=== PATIENT | female | born 1965 | race Caucasian/White ===

== ENCOUNTER 2019-01-05 06:00 | Inpatient (IN) | payer MEDICARE, OTHER ==
[~2019-01-05 06:00] MED LIST: Acetaminophen 1,000 MG in Premix Bag 1 BAG IV SCH; Famotidine 20 MG/2 ML SDV IVPUSH SCH; Ketorolac 30 MG/ML SDV IVPUSH SCH; Scopolamine 1.5 MG Transdermal Patch TRDERM SCH
[2019-01-05] MEDS ORDERED: Ropivacaine 49.25 ML, Ketorolac 30 MG, EPINEPHrine 0.5 MG, cloNIDine 80 MCG in Sodium C... INJECT SCH (08:00)
[2019-01-05] MEDS ORDERED: Tranexamic Acid 2,000 MG in Sodium Chloride 0.9% 100 ML IV ONE (08:00)
[2019-01-05] MEDS: Lactated Ringers 1,000 ML IV SCH ×2 (12:15→18:58)
--- NOTE | 2019-01-05 13:12 | PCM.PREANE ---
Preanesthetic Assessment - Anesthesia/Transfusion/Family Hx Anesthesia History: Prior Anesthesia Reaction Family History of Anesthesia Reaction: No Transfusion History: No Prior Transfusion(s) Intubation History: Unknown - Review of Systems General: No Symptoms Pulmonary: No Symptoms Cardiovascular: No Symptoms Gastrointestinal: No Symptoms Neurological: No Symptoms Other: Reports: None - Physical Assessment Respiratory Rate: 18 Vital Signs: Last Vital Signs Temp 36.9 C 01/05/19 12:10 Pulse 64 01/05/19 12:10 Resp 18 01/05/19 12:10 BP 135/83 01/05/19 12:10 Pulse Ox Height: 1.7 m Weight: 104.78 kg ASA Class: 2 Mental Status: Alert & Oriented x3 Airway Class: Mallampati = 2 Dentition: Reports: Partial (upper right and left), Interior(s) (x2 upper front and multiple lower) Thyro-Mental Finger Breadths: 3 Mouth Opening Finger Breadths: 3 ROM/Head Extension: Full Lungs: Clear to Auscultation, Normal Respiratory Effort Cardiovascular: Regular Rate, Regular Rhythm - Lab Values: Laboratory Last Values Blood Type O POSITIVE 01/05/19 12:15 Antibody Screen NEGATIVE 01/05/19 12:15 - Allergies Allergies/Adverse Reactions: Allergies Allergy/AdvReac Type Severity Reaction Status Date / Time celecoxib Allergy Swelling Verified 01/01/19 11:19 cephalexin [From Keflex] Allergy Hives Verified 01/01/19 11:19 Cephalosporins Allergy Hives Verified 01/01/19 11:19 ciprofloxacin [From Cipro] Allergy Hives Verified 01/01/19 11:19 ciprofloxacin HCl Allergy Hives Verified 01/01/19 11:19 [From Cipro] gentamicin Allergy Hives Verified 01/01/19 11:19 morphine Allergy Nausea and Verified 01/01/19 11:19 Vomiting Penicillins Allergy Rash Verified 01/01/19 11:19 anesthetic cream Allergy Hives Uncoded 01/01/19 11:19 - Blood Blood Available: No - Anesthesia Plan Pre-Op Medication Ordered: None - Acknowledgements Anesthesia Type Planned: Spinal (general anesthesia back up plan) Pt an Appropriate Candidate for the Planned Anesthesia: Yes Alternatives and Risks of Anesthesia Discussed w Pt/Guardian: Yes Pt/Guardian Understands and Agrees with Anesthesia Plan: Yes PreAnesthesia Questionnaire HEENT History: Reports: Other (See Below) Other HEENT History: has upper partial denture x2, has upper and lower dental implants Cardiovascular History: Reports: Hypertension Gastrointestinal History: Reports: GERD, Other (See Below) Other Gastrointestinal History: was previously thought to hace Ulcerative colitis, now is diagnosed with Cyclic Vomiting Syndrome- had recent episode Musculoskeletal History: Reports: Osteoarthritis Psychiatric History: Reports: Anxiety, Depression Endocrine/Metabolic History: Reports: Obesity/BMI 30+ Hematologic History: Reports: B12 Deficiency Dermatologic History: Reports: Psoriasis Other Dermatologic History: has Palmar Plantar Pustular psoriasis - Past Surgical History Head Surgeries/Procedures: Reports: None HEENT Surgical History: GI Surgical History: Reports: Cholecystectomy Female Surgical History: Reports: Hysterectomy, Salpingo-Oophorectomy, Tubal Ligation, Other (See Below) Other Female Surgeries/Procedures: Laparoscopies with Ovarian Wedge resection and Lysis of Adhesions Musculoskeletal Surgical History: Reports: Arthroscopic Knee, ORIF Other Musculoskeletal Surgeries/Procedures:: ACL repair left knee, ORIF right ankle (has plate and screws) - SUBSTANCE USE Smoking Status *Q: Former Smoker Tobacco Use Within Last Twelve Months: No Days Per Week of Alcohol Use: 1 Number of Drinks Per Day: 2 Total Drinks Per Week: 2 Recreational Drug Use History: No - HOME MEDS Home Medications: Home Meds Clobetasol [Clobetasol Propionate 0.05% Cream] 1 dose TOP BID PRN 01/01/19 [ History] Cyanocobalamin (Vitamin B-12) [Cyanocobalamin Injection] 1,000 mcg IM ASDIRECTED 01/01/19 [History] Escitalopram Oxalate 10 mg PO DAILY 01/01/19 [History] Estropipate 1.5 mg PO DAILY 01/01/19 [History] Losartan [Cozaar] 12.5 mg PO QAM 01/01/19 [History] Methotrexate 7.5 mg PO WEEKLY 01/01/19 [History] - CURRENT (IN HOUSE) MEDS Current Meds: Current Medications Famotidine (Pepcid) 40 mg IVPUSH ONARRIVE CAM Last Admin: 01/05/19 12:26 Dose: 40 mg Acetaminophen 1,000 mg/ Premix 100 mls @ 400 mls/hr IV ONARRIVE CAM Last Admin: 01/05/19 12:33 Dose: 400 mls/hr Clindamycin Phosphate 900 mg/ (Sodium Chloride) 56 mls @ 100 mls/hr IV ONCALL CAM Ropivacaine 49.25 ml/Ketorolac Tromethamine 30 mg/Epinephrine HCl 0.5 mg/ Clonidine HCl 80 mcg/ Sodium Chloride 100 mls @ 50 mls/sec INJECT ASDIRECTED [facility] Lactated Ringer's (Ringers, Lactated) 1,000 mls @ 100 mls/hr IV ASDIRECTED [facility] Last Admin: 01/05/19 12:15 Dose: 100 mls/hr Ketorolac Tromethamine (Toradol) 30 mg IVPUSH ONARRIVE [facility] Last Admin: 01/05/19 12:30 Dose: 30 mg Scopolamine (Transderm-Scop) 1.5 mg TRDERM ONARRIVE [facility] Last Admin: 01/05/19 12:40 Dose: 1.5 mg Discontinued Medications Tranexamic Acid 2,000 mg/ (Sodium Chloride) 120 mls @ 600 mls/hr IV ASDIRECTED ONE Stop: 01/05/19 08:11 Tranexamic Acid (Cyklokapron) Confirm Administered Dose 2,000 mg .ROUTE .[facility] ONE Stop: 01/05/19 07:36
[2019-01-05] MEDS ORDERED: Clindamycin Phosphate in D5W 900 MG in Premix Bag 1 BAG IV SCH ×4 (13:17→13:35)
[2019-01-05] MEDS ORDERED: Ondansetron 4 MG/2 ML SDV ONE (14:13)
[2019-01-05] MEDS ORDERED: Lidocaine 2% 5 ML SDV ONE (14:13)
[2019-01-05] MEDS ORDERED: Propofol 200 MG/20 ML SDV ONE ×2 (14:14→15:42)
[2019-01-05] MEDS ORDERED: fentaNYL 100 MCG/2 ML SDV ONE (14:14)
[2019-01-05] MEDS ORDERED: Midazolam 1 MG/ML 2 ML SDV ONE (14:14)
[2019-01-05] MEDS ORDERED: Glycopyrrolate 0.2 MG/ML SDV ONE ×2 (15:41→15:44)
[2019-01-05] MEDS ORDERED: Sodium Chloride 0.9% 2.5 ML Syringe FLUSH PRN (16:11)
[2019-01-05] MEDS ORDERED: Bisacodyl 10 MG Supp RECTAL PRN (16:11)
[2019-01-05] MEDS ORDERED: Sodium Chloride 0.9% 10 ML Syringe FLUSH PRN (16:11)
[2019-01-05] MEDS ORDERED: Ondansetron 4 MG/2 ML SDV IVPUSH PRN (16:11)
[2019-01-05] MEDS ORDERED: Aluminum Hydroxide/Magnesium Hydroxide/Simethicone Susp 30 ML Cup PO PRN (16:11)
[2019-01-05] MEDS ORDERED: diphenhydrAMINE 25 MG Cap PO PRN (16:11)
[2019-01-05] MEDS ORDERED: Morphine PF 30 MG/30 ML PCA Vial IV PRN (16:16)
--- NOTE | 2019-01-05 16:30 | PCM.OPNOTE ---
- General Post-Op/Procedure Note Date of Surgery/Procedure: 01/05/19 Operative Procedure(s): L TKA Post-Op Diagnosis: DJD left knee Anesthesia Technique: Spinal Primary Surgeon: Susanne Muse Political Cartoonist: Sylvie Adames Political Cartoonist: Alisa Portillo in mLs: 50 Condition: Good Free Text/Narrative:: tt=42 min #[id number]
--- NOTE | 2019-01-05 19:21 | OR ---
SURGEON: Susanne Muse MD DATE OF PROCEDURE: 01/05/2019 PREOPERATIVE DIAGNOSIS: Degenerative joint disease, left knee, tricompartmental. POSTOPERATIVE DIAGNOSIS: Degenerative joint disease, left knee, tricompartmental. PROCEDURE: Left total knee arthroplasty using patient specific instrumentation. ASSISTANTS: YAO Skelton and Alisa Portillo PA-C ANESTHESIA: Spinal with sedation. ESTIMATED BLOOD LOSS: 50 mL. TOURNIQUET TIME: 42 minutes. COMPLICATIONS: None. DVT PROPHYLAXIS: PAS boot and MICHAEL hose to the nonoperative leg. IMPLANTS USED: Shane Persona femoral component size 8 standard (LPS), tibial component size E, 11 mm all-polyethylene articular surface, and 38 mm all-polyethylene patella. INTRAOPERATIVE FINDINGS: Showed severe tricompartmental degenerative changes. She had complete eburnation of the bone along the trochlear groove and along the undersurface of the patella. Osteophyte formation was noted as well. No significant synovitis was found. BRIEF HISTORY: Rossana is a 53-year-old female who has had complaint of progressive left knee pain. Her x-rays did confirm degenerative changes. She had failed conservative treatment. Due to her lack of response to conservative treatment, I did recommend surgical intervention. The risks and goals of procedure were discussed with the patient and were documented preoperatively. She agreed to proceed. DESCRIPTION OF PROCEDURE: The patient was properly identified and brought to the operating room. The patient was then transferred from the operating room cart and placed on the operating table in a supine position. Anesthesia was administered by the anesthesia staff. After adequate anesthesia was obtained, a well-padded tourniquet was applied to the surgical lower extremity. Vasquez catheter was placed. The lower extremity was then prepped in standard fashion using ChloraPrep solution. It was then sterilely draped. A time-out was performed to ensure correct site and procedure. Preoperative antibiotics were given along with one gram of tranexamic acid IV. The surgical site had been marked preoperatively. An Esmarch was used to exsanguinate the left lower extremity and the tourniquet was inflated. An incision was made over the anterior aspect of the knee. The subcutaneous tissues were dissected down to the level of the fascia. A medial parapatellar approach to the knee was made. A portion of the infrapatellar fat pad was then excised. The distal femur was then exposed. The femoral patient-specific cutting guide was then placed. Pins were also placed. The distal femoral cutting block was placed and the distal femoral cut was made. Instrumentation was then removed. Both Whitesides' line and the epicondylar axis were then marked with electrocautery. The 4-in-1 cutting block was placed. This was placed in a slightly externally rotated position, which corresponded well with the previously drawn lines. The cutting guide was then pinned into position. An [place]w wing guide was used to check the depth of resection of our anterior condylar cut and it was felt that no notching would occur. The anterior condylar cut was then made followed by the posterior condylar cut. Both the posterior chamfer and anterior chamfer cuts were then made. The cutting block was then removed along with the excess bony remnants. We then turned our attention to the tibia. The anterior cruciate ligament and posterior cruciate ligament were released and a posterior cruciate ligament retractor was placed to allow the tibia to be pulled anteriorly. The tibial patient-specific guide was then placed on the proximal tibia. This fit anatomically. The pins were then placed. The proximal tibia cutting guide was then placed and screwed into position. The proximal tibial resection was then made with care being taken to protect the patellar tendon. The bony resection was then removed. The remainder of the medial and lateral meniscus were then excised. Care was taken to protect the popliteus tendon. The tibia was then sized to the appropriate size. The distal femur was then elevated. The posterior capsule was stripped off the distal femur both medially and laterally. The posterior capsule along with the medial and lateral gutters were then injected with a standard mixture consisting of clonidine, epinephrine, Toradol, and Ropivacaine, unless any allergies were found preoperatively. The femoral component was then placed onto the distal femur in a slightly lateral position. This fit the femur well. A box cut was then made without difficulty. This was then removed. The tibial trial along with the polyethylene liner was then placed. The knee came easily into full extension and was stable to varus and valgus stressing both in full extension and flexion. Any additional releases were performed at this time. We then returned our attention to the patella. The patella was everted and towel clamps were used to hold the patella in position. It was resected to a 15 millimeter thickness. It was then sized to the appropriate size. It was prepared in the usual fashion after placing the predetermined size clamps. This was placed in a slightly superior and medial position. The clamp was then removed. The patellar trial button was placed. The knee was taken through a range of motion using the no-touch technique. The patella tracked centrally. A drop cory was then placed to check alignment. All instruments were then removed from the knee. The tibial sizer was then placed on the tibia. The tibia was prepared in the usual fashion using the reamer and broach. This was then removed. All bony surfaces were copiously irrigated with Pulsavac solution. They were then suctioned dry. Cement was prepared on the back table in the usual manner. Once it was prepared, the bone ends were again suctioned dry. The tibia was cemented into place first. This was malleted into position. Excess cement was then cleared. The femur was then placed in a similar manner. We placed the polyethylene trial into place and the knee was brought into full extension. An axial load was placed while keeping the knee in full extension. The patella button was also cemented into position and the clamp was used to hold this in place as the cement was allowed to cure. The wound was again copiously irrigated with saline solution using a Pulsavac jacquard loom fixer. Following this 1 g of tranexamic acid was applied to the wound topically. After we had adequate curing of the cement, the knee was again taken through a range of motion. The size of the polyethylene was then determined. The polyethylene trial was then removed. The tibial tray was suctioned to make sure there was no remaining soft tissue or cement. Excess cement was cleared from around the edges of the prosthesis as well. The tourniquet was then deflated. We were able to observe for any excess bleeding and none was noted. Electrocautery was used to maintain hemostasis. An additional gram of tranexamic acid was given IV. The retractors were again placed and the predetermined polyethylene was then placed. This was locked into position without difficulty. The knee was again taken through a range of motion with no change from the prior exam. The fascial layer was closed with Number One Vicryl. The subcutaneous tissues were closed with 2-0 Vicryl. The skin was closed with paolo. Xeroform gauze was placed over the wound and a bulky dressing was applied. The patient was then awakened from anesthesia and transferred back to the operating room cart. They were brought to the recovery room in stable condition. All needle and sponge counts were correct. KELLY / MACARIO /[id number]
[2019-01-05] MEDS: Acetaminophen 1,000 MG in Premix Bag 1 BAG IV SCH (20:08)
[2019-01-05] MEDS: Ketorolac 30 MG/ML SDV IVPUSH SCH (20:08)
[2019-01-05] MEDS: Clindamycin Phosphate in D5W 900 MG in Premix Bag 1 BAG IV SCH ×2 (22:05)
[2019-01-05] MEDS: Docusate Sodium 100 MG Cap PO PRN (22:05)
[2019-01-05] MEDS: oxyCODONE 5 MG Tab PO PRN (22:05)
[2019-01-06] MEDS: Morphine 4 MG/ML Syringe IVPUSH PRN ×2 (00:24→19:43)
[2019-01-06] MEDS: oxyCODONE 5 MG Tab PO PRN (01:57)
[2019-01-06] MEDS: Acetaminophen 1,000 MG in Premix Bag 1 BAG IV SCH ×2 (01:58→08:30)
[2019-01-06] MEDS: Ketorolac 30 MG/ML SDV IVPUSH SCH (01:58)
[2019-01-06] MEDS ORDERED: Morphine 2 MG/ML Syringe IVPUSH PRN (06:00)
[2019-01-06] MEDS: Clindamycin Phosphate in D5W 900 MG in Premix Bag 1 BAG IV SCH ×2 (06:01)
[2019-01-06] MEDS: Acetaminophen/oxyCODONE 325-5 MG Tab PO PRN ×2 (06:18→10:19)
[2019-01-06] MEDS: Famotidine 20 MG Tab PO SCH (08:21)
[2019-01-06] MEDS: Losartan 50 MG Tab PO SCH (08:22)
[2019-01-06] MEDS: Escitalopram 10 MG Tab PO SCH (08:22)
[2019-01-06] MEDS: Aspirin 325 MG Tab PO SCH ×2 (08:43→20:03)
[2019-01-06] MEDS: Polyethylene Glycol 3350 Powder 17 GM Packet PO SCH (08:44)
--- NOTE | 2019-01-06 10:20 | PCM48HPAN ---
Post Anesthesia Note - EVALUATION WITHIN 48HRS OF ANESTHETIC Vital Signs in Normal Range: Yes Patient Participated in Evaluation: Yes Respiratory Function Stable: Yes Airway Patent: Yes Cardiovascular Function Stable: Yes Hydration Status Stable: Yes Pain Control Satisfactory: Yes Nausea and Vomiting Control Satisfactory: Yes Mental Status Recovered: Yes Resp Rate: 18 Blood Pressure: 144/83
--- NOTE | 2019-01-06 14:20 | PCM.SURGPN ---
- General Info POD#: 1 Functional Status: Reports: Pain Controlled - Review of Systems General: Reports: No Symptoms HEENT: Reports: No Symptoms Pulmonary: Reports: No Symptoms Cardiovascular: Reports: No Symptoms Gastrointestinal: Reports: No Symptoms Genitourinary: Reports: No Symptoms Musculoskeletal: Reports: Joint Pain Skin: Reports: No Symptoms Neurological: Reports: No Symptoms Psychiatric: Reports: No Symptoms Systems Review Comment:: Patient seen and examined. She is currently lying in bed. She states that her pain has been well-controlled. She did participate in physical therapy this morning and did well. She has no other complaints today. - Patient Data Vitals - Most Recent: Last Vital Signs Temp 98.1 F 01/06/19 12:15 Pulse 62 01/06/19 12:15 Resp 14 01/06/19 12:15 BP 130/86 01/06/19 12:15 Pulse Ox 96 01/06/19 12:15 Weight - Most Recent: 104.78 kg I&O - Last 24 Hours: Intake & Output 01/05/19 01/06/19 01/06/19 22:59 06:59 14:59 Intake Total 1949 2033 Output Total 2024 Balance 1950 9 Lab Results Last 24 Hrs: Laboratory Results - last 24 hr 01/06/19 Range/Units 05:10 Hgb 12.1 (12.0-16.0) g/dL Hct 37.3 (36.0-46.0) % Med Orders - Current: Current Medications Al Hydroxide/Mg Hydroxide (Mag-Al Plus) 30 ml PO Q4H PRN PRN Reason: Indigestion Aspirin (Aspirin) 325 mg PO BID [facility] Last Admin: 01/06/19 08:43 Dose: 325 mg Bisacodyl (Dulcolax) 10 mg RECTAL DAILY PRN PRN Reason: Constipation Diphenhydramine HCl (Benadryl) 25 - 50 mg PO Q6H PRN PRN Reason: Itching Docusate Sodium (Colace) 100 mg PO BID PRN PRN Reason: Constipation Last Admin: 01/05/19 22:05 Dose: 100 mg Escitalopram Oxalate (Lexapro) 10 mg PO DAILY [facility] Last Admin: 01/06/19 08:22 Dose: 10 mg Famotidine (Pepcid) 40 mg PO DAILY [facility] Last Admin: 01/06/19 08:21 Dose: 40 mg Lactated Ringer's (Ringers, Lactated) 1,000 mls @ 100 mls/hr IV ASDIRECTED [facility] Last Admin: 01/05/19 18:58 Dose: 100 mls/hr Losartan Potassium (Cozaar) 12.5 mg PO QAM [facility] Last Admin: 01/06/19 08:22 Dose: 12.5 mg Morphine Sulfate (Morphine) 1 - 3 mg IVPUSH Q3H PRN PRN Reason: Pain Last Admin: 01/06/19 00:24 Dose: 2 mg Ondansetron HCl (Zofran) 4 mg IVPUSH Q6H PRN PRN Reason: Nausea/Vomiting Last Admin: 01/06/19 14:08 Dose: 4 mg Oxycodone/Acetaminophen (Percocet 325-5 Mg) 1 - 2 tab PO Q4H PRN PRN Reason: Pain Last Admin: 01/06/19 10:19 Dose: 2 tab Polyethylene Glycol (Miralax) 17 gm PO DAILY [facility] Last Admin: 01/06/19 08:44 Dose: 17 gm Scopolamine (Transderm-Scop) 1.5 mg TRDERM ONARRIVE [facility] Last Admin: 01/05/19 12:40 Dose: 1.5 mg Sodium Chloride (Saline Flush) 10 ml FLUSH ASDIRECTED PRN PRN Reason: Keep Vein Open Sodium Chloride (Saline Flush) 2.5 ml FLUSH ASDIRECTED PRN PRN Reason: Keep Vein Open Discontinued Medications Famotidine (Pepcid) 40 mg IVPUSH ONARRIVE [facility] Last Admin: 01/05/19 12:26 Dose: 40 mg Fentanyl (Sublimaze) Confirm Administered Dose 100 mcg .ROUTE .STK-MED ONE Stop: 01/05/19 14:15 Glycopyrrolate (Robinul) Confirm Administered Dose 0.2 mg .ROUTE .STK-MED ONE Stop: 01/05/19 15:42 Glycopyrrolate (Robinul) Confirm Administered Dose 0.2 mg .ROUTE .STK-MED ONE Stop: 01/05/19 15:45 Acetaminophen 1,000 mg/ Premix 100 mls @ 400 mls/hr IV ONARRIVE [facility] Last Admin: 01/05/19 12:33 Dose: 400 mls/hr Clindamycin Phosphate 900 mg/ (Sodium Chloride) 56 mls @ 100 mls/hr IV ONCALL [facility] Ropivacaine 49.25 ml/Ketorolac Tromethamine 30 mg/Epinephrine HCl 0.5 mg/ Clonidine HCl 80 mcg/ Sodium Chloride 100 mls @ 50 mls/sec INJECT ASDIRECTED [facility] Tranexamic Acid 2,000 mg/ (Sodium Chloride) 120 mls @ 600 mls/hr IV ASDIRECTED ONE Stop: 01/05/19 08:11 Last Admin: 01/05/19 17:48 Dose: Not Given Clindamycin Phosphate 900 mg/ (Premix) 50 mls @ 89.286 mls/hr IV ONCALL [facility] Clindamycin Phosphate 900 mg/ (Premix) 50 mls @ 89.286 mls/hr IV ONCALL [facility] Acetaminophen 1,000 mg/ Premix 100 mls @ 400 mls/hr IV Q6H [facility] Stop: 01/06/19 08:14 Last Admin: 01/06/19 08:30 Dose: 400 mls/hr Clindamycin Phosphate 900 mg/ (Premix) 50 mls @ 100 mls/hr IV Q8H [facility] Stop: 01/06/19 07:29 Last Admin: 01/06/19 06:01 Dose: 100 mls/hr Ketorolac Tromethamine (Toradol) 30 mg IVPUSH ONARRIVE [facility] Last Admin: 01/05/19 12:30 Dose: 30 mg Ketorolac Tromethamine (Toradol) 30 mg IVPUSH Q6H [facility] Stop: 01/06/19 05:00 Last Admin: 01/06/19 01:58 Dose: 30 mg Lidocaine (Xylocaine-Mpf 2%) Confirm Administered Dose 5 ml .ROUTE .STK-MED ONE Stop: 01/05/19 14:14 Midazolam HCl (Versed 1 Mg/Ml) Confirm Administered Dose 2 mg .ROUTE .STK-MED ONE Stop: 01/05/19 14:15 Morphine Sulfate (Morphine Hot Plate Press Operator 30 Mg In 30 Ml) 30 mg IV ASDIRECTED PRN; Protocol PRN Reason: Pain Stop: 01/06/19 06:00 Morphine Sulfate (Morphine) 1 - 3 mg IVPUSH Q3H PRN PRN Reason: Pain Ondansetron HCl (Zofran) Confirm Administered Dose 4 mg .ROUTE .STK-MED ONE Stop: 01/05/19 14:14 Oxycodone HCl (Oxycodone) 5 - 10 mg PO Q4H PRN PRN Reason: Pain Stop: 01/06/19 08:00 Last Admin: 01/06/19 01:57 Dose: 10 mg Propofol (Diprivan 20 Ml) Confirm Administered Dose 600 mg .ROUTE .STK-MED ONE Stop: 01/05/19 14:15 Propofol (Diprivan 20 Ml) Confirm Administered Dose 400 mg .ROUTE .STK-MED ONE Stop: 01/05/19 15:43 Tranexamic Acid (Cyklokapron) Confirm Administered Dose 2,000 mg .ROUTE .STK- MED ONE Stop: 01/05/19 07:36 - Exam Wound/Incisions: Dressing Dry and Intact General: Alert, Oriented Physical Findings Comment:: Exam of the knee shows a dressing to be dry and intact. She has no calf tenderness. AT/EHL/gastroc 5/5. Sensation grossly intact. DP/PT pulses 2+. - Problem List Review Problem List Initiated/Reviewed/Updated: Yes - My Orders Last 24 Hours: Active Orders 24 hr Category Date Time Status Neurovascular Check [RC] Q2HR Care 01/05/19 16:11 Active Notify Provider Vital Signs [RC] ASDIRECTED Care 01/05/19 16:11 Active RT Incentive Spirometry [RC] Q1HWA Care 01/05/19 16:11 Active Vital Signs [RC] Q4H Care 01/05/19 16:11 Active Wound Care [RC] DAILY Care 01/05/19 16:11 Active PT Evaluation and Treatment [CONS] Routine Cons 01/05/19 16:11 Active Regular Diet [DIET] Diet 01/05/19 Dinner Active HEMOGLOBIN/HEMATOCRIT,HH [HEME] DAILY Lab 01/07/19 06:00 Ordered Acetaminophen/oxyCODONE [Percocet 325-5 MG] Med 01/06/19 06:00 Active 1 - 2 tab PO Q4H PRN Alum Hydrox/Mag Hydrox/Simeth [Mag-Al Plus] Med 01/05/19 16:11 Active 30 ml PO Q4H PRN Aspirin Med 01/06/19 09:00 Active 325 mg PO BID Bisacodyl [Dulcolax] Med 01/05/19 16:11 Active 10 mg RECTAL DAILY PRN Docusate Sodium [Colace] Med 01/05/19 21:00 Active 100 mg PO BID PRN Escitalopram [Lexapro] Med 01/06/19 09:00 Active 10 mg PO DAILY Famotidine [Pepcid] Med 01/06/19 09:00 Active 40 mg PO DAILY Losartan [Cozaar] Med 01/06/19 09:00 Active 12.5 mg PO QAM Morphine Med 01/05/19 16:34 Active 1 - 3 mg IVPUSH Q3H PRN Ondansetron [Zofran] Med 01/05/19 16:11 Active 4 mg IVPUSH Q6H PRN Polyethylene Glycol 3350 [MiraLAX] Med 01/06/19 09:00 Active 17 gm PO DAILY Sodium Chloride 0.9% [Saline Flush] Med 01/05/19 16:11 Active 10 ml FLUSH ASDIRECTED PRN Sodium Chloride 0.9% [Saline Flush] Med 01/05/19 16:11 Active 2.5 ml FLUSH ASDIRECTED PRN diphenhydrAMINE [Benadryl] Med 01/05/19 16:11 Active 25 - 50 mg PO Q6H PRN Convert IV to Saline Lock [OM.PC] PRN Oth 01/06/19 06:00 Ordered Convert IV to Saline Lock [OM.PC] PRN Oth 01/07/19 06:00 Ordered Ice Therapy [OM.PC] Routine Oth 01/05/19 16:11 Ordered Pulse Oximetry Continuous Monitoring [OM.PC] Routine Oth 01/05/19 16:09 Ordered Pulse Oximetry Continuous Monitoring [OM.PC] Routine Oth 01/05/19 16:27 Ordered Medication Orders Al Hydroxide/Mg Hydroxide (Mag-Al Plus) 30 ml PO Q4H PRN PRN Reason: Indigestion Aspirin (Aspirin) 325 mg PO BID [facility] Last Admin: 01/06/19 08:43 Dose: 325 mg Bisacodyl (Dulcolax) 10 mg RECTAL DAILY PRN PRN Reason: Constipation Diphenhydramine HCl (Benadryl) 25 - 50 mg PO Q6H PRN PRN Reason: Itching Docusate Sodium (Colace) 100 mg PO BID PRN PRN Reason: Constipation Last Admin: 01/05/19 22:05 Dose: 100 mg Escitalopram Oxalate (Lexapro) 10 mg PO DAILY [facility] Last Admin: 01/06/19 08:22 Dose: 10 mg Famotidine (Pepcid) 40 mg PO DAILY [facility] Last Admin: 01/06/19 08:21 Dose: 40 mg Lactated Ringer's (Ringers, Lactated) 1,000 mls @ 100 mls/hr IV ASDIRECTED [facility] Last Admin: 01/05/19 18:58 Dose: 100 mls/hr Infusion: 01/05/19 18:58 Dose: 100 mls/hr Admin: 01/05/19 12:15 Dose: 100 mls/hr Losartan Potassium (Cozaar) 12.5 mg PO QAM [facility] Last Admin: 01/06/19 08:22 Dose: 12.5 mg Morphine Sulfate (Morphine) 1 - 3 mg IVPUSH Q3H PRN PRN Reason: Pain Last Admin: 01/06/19 00:24 Dose: 2 mg Ondansetron HCl (Zofran) 4 mg IVPUSH Q6H PRN PRN Reason: Nausea/Vomiting Last Admin: 01/06/19 14:08 Dose: 4 mg Oxycodone/Acetaminophen (Percocet 325-5 Mg) 1 - 2 tab PO Q4H PRN PRN Reason: Pain Last Admin: 01/06/19 10:19 Dose: 2 tab Admin: 01/06/19 06:18 Dose: 2 tab Polyethylene Glycol (Miralax) 17 gm PO DAILY [facility] Last Admin: 01/06/19 08:44 Dose: 17 gm Scopolamine (Transderm-Scop) 1.5 mg TRDERM ONARRIVE [facility] Last Admin: 01/05/19 12:40 Dose: 1.5 mg Sodium Chloride (Saline Flush) 10 ml FLUSH ASDIRECTED PRN PRN Reason: Keep Vein Open Sodium Chloride (Saline Flush) 2.5 ml FLUSH ASDIRECTED PRN PRN Reason: Keep Vein Open - Plan Plan (Free Text/Narrative):: 1. continue po pain management 2. PT--WBAT, continue outpatient PT 3. ASA 325mg po bid for DVT prophylaxis 4. plan d/c later today
--- NOTE | 2019-01-06 15:05 | PCM.SURGPN ---
- General Info Date of Service: 01/06/19 (0800) Date of Surgery/Procedure: 01/05/19 POD#: 1 Post-Op Diagnosis: degenerative joint disease, left knee Admission Diagnosis/Problem: Left knee pain Functional Status: Reports: Pain Controlled (tolerating pain medication overnight) - Review of Systems General: Reports: No Symptoms. Denies: Fever Pulmonary: Reports: No Symptoms Cardiovascular: Reports: No Symptoms Gastrointestinal: Reports: No Symptoms. Denies: Nausea, Vomiting Genitourinary: Reports: No Symptoms (muller catheter removed) Musculoskeletal: Reports: Other (post-surgical knee pain) Skin: Reports: No Symptoms Neurological: Reports: No Symptoms Psychiatric: Reports: No Symptoms - Patient Data Vitals - Most Recent: Last Vital Signs Temp 36.7 C 01/06/19 12:15 Pulse 62 01/06/19 12:15 Resp 14 01/06/19 12:15 BP 130/86 01/06/19 12:15 Pulse Ox 96 01/06/19 12:15 Weight - Most Recent: 104.78 kg I&O - Last 24 Hours: Intake & Output 01/06/19 01/06/19 01/06/19 06:59 14:59 22:59 Intake Total 2033 Output Total 2024 Balance 9 Lab Results Last 24 Hrs: Laboratory Results - last 24 hr 01/06/19 Range/Units 05:10 Hgb 12.1 (12.0-16.0) g/dL Hct 37.3 (36.0-46.0) % Med Orders - Current: Current Medications Hydrocodone Bitart/Acetaminophen ([place] 325-5 Mg) 1 - 2 tab PO Q4H PRN PRN Reason: Pain Al Hydroxide/Mg Hydroxide (Mag-Al Plus) 30 ml PO Q4H PRN PRN Reason: Indigestion Aspirin (Aspirin) 325 mg PO BID [facility] Last Admin: 01/06/19 08:43 Dose: 325 mg Bisacodyl (Dulcolax) 10 mg RECTAL DAILY PRN PRN Reason: Constipation Diphenhydramine HCl (Benadryl) 25 - 50 mg PO Q6H PRN PRN Reason: Itching Docusate Sodium (Colace) 100 mg PO BID PRN PRN Reason: Constipation Last Admin: 01/05/19 22:05 Dose: 100 mg Escitalopram Oxalate (Lexapro) 10 mg PO DAILY [facility] Last Admin: 01/06/19 08:22 Dose: 10 mg Famotidine (Pepcid) 40 mg PO DAILY [facility] Last Admin: 01/06/19 08:21 Dose: 40 mg Lactated Ringer's (Ringers, Lactated) 1,000 mls @ 100 mls/hr IV ASDIRECTED [facility] Last Admin: 01/05/19 18:58 Dose: 100 mls/hr Losartan Potassium (Cozaar) 12.5 mg PO QAM [facility] Last Admin: 01/06/19 08:22 Dose: 12.5 mg Morphine Sulfate (Morphine) 1 - 3 mg IVPUSH Q3H PRN PRN Reason: Pain Last Admin: 01/06/19 00:24 Dose: 2 mg Ondansetron HCl (Zofran) 4 mg IVPUSH Q6H PRN PRN Reason: Nausea/Vomiting Last Admin: 01/06/19 14:08 Dose: 4 mg Polyethylene Glycol (Miralax) 17 gm PO DAILY [facility] Last Admin: 01/06/19 08:44 Dose: 17 gm Scopolamine (Transderm-Scop) 1.5 mg TRDERM ONARRIVE [facility] Last Admin: 01/05/19 12:40 Dose: 1.5 mg Sodium Chloride (Saline Flush) 10 ml FLUSH ASDIRECTED PRN PRN Reason: Keep Vein Open Sodium Chloride (Saline Flush) 2.5 ml FLUSH ASDIRECTED PRN PRN Reason: Keep Vein Open Discontinued Medications Famotidine (Pepcid) 40 mg IVPUSH ONARRIVE [facility] Last Admin: 01/05/19 12:26 Dose: 40 mg Fentanyl (Sublimaze) Confirm Administered Dose 100 mcg .ROUTE .STK-MED ONE Stop: 01/05/19 14:15 Glycopyrrolate (Robinul) Confirm Administered Dose 0.2 mg .ROUTE .STK-MED ONE Stop: 01/05/19 15:42 Glycopyrrolate (Robinul) Confirm Administered Dose 0.2 mg .ROUTE .STK-MED ONE Stop: 01/05/19 15:45 Acetaminophen 1,000 mg/ Premix 100 mls @ 400 mls/hr IV ONARRIVE [facility] Last Admin: 01/05/19 12:33 Dose: 400 mls/hr Clindamycin Phosphate 900 mg/ (Sodium Chloride) 56 mls @ 100 mls/hr IV ONCALL [facility] Ropivacaine 49.25 ml/Ketorolac Tromethamine 30 mg/Epinephrine HCl 0.5 mg/ Clonidine HCl 80 mcg/ Sodium Chloride 100 mls @ 50 mls/sec INJECT ASDIRECTED [facility] Tranexamic Acid 2,000 mg/ (Sodium Chloride) 120 mls @ 600 mls/hr IV ASDIRECTED ONE Stop: 01/05/19 08:11 Last Admin: 01/05/19 17:48 Dose: Not Given Clindamycin Phosphate 900 mg/ (Premix) 50 mls @ 89.286 mls/hr IV ONCALL [facility] Clindamycin Phosphate 900 mg/ (Premix) 50 mls @ 89.286 mls/hr IV ONCALL [facility] Acetaminophen 1,000 mg/ Premix 100 mls @ 400 mls/hr IV Q6H [facility] Stop: 01/06/19 08:14 Last Admin: 01/06/19 08:30 Dose: 400 mls/hr Clindamycin Phosphate 900 mg/ (Premix) 50 mls @ 100 mls/hr IV Q8H [facility] Stop: 01/06/19 07:29 Last Admin: 01/06/19 06:01 Dose: 100 mls/hr Ketorolac Tromethamine (Toradol) 30 mg IVPUSH ONARRIVE [facility] Last Admin: 01/05/19 12:30 Dose: 30 mg Ketorolac Tromethamine (Toradol) 30 mg IVPUSH Q6H [facility] Stop: 01/06/19 05:00 Last Admin: 01/06/19 01:58 Dose: 30 mg Lidocaine (Xylocaine-Mpf 2%) Confirm Administered Dose 5 ml .ROUTE .STK-MED ONE Stop: 01/05/19 14:14 Midazolam HCl (Versed 1 Mg/Ml) Confirm Administered Dose 2 mg .ROUTE .STK-MED ONE Stop: 01/05/19 14:15 Morphine Sulfate (Morphine [employer]aste Plant Supervisor 30 Mg In 30 Ml) 30 mg IV ASDIRECTED PRN; Protocol PRN Reason: Pain Stop: 01/06/19 06:00 Morphine Sulfate (Morphine) 1 - 3 mg IVPUSH Q3H PRN PRN Reason: Pain Ondansetron HCl (Zofran) Confirm Administered Dose 4 mg .ROUTE .STK-MED ONE Stop: 01/05/19 14:14 Oxycodone HCl (Oxycodone) 5 - 10 mg PO Q4H PRN PRN Reason: Pain Stop: 01/06/19 08:00 Last Admin: 01/06/19 01:57 Dose: 10 mg Oxycodone/Acetaminophen (Percocet 325-5 Mg) 1 - 2 tab PO Q4H PRN PRN Reason: Pain Last Admin: 01/06/19 10:19 Dose: 2 tab Propofol (Diprivan 20 Ml) Confirm Administered Dose 600 mg .ROUTE .STK-MED ONE Stop: 01/05/19 14:15 Propofol (Diprivan 20 Ml) Confirm Administered Dose 400 mg .ROUTE .STK-MED ONE Stop: 01/05/19 15:43 Tranexamic Acid (Cyklokapron) Confirm Administered Dose 2,000 mg .ROUTE .STK- MED ONE Stop: 01/05/19 07:36 - Exam Wound/Incisions: Dressing Dry and Intact (small amount of dried bloody drainage on surgical dressing). No: Erythema General: Alert, Oriented HEENT: Mucous Membr. Moist/[place] Lungs: Normal Respiratory Effort Cardiovascular: Regular Rate GI/Abdominal Exam: Soft Extremities: Normal Capillary Refill (AT/EHL/Gastroc 5/5. Sensation grossly intact to left foot. ) Skin: Warm, Dry Psy/Mental Status: Alert, Normal Affect, Normal Mood - Problem List Review Problem List Initiated/Reviewed/Updated: Yes - My Orders Last 24 Hours: Active Orders 24 hr Category Date Time Status Neurovascular Check [RC] Q2HR Care 01/05/19 16:11 Active Notify Provider Vital Signs [RC] ASDIRECTED Care 01/05/19 16:11 Active RT Incentive Spirometry [RC] Q1HWA Care 01/05/19 16:11 Active Vital Signs [RC] Q4H Care 01/05/19 16:11 Active Wound Care [RC] DAILY Care 01/05/19 16:11 Active PT Evaluation and Treatment [CONS] Routine Cons 01/05/19 16:11 Active Regular Diet [DIET] Diet 01/05/19 Dinner Active HEMOGLOBIN/HEMATOCRIT,HH [HEME] DAILY Lab 01/07/19 06:00 Ordered Acetaminophen/HYDROcodone [[place] 325-5 MG] Med 01/06/19 14:59 Ordered 1 - 2 tab PO Q4H PRN Alum Hydrox/Mag Hydrox/Simeth [Mag-Al Plus] Med 01/05/19 16:11 Active 30 ml PO Q4H PRN Aspirin Med 01/06/19 09:00 Active 325 mg PO BID Bisacodyl [Dulcolax] Med 01/05/19 16:11 Active 10 mg RECTAL DAILY PRN Docusate Sodium [Colace] Med 01/05/19 21:00 Active 100 mg PO BID PRN Escitalopram [Lexapro] Med 01/06/19 09:00 Active 10 mg PO DAILY Famotidine [Pepcid] Med 01/06/19 09:00 Active 40 mg PO DAILY Losartan [Cozaar] Med 01/06/19 09:00 Active 12.5 mg PO QAM Morphine Med 01/05/19 16:34 Active 1 - 3 mg IVPUSH Q3H PRN Ondansetron [Zofran] Med 01/05/19 16:11 Active 4 mg IVPUSH Q6H PRN Polyethylene Glycol 3350 [MiraLAX] Med 01/06/19 09:00 Active 17 gm PO DAILY Sodium Chloride 0.9% [Saline Flush] Med 01/05/19 16:11 Active 10 ml FLUSH ASDIRECTED PRN Sodium Chloride 0.9% [Saline Flush] Med 01/05/19 16:11 Active 2.5 ml FLUSH ASDIRECTED PRN diphenhydrAMINE [Benadryl] Med 01/05/19 16:11 Active 25 - 50 mg PO Q6H PRN Convert IV to Saline Lock [OM.PC] PRN Oth 01/06/19 06:00 Ordered Convert IV to Saline Lock [OM.PC] PRN Oth 01/07/19 06:00 Ordered Ice Therapy [OM.PC] Routine Oth 01/05/19 16:11 Ordered Pulse Oximetry Continuous Monitoring [OM.PC] Routine Oth 01/05/19 16:09 Ordered Pulse Oximetry Continuous Monitoring [OM.PC] Routine Oth 01/05/19 16:27 Ordered Medication Orders Hydrocodone Bitart/Acetaminophen ([place] 325-5 Mg) 1 - 2 tab PO Q4H PRN PRN Reason: Pain Al Hydroxide/Mg Hydroxide (Mag-Al Plus) 30 ml PO Q4H PRN PRN Reason: Indigestion Aspirin (Aspirin) 325 mg PO BID [facility] Last Admin: 01/06/19 08:43 Dose: 325 mg Bisacodyl (Dulcolax) 10 mg RECTAL DAILY PRN PRN Reason: Constipation Diphenhydramine HCl (Benadryl) 25 - 50 mg PO Q6H PRN PRN Reason: Itching Docusate Sodium (Colace) 100 mg PO BID PRN PRN Reason: Constipation Last Admin: 01/05/19 22:05 Dose: 100 mg Escitalopram Oxalate (Lexapro) 10 mg PO DAILY [facility] Last Admin: 01/06/19 08:22 Dose: 10 mg Famotidine (Pepcid) 40 mg PO DAILY [facility] Last Admin: 01/06/19 08:21 Dose: 40 mg Lactated Ringer's (Ringers, Lactated) 1,000 mls @ 100 mls/hr IV ASDIRECTED [facility] Last Admin: 01/05/19 18:58 Dose: 100 mls/hr Infusion: 01/05/19 18:58 Dose: 100 mls/hr Admin: 01/05/19 12:15 Dose: 100 mls/hr Losartan Potassium (Cozaar) 12.5 mg PO QAM [facility] Last Admin: 01/06/19 08:22 Dose: 12.5 mg Morphine Sulfate (Morphine) 1 - 3 mg IVPUSH Q3H PRN PRN Reason: Pain Last Admin: 01/06/19 00:24 Dose: 2 mg Ondansetron HCl (Zofran) 4 mg IVPUSH Q6H PRN PRN Reason: Nausea/Vomiting Last Admin: 01/06/19 14:08 Dose: 4 mg Polyethylene Glycol (Miralax) 17 gm PO DAILY [facility] Last Admin: 01/06/19 08:44 Dose: 17 gm Scopolamine (Transderm-Scop) 1.5 mg TRDERM ONARRIVE [facility] Last Admin: 01/05/19 12:40 Dose: 1.5 mg Sodium Chloride (Saline Flush) 10 ml FLUSH ASDIRECTED PRN PRN Reason: Keep Vein Open Sodium Chloride (Saline Flush) 2.5 ml FLUSH ASDIRECTED PRN PRN Reason: Keep Vein Open - Assessment Assessment (Free Text/Narrative):: s/p LEFT TKA - Plan Plan (Free Text/Narrative):: This morning, overall feels well with no acute concerns. Sitting up in chair for breakfast. tolerating po food/fluids without N/V. Utilizing [employer] ice to knee. Muller catheter removed. VSS/afebrile. O2 sats remained >96% overnight. Hg/Hct stable. Surgical dressing removed. Incision CDI. Large AquaCell applied. Normal neurovascular exam. Currently tolerating oral pain medications. Lists morphine as allergy with previous intolerance of N/V, but tolerated if had antacid before. Has not been up ambulating with PT yesterday or today. If PT and pain controlled, she prefers discharge as is planning on staying with her mom in [facility] [place] before going home. Will follow up this afternoon. ASA will start today for DVT prophylaxis. 24 hour IV antibiotic completed.
[2019-01-06] MEDS ORDERED: Ondansetron 4 MG/2 ML SDV IVPUSH PRN (15:16)
--- NOTE | 2019-01-06 15:31 | PCM.SN ---
- Free Text/Narrative Note: Has not been tolerating oral pain medication. When ambulating with PT, she became nauseated and had an emesis with this morning's PT as well as this afternoon. Received IV Zofran with relief. Hx of intolerance to morphine, resulting in N/V. Discussed with Rossana and will change oral pain medication from oxycodone/acetaminophen to hydrocodone/acetaminophen, and encouraged her to take Zofran as needed. As of now, plan overnight stay for continued PT and pain control.
[2019-01-06] MEDS: Acetaminophen/HYDROcodone 325-5 MG Tab PO PRN ×2 (17:41→23:05)
[2019-01-06] MEDS: Docusate Sodium 100 MG Cap PO PRN (20:03)
--- NOTE | 2019-01-07 00:21 | CR ---
INDICATION: Postoperative assessment. COMPARISON: Report of the MRI of the left knee from 11/04/2018 FINDINGS: AP and lateral views of the left knee were obtained with portable technique at 1644 hours. The components of a newly placed total knee prosthesis are in anatomic alignment with no sign of fracture, loosening, or dislocation. Fluid is seen in the joint space from recent surgery. Skin paolo overlie the operative site. IMPRESSION: Satisfactory appearance of the left knee following total knee prosthesis placement. Dictated by Allen Mosquera MD @ Jan 07 2019 12:18AM Signed by Dr. Allen Mosquera @ Jan 07 2019 12:19AM
[2019-01-07] MEDS: Acetaminophen/HYDROcodone 325-5 MG Tab PO PRN ×2 (03:25→07:05)
[2019-01-07] MEDS: Polyethylene Glycol 3350 Powder 17 GM Packet PO SCH (09:28)
[2019-01-07] MEDS: Famotidine 20 MG Tab PO SCH (09:28)
[2019-01-07] MEDS: Losartan 50 MG Tab PO SCH (09:28)
[2019-01-07] MEDS: Aspirin 325 MG Tab PO SCH (09:28)
[2019-01-07] MEDS: Escitalopram 10 MG Tab PO SCH (09:29)
--- NOTE | 2019-01-07 12:38 | PCM.DCSUM1 ---
Discharge Summary - Hospital Course Free Text/Narrative:: Rossana underwent LEFT TOTAL KNEE ARTHROPLASTY using patient specific instrumentation under spinal anesthesia with tourniquet time 42 min, by Dr. Susanne Muse on 01/05/19. Post-operative diagnosis : degenerative joint disease, LEFT knee, tricompartmental. No complications post-operatively, and was transferred to Med/surg for post- operative care. - Discharge Data Discharge Date: 01/07/19 Discharge Disposition: Home, Self-Care 01 Condition: Good - Patient Summary/Data Operative Procedure(s) Performed: L TKA Complications: none in the acute post-operative period. POD#1, she had N/V following administration of Percocet for pain (had no N/V first overnight with oxycodone). Consults: Consultations 01/05/19 16:11 PT Evaluation and Treatment [CONS] Routine Hospital Course: POD#1, in the early AM, she reported feeling good, but after ambulating with PT , increased pain and pain medication (Percocet), she had N/V. Remainder of POD# 1, she had little oral intake nor ambulation, and did not feel ready for discharge. Pain medication 2 was switched to [place], which she tolerated remainder of her stay, receiving adequate pain control without N/V. Offered ODT Zofran Rx at discharge, but declined, stating she had adequate supply of Rx at home. VSS/afebrile. Hg stable (POD#1 12.1, POD#2 13.1). Vasquez catheter was removed morning of POD#1 as urine output adequate. 24 hours of IV antibiotic completed. Surgical dressing removed POD#1 with minimal drainage. AquaCell applied and had a 1cm bloody shadow day of discharge. Neurovascular exam normal. Ambulating with walker and staff. Rx written for walker upon discharge. Outpatient PT scheduled to start 01/08/19 in [facility]. Diligent use of polar care, along with compression stockings and SCDs. ASA started POD#1 for DVT prophylaxis. Allergic to Celebrex. Morning of POD#2, she felt ready for discharge as pain controlled and tolerating [place] Rx without N/V. - Patient Instructions Diet: Regular Diet as Tolerated Activity: Apply Ice, As Tolerated Showering/Bathing: May Shower Wound/Incision Care: Keep Operative Site/Wound Site Clean and Dry Notify Provider of: Fever, Increased Pain, Swelling and Redness, Drainage, Nausea and/or Vomiting Other/Special Instructions: Refer to Dr. Susanne Muse's Post-operative patient instructions for TOTAL KNEE ARTHROPLASTY orange sheet - Discharge Plan Prescriptions/Med Rec: Acetaminophen/HYDROcodone [[place] 325-5 MG] 1 - 2 tab PO Q4H PRN #60 tablet PRN Reason: Pain Aspirin 325 mg PO BID #60 tablet Docusate Sodium [Colace] 100 mg PO BID PRN #60 cap PRN Reason: Constipation Polyethylene Glycol 3350 [MiraLAX] 17 gm PO DAILY #600 gram Home Medications: Home Meds Clobetasol [Clobetasol Propionate 0.05% Cream] 1 dose TOP BID PRN 01/01/19 [ History] Cyanocobalamin (Vitamin B-12) [Cyanocobalamin Injection] 1,000 mcg IM ASDIRECTED 01/01/19 [History] Escitalopram Oxalate 10 mg PO DAILY 01/01/19 [History] Estropipate 1.5 mg PO DAILY 01/01/19 [History] Losartan [Cozaar] 12.5 mg PO QAM 01/01/19 [History] Methotrexate 7.5 mg PO WEEKLY 01/01/19 [History] Acetaminophen/HYDROcodone [[place] 325-5 MG] 1 - 2 tab PO Q4H PRN #60 tablet 01/07 [Rx] Aspirin 325 mg PO BID #60 tablet 01/07/19 [Rx] Docusate Sodium [Colace] 100 mg PO BID PRN #60 cap 01/07/19 [Rx] Famotidine [Pepcid] 40 mg PO DAILY tablet 01/07/19 [Rx] Polyethylene Glycol 3350 [MiraLAX] 17 gm PO DAILY #600 gram 01/07/19 [Rx] Patient Handouts: Acetaminophen; Hydrocodone tablets or capsules, Celecoxib capsules, Total Knee Replacement, Care After, [id number], Aspirin, ASA oral tablets, Docusate capsules, Polyethylene Glycol powder Referrals: Susanne Muse MD [Physician] - 02/12/19 2:45 pm Sylvie Adames NP [Nurse Practitioner] - 01/16/19 1:30 pm - Discharge Summary/Plan Comment DC Time >30 min.: No - General Info Date of Service: 01/07/19 Functional Status: Reports: Pain Controlled, Tolerating Diet, Ambulating, Urinating - Review of Systems General: Reports: No Symptoms. Denies: Fever Pulmonary: Reports: No Symptoms. Denies: Shortness of Breath Cardiovascular: Reports: No Symptoms. Denies: Chest Pain Gastrointestinal: Reports: No Symptoms. Denies: Abdominal Pain, Constipation, Nausea, Vomiting Musculoskeletal: Reports: Joint Pain (post surgical knee pain. AT/EHL/gastroc 5/ 5 Sensation intact to LLE) Skin: Reports: No Symptoms (AquaCell dressing intact with 1cm area of shadowing) Neurological: Reports: No Symptoms Psychiatric: Reports: No Symptoms - Patient Data Vitals - Most Recent: Last Vital Signs Temp 36.5 C 01/07/19 07:36 Pulse 72 01/07/19 07:36 Resp 12 01/07/19 07:36 BP 143/91 H 01/07/19 09:28 Pulse Ox 99 01/07/19 07:36 Weight - Most Recent: 104.78 kg I&O - Last 24 hours: Intake & Output 01/06/19 01/07/19 01/07/19 22:59 06:59 14:59 Intake Total 530 560 Output Total 1450 1350 Balance -920 -790 Lab Results - Last 24 hrs: Laboratory Results - last 24 hr 01/07/19 Range/Units 05:10 Hgb 13.1 (12.0-16.0) g/dL Hct 39.3 (36.0-46.0) % Med Orders - Current: Current Medications Discontinued Medications Hydrocodone Bitart/Acetaminophen ([place] 325-5 Mg) 1 - 2 tab PO Q4H PRN PRN Reason: Pain Last Admin: 01/07/19 07:05 Dose: 2 tab Al Hydroxide/Mg Hydroxide (Mag-Al Plus) 30 ml PO Q4H PRN PRN Reason: Indigestion Aspirin (Aspirin) 325 mg PO BID [facility] Last Admin: 01/07/19 09:28 Dose: 325 mg Bisacodyl (Dulcolax) 10 mg RECTAL DAILY PRN PRN Reason: Constipation Diphenhydramine HCl (Benadryl) 25 - 50 mg PO Q6H PRN PRN Reason: Itching Docusate Sodium (Colace) 100 mg PO BID PRN PRN Reason: Constipation Last Admin: 01/06/19 20:03 Dose: 100 mg Escitalopram Oxalate (Lexapro) 10 mg PO DAILY [facility] Last Admin: 01/07/19 09:29 Dose: 10 mg Famotidine (Pepcid) 40 mg IVPUSH ONARRIVE [facility] Last Admin: 01/05/19 12:26 Dose: 40 mg Famotidine (Pepcid) 40 mg PO DAILY [facility] Last Admin: 01/07/19 09:28 Dose: 40 mg Fentanyl (Sublimaze) Confirm Administered Dose 100 mcg .ROUTE .STK-MED ONE Stop: 01/05/19 14:15 Glycopyrrolate (Robinul) Confirm Administered Dose 0.2 mg .ROUTE .STK-MED ONE Stop: 01/05/19 15:42 Glycopyrrolate (Robinul) Confirm Administered Dose 0.2 mg .ROUTE .STK-MED ONE Stop: 01/05/19 15:45 Acetaminophen 1,000 mg/ Premix 100 mls @ 400 mls/hr IV ONARRIVE [facility] Last Admin: 01/05/19 12:33 Dose: 400 mls/hr Clindamycin Phosphate 900 mg/ (Sodium Chloride) 56 mls @ 100 mls/hr IV ONCALL [facility] Ropivacaine 49.25 ml/Ketorolac Tromethamine 30 mg/Epinephrine HCl 0.5 mg/ Clonidine HCl 80 mcg/ Sodium Chloride 100 mls @ 50 mls/sec INJECT ASDIRECTED [facility] Lactated Ringer's (Ringers, Lactated) 1,000 mls @ 100 mls/hr IV ASDIRECTED [facility] Last Admin: 01/05/19 18:58 Dose: 100 mls/hr Tranexamic Acid 2,000 mg/ (Sodium Chloride) 120 mls @ 600 mls/hr IV ASDIRECTED ONE Stop: 01/05/19 08:11 Last Admin: 01/05/19 17:48 Dose: Not Given Clindamycin Phosphate 900 mg/ (Premix) 50 mls @ 89.286 mls/hr IV ONCALL [facility] Clindamycin Phosphate 900 mg/ (Premix) 50 mls @ 89.286 mls/hr IV ONCALL [facility] Acetaminophen 1,000 mg/ Premix 100 mls @ 400 mls/hr IV Q6H [facility] Stop: 01/06/19 08:14 Last Admin: 01/06/19 08:30 Dose: 400 mls/hr Clindamycin Phosphate 900 mg/ (Premix) 50 mls @ 100 mls/hr IV Q8H [facility] Stop: 01/06/19 07:29 Last Admin: 01/06/19 06:01 Dose: 100 mls/hr Ketorolac Tromethamine (Toradol) 30 mg IVPUSH ONARRIVE [facility] Last Admin: 01/05/19 12:30 Dose: 30 mg Ketorolac Tromethamine (Toradol) 30 mg IVPUSH Q6H [facility] Stop: 01/06/19 05:00 Last Admin: 01/06/19 01:58 Dose: 30 mg Lidocaine (Xylocaine-Mpf 2%) Confirm Administered Dose 5 ml .ROUTE .STK-MED ONE Stop: 01/05/19 14:14 Losartan Potassium (Cozaar) 12.5 mg PO QAM [facility] Last Admin: 01/07/19 09:28 Dose: 12.5 mg Midazolam HCl (Versed 1 Mg/Ml) Confirm Administered Dose 2 mg .ROUTE .STK-MED ONE Stop: 01/05/19 14:15 Morphine Sulfate (Morphine Insurance Claim Auditor 30 Mg In 30 Ml) 30 mg IV ASDIRECTED PRN; Protocol PRN Reason: Pain Stop: 01/06/19 06:00 Morphine Sulfate (Morphine) 1 - 3 mg IVPUSH Q3H PRN PRN Reason: Pain Morphine Sulfate (Morphine) 1 - 3 mg IVPUSH Q3H PRN PRN Reason: Pain Last Admin: 01/06/19 19:43 Dose: 3 mg Ondansetron HCl (Zofran) Confirm Administered Dose 4 mg .ROUTE .STK-MED ONE Stop: 01/05/19 14:14 Ondansetron HCl (Zofran) 4 mg IVPUSH Q6H PRN PRN Reason: Nausea/Vomiting Last Admin: 01/06/19 14:08 Dose: 4 mg Ondansetron HCl (Zofran) 4 mg IVPUSH Q4H PRN PRN Reason: NAUSEA/VOMITING Last Admin: 01/06/19 17:36 Dose: 4 mg Oxycodone HCl (Oxycodone) 5 - 10 mg PO Q4H PRN PRN Reason: Pain Stop: 01/06/19 08:00 Last Admin: 01/06/19 01:57 Dose: 10 mg Oxycodone/Acetaminophen (Percocet 325-5 Mg) 1 - 2 tab PO Q4H PRN PRN Reason: Pain Last Admin: 01/06/19 10:19 Dose: 2 tab Polyethylene Glycol (Miralax) 17 gm PO DAILY [facility] Last Admin: 01/07/19 09:28 Dose: 17 gm Propofol (Diprivan 20 Ml) Confirm Administered Dose 600 mg .ROUTE .STK-MED ONE Stop: 01/05/19 14:15 Propofol (Diprivan 20 Ml) Confirm Administered Dose 400 mg .ROUTE .STK-MED ONE Stop: 01/05/19 15:43 Scopolamine (Transderm-Scop) 1.5 mg TRDERM ONARRIVE [facility] Last Admin: 01/05/19 12:40 Dose: 1.5 mg Sodium Chloride (Saline Flush) 10 ml FLUSH ASDIRECTED PRN PRN Reason: Keep Vein Open Sodium Chloride (Saline Flush) 2.5 ml FLUSH ASDIRECTED PRN PRN Reason: Keep Vein Open Tranexamic Acid (Cyklokapron) Confirm Administered Dose 2,000 mg .ROUTE .STK- MED ONE Stop: 01/05/19 07:36 - Exam General: Reports: Alert, Oriented, Cooperative, No Acute Distress HEENT: Reports: Pupils Equal Lungs: Reports: Normal Respiratory Effort Cardiovascular: Reports: Regular Rate, Regular Rhythm GI/Abdominal Exam: Soft Extremities: Normal Inspection, No Pedal Edema, Normal Capillary Refill (AT/EHL/ Gastroc 5/5 Sensation intact to LLE) Skin: Reports: Warm, Dry (AquaCell intact to left knee) Wound/Incisions: Reports: Dressing Dry and Intact Neurological: Reports: No New Focal Deficit Psy/Mental Status: Reports: Alert, Normal Affect, Normal Mood
== END 2019-01-07 10:20 | disposition home or self-care (01) | DRG 470 ==
LOC: MW.MS 06:00 → MW.SDS 11:24 → EDSTATUS 12:00 → UNDOADMIN 17:39 → MW.MS 17:39 → UNDODISIN 01-07 10:20
PROVIDERS: ADMIT Orthopaedic Surgery; ATTEND Orthopaedic Surgery
PROC: 0SRD0J9 Replacement of Left Knee Joint with Synthetic Substitute, Cemented, Open Approach (ICD-10-PCS; principal; 2019-01-05)
DX: M17.12 Unilateral primary osteoarthritis, left knee (principal); K51.90 Ulcerative colitis, unspecified, without complications; R11.2 Nausea with vomiting, unspecified; K21.9 Gastro-esophageal reflux disease without esophagitis; I10 Essential (primary) hypertension; L40.3 Pustulosis palmaris et plantaris; F32.9 Major depressive disorder, single episode, unspecified; E53.8 Deficiency of other specified B group vitamins; E66.9 Obesity, unspecified; Z79.890 Hormone replacement therapy; Z88.6 Allergy status to analgesic agent; Z88.1 Allergy status to other antibiotic agents; Z88.0 Allergy status to penicillin; Z88.8 Allergy status to other drugs, medicaments and biological substances; Z79.899 Other long term (current) drug therapy; Z87.891 Personal history of nicotine dependence
CPT/HCPCS: 01402; 36415; 73560-26-LT; 73560-LT; 85014; 85018; 86850; 86900; 86901; 88305; 88311; 97110-GP; 97161-GP; 97530-GP; A9270-GY; C1713; C1776; J0131; J0171; J0735; J1885; J2001; J2250; J2270; J2405; J2704; J2795; J3010; J3490; J7050; J7120

== ENCOUNTER 2019-01-23 16:07 | Inpatient (IN) | payer OTHER, MEDICARE ==
--- NOTE | 2019-01-23 16:13 | EDM.PDOC ---
ED HPI GENERAL MEDICAL PROBLEM - General Chief Complaint: Lower Extremity Injury/Pain Stated Complaint: KNEE SURG. Time Seen by Provider: 01/23/19 16:11 Source of Information: Reports: Patient History Limitations: Reports: No Limitations - History of Present Illness INITIAL COMMENTS - FREE TEXT/NARRATIVE: HISTORY AND PHYSICAL: History of present illness: Patient is a 53-year-old female who presents to the ED today after falling on her left knee. She did recently have a total knee replacement on 01/05/[address] Muse and has been healing appropriately. She states today she was walking out on the ice and fell and landed directly on her knee at about 2 PM. She states that since then the incision site has had swelling, drainage and scant bleeding. She states that initially she went inside and started icing it but the pain has increased; and decided to come to the ED. She did speak to Dr. Muse on her way in, who also encouraged her to come to the ED. Patient rates her pain a 10/10 and constant. She states she notices her knee is more swollen and discolored. Patient denies fever, chills, chest pain, shortness of breath, difficulties breathing or cough. Denies any abdominal pain, nausea, vomiting, diarrhea or constipation. She has been eating and drinking appropriately. Review of systems: As per history of present illness and below otherwise all systems reviewed and negative. Past medical history: As per history of present illness and as reviewed below otherwise noncontributory. Surgical history: As per history of present illness and as reviewed below otherwise noncontributory. Social history: See social history for further information Family history: As per history of present illness and as reviewed below otherwise noncontributory. Physical exam: General: Patient is alert, oriented, and in no acute distress. She is tearful throughout exam, mildly anxious appearing, but is lying comfortably on exam table. HEENT: Atraumatic, normocephalic, pupils equal and reactive bilaterally, negative for conjunctival pallor or scleral icterus, mucous membranes moist, TMs normal bilaterally, throat clear, neck supple, nontender, trachea midline. No drooling or trismus noted. No meningeal signs. No hot potato voice noted. Lungs: Clear to auscultation, breath sounds equal bilaterally, chest nontender. Heart: S1S2, regular rate and rhythm without overt murmur Abdomen: Soft, nondistended, nontender. Negative for masses or hepatosplenomegaly. Negative for costovertebral tenderness. Pelvis: Stable nontender. Genitourinary: Deferred. Rectal: Deferred. Skin: Patient does have a linear post-operative incision site where she previously had surgery, with soft tissue swelling. (See EXTREMITY for details). Otherwise intact, warm, dry. No lesions or rashes noted. Extremities: Left knee exam is limited due to pain. Left knee does have a recent incision héctor with a small amount of serosanguineous drainage, the knee is more swollen than the right with red and white discoloration around that. Patient not has not been able to bend or straighten the leg since surgery. Negative for cords or calf pain. Neurovascular unremarkable. Dorsalis pedis and posterior tibial pulses are grossly intact. Capillary refill less than 2 seconds. Neuro: Awake, alert, oriented. Cranial nerves II through XII unremarkable. Cerebellum unremarkable. Motor and sensory unremarkable throughout. Exam nonfocal. Notes: Patient has morphine listed as an allergy as she does get nausea and vomiting associated with this. We did discuss using alternative pain medication. She states that she is able to take morphine if she has Zofran prior to. She does appear to be in moderate pain, therefore we'll give her some IV pain medication and she has a ride home. Hip x-ray shows no acute findings. Knee x-ray shows soft tissue swelling that is identified. There is air within the anterior soft tissue. No evidence of hardware failure. No acute fracture or subluxation. Did consult with orthopedics, Dr. Cason at [facility] in [place], who advised applying bulky dressing with a knee immobilizer and to start Keflex 500 mg every 6 hours until follow-up on Saturday. However, upon discussion of discharge, patient became hysterical and stating her pain was severe and not controlled with the medications we gave today. Currently, hospital is on diversion. Consult did with the ER physician Dr. Whitt in [place] at [facility] for transfer for pain management. Dr. Whitt is accepting of care. Dr Jay did talk with Dr Susanne Muse, she is currently not production solderer but willing to discuss this patient. Patient will be transferred to [facility] in [place] via ground EMS. As we were awaiting for ground EMS, a room had opened up at our hospital. Discussed patient with Dr. Nelson and he agrees to admission for pain control. Patient is aware of change in circumstances and prefers to stay here at our facility for further treatment and care. Diagnostics: Left knee x-ray, hip x-ray Therapeutics: Morphine, Zofran, IV fluids, Ativan, Flexeril Impression: Knee injury, right H/o total knee replacement Plan: Admit to observation. Definitive disposition and diagnosis as appropriate pending reevaluation and review of above. Left Knee Pain Score (Numeric/FACES): 10 - Related Data Allergies Allergy/AdvReac Type Severity Reaction Status Date / Time celecoxib Allergy Swelling Verified 01/01/19 11:19 cephalexin [From Keflex] Allergy Hives Verified 01/01/19 11:19 Cephalosporins Allergy Hives Verified 01/01/19 11:19 ciprofloxacin [From Cipro] Allergy Hives Verified 01/01/19 11:19 ciprofloxacin HCl Allergy Hives Verified 01/01/19 11:19 [From Cipro] gentamicin Allergy Hives Verified 01/01/19 11:19 morphine Allergy Nausea and Verified 01/01/19 11:19 Vomiting Penicillins Allergy Rash Verified 01/01/19 11:19 anesthetic cream Allergy Hives Uncoded 01/01/19 11:19 Home Meds: Home Meds Clobetasol [Clobetasol Propionate 0.05% Cream] 1 dose TOP BID PRN 01/01/19 [ History] Cyanocobalamin (Vitamin B-12) [Cyanocobalamin Injection] 1,000 mcg IM ASDIRECTED 01/01/19 [History] Escitalopram Oxalate 10 mg PO DAILY 01/01/19 [History] Estropipate 1.5 mg PO DAILY 01/01/19 [History] Losartan [Cozaar] 12.5 mg PO QAM 01/01/19 [History] Methotrexate 7.5 mg PO WEEKLY 01/01/19 [History] Acetaminophen/HYDROcodone [[place]ron 325-5 MG] 1 - 2 tab PO Q4H PRN #60 tablet 01/07 [Rx] Aspirin 325 mg PO BID #60 tablet 01/07/19 [Rx] Docusate Sodium [Colace] 100 mg PO BID PRN #60 cap 01/07/19 [Rx] Famotidine [Pepcid] 40 mg PO DAILY tablet 01/07/19 [Rx] Polyethylene Glycol 3350 [MiraLAX] 17 gm PO DAILY #600 gram 01/07/19 [Rx] Past Medical History HEENT History: Reports: Other (See Below) Other HEENT History: has upper partial denture x2, has upper and lower dental implants Cardiovascular History: Reports: Hypertension Gastrointestinal History: Reports: GERD, Other (See Below) Other Gastrointestinal History: was previously thought to hace Ulcerative colitis, now is diagnosed with Cyclic Vomiting Syndrome- had recent episode Musculoskeletal History: Reports: Osteoarthritis Psychiatric History: Reports: Anxiety, Depression Endocrine/Metabolic History: Reports: Obesity/BMI 30+ Hematologic History: Reports: B12 Deficiency Dermatologic History: Reports: Psoriasis Other Dermatologic History: has Palmar Plantar Pustular psoriasis - Past Surgical History Head Surgeries/Procedures: Reports: None GI Surgical History: Reports: Cholecystectomy Female Surgical History: Reports: Hysterectomy, Salpingo-Oophorectomy, Tubal Ligation, Other (See Below) Other Female Surgeries/Procedures: Laparoscopies with Ovarian Wedge resection and Lysis of Adhesions Musculoskeletal Surgical History: Reports: Arthroscopic Knee, ORIF Other Musculoskeletal Surgeries/Procedures:: ACL repair left knee, ORIF right ankle (has plate and screws) Review of Systems - Review of Systems Review Of Systems: ROS reveals no pertinent complaints other than HPI. ED EXAM, GENERAL - Physical Exam Exam: See Below (See dictation) Course - Vital Signs Last Recorded V/S: Last Vital Signs Temp 98.5 F 01/23/19 18:50 Pulse 86 01/23/19 18:50 Resp 20 01/23/19 18:50 BP 134/79 01/23/19 18:50 Pulse Ox 99 01/23/19 18:50 - Orders/Labs/Meds Orders: Active Orders 24 hr Category Date Time Status Admission Status [Patient Status] [ADT] Stat ADT 01/23/19 19:51 Active Pelvis 1V or 2V [CR] Stat Exams 01/23/19 18:39 Taken Meds: Medications Discontinued Medications Generic Name Dose Route Start Last Admin Trade Name Freq PRN Reason Stop Dose Admin Cyclobenzaprine HCl 10 mg 01/23/19 17:51 01/23/19 18:12 Flexeril PO 01/23/19 17:52 10 mg ONETIME ONE Administration Clindamycin Phosphate 900 mg/ 56 mls @ 100 mls/hr 01/23/19 18:46 01/23/19 19: 51 Sodium Chloride IV 01/23/19 19:17 100 mls/hr ONETIME ONE Administration Lorazepam 1 mg 01/23/19 18:40 01/23/19 18:47 Ativan IVPUSH 01/23/19 18:41 1 mg ONETIME ONE Administration Morphine Sulfate 4 mg 01/23/19 16:21 01/23/19 17:10 Morphine IVPUSH 01/23/19 16:22 4 mg ONETIME ONE Administration Morphine Sulfate 2 mg 01/23/19 18:40 01/23/19 18:49 Morphine IVPUSH 01/23/19 18:41 2 mg ONETIME ONE Administration Morphine Sulfate Confirm 01/23/19 18:40 01/23/19 18:58 Morphine Administered 01/23/19 18:41 Not Given Dose 2 mg .ROUTE .STK-MED ONE Ondansetron HCl 4 mg 01/23/19 16:21 01/23/19 17:05 Zofran IVPUSH 01/23/19 16:22 4 mg ONETIME ONE Administration Departure - Departure Time of Disposition: 19:58 Disposition: Refer to Observation Clinical Impression: Knee injury Qualifiers: Encounter type: sequela Laterality: left Qualified Code(s): S89.92XS - Unspecified injury of left lower leg, sequela History of total knee replacement Qualifiers: Laterality: left Qualified Code(s): Z96.652 - Presence of left artificial knee joint - Discharge Information Referrals: PCP,Unknown [Primary Care Provider] - Forms: ED Department Discharge - My Orders Last 24 Hours: My Active Orders 01/23/19 18:39 Pelvis 1V or 2V [CR] Stat 01/23/19 19:51 Admission Status [Patient Status] [ADT] Stat - Assessment/Plan Last 24 Hours: My Active Orders 01/23/19 18:39 Pelvis 1V or 2V [CR] Stat 01/23/19 19:51 Admission Status [Patient Status] [ADT] Stat
[2019-01-23] MEDS ORDERED: Morphine 4 MG/ML Syringe IVPUSH ONE (16:21)
[2019-01-23] MEDS ORDERED: Ondansetron 4 MG/2 ML SDV IVPUSH ONE (16:21)
[2019-01-23] MEDS ORDERED: Cyclobenzaprine 10 MG Tab PO ONE (17:51)
--- NOTE | 2019-01-23 18:23 | CR ---
Indication: [place] today. Knee replacement 01/05/2019. Unable to straighten leg. Technique: Three views of the left knee were obtained. Comparison: January 05, 2019. Findings: L eft knee replacement is identified. Soft tissue swelling is identified. Air is identified within the anterior soft tissues. There is no evidence of hardware failure. No acute fracture or subluxation is identified. Impression: Postoperative changes of a left knee replacement. Soft tissue swelling is identified anteriorly. Dictated by Bre Johnson MD @ Jan 23 2019 6:04PM Signed by Dr. Bre Johnson @ Jan 23 2019 6:22PM
[2019-01-23] MEDS ORDERED: Morphine 2 MG/ML Syringe IVPUSH ONE (18:40)
[2019-01-23] MEDS ORDERED: Morphine 2 MG/ML Syringe ONE (18:40)
[2019-01-23] MEDS ORDERED: LORazepam 2 MG/ML SDV IVPUSH ONE (18:40)
--- NOTE | 2019-01-23 19:53 | CR ---
Indication: Pain. Technique: Two views of the left femur were obtained. Comparison: None Findings: Postoperative changes of left knee replacement are identified. Soft tissue swelling is identified anterior to the knee. The femoral head is seated within the acetabulum. Degenerative changes identified. No acute fracture or subluxation is identified. Impression: No fracture. Postoperative changes of a left knee replacement. Soft tissue swelling identified adjacent to the knee. Dictated by Bre Johnson MD @ Jan 23 2019 7:50PM Signed by Dr. Bre Johnson @ Jan 23 2019 7:51PM
[2019-01-23] MEDS ORDERED: Ondansetron 4 MG/2 ML SDV IVPUSH PRN (22:22)
[2019-01-23] MEDS: HYDROmorphone 1 MG/ML Syringe IVPUSH PRN (22:45)
[2019-01-24] MEDS ORDERED: Acetaminophen 325 MG Tab PO PRN (00:13)
[2019-01-24] MEDS ORDERED: Ibuprofen 400 MG Tab PO PRN (00:13)
[2019-01-24] MEDS: Clindamycin Phosphate in D5W 50 ML IV SCH ×4 (00:39→18:19)
[2019-01-24] MEDS: HYDROmorphone 1 MG/ML Syringe IVPUSH PRN ×6 (01:45→21:26)
--- NOTE | 2019-01-24 10:09 | PCM.HP ---
H&P History of Present Illness - General Date of Service: 01/24/19 Admit Problem/Dx: Admission Diagnosis/Problem Admission Diagnosis/Problem Pain management Source of Information: Patient History Limitations: Reports: No Limitations - History of Present Illness Initial Comments - Free Text/Narative: This is a 53-year-old female who had a tka a couple weeks back, she fell yesterday on ice and directly impacted her left knee. The knee since then has resulted in swelling, increased pain, decreased range of motion, no signs of hematoma arthrosis or septic joint. Patient is being admitted to our floor secondary to pain control. Patient denies any other symptoms including fevers, chills, shortness of breath. Left Knee Pain Score (Numeric/FACES): 6 - Related Data Allergies/Adverse Reactions: Allergies Allergy/AdvReac Type Severity Reaction Status Date / Time acetaminophen [From Percocet] Allergy Nausea and Verified 01/23/19 21:49 Vomiting celecoxib Allergy Swelling Verified 01/01/19 11:19 cephalexin [From Keflex] Allergy Hives Verified 01/01/19 11:19 Cephalosporins Allergy Hives Verified 01/01/19 11:19 ciprofloxacin [From Cipro] Allergy Hives Verified 01/01/19 11:19 ciprofloxacin HCl Allergy Hives Verified 01/01/19 11:19 [From Cipro] gentamicin Allergy Hives Verified 01/01/19 11:19 morphine Allergy Nausea and Verified 01/01/19 11:19 Vomiting oxycodone [From Percocet] Allergy Nausea and Verified 01/23/19 21:49 Vomiting Penicillins Allergy Rash Verified 01/01/19 11:19 anesthetic cream Allergy Hives Uncoded 01/01/19 11:19 Home Medications: Home Meds Clobetasol [Clobetasol Propionate 0.05% Cream] 1 dose TOP BID PRN 01/01/19 [ History] Cyanocobalamin (Vitamin B-12) [Cyanocobalamin Injection] 1,000 mcg IM ASDIRECTED 01/01/19 [History] Escitalopram Oxalate 10 mg PO DAILY 01/01/19 [History] Estropipate 1.5 mg PO DAILY 01/01/19 [History] Losartan [Cozaar] 12.5 mg PO QAM 01/01/19 [History] Methotrexate 7.5 mg PO WEEKLY 01/01/19 [History] Acetaminophen/HYDROcodone [[place] 325-5 MG] 1 - 2 tab PO Q4H PRN #60 tablet 01/07 [Rx] Aspirin 325 mg PO BID #60 tablet 01/07/19 [Rx] Docusate Sodium [Colace] 100 mg PO BID PRN #60 cap 01/07/19 [Rx] Famotidine [Pepcid] 40 mg PO DAILY tablet 01/07/19 [Rx] Polyethylene Glycol 3350 [MiraLAX] 17 gm PO DAILY #600 gram 01/07/19 [Rx] Past Medical History HEENT History: Reports: Other (See Below) Other HEENT History: has upper partial denture x2, has upper and lower dental implants Cardiovascular History: Reports: Hypertension Gastrointestinal History: Reports: GERD, Other (See Below) Other Gastrointestinal History: was previously thought to hace Ulcerative colitis, now is diagnosed with Cyclic Vomiting Syndrome- had recent episode Musculoskeletal History: Reports: Osteoarthritis Neurological History: Reports: None Psychiatric History: Reports: Anxiety, Depression Endocrine/Metabolic History: Reports: Obesity/BMI 30+ Hematologic History: Reports: B12 Deficiency Immunologic History: Reports: None Oncologic (Cancer) History: Reports: None Dermatologic History: Reports: Psoriasis Other Dermatologic History: has Palmar Plantar Pustular psoriasis - Infectious Disease History Infectious Disease History: Reports: Chicken Pox - Past Surgical History Head Surgeries/Procedures: Reports: None GI Surgical History: Reports: Cholecystectomy Female Surgical History: Reports: Hysterectomy, Salpingo-Oophorectomy, Tubal Ligation, Other (See Below) Other Female Surgeries/Procedures: Laparoscopies with Ovarian Wedge resection and Lysis of Adhesions Musculoskeletal Surgical History: Reports: Arthroscopic Knee, ORIF Other Musculoskeletal Surgeries/Procedures:: ACL repair left knee, ORIF right ankle (has plate and screws) Social & Family History - Family History Family Medical History: Noncontributory Cardiac: Reports: None - Tobacco Use Smoking Status *Q: Never Smoker Second Hand Smoke Exposure: No - Caffeine Use Caffeine Use: Reports: Coffee, Soda - Alcohol Use Date of Last Drink: 01/15/19 Time of Last Drink: 21:00 - Recreational Drug Use Recreational Drug Use: No H&P Review of Systems - Review of Systems: Review Of Systems: See Below Exam - Exam Exam: See Below - Vital Signs Vital Signs: Last Vital Signs Temp 36.9 C 01/24/19 07:45 Pulse 78 01/24/19 07:45 Resp 18 01/24/19 07:45 BP 124/77 01/24/19 07:45 Pulse Ox 99 01/24/19 07:45 Weight: 102.24 kg - Exam Lungs: Clear to Auscultation, Normal Respiratory Effort Cardiovascular: Regular Rate, Regular Rhythm Extremities: Other (Left knee does have swelling, decreased range of motion, pain on palpation, no discharge appreciated, wound site looks clean no signs of cellulitis or infectious process from inspection and physical examination standpoint.) Problem List Initiated/Reviewed/Updated: Yes Orders Last 24hrs: Active Orders 24 hr Category Date Time Status Admission Status [Patient Status] [ADT] Stat ADT 01/23/19 19:51 Active Up ad Xuan [RC] ASDIRECTED Care 01/23/19 22:22 Active Regular Diet [DIET] Diet 01/24/19 Breakfast Active Pelvis 1V or 2V [CR] Stat Exams 01/23/19 18:39 Taken Acetaminophen [Tylenol] Med 01/24/19 00:13 Active 650 mg PO Q6H PRN Clindamycin Phosphate in D5W [Cleocin in D5W] 50 ml Med 01/24/19 00:30 Active IV Q6H HYDROmorphone [Dilaudid] Med 01/23/19 22:22 Active 1 mg IVPUSH Q3H PRN Ibuprofen [Motrin] Med 01/24/19 00:13 Active 400 mg PO Q6H PRN Ondansetron [Zofran] Med 01/23/19 22:22 Active 4 mg IVPUSH Q4H PRN Medication Orders Acetaminophen (Tylenol) 650 mg PO Q6H PRN PRN Reason: Pain Hydromorphone HCl (Dilaudid) 1 mg IVPUSH Q3H PRN PRN Reason: Pain Last Admin: 01/24/19 08:25 Dose: 1 mg Admin: 01/24/19 05:00 Dose: 1 mg Admin: 01/24/19 01:45 Dose: 1 mg Admin: 01/23/19 22:45 Dose: 1 mg Clindamycin Phosphate (Cleocin In D5w) 50 mls @ 100 mls/hr IV Q6H CAM Last Admin: 01/24/19 05:00 Dose: 100 mls/hr Infusion: 01/24/19 01:09 Dose: 100 mls/hr Admin: 01/24/19 00:39 Dose: 100 mls/hr Ibuprofen (Motrin) 400 mg PO Q6H PRN PRN Reason: Pain Ondansetron HCl (Zofran) 4 mg IVPUSH Q4H PRN PRN Reason: Nausea Assessment/Plan Comment:: 53-year-old female being admitted for pain control secondary to fall after having a TKA of her left knee in early January. -Shall control the patient's pain with opioid medication along with symptomatically treatment. Shall obtain labs to ensure no signs of infection or other acute etiologies. -Imaging did not show any acute changes. -DVT prophylaxis with heparin 5000 units 3 times a day subcutaneous.
[2019-01-24] MEDS ORDERED: Heparin Sodium 5,000 Units/ML Vial IVPUSH SCH (11:15)
[2019-01-24] MEDS: Heparin Sodium 5,000 Units/ML Vial SUBCUT SCH ×2 (13:10→18:54)
[2019-01-25] MEDS: Clindamycin Phosphate in D5W 50 ML IV SCH ×5 (00:15→23:47)
[2019-01-25] MEDS: HYDROmorphone 1 MG/ML Syringe IVPUSH PRN ×7 (00:15→23:47)
[2019-01-25] MEDS: Heparin Sodium 5,000 Units/ML Vial SUBCUT SCH ×3 (04:31→18:34)
[2019-01-25 06:44] LABS: CHLORIDE,CL 102 mmol/L (98-107); SODIUM,NA 136 mmol/L (136-145)
[2019-01-25] MEDS: Docusate Sodium 100 MG Cap PO PRN (08:38)
--- NOTE | 2019-01-25 09:37 | PCM.PN ---
- General Info Date of Service: 01/25/19 - Review of Systems Systems Review Comment:: reports left knee pain - Patient Data Vitals - Most Recent: Last Vital Signs Temp 36.8 C 01/25/19 07:37 Pulse 72 01/25/19 07:37 Resp 16 01/25/19 07:37 BP 117/72 01/25/19 07:37 Pulse Ox 97 01/25/19 07:37 Weight - Most Recent: 102.24 kg I&O - Last 24 Hours: Intake & Output 01/24/19 01/25/19 01/25/19 22:59 06:59 14:59 Intake Total 620 400 Output Total 200 Balance 620 200 Lab Results Last 24 Hours: Laboratory Results - last 24 hr 01/25/19 01/25/19 01/25/19 Range/Units 05:58 05:58 05:58 WBC 8.13 (4.0-11.0) K/uL RBC 3.80 L (4.30-5.90) M/uL Hgb 11.1 L (12.0-16.0) g/dL Hct 33.6 L (36.0-46.0) % MCV 88.4 (80.0-98.0) fL MCH 29.2 (27.0-32.0) pg MCHC 33.0 (31.0-37.0) g/dL RDW Std Deviation 48.4 (28.0-62.0) fl RDW Coeff of Mckenna 15 (11.0-15.0) % Plt Count 295 (150-400) K/uL MPV 9.80 (7.40-12.00) fL Neut % (Auto) 64.1 (48.0-80.0) % Lymph % (Auto) 17.8 (16.0-40.0) % [place] % (Auto) 6.9 (0.0-15.0) % Eos % (Auto) 10.8 H (0.0-7.0) % Baso % (Auto) 0.4 (0.0-1.5) % Neut # (Auto) 5.2 (1.4-5.7) K/uL Lymph # (Auto) 1.5 (0.6-2.4) K/uL [place] # (Auto) 0.6 (0.0-0.8) K/uL Eos # (Auto) 0.9 H (0.0-0.7) K/uL Baso # (Auto) 0.0 (0.0-0.1) K/uL Nucleated RBC % 0.0 /100WBC Nucleated RBCs # 0 K/uL INR 1.03 Sodium 136 (136-145) mmol/L Potassium 3.6 (3.5-5.1) mmol/L Chloride 102 (98-107) mmol/L Carbon Dioxide 27.2 (21.0-32.0) mmol/L BUN 7 (7.0-18.0) mg/dL Creatinine 0.6 (0.6-1.0) mg/dL Est Cr Clr Drug Dosing 108.13 mL/min Estimated GFR (MDRD) > 60.0 ml/min Glucose 101 (74-106) mg/dL Calcium 9.1 (8.5-10.1) mg/dL Total Bilirubin 0.6 (0.2-1.0) mg/dL AST 17 (15-37) IU/L ALT 24 (14-63) IU/L Alkaline Phosphatase 45 L (46-116) U/L Total Protein 7.1 (6.4-8.2) g/dL Albumin 3.1 L (3.4-5.0) g/dL Globulin 4.0 (2.6-4.0) g/dL Albumin/Globulin Ratio 0.8 L (0.9-1.6) Med Orders - Current: Current Medications Acetaminophen (Tylenol) 650 mg PO Q6H PRN PRN Reason: Pain Docusate Sodium (Colace) 100 mg PO BID PRN PRN Reason: Constipation Last Admin: 01/25/19 08:38 Dose: 100 mg Heparin Sodium (Porcine) (Heparin Sodium) 5,000 units SUBCUT Q8H CAM Last Admin: 01/25/19 04:31 Dose: 5,000 units Hydromorphone HCl (Dilaudid) 1 mg IVPUSH Q3H PRN PRN Reason: Pain Last Admin: 01/25/19 08:39 Dose: 1 mg Clindamycin Phosphate (Cleocin In D5w) 50 mls @ 100 mls/hr IV Q6H CAM Last Admin: 01/25/19 06:11 Dose: 100 mls/hr Ibuprofen (Motrin) 400 mg PO Q6H PRN PRN Reason: Pain Ondansetron HCl (Zofran) 4 mg IVPUSH Q4H PRN PRN Reason: Nausea Discontinued Medications Cyclobenzaprine HCl (Flexeril) 10 mg PO ONETIME ONE Stop: 01/23/19 17:52 Last Admin: 01/23/19 18:12 Dose: 10 mg Heparin Sodium (Porcine) (Heparin Sodium) 5,000 units IVPUSH Q8H [facility] Clindamycin Phosphate 900 mg/ (Sodium Chloride) 56 mls @ 100 mls/hr IV ONETIME ONE Stop: 01/23/19 19:17 Last Admin: 01/23/19 19:51 Dose: 100 mls/hr Clindamycin Phosphate 600 mg/ (Sodium Chloride) 54 mls @ 100 mls/hr IV Q6H [facility] Last Admin: 01/24/19 00:40 Dose: Not Given Lorazepam (Ativan) 1 mg IVPUSH ONETIME ONE Stop: 01/23/19 18:41 Last Admin: 01/23/19 18:47 Dose: 1 mg Morphine Sulfate (Morphine) 4 mg IVPUSH ONETIME ONE Stop: 01/23/19 16:22 Last Admin: 01/23/19 17:10 Dose: 4 mg Morphine Sulfate (Morphine) 2 mg IVPUSH ONETIME ONE Stop: 01/23/19 18:41 Last Admin: 01/23/19 18:49 Dose: 2 mg Morphine Sulfate (Morphine) Confirm Administered Dose 2 mg .ROUTE .STK-MED ONE Stop: 01/23/19 18:41 Last Admin: 01/23/19 18:58 Dose: Not Given Ondansetron HCl (Zofran) 4 mg IVPUSH ONETIME ONE Stop: 01/23/19 16:22 Last Admin: 01/23/19 17:05 Dose: 4 mg - Exam General: Alert, Oriented Lungs: Clear to Auscultation, Normal Respiratory Effort Cardiovascular: Regular Rate, Regular Rhythm GI/Abdominal Exam: Soft, Non-Tender Extremities: Other (surgical wound healing well,3 cm blister with clear fluid developing adjacent to wound, no erythema or drainage noted) - Problem List Review Problem List Initiated/Reviewed/Updated: Yes - My Orders Last 24 Hours: My Active Orders 01/25/19 08:13 Docusate Sodium [Colace] 100 mg PO BID PRN - Plan Plan:: 53-year-old female being admitted for pain control secondary to fall after having a TKA of her left knee. We will continue pain control.
[2019-01-26] MEDS: HYDROmorphone 1 MG/ML Syringe IVPUSH PRN ×4 (04:03→23:39)
[2019-01-26] MEDS: Heparin Sodium 5,000 Units/ML Vial SUBCUT SCH ×2 (04:03→11:08)
[2019-01-26] MEDS: Clindamycin Phosphate in D5W 50 ML IV SCH (06:29)
[2019-01-26] MEDS: Docusate Sodium 100 MG Cap PO PRN (08:31)
--- NOTE | 2019-01-26 12:05 | CR ---
EXAM DATE: 01/23/19 PATIENT'S AGE: 53 Patient: PAYAM ODOM Facility: [facility] Site . Site : [id number] Study: XRay-Pelvis [id number]/22/[id number] 7:16:17 PM Ordering Physician: Doctor Monsalve Final Report: Indication: Pain. Technique: 2 AP views of the pelvis were obtained. Comparison: None Findings: Both femoral heads are seated within the acetabula. Degenerative changes of the lower lumbar spine and both hips are identified. No acute fracture or subluxation is seen. Impression: Degenerative change. No acute fracture. Dictated by Bre Johnson MD @ Jan 23 2019 7:49PM Signed by: Bre Johnson MD @01/23/2019 7:50:18 PM (Electronic Signature) Report Signed by Proxy. [email or web address]
--- NOTE | 2019-01-26 12:15 | PCM.PN ---
- General Info Date of Service: 01/26/19 Subjective Update: Pt continues to be stable, with pain being controlled. - Patient Data Vitals - Most Recent: Last Vital Signs Temp 36.6 C 01/26/19 07:44 Pulse 66 01/26/19 07:44 Resp 17 01/26/19 07:44 BP 131/86 01/26/19 07:44 Pulse Ox 95 01/26/19 07:44 Weight - Most Recent: 102.24 kg I&O - Last 24 Hours: Intake & Output 01/25/19 01/26/19 01/26/19 22:59 06:59 14:59 Intake Total 480 800 Output Total 500 900 Balance -20 -100 Med Orders - Current: Current Medications Acetaminophen (Tylenol) 650 mg PO Q6H PRN PRN Reason: Pain Docusate Sodium (Colace) 100 mg PO BID PRN PRN Reason: Constipation Last Admin: 01/26/19 08:31 Dose: 100 mg Heparin Sodium (Porcine) (Heparin Sodium) 5,000 units SUBCUT Q8H [facility] Last Admin: 01/26/19 11:08 Dose: 5,000 units Hydromorphone HCl (Dilaudid) 1 mg IVPUSH Q3H PRN PRN Reason: Pain Last Admin: 01/26/19 09:19 Dose: 1 mg Ibuprofen (Motrin) 400 mg PO Q6H PRN PRN Reason: Pain Ondansetron HCl (Zofran) 4 mg IVPUSH Q4H PRN PRN Reason: Nausea Discontinued Medications Cyclobenzaprine HCl (Flexeril) 10 mg PO ONETIME ONE Stop: 01/23/19 17:52 Last Admin: 01/23/19 18:12 Dose: 10 mg Heparin Sodium (Porcine) (Heparin Sodium) 5,000 units IVPUSH Q8H [facility] Clindamycin Phosphate 900 mg/ (Sodium Chloride) 56 mls @ 100 mls/hr IV ONETIME ONE Stop: 01/23/19 19:17 Last Admin: 01/23/19 19:51 Dose: 100 mls/hr Clindamycin Phosphate 600 mg/ (Sodium Chloride) 54 mls @ 100 mls/hr IV Q6H [facility] Last Admin: 01/24/19 00:40 Dose: Not Given Clindamycin Phosphate (Cleocin In D5w) 50 mls @ 100 mls/hr IV Q6H [facility] Last Admin: 01/26/19 06:29 Dose: 100 mls/hr Lorazepam (Ativan) 1 mg IVPUSH ONETIME ONE Stop: 01/23/19 18:41 Last Admin: 01/23/19 18:47 Dose: 1 mg Morphine Sulfate (Morphine) 4 mg IVPUSH ONETIME ONE Stop: 01/23/19 16:22 Last Admin: 01/23/19 17:10 Dose: 4 mg Morphine Sulfate (Morphine) 2 mg IVPUSH ONETIME ONE Stop: 01/23/19 18:41 Last Admin: 01/23/19 18:49 Dose: 2 mg Morphine Sulfate (Morphine) Confirm Administered Dose 2 mg .ROUTE .STK-MED ONE Stop: 01/23/19 18:41 Last Admin: 01/23/19 18:58 Dose: Not Given Ondansetron HCl (Zofran) 4 mg IVPUSH ONETIME ONE Stop: 01/23/19 16:22 Last Admin: 01/23/19 17:05 Dose: 4 mg - Exam General: Alert, Oriented, Cooperative, Mild Distress Lungs: Clear to Auscultation, Normal Respiratory Effort Cardiovascular: Regular Rate, Regular Rhythm Extremities: Leg Pain, Limited Range of Motion, Other (edema, blister on anterior patella ) - Problem List Review Problem List Initiated/Reviewed/Updated: Yes - My Orders Last 24 Hours: My Active Orders 01/26/19 11:33 Notify Provider Consults [RC] ASDIRECTED Consult to Physician [CONS] Routine - Plan Plan:: 53-year-old female being admitted for pain control secondary to fall after having a TKA of her left knee. Spoke with orthopedic surgery who states that they will take over care and that general medicine can sign off on the care of this patient. As such we will be signing off, happy to be consulted if orthopedics deems necessary.
--- NOTE | 2019-01-26 14:28 | PCM.CONS ---
H&P History of Present Illness - General Date of Service: 01/26/19 Admit Problem/Dx: Admission Diagnosis/Problem Admission Diagnosis/Problem Pain management Source of Information: Patient, Family History Limitations: Reports: No Limitations - History of Present Illness Initial Comments - Free Text/Narative: Patient underwent L TKA on 01/05/19. Was doing fairly well and was following usual post op course. On Saturday she states she slipped on the ice, landing on her left knee. She c/o immediate pain in knee. C/o pain with motion and with WB. Apparently she did speak to the nurse in our clinic later in the afternoon. Since she would not be able to arrive to clinic before closing, it was recommended that she go to the ER. In the ER she continued to c/o severe pain in knee. Disscusion regarding admission was had. Dr. Jay did speak to me about the patient via telephone. I was told the hospital was on divert and we were unable to keep the patient here. I was told she would be transferred to [facility] for orthopedic care. Apparently the patient was admitted here by the hospitalist. I had no knowledge of her admission here until this morning. Over the past 2 days she has been receiving clindamycin and has been OOB to the bathroom. She c/o pain with knee motion and with WB. She has been receiving Dilaudid prn for pain. She denies other injuries from the fall. She denies distal paralysis, paresthesias. Quality: Reports: Sharp, Stabbing Severity: Severe Improves with: Reports: Immobilization, Rest Worsens with: Reports: Movement Context: Reports: Trauma Associated Symptoms: Reports: No Other Symptoms Left Knee Pain Score (Numeric/FACES): 3 - Related Data Allergies/Adverse Reactions: Allergies Allergy/AdvReac Type Severity Reaction Status Date / Time acetaminophen [From Percocet] Allergy Nausea and Verified 01/23/19 21:49 Vomiting celecoxib Allergy Swelling Verified 01/01/19 11:19 cephalexin [From Keflex] Allergy Hives Verified 01/01/19 11:19 Cephalosporins Allergy Hives Verified 01/01/19 11:19 ciprofloxacin [From Cipro] Allergy Hives Verified 01/01/19 11:19 ciprofloxacin HCl Allergy Hives Verified 01/01/19 11:19 [From Cipro] gentamicin Allergy Hives Verified 01/01/19 11:19 morphine Allergy Nausea and Verified 01/01/19 11:19 Vomiting oxycodone [From Percocet] Allergy Nausea and Verified 01/23/19 21:49 Vomiting Penicillins Allergy Rash Verified 01/01/19 11:19 anesthetic cream Allergy Hives Uncoded 01/01/19 11:19 Home Medications: Home Meds Clobetasol [Clobetasol Propionate 0.05% Cream] 1 dose TOP BID PRN 01/01/19 [ History] Cyanocobalamin (Vitamin B-12) [Cyanocobalamin Injection] 1,000 mcg IM ASDIRECTED 01/01/19 [History] Escitalopram Oxalate 10 mg PO DAILY 01/01/19 [History] Estropipate 1.5 mg PO DAILY 01/01/19 [History] Losartan [Cozaar] 12.5 mg PO QAM 01/01/19 [History] Methotrexate 7.5 mg PO WEEKLY 01/01/19 [History] Acetaminophen/HYDROcodone [[place] 325-5 MG] 1 - 2 tab PO Q4H PRN #60 tablet 01/07 [Rx] Aspirin 325 mg PO BID #60 tablet 01/07/19 [Rx] Docusate Sodium [Colace] 100 mg PO BID PRN #60 cap 01/07/19 [Rx] Famotidine [Pepcid] 40 mg PO DAILY tablet 01/07/19 [Rx] Polyethylene Glycol 3350 [MiraLAX] 17 gm PO DAILY #600 gram 01/07/19 [Rx] Magnesium Oxide [Magnesium] 400 mg PO BID 01/26/19 [History] Metoprolol Succinate 50 mg PO DAILY 01/26/19 [History] Past Medical History HEENT History: Reports: Other (See Below) Other HEENT History: has upper partial denture x2, has upper and lower dental implants Cardiovascular History: Reports: Hypertension Gastrointestinal History: Reports: GERD, Other (See Below) Other Gastrointestinal History: was previously thought to hace Ulcerative colitis, now is diagnosed with Cyclic Vomiting Syndrome- had recent episode Musculoskeletal History: Reports: Osteoarthritis Neurological History: Reports: None Psychiatric History: Reports: Anxiety, Depression Endocrine/Metabolic History: Reports: Obesity/BMI 30+ Hematologic History: Reports: B12 Deficiency Immunologic History: Reports: None Oncologic (Cancer) History: Reports: None Dermatologic History: Reports: Psoriasis Other Dermatologic History: has Palmar Plantar Pustular psoriasis - Infectious Disease History Infectious Disease History: Reports: Chicken Pox - Past Surgical History Head Surgeries/Procedures: Reports: None GI Surgical History: Reports: Cholecystectomy Female Surgical History: Reports: Hysterectomy, Salpingo-Oophorectomy, Tubal Ligation, Other (See Below) Other Female Surgeries/Procedures: Laparoscopies with Ovarian Wedge resection and Lysis of Adhesions Musculoskeletal Surgical History: Reports: Arthroscopic Knee, ORIF Other Musculoskeletal Surgeries/Procedures:: ACL repair left knee, ORIF right ankle (has plate and screws) Social & Family History - Family History Family Medical History: Noncontributory Cardiac: Reports: None - Tobacco Use Smoking Status *Q: Never Smoker Second Hand Smoke Exposure: No - Caffeine Use Caffeine Use: Reports: Coffee, Soda - Alcohol Use Date of Last Drink: 01/15/19 Time of Last Drink: 21:00 - Recreational Drug Use Recreational Drug Use: No H&P Review of Systems - Review of Systems: Review Of Systems: See Below General: Reports: No Symptoms HEENT: Reports: No Symptoms Pulmonary: Reports: No Symptoms Cardiovascular: Reports: No Symptoms Gastrointestinal: Reports: No Symptoms Genitourinary: Reports: No Symptoms Musculoskeletal: Reports: Leg Pain, Joint Swelling Skin: Reports: Other (blister noted over the proximal medial aspect of the incision on L knee) Psychiatric: Reports: No Symptoms Neurological: Reports: No Symptoms Exam - Exam Exam: See Below - Vital Signs Vital Signs: Last Vital Signs Temp 97.9 F 01/26/19 12:00 Pulse 69 01/26/19 12:00 Resp 16 01/26/19 12:00 BP 131/100 H 01/26/19 12:00 Pulse Ox 99 01/26/19 12:00 Weight: 102.24 kg - Exam General: Alert, Oriented, 4 HEENT: Conjunctiva Clear, Hearing Intact, Nares Patent Neck: Supple, Trachea Midline, 2 Lungs: Normal Respiratory Effort Cardiovascular: Regular Rate GI/Abdominal Exam: Soft Psychiatric: Alert, Normal Affect, Normal Mood Physical Exam Comments:: Exam of LLE shows obvious swelling in left knee. Blister noted along the prox/ medial aspect of the incision with serous fluid. Incision otherwise healed. Patient has limited ROM with motion -45 to 90 degrees. No pain in hip with rotation. No calf TTP. AT/EHL/gastroc 5/5. DP 2+. - Patient Data Result Diagrams: 01/25/19 05:58 01/25/19 05:58 Imaging Impressions Last 24 hrs: XR left knee, femur, hip reviewed. Shows good position of prosthesis. No evidence of fracture. Consult PN Assessment/Plan Procedures: Procedures BLOOD TYPING SEROLOGIC ABO (01/05/19) BLOOD TYPING SEROLOGIC RH(D) (01/05/19) DECALCIFY TISSUE (01/05/19) HEMATOCRIT (01/05/19) HEMOGLOBIN (01/05/19) MRI JNT OF LWR EXTRE W/O DYE (11/04/18) OFFICE/OUTPATIENT VISIT NEW (04/27/14) PT EVAL LOW COMPLEX 20 MIN (01/05/19) RBC ANTIBODY SCREEN (01/05/19) ROUTINE VENIPUNCTURE (01/05/19) THERAPEUTIC ACTIVITIES (01/05/19) THERAPEUTIC EXERCISES (01/05/19) TISSUE EXAM BY PATHOLOGIST (01/05/19) X-RAY EXAM CHEST 2 VIEWS (12/15/18) X-RAY EXAM KNEE 4 OR MORE (02/26/17) X-RAY EXAM OF ANKLE (04/27/14) X-RAY EXAM OF KNEE 1 OR 2 (01/05/19) (1) History of total knee replacement SNOMED Code(s): 8307398077261, 1770649283865 Code(s): Z96.659 - PRESENCE OF UNSPECIFIED ARTIFICIAL KNEE JOINT Current Visit: Yes Qualifiers: Laterality: left Qualified Code(s): Z96.652 - Presence of left artificial knee joint (2) Knee injury SNOMED Code(s): 002403316 Code(s): S89.90XA - UNSPECIFIED INJURY OF UNSPECIFIED LOWER LEG, INIT ENCNTR Current Visit: Yes Qualifiers: Encounter type: sequela Laterality: left Qualified Code(s): S89.92XS - Unspecified injury of left lower leg, sequela Problem List Initiated/Reviewed/Updated: Yes My Orders Last 24 Hours: My Active Orders 01/26/19 18:00 Enoxaparin [Lovenox] 40 mg SUBCUT Q24H Plan: 1. Recommended aspiration of the left knee to help relieve her pain. Informed consent was obtained. Time out was done. The lateral knee was prepped in standard fashion using Chloroprep solution. Using sterile technique, an 18g needle was introduced into the left knee joint via a supralateral approach. I was unable to aspirate any fluid. I felt this was due to the fact that she had a hemarthrosis. Most likely the blood has congealed over the past 2 days, making aspiration difficult. She tolerated this well. I also used a 19g needle to aspirate the blister. Overlying skin was kept intact. Patient tolerated well. 2. Discussed with the patient that she appears to have developed a hemarthrosis from the fall. I discussed with her that there is no evidence of fracture or acute injury on XR. The patella-tibial tubercle distance does not appear abnormal on the recent films compared to her post op films. 3. Will plan to start PT tomorrow to work on ROM and gait training. 4. She will bring polar care unit from home--continue ice packs until that is brought in 5. continue pain management--Toradol, Creighton, Dilaudid 6. Lovenox, PAS boots for DVT prophylaxis 7. if she fails to improve clinically, consider MRI vs surgical treatment
[2019-01-26] MEDS ORDERED: Enoxaparin 40 MG/0.4 ML Syringe SUBCUT SCH (14:30)
[2019-01-26] MEDS: Ketorolac 30 MG/ML SDV IVPUSH SCH ×2 (14:37→20:36)
[2019-01-26] MEDS ORDERED: LORazepam 2 MG/ML SDV IVPUSH ONE (15:37)
[2019-01-26] MEDS: Escitalopram 10 MG Tab PO SCH (15:48)
[2019-01-26] MEDS: Losartan 50 MG Tab PO SCH (15:55)
[2019-01-26] MEDS: Enoxaparin 40 MG/0.4 ML Syringe SUBCUT SCH (17:32)
[2019-01-26] MEDS: Magnesium Oxide 400 MG Tab PO SCH (20:36)
[2019-01-26] MEDS: Acetaminophen/HYDROcodone 325-10 MG Tab PO PRN (20:36)
[2019-01-27] MEDS: Ketorolac 30 MG/ML SDV IVPUSH SCH ×4 (02:47→20:16)
--- NOTE | 2019-01-27 07:19 | PCM.SN ---
- Free Text/Narrative Note: Patient resting in bed, moderately uncomfortable. Has increased pain relief with IV Dilaudid. Patient has overall felt better controlled with [place] 10/325. She feels that she has had worsening range of motion with increasing pain. She is quite frustrated with her course after her fall. She complains of increased tightness in her thigh with some muscle spasm. Her will be bringing her [facility] ice cooler from home today. Exam the left lower extremity reveals incision to be clean, dry, and healing well, unchanged from previous exam. Significant soft tissue swelling is noted. Approximately 30% recurrence of serous fluid to medial fracture blister. Tenderness through the anterior thigh, but compartments are soft. Her motion is -50 to 90. Flexion is a position of comfort for her. Calf fs soft and nontender. She maintains full range of motion at the ankle. Anterior tib, EHL, gastroc strength is 5/5. Dorsalis pedis pulse is 2+. Sensation is intact distally. At this time, the patient is quite frustrated. Continued conservative course including MRI was discussed with her, versus potential surgical indications. I' m uncertain of her best option at this time, and we'll continue to watch her through today, making sure her pain is controlled. Physical therapy is starting this morning. Patient states she only wants the best outcome for her knee, and is prepared for whatever conservative versus surgical plan I develops. We'll start cyclobenzaprine for her muscle spasms. Weightbearing as tolerated to the left lower extremity, using a wheeled walker. Continue Lovenox as DVT prophylaxis. All of the patient's questions were answered at this time.
[2019-01-27] MEDS: Losartan 50 MG Tab PO SCH (08:45)
[2019-01-27] MEDS: Magnesium Oxide 400 MG Tab PO SCH ×2 (08:45→20:16)
[2019-01-27] MEDS: Famotidine 20 MG Tab PO SCH (08:45)
[2019-01-27] MEDS: Escitalopram 10 MG Tab PO SCH (08:50)
[2019-01-27] MEDS ORDERED: Metoprolol Succinate 50 MG Tab.ER PO SCH (09:00)
[2019-01-27] MEDS: HYDROmorphone 1 MG/ML Syringe IVPUSH PRN ×2 (10:51→18:38)
[2019-01-27] MEDS ORDERED: Cyclobenzaprine 10 MG Tab PO PRN (12:08)
--- NOTE | 2019-01-27 14:38 | CR ---
EXAMINATION: Left knee HISTORY: Pain COMPARISON: 01/23/2019 TECHNIQUE: 3 views FINDINGS/IMPRESSION: There is a large suprapatellar joint effusion with likely a small amount of subcutaneous versus intra-articular gas within the suprapatellar region. Given the timeframe from previous surgery, correlate for an underlying infectious process. The left total knee hardware and visualized osseous structures otherwise appear stable.
[2019-01-27] MEDS: Enoxaparin 40 MG/0.4 ML Syringe SUBCUT SCH (17:21)
--- NOTE | 2019-01-27 18:03 | PCM.SN ---
- Free Text/Narrative Note: Patient seen and examined. States pain is better controlled with meds today. Was OOB with PT. Still with decreased ROM in knee. Unable to fully WB due to pain. Using polar care. states preop extension was limited to -20 degrees at therapy in [place]. Exam of LLE shows incision to be clean. Medial blister persists. No erythema. Large joint effusion. ROM -30 to 95 degrees. No calf TTP. Stable to varus/ valgus stress. AT/EHL/gastroc 5/5. Sensation intact. DP 2+. XR of left knee reviewed. Good position of prosthesis. No evidence of fracture. Treatment options d/w patient. She has had a good trial of conservative therapy and has not had any improvement. I am concerned over her continued lack of motion. I am recommending exploration of the L TKA tomorrow. This would give us a chance to evacuate the hemarthrosis and evaluate the tendon and prosthesis. The procedure along with postoperative course was discussed. Risks of surgery include, but are not limited to, infection, n/v injury, stiffness, continued pain, blood clots, and anesthetic complications. Patient agrees to proceed. Will plan to do tomorrow.
[2019-01-27] MEDS: Lactated Ringers 1,000 ML IV SCH (23:54)
[2019-01-28] MEDS: HYDROmorphone 1 MG/ML Syringe IVPUSH PRN ×6 (00:23→20:39)
[2019-01-28] MEDS: Ketorolac 30 MG/ML SDV IVPUSH SCH ×4 (03:09→20:34)
[2019-01-28] MEDS: Lactated Ringers 1,000 ML IV SCH ×2 (09:05→21:04)
[2019-01-28] MEDS: Losartan 50 MG Tab PO SCH (09:57)
[2019-01-28] MEDS: Famotidine 20 MG Tab PO SCH (09:57)
[2019-01-28] MEDS: Escitalopram 10 MG Tab PO SCH (09:57)
[2019-01-28] MEDS: Magnesium Oxide 400 MG Tab PO SCH ×2 (09:57→20:42)
--- NOTE | 2019-01-28 12:35 | PCM.PREANE ---
Preanesthetic Assessment - Anesthesia/Transfusion/Family Hx Anesthesia History: Prior Anesthesia Without Reaction Type of Anesthesia Reaction: Excessive Nausea/Vomiting Family History of Anesthesia Reaction: No Transfusion History: No Prior Transfusion(s) Intubation History: Unknown - Review of Systems General: No Symptoms Pulmonary: No Symptoms Cardiovascular: No Symptoms Gastrointestinal: No Symptoms Neurological: No Symptoms Other: Reports: None - Physical Assessment O2 Sat by Pulse Oximetry: 99 Respiratory Rate: 13 Blood Pressure: 104/74 Vital Signs: Last Vital Signs Temp 37.3 C 01/28/19 11:57 Pulse 62 01/28/19 11:57 Resp 13 01/28/19 11:57 BP 141/82 H 01/28/19 11:57 Pulse Ox 99 01/28/19 11:57 Height: 1.73 m Weight: 102.24 kg ASA Class: 2 Mental Status: Alert & Oriented x3 Airway Class: Mallampati = 2 Dentition: Reports: Partial (x2 upper (sides)), [place](s) (x2 upper front, multiple crowns upper and lower (back)) Thyro-Mental Finger Breadths: 3 Mouth Opening Finger Breadths: 3 ROM/Head Extension: Full Lungs: Clear to Auscultation, Normal Respiratory Effort Cardiovascular: Regular Rate, Regular Rhythm - Lab Values: Laboratory Last Values WBC 8.13 K/uL (4.0-11.0) 01/25/19 05:58 RBC 3.80 M/uL (4.30-5.90) L 01/25/19 05:58 Hgb 11.1 g/dL (12.0-16.0) L 01/25/19 05:58 Hct 33.6 % (36.0-46.0) L 01/25/19 05:58 MCV 88.4 fL (80.0-98.0) 01/25/19 05:58 MCH 29.2 pg (27.0-32.0) 01/25/19 05:58 MCHC 33.0 g/dL (31.0-37.0) 01/25/19 05:58 RDW Std Deviation 48.4 fl (28.0-62.0) 01/25/19 05:58 RDW Coeff of Mckenna 15 % (11.0-15.0) 01/25/19 05:58 Plt Count 295 K/uL (150-400) 01/25/19 05:58 MPV 9.80 fL (7.40-12.00) 01/25/19 05:58 Neut % (Auto) 64.1 % (48.0-80.0) 01/25/19 05:58 Lymph % (Auto) 17.8 % (16.0-40.0) 01/25/19 05:58 Izard % (Auto) 6.9 % (0.0-15.0) 01/25/19 05:58 Eos % (Auto) 10.8 % (0.0-7.0) H 01/25/19 05:58 Baso % (Auto) 0.4 % (0.0-1.5) 01/25/19 05:58 Neut # (Auto) 5.2 K/uL (1.4-5.7) 01/25/19 05:58 Lymph # (Auto) 1.5 K/uL (0.6-2.4) 01/25/19 05:58 Izard # (Auto) 0.6 K/uL (0.0-0.8) 01/25/19 05:58 Eos # (Auto) 0.9 K/uL (0.0-0.7) H 01/25/19 05:58 Baso # (Auto) 0.0 K/uL (0.0-0.1) 01/25/19 05:58 Nucleated RBC % 0.0 /100WBC 01/25/19 05:58 Nucleated RBCs # 0 K/uL 01/25/19 05:58 INR 1.03 01/25/19 05:58 Sodium 136 mmol/L (136-145) 01/25/19 05:58 Potassium 3.6 mmol/L (3.5-5.1) 01/25/19 05:58 Chloride 102 mmol/L (98-107) 01/25/19 05:58 Carbon Dioxide 27.2 mmol/L (21.0-32.0) 01/25/19 05:58 BUN 7 mg/dL (7.0-18.0) 01/25/19 05:58 Creatinine 0.6 mg/dL (0.6-1.0) 01/25/19 05:58 Est Cr Clr Drug Dosing 108.13 mL/min 01/25/19 05:58 Estimated GFR (MDRD) > 60.0 ml/min 01/25/19 05:58 Glucose 101 mg/dL (74-106) 01/25/19 05:58 Calcium 9.1 mg/dL (8.5-10.1) 01/25/19 05:58 Total Bilirubin 0.6 mg/dL (0.2-1.0) 01/25/19 05:58 AST 17 IU/L (15-37) 01/25/19 05:58 ALT 24 IU/L (14-63) 01/25/19 05:58 Alkaline Phosphatase 45 U/L (46-116) L 01/25/19 05:58 Total Protein 7.1 g/dL (6.4-8.2) 01/25/19 05:58 Albumin 3.1 g/dL (3.4-5.0) L 01/25/19 05:58 Globulin 4.0 g/dL (2.6-4.0) 01/25/19 05:58 Albumin/Globulin Ratio 0.8 (0.9-1.6) L 01/25/19 05:58 - Allergies Allergies/Adverse Reactions: Allergies Allergy/AdvReac Type Severity Reaction Status Date / Time acetaminophen [From Percocet] Allergy Nausea and Verified 01/23/19 21:49 Vomiting celecoxib Allergy Swelling Verified 01/01/19 11:19 cephalexin [From Keflex] Allergy Hives Verified 01/01/19 11:19 Cephalosporins Allergy Hives Verified 01/01/19 11:19 ciprofloxacin [From Cipro] Allergy Hives Verified 01/01/19 11:19 ciprofloxacin HCl Allergy Hives Verified 01/01/19 11:19 [From Cipro] gentamicin Allergy Hives Verified 01/01/19 11:19 morphine Allergy Nausea and Verified 01/01/19 11:19 Vomiting oxycodone [From Percocet] Allergy Nausea and Verified 01/23/19 21:49 Vomiting Penicillins Allergy Rash Verified 01/01/19 11:19 anesthetic cream Allergy Hives Uncoded 01/01/19 11:19 - Blood Blood Available: No - Anesthesia Plan Pre-Op Medication Ordered: None - Acknowledgements Anesthesia Type Planned: Spinal Pt an Appropriate Candidate for the Planned Anesthesia: Yes Alternatives and Risks of Anesthesia Discussed w Pt/Guardian: Yes Pt/Guardian Understands and Agrees with Anesthesia Plan: Yes PreAnesthesia Questionnaire HEENT History: Reports: Other (See Below) Other HEENT History: has upper partial denture x2, has upper and lower dental implants Cardiovascular History: Reports: Hypertension Gastrointestinal History: Reports: GERD, Other (See Below) Other Gastrointestinal History: was previously thought to hace Ulcerative colitis, now is diagnosed with Cyclic Vomiting Syndrome- had recent episode Musculoskeletal History: Reports: Osteoarthritis Neurological History: Reports: None Psychiatric History: Reports: Anxiety, Depression Endocrine/Metabolic History: Reports: Obesity/BMI 30+ Hematologic History: Reports: B12 Deficiency Immunologic History: Reports: None Oncologic (Cancer) History: Reports: None Dermatologic History: Reports: Psoriasis Other Dermatologic History: has Palmar Plantar Pustular psoriasis - Infectious Disease History Infectious Disease History: Reports: Chicken Pox - Past Surgical History Head Surgeries/Procedures: Reports: None GI Surgical History: Reports: Cholecystectomy Female Surgical History: Reports: Hysterectomy, Salpingo-Oophorectomy, Tubal Ligation, Other (See Below) Other Female Surgeries/Procedures: Laparoscopies with Ovarian Wedge resection and Lysis of Adhesions Musculoskeletal Surgical History: Reports: Arthroscopic Knee, Knee Replacement ( 3 weeks ago, fell recently and got significant wound hematoma), ORIF Other Musculoskeletal Surgeries/Procedures:: ACL repair left knee, ORIF right ankle (has plate and screws) - SUBSTANCE USE Smoking Status *Q: Never Smoker Second Hand Smoke Exposure: No Date of Last Drink: 01/15/19 Time of Last Drink: 21:00 Recreational Drug Use History: No - HOME MEDS Home Medications: Home Meds Clobetasol [Clobetasol Propionate 0.05% Cream] 1 dose TOP BID PRN 01/01/19 [ History] Cyanocobalamin (Vitamin B-12) [Cyanocobalamin Injection] 1,000 mcg IM ASDIRECTED 01/01/19 [History] Escitalopram Oxalate 10 mg PO DAILY 01/01/19 [History] Estropipate 1.5 mg PO DAILY 01/01/19 [History] Losartan [Cozaar] 12.5 mg PO QAM 01/01/19 [History] Methotrexate 7.5 mg PO WEEKLY 01/01/19 [History] Acetaminophen/HYDROcodone [Donovan 325-5 MG] 1 - 2 tab PO Q4H PRN #60 tablet 01/07 [Rx] Aspirin 325 mg PO BID #60 tablet 01/07/19 [Rx] Docusate Sodium [Colace] 100 mg PO BID PRN #60 cap 01/07/19 [Rx] Famotidine [Pepcid] 40 mg PO DAILY tablet 01/07/19 [Rx] Polyethylene Glycol 3350 [MiraLAX] 17 gm PO DAILY #600 gram 01/07/19 [Rx] Magnesium Oxide [Magnesium] 400 mg PO BID 01/26/19 [History] Metoprolol Succinate 50 mg PO DAILY 01/26/19 [History] - CURRENT (IN HOUSE) MEDS Current Meds: Current Medications Hydrocodone Bitart/Acetaminophen (Donovan 325-10 Mg) 1 - 2 tab PO Q4H PRN PRN Reason: Pain Last Admin: 01/26/19 20:36 Dose: 2 tab Cyclobenzaprine HCl (Flexeril) 10 mg PO TID PRN PRN Reason: Muscle Spasm Escitalopram Oxalate (Lexapro) 10 mg PO DAILY [facility] Last Admin: 01/28/19 09:57 Dose: Not Given Estropipate (Estropipate) 1.5 mg PO DAILY [facility] Last Admin: 01/28/19 09:57 Dose: Not Given Famotidine (Pepcid) 40 mg PO DAILY [facility] Last Admin: 01/28/19 09:57 Dose: Not Given Hydromorphone HCl (Dilaudid) 1 mg IVPUSH Q3H PRN PRN Reason: Pain Last Admin: 01/28/19 12:19 Dose: 1 mg Clindamycin Phosphate 900 mg/ (Premix) 50 mls @ 100 mls/hr IV ONETIME [facility] Lactated Ringer's (Ringers, Lactated) 1,000 mls @ 100 mls/hr IV ASDIRECTED [facility] Last Admin: 01/28/19 09:05 Dose: 100 mls/hr Ketorolac Tromethamine (Toradol) 30 mg IVPUSH Q6H [facility] Last Admin: 01/28/19 09:56 Dose: Not Given Losartan Potassium (Cozaar) 12.5 mg PO QAM [facility] Last Admin: 01/28/19 09:57 Dose: Not Given Magnesium Oxide (Magnesium Oxide) 400 mg PO BID [facility] Last Admin: 01/28/19 09:57 Dose: Not Given Methotrexate (Methotrexate) 7.5 mg PO Th@0900 [facility] Ondansetron HCl (Zofran) 4 mg IVPUSH Q4H PRN PRN Reason: Nausea Senna/Docusate Sodium (Senna Plus) 1 tab PO BID PRN PRN Reason: Constipation Discontinued Medications Acetaminophen (Tylenol) 650 mg PO Q6H PRN PRN Reason: Pain Cyclobenzaprine HCl (Flexeril) 10 mg PO ONETIME ONE Stop: 01/23/19 17:52 Last Admin: 01/23/19 18:12 Dose: 10 mg Docusate Sodium (Colace) 100 mg PO BID PRN PRN Reason: Constipation Last Admin: 01/26/19 08:31 Dose: 100 mg Enoxaparin Sodium (Lovenox) 40 mg SUBCUT Q24H [facility] Last Admin: 01/27/19 17:21 Dose: 40 mg Heparin Sodium (Porcine) (Heparin Sodium) 5,000 units IVPUSH Q8H CAM Heparin Sodium (Porcine) (Heparin Sodium) 5,000 units SUBCUT Q8H [facility] Last Admin: 01/26/19 11:08 Dose: 5,000 units Clindamycin Phosphate 900 mg/ (Sodium Chloride) 56 mls @ 100 mls/hr IV ONETIME ONE Stop: 01/23/19 19:17 Last Admin: 01/23/19 19:51 Dose: 100 mls/hr Clindamycin Phosphate 600 mg/ (Sodium Chloride) 54 mls @ 100 mls/hr IV Q6H [facility] Last Admin: 01/24/19 00:40 Dose: Not Given Clindamycin Phosphate (Cleocin In D5w) 50 mls @ 100 mls/hr IV Q6H [facility] Last Admin: 01/26/19 06:29 Dose: 100 mls/hr Ibuprofen (Motrin) 400 mg PO Q6H PRN PRN Reason: Pain Lorazepam (Ativan) 1 mg IVPUSH ONETIME ONE Stop: 01/23/19 18:41 Last Admin: 01/23/19 18:47 Dose: 1 mg Lorazepam (Ativan) 1 mg IVPUSH ONETIME ONE Stop: 01/26/19 15:38 Last Admin: 01/26/19 15:51 Dose: 1 mg Morphine Sulfate (Morphine) 4 mg IVPUSH ONETIME ONE Stop: 01/23/19 16:22 Last Admin: 01/23/19 17:10 Dose: 4 mg Morphine Sulfate (Morphine) 2 mg IVPUSH ONETIME ONE Stop: 01/23/19 18:41 Last Admin: 01/23/19 18:49 Dose: 2 mg Morphine Sulfate (Morphine) Confirm Administered Dose 2 mg .ROUTE .STK-MED ONE Stop: 01/23/19 18:41 Last Admin: 01/23/19 18:58 Dose: Not Given Ondansetron HCl (Zofran) 4 mg IVPUSH ONETIME ONE Stop: 01/23/19 16:22 Last Admin: 01/23/19 17:05 Dose: 4 mg
[2019-01-28] MEDS ORDERED: Scopolamine 1.5 MG Transdermal Patch TRDERM PRN (12:37)
[2019-01-28] MEDS ORDERED: Clindamycin Phosphate in D5W 900 MG in Premix Bag 1 BAG IV SCH ×2 (13:00)
[2019-01-28] MEDS ORDERED: Ondansetron 4 MG/2 ML SDV ONE ×2 (13:03→13:05)
[2019-01-28] MEDS ORDERED: Propofol 200 MG/20 ML SDV ONE ×2 (13:04→13:05)
[2019-01-28] MEDS ORDERED: Midazolam 1 MG/ML 2 ML SDV ONE ×2 (13:04→13:05)
[2019-01-28] MEDS ORDERED: fentaNYL 100 MCG/2 ML SDV ONE (13:04)
[2019-01-28] MEDS ORDERED: Lidocaine 2% 5 ML SDV ONE (13:05)
[2019-01-28] MEDS ORDERED: Scopolamine 1.5 MG Transdermal Patch ONE (13:10)
[2019-01-28] MEDS ORDERED: 50% Dextrose in Water 50 ML Syringe IVPUSH PRN (14:25)
[2019-01-28] MEDS ORDERED: EPINEPHrine 1:10,000 1 MG/10 ML Syringe IVPUSH PRN (14:25)
[2019-01-28] MEDS ORDERED: fentaNYL 100 MCG/2 ML SDV IVPUSH PRN (14:25)
[2019-01-28] MEDS ORDERED: Atropine 0.1 MG/ML 10 ML Syringe IVPUSH PRN ×2 (14:25)
[2019-01-28] MEDS ORDERED: Naloxone 0.4 MG/ML Syringe IVPUSH PRN (14:25)
--- NOTE | 2019-01-28 14:39 | PCM.OPNOTE ---
- General Post-Op/Procedure Note Date of Surgery/Procedure: 01/28/19 Operative Procedure(s): arthrotomy of left TKA with debridement and evacuation of hemarthrosis Post-Op Diagnosis: Deep wound dehiscense L knee, s/p TKA Anesthesia Technique: Moderate Sedation, Spinal Primary Surgeon: Susanne Muse Machine Whitener: Alisa Portillo in mLs: 10 Condition: Fair Free Text/Narrative:: tt=30 min Intake & Output 01/27/19 01/28/19 01/28/19 22:59 06:59 14:59 Intake Total 1440 500 Output Total 375 700 Balance 1065 -200 #[id number]
[2019-01-28] MEDS: Acetaminophen/HYDROcodone 325-10 MG Tab PO PRN (19:27)
[2019-01-28] MEDS: Clindamycin Phosphate in D5W 900 MG in Premix Bag 1 BAG IV SCH ×2 (20:36)
[2019-01-29] MEDS: Acetaminophen/HYDROcodone 325-10 MG Tab PO PRN ×3 (00:25→09:08)
[2019-01-29] MEDS: Ketorolac 30 MG/ML SDV IVPUSH SCH ×2 (01:16→10:03)
[2019-01-29] MEDS: HYDROmorphone 1 MG/ML Syringe IVPUSH PRN (01:27)
[2019-01-29] MEDS: Clindamycin Phosphate in D5W 900 MG in Premix Bag 1 BAG IV SCH ×2 (04:41)
--- NOTE | 2019-01-29 08:10 | PCM.SURGPN ---
- General Info Date of Service: 01/29/19 Date of Surgery/Procedure: 01/28/19 POD#: 1 Functional Status: Reports: Pain Controlled, Tolerating Diet, Ambulating, Urinating - Review of Systems General: Reports: No Symptoms Pulmonary: Reports: No Symptoms Cardiovascular: Reports: No Symptoms Gastrointestinal: Reports: No Symptoms Systems Review Comment:: pt resting comfortably in bed knee immobilizer in place pain improving post-operatively slight knee flexion is still her position of comfort was able to reach full knee extension at the end of the procedure yesterday pt is unsure of how to proceed with PT, ie outpatient or HEP until 2wks of immobilization is complete - Patient Data Vitals - Most Recent: Last Vital Signs Temp 97.9 F 01/29/19 07:46 Pulse 63 01/29/19 07:46 Resp 17 01/29/19 07:46 BP 122/68 01/29/19 07:46 Pulse Ox 98 01/29/19 07:46 Weight - Most Recent: 102.24 kg I&O - Last 24 Hours: Intake & Output 01/28/19 01/29/19 01/29/19 22:59 06:59 14:59 Intake Total 2577 900 Output Total 600 700 Balance 1977 200 Med Orders - Current: Current Medications Hydrocodone Bitart/Acetaminophen ([place] 325-10 Mg) 1 - 2 tab PO Q4H PRN PRN Reason: Pain Last Admin: 01/29/19 04:42 Dose: 2 tab Aspirin (Ecotrin) 325 mg PO BID [facility] Cyclobenzaprine HCl (Flexeril) 10 mg PO TID PRN PRN Reason: Muscle Spasm Escitalopram Oxalate (Lexapro) 10 mg PO DAILY [facility] Last Admin: 01/28/19 09:57 Dose: Not Given Estropipate (Estropipate) 1.5 mg PO DAILY [facility] Last Admin: 01/28/19 09:57 Dose: Not Given Famotidine (Pepcid) 40 mg PO DAILY [facility] Last Admin: 01/28/19 09:57 Dose: Not Given Hydromorphone HCl (Dilaudid) 1 mg IVPUSH Q3H PRN PRN Reason: Pain Last Admin: 01/29/19 01:27 Dose: 1 mg Lactated Ringer's (Ringers, Lactated) 1,000 mls @ 100 mls/hr IV ASDIRECTED [facility] Last Admin: 01/28/19 21:04 Dose: 100 mls/hr Ketorolac Tromethamine (Toradol) 30 mg IVPUSH Q6H [facility] Last Admin: 01/29/19 01:16 Dose: 30 mg Losartan Potassium (Cozaar) 12.5 mg PO QAM [facility] Last Admin: 01/28/19 09:57 Dose: Not Given Magnesium Oxide (Magnesium Oxide) 400 mg PO BID [facility] Last Admin: 01/28/19 20:42 Dose: 400 mg Methotrexate (Methotrexate) 7.5 mg PO Th@0900 [facility] Ondansetron HCl (Zofran) 4 mg IVPUSH Q4H PRN PRN Reason: Nausea Scopolamine (Transderm-Scop) 1.5 mg TRDERM Q72H PRN PRN Reason: Nausea Senna/Docusate Sodium (Senna Plus) 1 tab PO BID PRN PRN Reason: Constipation Discontinued Medications Acetaminophen (Tylenol) 650 mg PO Q6H PRN PRN Reason: Pain Atropine Sulfate (Atropine 0.1 Mg/Ml) 1 mg IVPUSH ASDIRECTED PRN PRN Reason: ACLS Guidelines Atropine Sulfate (Atropine 0.1 Mg/Ml) 0.5 mg IVPUSH ASDIRECTED PRN PRN Reason: Hypo-Perfusion Cyclobenzaprine HCl (Flexeril) 10 mg PO ONETIME ONE Stop: 01/23/19 17:52 Last Admin: 01/23/19 18:12 Dose: 10 mg Dextrose/Water (Dextrose 50% In Water) 50 ml IVPUSH ASDIRECTED PRN PRN Reason: Hypoglycemia Docusate Sodium (Colace) 100 mg PO BID PRN PRN Reason: Constipation Last Admin: 01/26/19 08:31 Dose: 100 mg Enoxaparin Sodium (Lovenox) 40 mg SUBCUT Q24H [facility] Last Admin: 01/27/19 17:21 Dose: 40 mg Epinephrine HCl (Epinephrine 1:10,000) 1 mg IVPUSH ASDIRECTED PRN PRN Reason: ACLS Guidelines Fentanyl (Sublimaze) Confirm Administered Dose 100 mcg .ROUTE .STK-MED ONE Stop: 01/28/19 13:05 Fentanyl (Sublimaze) 50 - 100 mcg IVPUSH Q5M PRN PRN Reason: Pain Heparin Sodium (Porcine) (Heparin Sodium) 5,000 units IVPUSH Q8H [facility] Heparin Sodium (Porcine) (Heparin Sodium) 5,000 units SUBCUT Q8H [facility] Last Admin: 01/26/19 11:08 Dose: 5,000 units Clindamycin Phosphate 900 mg/ (Sodium Chloride) 56 mls @ 100 mls/hr IV ONETIME ONE Stop: 01/23/19 19:17 Last Admin: 01/23/19 19:51 Dose: 100 mls/hr Clindamycin Phosphate 600 mg/ (Sodium Chloride) 54 mls @ 100 mls/hr IV Q6H [facility] Last Admin: 01/24/19 00:40 Dose: Not Given Clindamycin Phosphate (Cleocin In D5w) 50 mls @ 100 mls/hr IV Q6H [facility] Last Admin: 01/26/19 06:29 Dose: 100 mls/hr Clindamycin Phosphate 900 mg/ (Premix) 50 mls @ 100 mls/hr IV ONETIME [facility] Lidocaine HCl (Xylocaine-Mpf 1%) Confirm Administered Dose 5 mls @ as directed .ROUTE .STK-MED ONE Stop: 01/28/19 13:04 Clindamycin Phosphate 900 mg/ (Premix) 50 mls @ 100 mls/hr IV Q8H [facility] Stop: 01/29/19 04:59 Last Admin: 01/29/19 04:41 Dose: 100 mls/hr Ibuprofen (Motrin) 400 mg PO Q6H PRN PRN Reason: Pain Lidocaine (Xylocaine-Mpf 2%) Confirm Administered Dose 5 ml .ROUTE .STK-MED ONE Stop: 01/28/19 13:06 Lorazepam (Ativan) 1 mg IVPUSH ONETIME ONE Stop: 01/23/19 18:41 Last Admin: 01/23/19 18:47 Dose: 1 mg Lorazepam (Ativan) 1 mg IVPUSH ONETIME ONE Stop: 01/26/19 15:38 Last Admin: 01/26/19 15:51 Dose: 1 mg Midazolam HCl (Versed 1 Mg/Ml) Confirm Administered Dose 2 mg .ROUTE .STK-MED ONE Stop: 01/28/19 13:05 Midazolam HCl (Versed 1 Mg/Ml) Confirm Administered Dose 2 mg .ROUTE .STK-MED ONE Stop: 01/28/19 13:06 Morphine Sulfate (Morphine) 4 mg IVPUSH ONETIME ONE Stop: 01/23/19 16:22 Last Admin: 01/23/19 17:10 Dose: 4 mg Morphine Sulfate (Morphine) 2 mg IVPUSH ONETIME ONE Stop: 01/23/19 18:41 Last Admin: 01/23/19 18:49 Dose: 2 mg Morphine Sulfate (Morphine) Confirm Administered Dose 2 mg .ROUTE .STK-MED ONE Stop: 01/23/19 18:41 Last Admin: 01/23/19 18:58 Dose: Not Given Naloxone HCl (Narcan) 0.1 mg IVPUSH ASDIRECTED PRN PRN Reason: Respiratory Depression Ondansetron HCl (Zofran) 4 mg IVPUSH ONETIME ONE Stop: 01/23/19 16:22 Last Admin: 01/23/19 17:05 Dose: 4 mg Ondansetron HCl (Zofran) Confirm Administered Dose 4 mg .ROUTE .STK-MED ONE Stop: 01/28/19 13:04 Ondansetron HCl (Zofran) Confirm Administered Dose 4 mg .ROUTE .STK-MED ONE Stop: 01/28/19 13:06 Propofol (Diprivan 20 Ml) Confirm Administered Dose 200 mg .ROUTE .STK-MED ONE Stop: 01/28/19 13:05 Propofol (Diprivan 20 Ml) Confirm Administered Dose 200 mg .ROUTE .STK-MED ONE Stop: 01/28/19 13:06 Scopolamine (Transderm-Scop) Confirm Administered Dose 1.5 mg .ROUTE .STK-MED ONE Stop: 01/28/19 13:11 - Exam Wound/Incisions: Dressing Dry and Intact. No: Drainage General: Alert, Oriented Cardiovascular: Regular Rate, Regular Rhythm Extremities: Other (exam RLE - at/ehl/gastroc 5/5, dp 2+, sensation intact distally) Physical Findings Comment:: vss, afeb - Problem List Review Problem List Initiated/Reviewed/Updated: Yes - My Orders Last 24 Hours: Active Orders 24 hr Category Date Time Status Blood Glucose Check, Bedside [RC] PRN Care 01/28/19 14:25 Active Notify Provider Vital Signs [RC] ASDIRECTED Care 01/28/19 14:25 Active Oxygen Therapy [RC] PRN Care 01/28/19 14:25 Active RT Incentive Spirometry [RC] ASDIRECTED Care 01/28/19 14:29 Active Aspirin [Ecotrin] Med 01/29/19 09:00 Active 325 mg PO BID Methotrexate Med 01/29/19 09:00 Active 7.5 mg PO Th@0900 Scopolamine [Transderm-Scop] Med 01/28/19 12:37 Active 1.5 mg TRDERM Q72H PRN Medication Orders Hydrocodone Bitart/Acetaminophen (Independence 325-10 Mg) 1 - 2 tab PO Q4H PRN PRN Reason: Pain Last Admin: 01/29/19 04:42 Dose: 2 tab Admin: 01/29/19 00:25 Dose: 2 tab Admin: 01/28/19 19:27 Dose: 2 tab Admin: 01/26/19 20:36 Dose: 2 tab Aspirin (Ecotrin) 325 mg PO BID [facility] Cyclobenzaprine HCl (Flexeril) 10 mg PO TID PRN PRN Reason: Muscle Spasm Escitalopram Oxalate (Lexapro) 10 mg PO DAILY [facility] Last Admin: 01/28/19 09:57 Dose: Admin: 01/27/19 08:50 Dose: 10 mg Admin: 01/26/19 15:48 Dose: 10 mg Estropipate (Estropipate) 1.5 mg PO DAILY [facility] Last Admin: 01/28/19 09:57 Dose: Admin: 01/27/19 10:54 Dose: 1.5 mg Famotidine (Pepcid) 40 mg PO DAILY [facility] Last Admin: 01/28/19 09:57 Dose: Admin: 01/27/19 08:45 Dose: 40 mg Hydromorphone HCl (Dilaudid) 1 mg IVPUSH Q3H PRN PRN Reason: Pain Last Admin: 01/29/19 01:27 Dose: 1 mg Admin: 01/28/19 20:39 Dose: 1 mg Admin: 01/28/19 16:44 Dose: 1 mg Admin: 01/28/19 12:19 Dose: 1 mg Admin: 01/28/19 07:37 Dose: 1 mg Admin: 01/28/19 04:00 Dose: 1 mg Admin: 01/28/19 00:23 Dose: 1 mg Admin: 01/27/19 18:38 Dose: 1 mg Admin: 01/27/19 10:51 Dose: 1 mg Admin: 01/26/19 23:39 Dose: 1 mg Admin: 01/26/19 15:51 Dose: 1 mg Admin: 01/26/19 09:19 Dose: 1 mg Admin: 01/26/19 04:03 Dose: 1 mg Admin: 01/25/19 23:47 Dose: 1 mg Admin: 01/25/19 20:32 Dose: 1 mg Admin: 01/25/19 17:14 Dose: 1 mg Admin: 01/25/19 12:50 Dose: 1 mg Admin: 01/25/19 08:39 Dose: 1 mg Admin: 01/25/19 04:31 Dose: 1 mg Admin: 01/25/19 00:15 Dose: 1 mg Admin: 01/24/19 21:26 Dose: 1 mg Admin: 01/24/19 18:05 Dose: 1 mg Admin: 01/24/19 13:01 Dose: 1 mg Admin: 01/24/19 08:25 Dose: 1 mg Admin: 01/24/19 05:00 Dose: 1 mg Admin: 01/24/19 01:45 Dose: 1 mg Admin: 01/23/19 22:45 Dose: 1 mg Lactated Ringer's (Ringers, Lactated) 1,000 mls @ 100 mls/hr IV ASDIRECTED [facility] Last Admin: 01/28/19 21:04 Dose: 100 mls/hr Infusion: 01/28/19 19:05 Dose: 100 mls/hr Admin: 01/28/19 09:05 Dose: 100 mls/hr Infusion: 01/28/19 09:05 Dose: 100 mls/hr Admin: 01/27/19 23:54 Dose: 100 mls/hr Ketorolac Tromethamine (Toradol) 30 mg IVPUSH Q6H [facility] Last Admin: 01/29/19 01:16 Dose: 30 mg Admin: 01/28/19 20:34 Dose: 30 mg Admin: 01/28/19 13:19 Dose: Not Given Admin: 01/28/19 09:56 Dose: Admin: 01/28/19 03:09 Dose: 30 mg Admin: 01/27/19 20:16 Dose: 30 mg Admin: 01/27/19 15:10 Dose: 30 mg Admin: 01/27/19 08:38 Dose: 30 mg Admin: 01/27/19 02:47 Dose: 30 mg Admin: 01/26/19 20:36 Dose: 30 mg Admin: 01/26/19 14:37 Dose: 30 mg Losartan Potassium (Cozaar) 12.5 mg PO QAM [facility] Last Admin: 01/28/19 09:57 Dose: Admin: 01/27/19 08:45 Dose: 12.5 mg Admin: 01/26/19 15:55 Dose: 12.5 mg Magnesium Oxide (Magnesium Oxide) 400 mg PO BID [facility] Last Admin: 01/28/19 20:42 Dose: 400 mg Admin: 01/28/19 09:57 Dose: Admin: 01/27/19 20:16 Dose: 400 mg Admin: 01/27/19 08:45 Dose: 400 mg Admin: 01/26/19 20:36 Dose: 400 mg Methotrexate (Methotrexate) 7.5 mg PO Th@0900 [facility] Ondansetron HCl (Zofran) 4 mg IVPUSH Q4H PRN PRN Reason: Nausea Scopolamine (Transderm-Scop) 1.5 mg TRDERM Q72H PRN PRN Reason: Nausea Senna/Docusate Sodium (Senna Plus) 1 tab PO BID PRN PRN Reason: Constipation - Assessment Assessment (Free Text/Narrative):: POD#1 exploration L TKA, hemarthrosis evavuation - Plan Plan (Free Text/Narrative):: procedure was discussed with patient - will clarify with Dr Muse re: PT recommend knee immobilization x 2 weeks able to WBAT no flexion exercises with PT continue pain management, DVT prophylaxis, polar care likely d/ch to home this afternoon will need dressing changed to aquacel prior to d/ch pt has no additional questions
--- NOTE | 2019-01-29 08:35 | PCM.SN ---
- Free Text/Narrative Note: d/ch summary #[id number]
[2019-01-29] MEDS: Losartan 50 MG Tab PO SCH (08:51)
[2019-01-29] MEDS: Magnesium Oxide 400 MG Tab PO SCH (08:51)
[2019-01-29] MEDS: Escitalopram 10 MG Tab PO SCH (08:51)
[2019-01-29] MEDS: Famotidine 20 MG Tab PO SCH (08:52)
[2019-01-29] MEDS ORDERED: Aspirin 325 MG Tab.EC PO SCH (09:00)
[2019-01-29] MEDS ORDERED: Methotrexate 2.5 MG Tab PO SCH (09:00)
--- NOTE | 2019-01-29 10:19 | PCM48HPAN ---
Post Anesthesia Note - EVALUATION WITHIN 48HRS OF ANESTHETIC Vital Signs in Normal Range: Yes Patient Participated in Evaluation: Yes Respiratory Function Stable: Yes Airway Patent: Yes Cardiovascular Function Stable: Yes Hydration Status Stable: Yes Pain Control Satisfactory: Yes Nausea and Vomiting Control Satisfactory: Yes Mental Status Recovered: Yes Resp Rate: 17 Blood Pressure: 122/68
--- NOTE | 2019-01-30 08:37 | OR ---
SURGEON: Susanne Muse MD DATE OF PROCEDURE: 01/28/2019 PREOPERATIVE DIAGNOSIS: Left knee pain, status post left total knee arthroplasty. POSTOPERATIVE DIAGNOSIS: Deep wound dehiscence of left knee, status post total knee arthroplasty. PROCEDURES: Arthrotomy of left total knee arthroplasty with debridement and evacuation of hemarthrosis. COIL BINDER: Alisa Portillo PA-C. ANESTHESIA: Spinal with sedation. ESTIMATED BLOOD LOSS: 10 mL. TOURNIQUET TIME: 30 minutes. COMPLICATIONS: None. DVT PROPHYLAXIS: PAS boot and MICHAEL hose to the nonoperative leg. IMPLANTS USED: None. BRIEF HISTORY: Rossana is a 53-year-old female who previously underwent a left total knee arthroplasty on January 05, 2019. She did well following the surgery; however, she sustained a fall on January 23, 2019, hyperflexing her left knee. She continued to have pain. Due to her lack of response to conservative treatment, I did recommend surgical treatment. The risks and goals of the procedure were discussed with the patient and were documented preoperatively. She agreed to proceed. DESCRIPTION OF PROCEDURE: The patient was properly identified and brought to the operating room. She was transferred from the OR cart and placed on the operating table. Spinal anesthetic was administered. After adequate anesthesia was obtained, she was placed into a supine position and a well-padded tourniquet was applied to the left lower extremity. The left lower extremity was then prepped in standard fashion using Betadine solution. It was then sterilely draped. A time-out was performed to ensure correct site and procedure. Preoperative antibiotics had been given. The surgical site was marked preoperatively. An Esmarch was used to exsanguinate the left lower extremity and the tourniquet was inflated to 250 mmHg. An incision was made over the site of the previous incision. She did have a fracture blister located along the proximal medial aspect of the incision. This was unroofed and covered with a Tegaderm throughout the procedure. The subcutaneous tissues were then incised down to the level of the fascia. Upon palpation, I was able to feel a defect in the superior fascia and the components were palpable. She had extensive coagulated hematoma present as well. This was evacuated. 6 L of normal saline were then irrigated through the left knee joint using a Pulsavac java swing developer. At the completion, the tissues appeared clean and there was no evidence of infection. I did visualize the components. They appeared to be intact. Since the superior aspect of the fascial layer was the only area dehisced, I elected to keep the inferior fascia intact. #1 Vicryl was used to close the superior fascial defect. This reapproximated nicely and the tissue appeared robust. I was able to flex her to approximately 90 degrees without significant tension on the repair. The subcutaneous tissues were then closed with 2-0 Vicryl and the skin was closed with paolo. Xeroform gauze was placed over the wound and the blister. A bulky dressing was then applied. The tourniquet was then deflated. She was placed into a knee immobilizer. She was awakened from her anesthetic and transferred back to the operating room cart. She was brought to recovery room in stable condition. All needle and sponge counts were correct. Postoperative plan will be for the patient to continue with physical therapy. She will need to be weightbearing as tolerated on the left lower extremity. We will plan on holding off on any range of motion exercises until her two week visit. We will plan on starting physical therapy tomorrow. KELLY / MACARIO /[id number]
--- NOTE | 2019-01-30 08:49 | DISCH ---
DATE OF DISCHARGE: 01/29/2019 PRIMARY CARE PHYSICIAN: Unknown PCP ADMITTING DIAGNOSES: 1. Status post left total knee arthroplasty. 2. Fall. OTHER MEDICAL DIAGNOSES: 1. Anxiety/depression. 2. B12 deficiency. 3. Psoriasis. 4. Hypertension. 5. Gastroesophageal reflux disease. 6. Cyclic vomiting syndrome. DISCHARGE DIAGNOSES: 1. Status post left total knee arthroplasty. 2. Fall. 3. Anxiety/depression. 4. B12 deficiency. 5. Psoriasis. 6. Hypertension. 7. Gastroesophageal reflux disease. 8. Cyclic vomiting syndrome. BRIEF HISTORY: Rossana is a 53-year-old female who has previously undergone a left total knee arthroplasty on January 05, 2019, by Dr. Susanne Muse. She was doing fairly well and following the usual postoperative course, when she had a fall on the ice on January 23, 2019. She landed directly on her left knee. She complained of immediate pain. She did contact the [facility], and would not have been able to present in time prior to clinic closing, and she was advised to present to the Emergency Department. She was admitted by the hospitalist service for pain management. No orthopedic consult was made until the morning of January 26, 2019. She continued to complain of pain in the left knee. Her range of motion was significantly limited. X-rays were done and did not reveal any evidence of periprosthetic fracture, dislocation, or tendon rupture. Due to her lack of response to conservative treatment, surgical treatment was recommended. On January 28, 2019, the patient underwent an arthrotomy of the left total knee arthroplasty with debridement and evacuation of hemarthrosis. This was done by Dr. Susanne Muse. Estimated blood loss was 10 mL. Tourniquet time was 30 minutes. There were no known complications. Upon completion of the procedure, she was transferred to the PACU and subsequently to Med/Surg postoperative care. Postoperatively, the patient did well. She had good improvement in her pain. Her pain has been controlled with oral pain medications. She was placed in a knee immobilizer, and has been able to maintain this. She has been partially weightbearing to her left lower extremity with the assist of a wheeled walker. She feels comfortable with discharge to home today. DISCHARGE MEDICATIONS: 1. Weems 10/325. 2. Aspirin 325 mg. 3. Colace. 4. MiraLax. DISCHARGE INSTRUCTIONS: 1. Follow up in clinic in 10 to 14 days from the date of procedure. This appointment has been made for the patient. 2. Weightbearing as tolerated to the left lower extremity. 3. Knee immobilizer to the left knee. 4. Home exercises, excluding knee flexion exercises. 5. Okay to shower over the Aquacel dressing. She will change the dressing next week at home. She will contact the clinic with any wound concerns. For complete medication reconciliation and discharge instructions, please refer back to the patient's EHR. Should she have questions or concerns prior to followup, she has been advised to contact the clinic. AFIA SORTO /[id number]
== END 2019-01-29 10:45 | disposition home or self-care (01) | DRG 909 ==
LOC: MW.ED 16:07 → MW.MS 20:23 → OBSVTOIN 01-26 14:18 → MW.MS 01-26 14:19
PROVIDERS: ADMIT Internal Medicine; ATTEND Orthopaedic Surgery
PROC: 0S9D3ZZ Drainage of Left Knee Joint, Percutaneous Approach (ICD-10-PCS; 2019-01-26)
PROC: 0SCD0ZZ Extirpation of Matter from Left Knee Joint, Open Approach (ICD-10-PCS; principal; 2019-01-28)
DX: M25.562 Pain in left knee (principal); T81.32XA Disruption of internal operation (surgical) wound, not elsewhere classified, initial encounter; M25.462 Effusion, left knee; S83.92XA Sprain of unspecified site of left knee, initial encounter; W00.0XXA Fall on same level due to ice and snow, initial encounter; Y83.8 Other surgical procedures as the cause of abnormal reaction of the patient, or of later complication, without mention of misadventure at the time of the procedure; I10 Essential (primary) hypertension; K21.9 Gastro-esophageal reflux disease without esophagitis; K31.89 Other diseases of stomach and duodenum; R11.10 Vomiting, unspecified; M62.838 Other muscle spasm; M19.90 Unspecified osteoarthritis, unspecified site; F32.9 Major depressive disorder, single episode, unspecified; E66.9 Obesity, unspecified; E53.8 Deficiency of other specified B group vitamins; F41.9 Anxiety disorder, unspecified; L40.3 Pustulosis palmaris et plantaris; Z96.652 Presence of left artificial knee joint; Z90.49 Acquired absence of other specified parts of digestive tract; Z90.710 Acquired absence of both cervix and uterus; Z88.6 Allergy status to analgesic agent; Z79.82 Long term (current) use of aspirin; Z79.899 Other long term (current) drug therapy; Z68.34 Body mass index [BMI] 34.0-34.9, adult; Z88.1 Allergy status to other antibiotic agents; Z88.5 Allergy status to narcotic agent; Z88.0 Allergy status to penicillin; Z88.8 Allergy status to other drugs, medicaments and biological substances
CPT/HCPCS: 36415; 72170; 73552; 73562; 80053; 85025; 85610; 96365; 96366 ×2; 96372 ×3; 96375 ×2; 96376 ×4; 99284; A9270 ×3; G0378 ×3; J1170 ×16; J1644 ×7; J2060; J2270 ×2; J2405; J3490 ×11; J7050; 00400; 97110-GP; 97116-GP; 97161-GP; 97530-GP; J1650; J1885; J2001; J2250; J2704; J3010; J7120

== ENCOUNTER 2019-02-09 10:15 | Inpatient (IN) | payer MEDICARE, OTHER ==
[2019-02-09] MEDS ORDERED: Sodium Chloride 0.9% 10 ML Syringe FLUSH PRN (10:48)
[2019-02-09] MEDS ORDERED: Sodium Chloride 0.9% 2.5 ML Syringe FLUSH PRN (10:48)
--- NOTE | 2019-02-09 10:54 | EDM.PDOC ---
ED HPI GENERAL MEDICAL PROBLEM - General Chief Complaint: Wound Recheck Stated Complaint: INFECTION POST SX Time Seen by Provider: 02/09/19 10:17 Source of Information: Reports: Patient History Limitations: Reports: No Limitations - History of Present Illness INITIAL COMMENTS - FREE TEXT/NARRATIVE: History of present illness: [] Review of systems: As per history of present illness and below otherwise all systems reviewed and negative. Past medical history: As per history of present illness and as reviewed below otherwise noncontributory. Surgical history: As per history of present illness and as reviewed below otherwise noncontributory. Social history: No reported history of drug or alcohol abuse. Family history: As per history of present illness and as reviewed below otherwise noncontributory. Physical exam: General: Well developed, well nourished in NAD HEENT: Atraumatic, normocephalic, pupils reactive, negative for conjunctival pallor or scleral icterus, mucous membranes moist, throat clear, neck supple, nontender, trachea midline. Lungs: Clear to auscultation, breath sounds equal bilaterally, chest nontender. Heart: S1S2, regular, negative for clicks, rubs, or JVD. Abdomen: NABS, Soft, nondistended, nontender. Negative for masses or hepatosplenomegaly. Negative for costovertebral tenderness. Pelvis: Stable nontender. Genitourinary: Deferred. Rectal: Deferred. Extremities: Atraumatic, negative for cords or calf pain. Neurovascular unremarkable. Neuro: Awake, alert, oriented. Cranial nerves II through XII unremarkable. Cerebellum unremarkable. Motor and sensory unremarkable throughout. Exam nonfocal. Skin:warm and dry Diagnostics: Therapeutics: ED Course: Impression: Prescriptions: Plan: Definitive disposition and diagnosis as appropriate pending reevaluation and review of above. Left KNee Pain Score (Numeric/FACES): 6 - Related Data Allergies Allergy/AdvReac Type Severity Reaction Status Date / Time acetaminophen [From Percocet] Allergy Nausea and Verified 01/23/19 21:49 Vomiting celecoxib Allergy Swelling Verified 01/01/19 11:19 cephalexin [From Keflex] Allergy Hives Verified 01/01/19 11:19 Cephalosporins Allergy Hives Verified 01/01/19 11:19 ciprofloxacin [From Cipro] Allergy Hives Verified 01/01/19 11:19 ciprofloxacin HCl Allergy Hives Verified 01/01/19 11:19 [From Cipro] gentamicin Allergy Hives Verified 01/01/19 11:19 morphine Allergy Nausea and Verified 01/01/19 11:19 Vomiting oxycodone [From Percocet] Allergy Nausea and Verified 01/23/19 21:49 Vomiting Penicillins Allergy Rash Verified 01/01/19 11:19 anesthetic cream Allergy Hives Uncoded 01/01/19 11:19 Home Meds: Home Meds Clobetasol [Clobetasol Propionate 0.05% Cream] 1 dose TOP BID PRN 01/01/19 [ History] Cyanocobalamin (Vitamin B-12) [Cyanocobalamin Injection] 1,000 mcg IM ASDIRECTED 01/01/19 [History] Escitalopram Oxalate 10 mg PO DAILY 01/01/19 [History] Estropipate 1.5 mg PO DAILY 01/01/19 [History] Methotrexate 7.5 mg PO WEEKLY 01/01/19 [History] Aspirin 325 mg PO BID #60 tablet 01/07/19 [Rx] Magnesium Oxide [Magnesium] 400 mg PO BID 01/26/19 [History] Metoprolol Succinate 50 mg PO DAILY 01/26/19 [History] Past Medical History HEENT History: Reports: Other (See Below) Other HEENT History: has upper partial denture x2, has upper and lower dental implants Cardiovascular History: Reports: Hypertension Gastrointestinal History: Reports: GERD, Other (See Below) Other Gastrointestinal History: was previously thought to hace Ulcerative colitis, now is diagnosed with Cyclic Vomiting Syndrome- had recent episode Musculoskeletal History: Reports: Osteoarthritis Neurological History: Reports: None Psychiatric History: Reports: Anxiety, Depression Endocrine/Metabolic History: Reports: Obesity/BMI 30+ Hematologic History: Reports: B12 Deficiency Immunologic History: Reports: None Oncologic (Cancer) History: Reports: None Dermatologic History: Reports: Psoriasis Other Dermatologic History: has Palmar Plantar Pustular psoriasis - Infectious Disease History Infectious Disease History: Reports: Chicken Pox - Past Surgical History Head Surgeries/Procedures: Reports: None GI Surgical History: Reports: Cholecystectomy Female Surgical History: Reports: Hysterectomy, Salpingo-Oophorectomy, Tubal Ligation, Other (See Below) Other Female Surgeries/Procedures: Laparoscopies with Ovarian Wedge resection and Lysis of Adhesions Musculoskeletal Surgical History: Reports: Arthroscopic Knee, Knee Replacement, ORIF Other Musculoskeletal Surgeries/Procedures:: ACL repair left knee, ORIF right ankle (has plate and screws) Social & Family History - Family History Family Medical History: Noncontributory Cardiac: Reports: None - Tobacco Use Smoking Status *Q: Never Smoker Second Hand Smoke Exposure: Yes - Caffeine Use Caffeine Use: Reports: Coffee, Tea - Recreational Drug Use Recreational Drug Use: No Course - Vital Signs Last Recorded V/S: Last Vital Signs Temp 97.2 F 02/09/19 10:35 Pulse 91 02/09/19 10:35 Resp 18 02/09/19 10:35 BP 144/96 H 02/09/19 10:35 Pulse Ox 97 02/09/19 10:35 - Orders/Labs/Meds Orders: Active Orders 24 hr Category Date Time Status Knee 1V or 2V Lt [CR] Stat Exams 02/09/19 10:51 Ordered CBC WITH AUTO DIFF [HEME] Stat Lab 02/09/19 10:48 Ordered COMPREHENSIVE METABOLIC PN,CMP [CHEM] Stat Lab 02/09/19 10:48 Ordered CRP [C-REACTIVE PROTEIN] [CHEM] Routine Lab 02/09/19 10:48 Ordered CULTURE BLOOD [BC] Stat Lab 02/09/19 10:48 Ordered CULTURE BLOOD [BC] Stat Lab 02/09/19 10:48 Ordered SEDIMENTATION RATE AUTO [HEME] Routine Lab 02/09/19 10:50 Ordered Sodium Chloride 0.9% [Saline Flush] Med 02/09/19 10:48 Active 10 ml FLUSH ASDIRECTED PRN Sodium Chloride 0.9% [Saline Flush] Med 02/09/19 10:48 Active 2.5 ml FLUSH ASDIRECTED PRN Blood Culture x2 Reflex Set [OM.PC] Stat Oth 02/09/19 10:48 Ordered Saline Lock Insert [OM.PC] Stat Oth 02/09/19 10:48 Ordered Medication Orders Sodium Chloride (Saline Flush) 10 ml FLUSH ASDIRECTED PRN PRN Reason: Keep Vein Open Sodium Chloride (Saline Flush) 2.5 ml FLUSH ASDIRECTED PRN PRN Reason: Keep Vein Open Meds: Medications Generic Name Dose Route Start Last Admin Trade Name Freq PRN Reason Stop Dose Admin Sodium Chloride 10 ml 02/09/19 10:48 Saline Flush FLUSH ASDIRECTED PRN Keep Vein Open Sodium Chloride 2.5 ml 02/09/19 10:48 Saline Flush FLUSH ASDIRECTED PRN Keep Vein Open Departure - Discharge Information Referrals: Irais Chow MD [Primary Care Provider] - Forms: ED Department Discharge - My Orders Last 24 Hours: My Active Orders 02/09/19 10:48 CBC WITH AUTO DIFF [HEME] Stat COMPREHENSIVE METABOLIC PN,CMP [CHEM] Stat CULTURE BLOOD [BC] Stat CULTURE BLOOD [BC] Stat Sodium Chloride 0.9% [Saline Flush] 10 ml FLUSH ASDIRECTED PRN Sodium Chloride 0.9% [Saline Flush] 2.5 ml FLUSH ASDIRECTED PRN Blood Culture x2 Reflex Set [OM.PC] Stat Saline Lock Insert [OM.PC] Stat - Assessment/Plan Last 24 Hours: My Active Orders 02/09/19 10:48 CBC WITH AUTO DIFF [HEME] Stat COMPREHENSIVE METABOLIC PN,CMP [CHEM] Stat CULTURE BLOOD [BC] Stat CULTURE BLOOD [BC] Stat Sodium Chloride 0.9% [Saline Flush] 10 ml FLUSH ASDIRECTED PRN Sodium Chloride 0.9% [Saline Flush] 2.5 ml FLUSH ASDIRECTED PRN Blood Culture x2 Reflex Set [OM.PC] Stat Saline Lock Insert [OM.PC] Stat
[2019-02-09] MEDS ORDERED: Ketorolac 30 MG/ML SDV IVPUSH ONE (11:01)
--- NOTE | 2019-02-09 11:01 | EDM.PDOC ---
ED HPI GENERAL MEDICAL PROBLEM - General Chief Complaint: Wound Recheck Stated Complaint: INFECTION POST SX Time Seen by Provider: 02/09/19 10:17 Source of Information: Reports: Patient History Limitations: Reports: No Limitations - History of Present Illness INITIAL COMMENTS - FREE TEXT/NARRATIVE: History of present illness: []Patient is status post left knee replacement in January with a subsequent fall and surgery. Last night her knee started draining with increased tenderness and redness and she feels it may be infected. She is currently taking ibuprofen and Tylenol [id number] and is unaware if she has had any fevers. Review of systems: As per history of present illness and below otherwise all systems reviewed and negative. Past medical history: As per history of present illness and as reviewed below otherwise noncontributory. Surgical history: As per history of present illness and as reviewed below otherwise noncontributory. Social history: No reported history of drug or alcohol abuse. Family history: As per history of present illness and as reviewed below otherwise noncontributory. Physical exam: General: Well developed, well nourished in NAD HEENT: Atraumatic, normocephalic, pupils reactive, negative for conjunctival pallor or scleral icterus, mucous membranes moist, throat clear, neck supple, nontender, trachea midline. Lungs: Clear to auscultation, breath sounds equal bilaterally, chest nontender. Heart: S1S2, regular, negative for clicks, rubs, or JVD. Abdomen: NABS, Soft, nondistended, nontender. Negative for masses or hepatosplenomegaly. Negative for costovertebral tenderness. Pelvis: Stable nontender. Genitourinary: Deferred. Rectal: Deferred. Extremities: Left knee with paolo intact. There is a 6 cm x 5 cm irregular ulceration with granulation tissue. There is no purulent drainage. The skin is deeply erythematous, edematous and tender to palpation, negative for cords or calf pain. Neurovascular unremarkable. Neuro: Awake, alert, oriented. Cranial nerves II through XII unremarkable. Cerebellum unremarkable. Motor and sensory unremarkable throughout. Exam nonfocal. Skin:warm and dry Diagnostics: CBC, chemistry, knee x-ray, sedimentation rate, CRP, blood cultures Therapeutics: Pain meds, IV fluids ED Course: Dr. Muse evaluated patient in the ED and will be admitting her taking her to the operating room for debridement Impression: Postoperative wound infection Prescriptions: None Plan: Admit to orthopedics for further treatment Definitive disposition and diagnosis as appropriate pending reevaluation and review of above. Left KNee Pain Score (Numeric/FACES): 6 - Related Data Allergies Allergy/AdvReac Type Severity Reaction Status Date / Time acetaminophen [From Percocet] Allergy Nausea and Verified 01/23/19 21:49 Vomiting celecoxib Allergy Swelling Verified 01/01/19 11:19 cephalexin [From Keflex] Allergy Hives Verified 01/01/19 11:19 Cephalosporins Allergy Hives Verified 01/01/19 11:19 ciprofloxacin [From Cipro] Allergy Hives Verified 01/01/19 11:19 ciprofloxacin HCl Allergy Hives Verified 01/01/19 11:19 [From Cipro] gentamicin Allergy Hives Verified 01/01/19 11:19 morphine Allergy Nausea and Verified 01/01/19 11:19 Vomiting oxycodone [From Percocet] Allergy Nausea and Verified 01/23/19 21:49 Vomiting Penicillins Allergy Rash Verified 01/01/19 11:19 anesthetic cream Allergy Hives Uncoded 01/01/19 11:19 Home Meds: Home Meds Clobetasol [Clobetasol Propionate 0.05% Cream] 1 dose TOP BID PRN 01/01/19 [ History] Cyanocobalamin (Vitamin B-12) [Cyanocobalamin Injection] 1,000 mcg IM ASDIRECTED 01/01/19 [History] Escitalopram Oxalate 10 mg PO DAILY 01/01/19 [History] Estropipate 1.5 mg PO DAILY 01/01/19 [History] Methotrexate 7.5 mg PO WEEKLY 01/01/19 [History] Aspirin 325 mg PO BID #60 tablet 01/07/19 [Rx] Magnesium Oxide [Magnesium] 400 mg PO BID 01/26/19 [History] Metoprolol Succinate 50 mg PO DAILY 01/26/19 [History] Past Medical History HEENT History: Reports: Other (See Below) Other HEENT History: has upper partial denture x2, has upper and lower dental implants Cardiovascular History: Reports: Hypertension Gastrointestinal History: Reports: GERD, Other (See Below) Other Gastrointestinal History: was previously thought to hace Ulcerative colitis, now is diagnosed with Cyclic Vomiting Syndrome- had recent episode Musculoskeletal History: Reports: Osteoarthritis Neurological History: Reports: None Psychiatric History: Reports: Anxiety, Depression Endocrine/Metabolic History: Reports: Obesity/BMI 30+ Hematologic History: Reports: B12 Deficiency Immunologic History: Reports: None Oncologic (Cancer) History: Reports: None Dermatologic History: Reports: Psoriasis Other Dermatologic History: has Palmar Plantar Pustular psoriasis - Infectious Disease History Infectious Disease History: Reports: Chicken Pox - Past Surgical History Head Surgeries/Procedures: Reports: None GI Surgical History: Reports: Cholecystectomy Female Surgical History: Reports: Hysterectomy, Salpingo-Oophorectomy, Tubal Ligation, Other (See Below) Other Female Surgeries/Procedures: Laparoscopies with Ovarian Wedge resection and Lysis of Adhesions Musculoskeletal Surgical History: Reports: Arthroscopic Knee, Knee Replacement, ORIF Other Musculoskeletal Surgeries/Procedures:: ACL repair left knee, ORIF right ankle (has plate and screws) Social & Family History - Family History Family Medical History: Noncontributory Cardiac: Reports: None - Tobacco Use Smoking Status *Q: Never Smoker Second Hand Smoke Exposure: Yes - Caffeine Use Caffeine Use: Reports: Coffee, Tea - Recreational Drug Use Recreational Drug Use: No Review of Systems - Review of Systems Review Of Systems: ROS reveals no pertinent complaints other than HPI. ED EXAM, GENERAL - Physical Exam Exam: See Below (See history of present illness) Course - Vital Signs Last Recorded V/S: Last Vital Signs Temp 98.4 F 02/09/19 17:03 Pulse 67 02/09/19 17:35 Resp 22 H 02/09/19 17:35 BP 139/85 02/09/19 17:35 Pulse Ox 93 L 02/09/19 17:35 - Orders/Labs/Meds Orders: Active Orders 24 hr Category Date Time Status Patient Status [ADT] Routine ADT 02/09/19 15:07 Active Activity as Tolerated [RC] .Routine Care 02/09/19 15:07 Active Antiembolic Devices [RC] PER UNIT ROUTINE Care 02/09/19 15:11 Active Blood Glucose Check, Bedside [RC] PRN Care 02/09/19 16:00 Active Elevate Extremity [RC] CONTINUOUS Care 02/09/19 15:07 Active Intake and Output [RC] Q12H Care 02/09/19 15:08 Active Oxygen Therapy [RC] ASDIRECTED Care 02/09/19 16:00 Active RT Incentive Spirometry [RC] ASDIRECTED Care 02/09/19 15:08 Active Vital Signs [RC] PER UNIT ROUTINE Care 02/09/19 16:00 Active Vital Signs [RC] Q4H Care 02/09/19 15:08 Active PT Evaluation and Treatment [CONS] Routine Cons 02/09/19 15:07 Active Regular Diet [DIET] Diet 02/09/19 Dinner Active C-REACTIVE PROTEIN [CHEM] Routine Lab 02/10/19 06:00 Ordered CBC WITH AUTO DIFF [HEME] Routine Lab 02/10/19 06:00 Ordered CULTURE ANAEROBIC [RM] Routine Lab 02/09/19 15:40 Received CULTURE BLOOD [BC] Stat Lab 02/09/19 10:53 Received CULTURE BLOOD [BC] Stat Lab 02/09/19 11:07 Results CULTURE WOUND [RM] Routine Lab 02/09/19 15:40 Received GRAM STAIN [RM] Routine Lab 02/09/19 15:40 Received SEDIMENTATION RATE AUTO [HEME] Routine Lab 02/10/19 06:00 Ordered Acetaminophen/HYDROcodone [Piggott 325-10 MG] Med 02/09/19 15:06 Active 1 - 2 tab PO Q4H PRN Acetaminophen/HYDROcodone [Piggott 325-5 MG] Med 02/09/19 16:00 Active 2 tab PO Q6H PRN Albuterol [Proventil Neb Soln] Med 02/09/19 16:00 Active 2.5 mg NEB Q6HRRT PRN Aspirin Med 02/10/19 09:00 Active 325 mg PO BID Atropine [Atropine 0.1 MG/ML] Med 02/09/19 16:00 Active 0.4 mg IVPUSH Q5M PRN Clindamycin Phosphate in D5W [Cleocin in D5W] 900 mg Med 02/09/19 15:15 Active Premix Bag 1 bag IV ONCALL Clindamycin Phosphate in D5W [Cleocin in D5W] 900 mg Med 02/09/19 23:00 Active Premix Bag 1 bag IV Q8H Docusate Sodium [Colace] Med 02/09/19 21:00 Active 100 mg PO BID Famotidine [Pepcid] Med 02/10/19 09:00 Active 40 mg PO DAILY HYDROmorphone [Dilaudid] Med 02/09/19 16:00 Active 0.25 mg IVPUSH Q10M PRN HYDROmorphone [Dilaudid] Med 02/10/19 06:00 Active 0.5 - 1 mg IVPUSH Q3H PRN HYDROmorphone/Normal Saline [Dilaudid ROLL WEIGHER 6 MG in NS 30 Med 02/09/19 15:06 Pending ML] 6 mg IV ASDIRECTED PRN Ketorolac [Toradol] Med 02/09/19 15:06 Active 30 mg IVPUSH Q6H PRN LORazepam [Ativan] Med 02/09/19 15:06 Active 0.5 mg IVPUSH Q6H PRN Labetalol [Normodyne] Med 02/09/19 16:00 Active 10 mg IVPUSH Q6H PRN Meperidine [Demerol] Med 02/09/19 16:00 Active 12.5 mg IVPUSH ONETIME PRN Meperidine [Demerol] Med 02/09/19 16:00 Active 25 mg IV ONETIME PRN Metoclopramide [Reglan] Med 02/09/19 16:00 Active 10 mg IVPUSH ONETIME PRN Morphine Med 02/09/19 16:00 Active 4 mg IVPUSH Q10M PRN Naloxone [Narcan] Med 02/09/19 16:00 Active 0.1 mg IVPUSH ONETIME PRN Ondansetron [Zofran] Med 02/09/19 15:06 Active 4 mg IVPUSH Q6H PRN Ondansetron [Zofran] Med 02/09/19 16:00 Active 8 mg IVPUSH ONETIME PRN Promethazine [Phenergan] Med 02/09/19 16:00 Active 12.5 mg IM ONETIME PRN Scopolamine [Transderm-Scop] Med 02/09/19 16:00 Active 1.5 mg TRDERM Q72H PRN Sodium Chloride 0.9% [Saline Flush] Med 02/09/19 10:48 Active 10 ml FLUSH ASDIRECTED PRN Sodium Chloride 0.9% [Saline Flush] Med 02/09/19 10:48 Active 2.5 ml FLUSH ASDIRECTED PRN diphenhydrAMINE [Benadryl] Med 02/09/19 15:06 Active 25 mg IVPUSH Q4H PRN fentaNYL [Sublimaze] Med 02/09/19 16:00 Active 50 mcg IVPUSH Q5M PRN hydrALAZINE [Apresoline] Med 02/09/19 16:00 Active 10 mg IVPUSH ONETIME PRN hydrALAZINE [Apresoline] Med 02/09/19 16:00 Active 5 mg IVPUSH ONETIME PRN Antiembolic Hose [OM.PC] Routine Oth 02/09/19 15:08 Ordered Blood Culture x2 Reflex Set [OM.PC] Stat Oth 02/09/19 10:48 Ordered Ice Therapy [OM.PC] Routine Oth 02/09/19 15:07 Ordered Saline Lock Insert [OM.PC] Stat Oth 02/09/19 10:48 Ordered Sequential Compression Device [OM.PC] Routine Oth 02/09/19 15:08 Ordered Code Status [Resuscitation Status] Routine Resus Stat 02/09/19 15:06 Ordered Medication Orders Hydrocodone Bitart/Acetaminophen (Piggott 325-10 Mg) 1 - 2 tab PO Q4H PRN PRN Reason: Pain Hydrocodone Bitart/Acetaminophen (Piggott 325-5 Mg) 2 tab PO Q6H PRN PRN Reason: Pain (moderate 4-6) Albuterol (Proventil Neb Soln) 2.5 mg NEB Q6HRRT PRN PRN Reason: Wheezing Aspirin (Aspirin) 325 mg PO BID CAM Atropine Sulfate (Atropine 0.1 Mg/Ml) 0.4 mg IVPUSH Q5M PRN PRN Reason: Bradycardia Diphenhydramine HCl (Benadryl) 25 mg IVPUSH Q4H PRN PRN Reason: Itching Docusate Sodium (Colace) 100 mg PO BID [facility] Famotidine (Pepcid) 40 mg PO DAILY CAM Fentanyl (Sublimaze) 50 mcg IVPUSH Q5M PRN PRN Reason: Pain (severe 7-10) Stop: 02/10/19 16:00 Hydralazine HCl (Apresoline) 5 mg IVPUSH ONETIME PRN PRN Reason: Hypertension Hydralazine HCl (Apresoline) 10 mg IVPUSH ONETIME PRN PRN Reason: Hypertension Hydromorphone HCl (Dilaudid Compliance Coordinator 6 Mg In Ns 30 Ml) 6 mg IV ASDIRECTED PRN; Protocol PRN Reason: Pain Hydromorphone HCl (Dilaudid) 0.5 - 1 mg IVPUSH Q3H PRN PRN Reason: Pain Hydromorphone HCl (Dilaudid) 0.25 mg IVPUSH Q10M PRN PRN Reason: Pain (severe 7-10) Stop: 02/10/19 16:00 Clindamycin Phosphate 900 mg/ (Premix) 50 mls @ 100 mls/hr IV ONCALL CAM Clindamycin Phosphate 900 mg/ (Premix) 50 mls @ 100 mls/hr IV Q8H CAM Stop: 02/10/19 15:34 Ketorolac Tromethamine (Toradol) 30 mg IVPUSH Q6H PRN PRN Reason: Pain Stop: 02/14/19 15:08 Labetalol HCl (Normodyne) 10 mg IVPUSH Q6H PRN PRN Reason: Hypertension Stop: 02/10/19 16:00 Lorazepam (Ativan) 0.5 mg IVPUSH Q6H PRN PRN Reason: Anxiety Meperidine HCl (Demerol) 12.5 mg IVPUSH ONETIME PRN PRN Reason: Shivering Meperidine HCl (Demerol) 25 mg IV ONETIME PRN PRN Reason: Shivering Metoclopramide HCl (Reglan) 10 mg IVPUSH ONETIME PRN PRN Reason: Nausea Morphine Sulfate (Morphine) 4 mg IVPUSH Q10M PRN PRN Reason: Pain (severe 7-10) Stop: 02/10/19 16:00 Naloxone HCl (Narcan) 0.1 mg IVPUSH ONETIME PRN PRN Reason: Respiratory Depression Ondansetron HCl (Zofran) 4 mg IVPUSH Q6H PRN PRN Reason: Nausea/Vomiting Ondansetron HCl (Zofran) 8 mg IVPUSH ONETIME PRN PRN Reason: Nausea Promethazine HCl (Phenergan) 12.5 mg IM ONETIME PRN PRN Reason: Nausea Scopolamine (Transderm-Scop) 1.5 mg TRDERM Q72H PRN PRN Reason: Nausea Sodium Chloride (Saline Flush) 10 ml FLUSH ASDIRECTED PRN PRN Reason: Keep Vein Open Sodium Chloride (Saline Flush) 2.5 ml FLUSH ASDIRECTED PRN PRN Reason: Keep Vein Open Labs: Laboratory Tests 02/09/19 02/09/19 02/09/19 Range/Units 10:56 10:56 10:56 WBC 8.88 (4.0-11.0) K/uL RBC 4.35 (4.30-5.90) M/uL Hgb 12.3 (12.0-16.0) g/dL Hct 37.2 (36.0-46.0) % MCV 85.5 (80.0-98.0) fL MCH 28.3 (27.0-32.0) pg MCHC 33.1 (31.0-37.0) g/dL RDW Std Deviation 45.7 (28.0-62.0) fl RDW Coeff of Mckenna 15 (11.0-15.0) % Plt Count 393 (150-400) K/uL MPV 9.70 (7.40-12.00) fL Neut % (Auto) 73.8 (48.0-80.0) % Lymph % (Auto) 17.1 (16.0-40.0) % Boyle % (Auto) 5.2 (0.0-15.0) % Eos % (Auto) 3.6 (0.0-7.0) % Baso % (Auto) 0.3 (0.0-1.5) % Neut # (Auto) 6.6 H (1.4-5.7) K/uL Lymph # (Auto) 1.5 (0.6-2.4) K/uL Boyle # (Auto) 0.5 (0.0-0.8) K/uL Eos # (Auto) 0.3 (0.0-0.7) K/uL Baso # (Auto) 0.0 (0.0-0.1) K/uL Nucleated RBC % 0.0 /100WBC Nucleated RBCs # 0 K/uL ESR 65 H (0-29) mm/hr Sodium 137 (136-145) mmol/L Potassium 3.7 (3.5-5.1) mmol/L Chloride 102 (98-107) mmol/L Carbon Dioxide 23.6 (21.0-32.0) mmol/L BUN 12 (7.0-18.0) mg/dL Creatinine 0.7 (0.6-1.0) mg/dL Est Cr Clr Drug Dosing 92.68 mL/min Estimated GFR (MDRD) > 60.0 ml/min Glucose 109 H (74-106) mg/dL Calcium 9.4 (8.5-10.1) mg/dL Total Bilirubin 0.2 (0.2-1.0) mg/dL AST 21 (15-37) IU/L ALT 27 (14-63) IU/L Alkaline Phosphatase 53 (46-116) U/L C-Reactive Protein 7.70 H (0.00-0.90) mg/dL Total Protein 8.6 H (6.4-8.2) g/dL Albumin 3.4 (3.4-5.0) g/dL Globulin 5.2 H (2.6-4.0) g/dL Albumin/Globulin Ratio 0.7 L (0.9-1.6) Meds: Medications Generic Name Dose Route Start Last Admin Trade Name Freq PRN Reason Stop Dose Admin Hydrocodone Bitart/Acetaminophen 1 - 2 tab 02/09/19 15:06 Piggott 325-10 Mg PO Q4H PRN Pain Hydrocodone Bitart/Acetaminophen 2 tab 02/09/19 16:00 Piggott 325-5 Mg PO Q6H PRN Pain (moderate 4-6) Albuterol 2.5 mg 02/09/19 16:00 Proventil Neb Soln NEB Q6HRRT PRN Wheezing Aspirin 325 mg 02/10/19 09:00 Aspirin PO BID [facility] Atropine Sulfate 0.4 mg 02/09/19 16:00 Atropine 0.1 Mg/Ml IVPUSH Q5M PRN Bradycardia Diphenhydramine HCl 25 mg 02/09/19 15:06 Benadryl IVPUSH Q4H PRN Itching Docusate Sodium 100 mg 02/09/19 21:00 Colace PO BID [facility] Famotidine 40 mg 02/10/19 09:00 Pepcid PO DAILY CAM Fentanyl 50 mcg 02/09/19 16:00 Sublimaze IVPUSH 02/10/19 16:00 Q5M PRN Pain (severe 7-10) Hydralazine HCl 5 mg 02/09/19 16:00 Apresoline IVPUSH ONETIME PRN Hypertension Hydralazine HCl 10 mg 02/09/19 16:00 Apresoline IVPUSH ONETIME PRN Hypertension Hydromorphone HCl 6 mg 02/09/19 15:06 Dilaudid Compliance Coordinator 6 Mg In Ns 30 Ml IV ASDIRECTED PRN Pain Protocol Hydromorphone HCl 0.5 - 1 mg 02/10/19 06:00 Dilaudid IVPUSH Q3H PRN Pain Hydromorphone HCl 0.25 mg 02/09/19 16:00 Dilaudid IVPUSH 02/10/19 16:00 Q10M PRN Pain (severe 7-10) Clindamycin Phosphate 900 mg/ 50 mls @ 100 mls/hr 02/09/19 15:15 Premix IV ONCALL CAM Clindamycin Phosphate 900 mg/ 50 mls @ 100 mls/hr 02/09/19 23:00 Premix IV 02/10/19 15:34 Q8H CAM Ketorolac Tromethamine 30 mg 02/09/19 15:06 Toradol IVPUSH 02/14/19 15:08 Q6H PRN Pain Labetalol HCl 10 mg 02/09/19 16:00 Normodyne IVPUSH 02/10/19 16:00 Q6H PRN Hypertension Lorazepam 0.5 mg 02/09/19 15:06 Ativan IVPUSH Q6H PRN Anxiety Meperidine HCl 12.5 mg 02/09/19 16:00 Demerol IVPUSH ONETIME PRN Shivering Meperidine HCl 25 mg 02/09/19 16:00 Demerol IV ONETIME PRN Shivering Metoclopramide HCl 10 mg 02/09/19 16:00 Reglan IVPUSH ONETIME PRN Nausea Morphine Sulfate 4 mg 02/09/19 16:00 Morphine IVPUSH 02/10/19 16:00 Q10M PRN Pain (severe 7-10) Naloxone HCl 0.1 mg 02/09/19 16:00 Narcan IVPUSH ONETIME PRN Respiratory Depression Ondansetron HCl 4 mg 02/09/19 15:06 Zofran IVPUSH Q6H PRN Nausea/Vomiting Ondansetron HCl 8 mg 02/09/19 16:00 Zofran IVPUSH ONETIME PRN Nausea Promethazine HCl 12.5 mg 02/09/19 16:00 Phenergan IM ONETIME PRN Nausea Scopolamine 1.5 mg 02/09/19 16:00 Transderm-Scop TRDERM Q72H PRN Nausea Sodium Chloride 10 ml 02/09/19 10:48 Saline Flush FLUSH ASDIRECTED PRN Keep Vein Open Sodium Chloride 2.5 ml 02/09/19 10:48 Saline Flush FLUSH ASDIRECTED PRN Keep Vein Open Discontinued Medications Generic Name Dose Route Start Last Admin Trade Name Farhat PRN Reason Stop Dose Admin Dexamethasone Confirm 02/09/19 15:23 Dexamethasone Administered 02/09/19 15:24 Dose 20 mg .ROUTE .STK-MED ONE Ketamine HCl Confirm 02/09/19 15:12 Ketalar Administered 02/09/19 15:13 Dose 500 mg .ROUTE .STK-MED ONE Ketorolac Tromethamine 30 mg 02/09/19 11:01 02/09/19 12:04 Toradol IVPUSH 02/09/19 11:02 30 mg ONETIME ONE Administration Ketorolac Tromethamine Confirm 02/09/19 15:23 Toradol Administered 02/09/19 15:24 Dose 60 mg .ROUTE .STK-MED ONE Lidocaine HCl Confirm 02/09/19 11:54 02/09/19 13:46 Xylocaine-Mpf 1% Administered 02/09/19 11:55 Not Given Dose 2 ml .ROUTE .STK-MED ONE Lorazepam 0.5 mg 02/09/19 11:13 02/09/19 12:05 Ativan IVPUSH 02/09/19 11:14 0.5 mg ONETIME ONE Administration Midazolam HCl Confirm 02/09/19 15:16 Versed 1 Mg/Ml Administered 02/09/19 15:17 Dose 2 mg .ROUTE .STK-MED ONE Propofol Confirm 02/09/19 15:10 Diprivan 20 Ml Administered 02/09/19 15:11 Dose 200 mg .ROUTE .STK-MED ONE Propofol Confirm 02/09/19 15:46 Diprivan 20 Ml Administered 02/09/19 15:47 Dose 200 mg .ROUTE .STK-MED ONE Propofol Confirm 02/09/19 15:48 Diprivan 20 Ml Administered 02/09/19 15:49 Dose 400 mg .ROUTE .STK-MED ONE Departure - Departure Time of Disposition: 17:51 Disposition: Admitted As Inpatient 65 Condition: Good Clinical Impression: Postoperative wound infection - Discharge Information *PRESCRIPTION DRUG MONITORING PROGRAM REVIEWED*: No *COPY OF PRESCRIPTION DRUG MONITORING REPORT IN PATIENT JERICHO: No - My Orders Last 24 Hours: My Active Orders 02/09/19 10:48 Sodium Chloride 0.9% [Saline Flush] 10 ml FLUSH ASDIRECTED PRN Sodium Chloride 0.9% [Saline Flush] 2.5 ml FLUSH ASDIRECTED PRN Blood Culture x2 Reflex Set [OM.PC] Stat Saline Lock Insert [OM.PC] Stat 02/09/19 10:53 CULTURE BLOOD [BC] Stat 02/09/19 11:07 CULTURE BLOOD [BC] Stat - Assessment/Plan Last 24 Hours: My Active Orders 02/09/19 10:48 Sodium Chloride 0.9% [Saline Flush] 10 ml FLUSH ASDIRECTED PRN Sodium Chloride 0.9% [Saline Flush] 2.5 ml FLUSH ASDIRECTED PRN Blood Culture x2 Reflex Set [OM.PC] Stat Saline Lock Insert [OM.PC] Stat 02/09/19 10:53 CULTURE BLOOD [BC] Stat 02/09/19 11:07 CULTURE BLOOD [BC] Stat
[2019-02-09] MEDS ORDERED: LORazepam 2 MG/ML SDV IVPUSH ONE (11:13)
[2019-02-09 11:34] LABS: CHLORIDE,CL 102 mmol/L (98-107); SODIUM,NA 137 mmol/L (136-145)
--- NOTE | 2019-02-09 11:34 | CR ---
EXAMINATION: Left knee HISTORY: Pain COMPARISON: 01/27/2019 TECHNIQUE: Single AP view FINDINGS/IMPRESSION: Left total knee hardware is demonstrated, grossly stable in position and alignment. Mild generalized soft tissue swelling is noted however no focal abnormality is noted within the region of the marker. Bone mineralization otherwise appears normal to osteopenic.
[2019-02-09] MEDS ORDERED: Lidocaine 1% PF 2 ML SDV ONE (11:54)
--- NOTE | 2019-02-09 13:39 | PCM.SN ---
- Free Text/Narrative Note: Anesthesia Note: Called for difficult IV access. First attempt to Right Forearm unsuccessful d/t vein rolling and pt not tolerating well. Lidocaine used with 2nd try to R AC with 20 GA successful. Flushes well and secured.
--- NOTE | 2019-02-09 14:29 | PCM.HP ---
H&P History of Present Illness - General Date of Service: 02/09/19 Admit Problem/Dx: Admission Diagnosis/Problem Admission Diagnosis/Problem Wound infection following procedure Source of Information: Patient, Family History Limitations: Reports: No Limitations - History of Present Illness Initial Comments - Free Text/Narative: 53 y/o female, s/p L TKA ~ 4 weeks ago. Had a fall 2 weeks ago and subsequently underwent debridement of the knee. Was found to have a deep dehiscence of the incision at that time which was repaired. She was discharged home in a knee immobilizer. She has not been wearing the immobilizer and is currently sitting with the knee flexed. She ran out of narcotic pain meds this weekend and has had an increase in her pain. She has been taking ibuprofen and tylenol prn. No new injury. She did note some drainage from the inferior portion of her incision today. After her fall, she did have a blister develop over the proximal medial incision. This area of skin breakdown has persisted. She denies fever, chills. Denies distal paralysis, paresthesia. Quality: Reports: Pressure, Sharp Improves with: Reports: Immobilization Associated Symptoms: Reports: No Other Symptoms Left KNee Pain Score (Numeric/FACES): 6 - Related Data Allergies/Adverse Reactions: Allergies Allergy/AdvReac Type Severity Reaction Status Date / Time acetaminophen [From Percocet] Allergy Nausea and Verified 01/23/19 21:49 Vomiting celecoxib Allergy Swelling Verified 01/01/19 11:19 cephalexin [From Keflex] Allergy Hives Verified 01/01/19 11:19 Cephalosporins Allergy Hives Verified 01/01/19 11:19 ciprofloxacin [From Cipro] Allergy Hives Verified 01/01/19 11:19 ciprofloxacin HCl Allergy Hives Verified 01/01/19 11:19 [From Cipro] gentamicin Allergy Hives Verified 01/01/19 11:19 morphine Allergy Nausea and Verified 01/01/19 11:19 Vomiting oxycodone [From Percocet] Allergy Nausea and Verified 01/23/19 21:49 Vomiting Penicillins Allergy Rash Verified 01/01/19 11:19 anesthetic cream Allergy Hives Uncoded 01/01/19 11:19 Home Medications: Home Meds Clobetasol [Clobetasol Propionate 0.05% Cream] 1 dose TOP BID PRN 01/01/19 [ History] Cyanocobalamin (Vitamin B-12) [Cyanocobalamin Injection] 1,000 mcg IM ASDIRECTED 01/01/19 [History] Escitalopram Oxalate 10 mg PO DAILY 01/01/19 [History] Estropipate 1.5 mg PO DAILY 01/01/19 [History] Methotrexate 7.5 mg PO WEEKLY 01/01/19 [History] Aspirin 325 mg PO BID #60 tablet 01/07/19 [Rx] Magnesium Oxide [Magnesium] 400 mg PO BID 01/26/19 [History] Metoprolol Succinate 50 mg PO DAILY 01/26/19 [History] Past Medical History HEENT History: Reports: Other (See Below) Other HEENT History: has upper partial denture x2, has upper and lower dental implants Cardiovascular History: Reports: Hypertension Gastrointestinal History: Reports: GERD, Other (See Below) Other Gastrointestinal History: was previously thought to hace Ulcerative colitis, now is diagnosed with Cyclic Vomiting Syndrome- had recent episode Musculoskeletal History: Reports: Osteoarthritis Neurological History: Reports: None Psychiatric History: Reports: Anxiety, Depression Endocrine/Metabolic History: Reports: Obesity/BMI 30+ Hematologic History: Reports: B12 Deficiency Immunologic History: Reports: None Oncologic (Cancer) History: Reports: None Dermatologic History: Reports: Psoriasis Other Dermatologic History: has Palmar Plantar Pustular psoriasis - Infectious Disease History Infectious Disease History: Reports: Chicken Pox - Past Surgical History Head Surgeries/Procedures: Reports: None GI Surgical History: Reports: Cholecystectomy Female Surgical History: Reports: Hysterectomy, Salpingo-Oophorectomy, Tubal Ligation, Other (See Below) Other Female Surgeries/Procedures: Laparoscopies with Ovarian Wedge resection and Lysis of Adhesions Musculoskeletal Surgical History: Reports: Arthroscopic Knee, Knee Replacement, ORIF Other Musculoskeletal Surgeries/Procedures:: ACL repair left knee, ORIF right ankle (has plate and screws) Social & Family History - Family History Family Medical History: Noncontributory Cardiac: Reports: None - Tobacco Use Smoking Status *Q: Never Smoker Second Hand Smoke Exposure: Yes - Caffeine Use Caffeine Use: Reports: Coffee, Tea - Recreational Drug Use Recreational Drug Use: No H&P Review of Systems - Review of Systems: Review Of Systems: See Below General: Reports: No Symptoms. Denies: Fever, Chills, Malaise, Fatigue, Night Sweats HEENT: Reports: No Symptoms Pulmonary: Reports: No Symptoms Cardiovascular: Reports: No Symptoms Gastrointestinal: Reports: No Symptoms Genitourinary: Reports: No Symptoms Skin: Reports: No Symptoms Psychiatric: Reports: No Symptoms Neurological: Reports: No Symptoms Hematologic/Lymphatic: Reports: No Symptoms Immunologic: Reports: No Symptoms Exam - Exam Exam: See Below - Vital Signs Vital Signs: Last Vital Signs Temp 97.2 F 02/09/19 10:35 Pulse 81 02/09/19 12:45 Resp 18 02/09/19 12:45 BP 148/99 H 02/09/19 12:45 Pulse Ox 99 02/09/19 12:45 Weight: 101.605 kg - Exam General: Alert, Oriented, 4 HEENT: Conjunctiva Clear, Hearing Intact, Nares Patent Neck: Supple, Trachea Midline, 2 Lungs: Normal Respiratory Effort Cardiovascular: Regular Rate GI/Abdominal Exam: Soft Neuro Extensive - Mental Status: Alert, Oriented x3, Normal Mood/Affect, Normal Cognition Psychiatric: Alert, Normal Affect, Normal Mood Physical Exam Comments:: Exam of LLE shows incision to be intact. Deep reddish color to the skin surrounding the incision. No drainage noted. Yao intact. Area of previous fracture blister measures ~3cm x 4cm with 1mm depth. Fibrinous exudate noted over the blister. Unable to extend past 20 degrees. Active flexion to 95 degrees. Patella central tracking. No calf TTP. AT/EHL/gastroc 5/5. Sensation intact. DP 2+. - Patient Data Lab Results Last 24 hrs: Laboratory Results - last 24 hr 02/09/19 02/09/19 02/09/19 Range/Units 10:56 10:56 10:56 WBC 8.88 (4.0-11.0) K/uL RBC 4.35 (4.30-5.90) M/uL Hgb 12.3 (12.0-16.0) g/dL Hct 37.2 (36.0-46.0) % MCV 85.5 (80.0-98.0) fL MCH 28.3 (27.0-32.0) pg MCHC 33.1 (31.0-37.0) g/dL RDW Std Deviation 45.7 (28.0-62.0) fl RDW Coeff of Mckenna 15 (11.0-15.0) % Plt Count 393 (150-400) K/uL MPV 9.70 (7.40-12.00) fL Neut % (Auto) 73.8 (48.0-80.0) % Lymph % (Auto) 17.1 (16.0-40.0) % [place] % (Auto) 5.2 (0.0-15.0) % Eos % (Auto) 3.6 (0.0-7.0) % Baso % (Auto) 0.3 (0.0-1.5) % Neut # (Auto) 6.6 H (1.4-5.7) K/uL Lymph # (Auto) 1.5 (0.6-2.4) K/uL [place] # (Auto) 0.5 (0.0-0.8) K/uL Eos # (Auto) 0.3 (0.0-0.7) K/uL Baso # (Auto) 0.0 (0.0-0.1) K/uL Nucleated RBC % 0.0 /100WBC Nucleated RBCs # 0 K/uL ESR 65 H (0-29) mm/hr Sodium 137 (136-145) mmol/L Potassium 3.7 (3.5-5.1) mmol/L Chloride 102 (98-107) mmol/L Carbon Dioxide 23.6 (21.0-32.0) mmol/L BUN 12 (7.0-18.0) mg/dL Creatinine 0.7 (0.6-1.0) mg/dL Est Cr Clr Drug Dosing 92.68 mL/min Estimated GFR (MDRD) > 60.0 ml/min Glucose 109 H (74-106) mg/dL Calcium 9.4 (8.5-10.1) mg/dL Total Bilirubin 0.2 (0.2-1.0) mg/dL AST 21 (15-37) IU/L ALT 27 (14-63) IU/L Alkaline Phosphatase 53 (46-116) U/L C-Reactive Protein 7.70 H (0.00-0.90) mg/dL Total Protein 8.6 H (6.4-8.2) g/dL Albumin 3.4 (3.4-5.0) g/dL Globulin 5.2 H (2.6-4.0) g/dL Albumin/Globulin Ratio 0.7 L (0.9-1.6) Result Diagrams: 02/09/19 10:56 02/09/19 10:56 Daniel Results Last 24 hrs: Microbiology 02/09/19 11:07 Anaerobic Blood Culture - Final Blood - Venous - Lab Draw Imaging Impressions Last 24 hrs: XR of left knee shows good position of prosthesis. No loosening noted. No acute fracture noted. - Problem List (1) History of total knee replacement SNOMED Code(s): 3766409750178, 9052252108783, 21610073770438 ICD Code: Z96.659 - PRESENCE OF UNSPECIFIED ARTIFICIAL KNEE JOINT Status: Acute Current Visit: No Qualifiers: Laterality: left Qualified Code(s): Z96.652 - Presence of left artificial knee joint Problem List Initiated/Reviewed/Updated: Yes Orders Last 24hrs: Active Orders 24 hr Category Date Time Status Patient Status [ADT] Stat ADT 02/09/19 14:10 Active CULTURE BLOOD [BC] Stat Lab 02/09/19 10:53 Received CULTURE BLOOD [BC] Stat Lab 02/09/19 11:07 Results Sodium Chloride 0.9% [Saline Flush] Med 02/09/19 10:48 Active 10 ml FLUSH ASDIRECTED PRN Sodium Chloride 0.9% [Saline Flush] Med 02/09/19 10:48 Active 2.5 ml FLUSH ASDIRECTED PRN Blood Culture x2 Reflex Set [OM.PC] Stat Oth 02/09/19 10:48 Ordered Saline Lock Insert [OM.PC] Stat Oth 02/09/19 10:48 Ordered Medication Orders Sodium Chloride (Saline Flush) 10 ml FLUSH ASDIRECTED PRN PRN Reason: Keep Vein Open Sodium Chloride (Saline Flush) 2.5 ml FLUSH ASDIRECTED PRN PRN Reason: Keep Vein Open Assessment/Plan Comment:: Treatment options discussed with patient and family. Unable to fully extend or SLR. She has not had any new injury since previous surgery, but she has not been wearing immobilizer. Recommend that we examine the knee under anesthesia. I would plan on debriding the superficial wound. Also plan on opening previous incision. If deep fascia is intact, would plan to aspirate knee. If there is any evidence of infection, will perform cultures, formal I&D with poly exchange. The procedures along with postoperative course were discussed. Risks of procedure include, but are not limited to, infection, n/v injury, stiffness, continued pain, loss of motion, need for further surgery, manager intermediate IV antibiotics, and anesthetic complications. Patient agrees to proceed. Will plan to do today.
--- NOTE | 2019-02-09 14:33 | PCM.PREANE ---
Preanesthetic Assessment - Anesthesia/Transfusion/Family Hx Anesthesia History: Prior Anesthesia Reaction Type of Anesthesia Reaction: Excessive Nausea/Vomiting Family History of Anesthesia Reaction: No Transfusion History: No Prior Transfusion(s) Intubation History: Unknown - Review of Systems General: No Symptoms Pulmonary: No Symptoms Cardiovascular: No Symptoms Gastrointestinal: No Symptoms Neurological: No Symptoms Other: Reports: None - Physical Assessment NPO Status Date: 02/09/19 (bagel at 0730, 4 lincoln chips at 0930) O2 Sat by Pulse Oximetry: 99 Respiratory Rate: 18 Vital Signs: Last Vital Signs Temp 97.2 F 02/09/19 10:35 Pulse 81 02/09/19 12:45 Resp 18 02/09/19 12:45 BP 148/99 H 02/09/19 12:45 Pulse Ox 99 02/09/19 12:45 Height: 5 ft 8 in Weight: 101.605 kg ASA Class: 2E Mental Status: Alert & Oriented x3 Airway Class: Mallampati = 2 Dentition: Reports: Normal Dentition ROM/Head Extension: Full Lungs: Clear to Auscultation, Normal Respiratory Effort Cardiovascular: Regular Rate, Regular Rhythm - Lab Values: Laboratory Last Values WBC 8.88 K/uL (4.0-11.0) 02/09/19 10:56 RBC 4.35 M/uL (4.30-5.90) 02/09/19 10:56 Hgb 12.3 g/dL (12.0-16.0) 02/09/19 10:56 Hct 37.2 % (36.0-46.0) 02/09/19 10:56 MCV 85.5 fL (80.0-98.0) 02/09/19 10:56 MCH 28.3 pg (27.0-32.0) 02/09/19 10:56 MCHC 33.1 g/dL (31.0-37.0) 02/09/19 10:56 RDW Std Deviation 45.7 fl (28.0-62.0) 02/09/19 10:56 RDW Coeff of Mckenna 15 % (11.0-15.0) 02/09/19 10:56 Plt Count 393 K/uL (150-400) 02/09/19 10:56 MPV 9.70 fL (7.40-12.00) 02/09/19 10:56 Neut % (Auto) 73.8 % (48.0-80.0) 02/09/19 10:56 Lymph % (Auto) 17.1 % (16.0-40.0) 02/09/19 10:56 [place] % (Auto) 5.2 % (0.0-15.0) 02/09/19 10:56 Eos % (Auto) 3.6 % (0.0-7.0) 02/09/19 10:56 Baso % (Auto) 0.3 % (0.0-1.5) 02/09/19 10:56 Neut # (Auto) 6.6 K/uL (1.4-5.7) H 02/09/19 10:56 Lymph # (Auto) 1.5 K/uL (0.6-2.4) 02/09/19 10:56 [place] # (Auto) 0.5 K/uL (0.0-0.8) 02/09/19 10:56 Eos # (Auto) 0.3 K/uL (0.0-0.7) 02/09/19 10:56 Baso # (Auto) 0.0 K/uL (0.0-0.1) 02/09/19 10:56 Nucleated RBC % 0.0 /100WBC 02/09/19 10:56 Nucleated RBCs # 0 K/uL 02/09/19 10:56 ESR 65 mm/hr (0-29) H 02/09/19 10:56 Sodium 137 mmol/L (136-145) 02/09/19 10:56 Potassium 3.7 mmol/L (3.5-5.1) 02/09/19 10:56 Chloride 102 mmol/L (98-107) 02/09/19 10:56 Carbon Dioxide 23.6 mmol/L (21.0-32.0) 02/09/19 10:56 BUN 12 mg/dL (7.0-18.0) 02/09/19 10:56 Creatinine 0.7 mg/dL (0.6-1.0) 02/09/19 10:56 Est Cr Clr Drug Dosing 92.68 mL/min 02/09/19 10:56 Estimated GFR (MDRD) > 60.0 ml/min 02/09/19 10:56 Glucose 109 mg/dL (74-106) H 02/09/19 10:56 Calcium 9.4 mg/dL (8.5-10.1) 02/09/19 10:56 Total Bilirubin 0.2 mg/dL (0.2-1.0) 02/09/19 10:56 AST 21 IU/L (15-37) 02/09/19 10:56 ALT 27 IU/L (14-63) 02/09/19 10:56 Alkaline Phosphatase 53 U/L (46-116) 02/09/19 10:56 C-Reactive Protein 7.70 mg/dL (0.00-0.90) H 02/09/19 10:56 Total Protein 8.6 g/dL (6.4-8.2) H 02/09/19 10:56 Albumin 3.4 g/dL (3.4-5.0) 02/09/19 10:56 Globulin 5.2 g/dL (2.6-4.0) H 02/09/19 10:56 Albumin/Globulin Ratio 0.7 (0.9-1.6) L 02/09/19 10:56 - Allergies Allergies/Adverse Reactions: Allergies Allergy/AdvReac Type Severity Reaction Status Date / Time acetaminophen [From Percocet] Allergy Nausea and Verified 01/23/19 21:49 Vomiting celecoxib Allergy Swelling Verified 01/01/19 11:19 cephalexin [From Keflex] Allergy Hives Verified 01/01/19 11:19 Cephalosporins Allergy Hives Verified 01/01/19 11:19 ciprofloxacin [From Cipro] Allergy Hives Verified 01/01/19 11:19 ciprofloxacin HCl Allergy Hives Verified 01/01/19 11:19 [From Cipro] gentamicin Allergy Hives Verified 01/01/19 11:19 morphine Allergy Nausea and Verified 01/01/19 11:19 Vomiting oxycodone [From Percocet] Allergy Nausea and Verified 01/23/19 21:49 Vomiting Penicillins Allergy Rash Verified 01/01/19 11:19 anesthetic cream Allergy Hives Uncoded 01/01/19 11:19 - Blood Blood Available: No - Anesthesia Plan Pre-Op Medication Ordered: None - Acknowledgements Anesthesia Type Planned: Spinal Pt an Appropriate Candidate for the Planned Anesthesia: Yes Alternatives and Risks of Anesthesia Discussed w Pt/Guardian: Yes Pt/Guardian Understands and Agrees with Anesthesia Plan: Yes Additional Comments: PMH: htn, chronic hyperemesis syndrome, possible wound infection s/p tka PLAN: spinal with sedation, pt on aspirin but no other anticoagulants or antiplatelet drugs. consent obtained PreAnesthesia Questionnaire HEENT History: Reports: Other (See Below) Other HEENT History: has upper partial denture x2, has upper and lower dental implants Cardiovascular History: Reports: Hypertension Gastrointestinal History: Reports: GERD, Other (See Below) Other Gastrointestinal History: was previously thought to hace Ulcerative colitis, now is diagnosed with Cyclic Vomiting Syndrome- had recent episode Musculoskeletal History: Reports: Osteoarthritis Neurological History: Reports: None Psychiatric History: Reports: Anxiety, Depression Endocrine/Metabolic History: Reports: Obesity/BMI 30+ Hematologic History: Reports: B12 Deficiency Immunologic History: Reports: None Oncologic (Cancer) History: Reports: None Dermatologic History: Reports: Psoriasis Other Dermatologic History: has Palmar Plantar Pustular psoriasis - Infectious Disease History Infectious Disease History: Reports: Chicken Pox - Past Surgical History Head Surgeries/Procedures: Reports: None GI Surgical History: Reports: Cholecystectomy Female Surgical History: Reports: Hysterectomy, Salpingo-Oophorectomy, Tubal Ligation, Other (See Below) Other Female Surgeries/Procedures: Laparoscopies with Ovarian Wedge resection and Lysis of Adhesions Musculoskeletal Surgical History: Reports: Arthroscopic Knee, Knee Replacement, ORIF Other Musculoskeletal Surgeries/Procedures:: ACL repair left knee, ORIF right ankle (has plate and screws) - SUBSTANCE USE Smoking Status *Q: Never Smoker Second Hand Smoke Exposure: Yes Recreational Drug Use History: No - HOME MEDS Home Medications: Home Meds Clobetasol [Clobetasol Propionate 0.05% Cream] 1 dose TOP BID PRN 01/01/19 [ History] Cyanocobalamin (Vitamin B-12) [Cyanocobalamin Injection] 1,000 mcg IM ASDIRECTED 01/01/19 [History] Escitalopram Oxalate 10 mg PO DAILY 01/01/19 [History] Estropipate 1.5 mg PO DAILY 01/01/19 [History] Methotrexate 7.5 mg PO WEEKLY 01/01/19 [History] Aspirin 325 mg PO BID #60 tablet 01/07/19 [Rx] Magnesium Oxide [Magnesium] 400 mg PO BID 01/26/19 [History] Metoprolol Succinate 50 mg PO DAILY 01/26/19 [History] - CURRENT (IN HOUSE) MEDS Current Meds: Current Medications Sodium Chloride (Saline Flush) 10 ml FLUSH ASDIRECTED PRN PRN Reason: Keep Vein Open Sodium Chloride (Saline Flush) 2.5 ml FLUSH ASDIRECTED PRN PRN Reason: Keep Vein Open Discontinued Medications Ketorolac Tromethamine (Toradol) 30 mg IVPUSH ONETIME ONE Stop: 02/09/19 11:02 Last Admin: 02/09/19 12:04 Dose: 30 mg Lidocaine HCl (Xylocaine-Mpf 1%) Confirm Administered Dose 2 ml .ROUTE .STK-MED ONE Stop: 02/09/19 11:55 Last Admin: 02/09/19 13:46 Dose: Not Given Lorazepam (Ativan) 0.5 mg IVPUSH ONETIME ONE Stop: 02/09/19 11:14 Last Admin: 02/09/19 12:05 Dose: 0.5 mg
[2019-02-09] MEDS ORDERED: Ondansetron 4 MG/2 ML SDV IVPUSH PRN ×2 (15:06→16:00)
[2019-02-09] MEDS ORDERED: HYDROmorphone/Normal Saline 6 MG/30 ML PCA Vial IV PRN (15:06)
[2019-02-09] MEDS ORDERED: LORazepam 2 MG/ML SDV IVPUSH PRN (15:06)
[2019-02-09] MEDS ORDERED: Ketorolac 30 MG/ML SDV IVPUSH PRN (15:06)
[2019-02-09] MEDS ORDERED: Propofol 200 MG/20 ML SDV ONE ×3 (15:10→15:48)
[2019-02-09] MEDS ORDERED: Ketamine 500 mg/10 ML MDV ONE (15:12)
[2019-02-09] MEDS ORDERED: Midazolam 1 MG/ML 2 ML SDV ONE (15:16)
[2019-02-09] MEDS ORDERED: Ketorolac 30 MG/ML SDV ONE (15:23)
[2019-02-09] MEDS ORDERED: Dexamethasone 4 MG/ML 5 ML MDV ONE (15:23)
[2019-02-09] MEDS ORDERED: Atropine 0.1 MG/ML 10 ML Syringe IVPUSH PRN (16:00)
[2019-02-09] MEDS ORDERED: Albuterol 0.083% 2.5 MG/3 ML Neb Soln NEB PRN (16:00)
[2019-02-09] MEDS ORDERED: HYDROmorphone 2 MG/ML SDV IVPUSH PRN (16:00)
[2019-02-09] MEDS ORDERED: Meperidine PF 25 MG/ML Syringe IV PRN (16:00)
[2019-02-09] MEDS ORDERED: Morphine 4 MG/ML Syringe IVPUSH PRN (16:00)
[2019-02-09] MEDS ORDERED: Promethazine 25 MG/ML SDV IM PRN (16:00)
[2019-02-09] MEDS ORDERED: hydrALAZINE 20 MG/ML SDV IVPUSH PRN ×2 (16:00)
[2019-02-09] MEDS ORDERED: Scopolamine 1.5 MG Transdermal Patch TRDERM PRN ×2 (16:00→19:28)
[2019-02-09] MEDS ORDERED: fentaNYL 100 MCG/2 ML SDV IVPUSH PRN (16:00)
[2019-02-09] MEDS ORDERED: Acetaminophen/HYDROcodone 325-5 MG Tab PO PRN (16:00)
[2019-02-09] MEDS ORDERED: Metoclopramide 10 MG/2 ML SDV IVPUSH PRN (16:00)
[2019-02-09] MEDS ORDERED: Naloxone 0.4 MG/ML Syringe IVPUSH PRN (16:00)
[2019-02-09] MEDS ORDERED: Meperidine PF 25 MG/ML Syringe IVPUSH PRN (16:00)
[2019-02-09] MEDS ORDERED: Labetalol 20 MG/4 ML Syringe IVPUSH PRN (16:00)
--- NOTE | 2019-02-09 17:56 | PCM.OPNOTE ---
- General Post-Op/Procedure Note Date of Surgery/Procedure: 02/09/19 Operative Procedure(s): Excisional debridement left knee to bone, s/p L TKA Post-Op Diagnosis: Deep dehiscence of surgical wound, s/p TKA left Anesthesia Technique: Moderate Sedation, Spinal Primary Surgeon: Susanne Muse Appliance Painter And Refinisher: Alisa Portillo in mLs: 25 Condition: Stable Free Text/Narrative:: Intake & Output tt=0 min #[id number] 02/09/19 02/09/19 02/09/19 06:59 14:59 22:59 Intake Total 800 Balance 800
[2019-02-09] MEDS ORDERED: Promethazine 25 MG/ML SDV IM ONE (19:29)
[2019-02-09] MEDS: Acetaminophen/HYDROcodone 325-10 MG Tab PO PRN (19:54)
[2019-02-09] MEDS: diphenhydrAMINE 50 MG/ML SDV IVPUSH PRN (19:55)
[2019-02-09] MEDS: Docusate Sodium 100 MG Cap PO SCH (19:59)
--- NOTE | 2019-02-09 19:59 | PCM.POSTAN ---
POST ANESTHESIA ASSESSMENT - MENTAL STATUS Mental Status: Alert, Oriented - VITAL SIGNS Pulse Rate: 60 SaO2: 98 Resp Rate: 16 Blood Pressure: 138/85 Temperature: 98 C - RESPIRATORY Respiratory Status: Respiratory Rate WNL, Airway Patent, O2 Saturation Stable - CARDIOVASCULAR CV Status: Pulse Rate WNL - GASTROINTESTINAL GI Status: No Symptoms - PAIN Pain Score: 0 - OBSERVATIONS Free Text/Narrative:: PATIENT COMFORTABLE AT THIS TIME, NO SIGNS OR SYMPTOMS OF ANESTHESIA RELATED PROBLEMS
[2019-02-09] MEDS ORDERED: Metoclopramide 10 MG/2 ML SDV IV ONE (21:32)
[2019-02-09] MEDS ORDERED: Metoprolol Succinate 50 MG Tab.ER PO ONE (21:48)
[2019-02-09] MEDS: Ondansetron 4 MG/2 ML SDV IVPUSH PRN (22:08)
[2019-02-09] MEDS: Lactated Ringers 1,000 ML IV SCH (22:11)
[2019-02-09] MEDS: Ketorolac 30 MG/ML SDV IVPUSH SCH (22:16)
[2019-02-09] MEDS: Clindamycin Phosphate in D5W 900 MG in Premix Bag 1 BAG IV SCH ×2 (22:21)
--- NOTE | 2019-02-09 23:34 | OR ---
SURGEON: Susanne Muse MD DATE OF PROCEDURE: 02/09/2019 PREOPERATIVE DIAGNOSIS: Left knee pain, status post left total knee arthroplasty. POSTOPERATIVE DIAGNOSIS: Deep dehiscence of surgical wound, status post left total knee arthroplasty. PROCEDURE: Excisional debridement of left total knee arthroplasty with repair of fascial defect and polyethylene exchange. DIRECTOR OF PUBLIC SAFETY: Alisa Portillo PA-C. ANESTHESIA: Spinal with sedation. ESTIMATED BLOOD LOSS: 25 mL. TOURNIQUET TIME: Zero minutes. COMPLICATIONS: None. DVT PROPHYLAXIS: PAS boot to the nonoperative leg. IMPLANTS USED: An 11 mm Persona polyethylene liner was removed. This was replaced with a 10 mm polyethylene liner. BRIEF HISTORY: Rossana is a 53-year-old female who previously underwent a left total knee arthroplasty. She did sustain a fall postoperatively. She continued to have pain and subsequently underwent surgical exploration. At that time, it was found that she had dehiscence of the deep wound at the site of the fascial repair. This was treated with irrigation and debridement with closure of the fascial defect. She was placed in a knee immobilizer. She did fairly well until this past weekend when she ran out of pain medicine. At that time, she removed her knee immobilizer as she felt her pain was better controlled when she was kept in a flexed position. She presented to the emergency room today. Laboratory studies did show an elevation of her ESR and CRP. Blood cultures are currently pending. Due to her continued pain along with the findings from the last surgery, I did recommend surgical treatment. The risks and goals of procedure were discussed with the patient and were documented preoperatively. She agreed to proceed. DESCRIPTION OF PROCEDURE: The patient was properly identified and brought to the operating room. Spinal anesthetic was administered. After adequate anesthesia was obtained, a well- padded tourniquet was applied to the left lower extremity. The left lower extremity was prepped in a standard fashion using Betadine solution. It was then sterilely draped. A time-out was performed to ensure correct site and procedure. Preoperative antibiotics were given. The surgical site had been marked preoperatively. At the time of her initial fall, she developed a fracture blister over the proximal and medial portion of the wound. The mechanical effort of the Betadine prep did debride the superficial layer overlying the blister. The underlying tissue appeared to be healing well. A hemostat was then used to remove the paolo and the wound was open. Tissue from the knee joint was then sent for both aerobic and anaerobic studies. Clindamycin was then given. There was no purulent drainage in the wound. A large fracture hematoma had developed and there was an area of fascial dehiscence along the proximal portion of the wound. Since this was the 2nd time of washing out the knee, I elected to open the remainder of the inferior fascia and replace the polyethylene. The polyethylene was removed without difficulty using an osteotome. 9 L of normal saline were then irrigated through the knee. At completion, the wound showed good bleeding tissue. The patient had been struggling with regaining full knee extension postoperatively. I did downsize to a 10 mm articular surface. She was taken through a range of motion and I was able to get her to nearly full extension with good flexion. She was stable to varus and valgus stressing. The polyethylene liner was locked into place. The fascial tissue was then closed with a combination of 0 PDS. Following interrupted sutures of this, a 0 Monocryl was used to run continuously to reinforce the fascial repair. The tissue was somewhat woody, however, I was able to get good reapproximation of the tissue. The subcutaneous tissues were then closed with 2-0 Monocryl. The wound edges were then gently debrided with a #15 blade scalpel as I wanted to have good bleeding surfaces for healing. A 2-0 nylon was used in an interrupted fashion to close the skin. The blister appeared to be adequately debrided at the completion of the procedure. Xeroform gauze was then placed over the wound and a bulky dressing was applied. She was awakened from her anesthetic and transferred back to the operating room cart. She was brought to recovery room in stable condition. All needle and sponge counts were correct. KELLY / MACARIO /[id number]
[2019-02-10] MEDS: diphenhydrAMINE 50 MG/ML SDV IVPUSH PRN ×2 (00:38→03:32)
[2019-02-10] MEDS: HYDROmorphone 1 MG/ML Syringe IVPUSH PRN ×4 (00:39→23:23)
[2019-02-10] MEDS: Ketorolac 30 MG/ML SDV IVPUSH SCH ×4 (03:30→20:46)
[2019-02-10] MEDS: Ondansetron 4 MG/2 ML SDV IVPUSH PRN ×2 (03:31→18:25)
[2019-02-10] MEDS ORDERED: HYDROmorphone 1 MG/ML Syringe IVPUSH PRN (06:00)
[2019-02-10] MEDS: Clindamycin Phosphate in D5W 900 MG in Premix Bag 1 BAG IV SCH ×10 (06:04→23:28)
[2019-02-10] MEDS ORDERED: Promethazine 12.5 MG Supp RECTAL PRN (08:32)
--- NOTE | 2019-02-10 08:36 | PCM.CONS ---
H&P History of Present Illness - General Date of Service: 02/10/19 Admit Problem/Dx: Admission Diagnosis/Problem Admission Diagnosis/Problem Wound infection following procedure Source of Information: Patient History Limitations: Reports: No Limitations - History of Present Illness Initial Comments - Free Text/Narative: This 53 year old female with pmh of HTN and recent possible wound infection to L TKA presented for wound wash out with Dr Muse. Hospitalist service consulted for elevated blood pressures. Rossana, sitting in bed belching this morning, reports pain is currently controlled well, 4/10. She feels very nauseated and over all does not feel well. Anxious about her catheter and wants it out immediately. She denies chest pain, dizziness, palpitations, blurred vision or headaches. She reports he takes Metoprolol and Cozaar for blood pressure and has been on those for the past couple years, unsure of dosing. She denies CAD or PR in the past. PCP Dr Chow in [place]. Left KNee Pain Score (Numeric/FACES): 7 - Related Data Allergies/Adverse Reactions: Allergies Allergy/AdvReac Type Severity Reaction Status Date / Time acetaminophen [From Percocet] Allergy Nausea and Verified 01/23/19 21:49 Vomiting celecoxib Allergy Swelling Verified 01/01/19 11:19 cephalexin [From Keflex] Allergy Hives Verified 01/01/19 11:19 Cephalosporins Allergy Hives Verified 01/01/19 11:19 ciprofloxacin [From Cipro] Allergy Hives Verified 01/01/19 11:19 ciprofloxacin HCl Allergy Hives Verified 01/01/19 11:19 [From Cipro] gentamicin Allergy Hives Verified 01/01/19 11:19 morphine Allergy Nausea and Verified 01/01/19 11:19 Vomiting oxycodone [From Percocet] Allergy Nausea and Verified 01/23/19 21:49 Vomiting Penicillins Allergy Rash Verified 01/01/19 11:19 anesthetic cream Allergy Hives Uncoded 01/01/19 11:19 Home Medications: Home Meds Clobetasol [Clobetasol Propionate 0.05% Cream] 1 dose TOP BID PRN 01/01/19 [ History] Cyanocobalamin (Vitamin B-12) [Cyanocobalamin Injection] 1,000 mcg IM ASDIRECTED 01/01/19 [History] Escitalopram Oxalate 10 mg PO DAILY 01/01/19 [History] Estropipate 1.5 mg PO DAILY 01/01/19 [History] Methotrexate 7.5 mg PO WEEKLY 01/01/19 [History] Aspirin 325 mg PO BID #60 tablet 01/07/19 [Rx] Magnesium Oxide [Magnesium] 400 mg PO BID 01/26/19 [History] Metoprolol Succinate 50 mg PO DAILY 01/26/19 [History] Past Medical History HEENT History: Reports: Other (See Below) Other HEENT History: has upper partial denture x2, has upper and lower dental implants Cardiovascular History: Reports: Hypertension. Denies: Afib, Blood Clots/VTE/ DVT, CAD, PR Respiratory History: Reports: None Gastrointestinal History: Reports: GERD, Other (See Below) Other Gastrointestinal History: was previously thought to hace Ulcerative colitis, now is diagnosed with Cyclic Vomiting Syndrome- had recent episode Musculoskeletal History: Reports: Osteoarthritis Neurological History: Reports: None Psychiatric History: Reports: Anxiety, Depression Endocrine/Metabolic History: Reports: Obesity/BMI 30+ Hematologic History: Reports: B12 Deficiency Immunologic History: Reports: None Oncologic (Cancer) History: Reports: None Dermatologic History: Reports: Psoriasis Other Dermatologic History: has Palmar Plantar Pustular psoriasis - Infectious Disease History Infectious Disease History: Reports: Chicken Pox - Past Surgical History Head Surgeries/Procedures: Reports: None GI Surgical History: Reports: Cholecystectomy Female Surgical History: Reports: Hysterectomy, Salpingo-Oophorectomy, Tubal Ligation, Other (See Below) Other Female Surgeries/Procedures: Laparoscopies with Ovarian Wedge resection and Lysis of Adhesions Musculoskeletal Surgical History: Reports: Arthroscopic Knee, Knee Replacement, ORIF Other Musculoskeletal Surgeries/Procedures:: ACL repair left knee, ORIF right ankle (has plate and screws) Social & Family History - Family History Family Medical History: Noncontributory Cardiac: Reports: None - Tobacco Use Smoking Status *Q: Never Smoker Second Hand Smoke Exposure: Yes - Caffeine Use Caffeine Use: Reports: Coffee, Tea - Recreational Drug Use Recreational Drug Use: No H&P Review of Systems - Review of Systems: Review Of Systems: See Below General: Reports: Malaise. Denies: Fever, Chills HEENT: Reports: No Symptoms. Denies: Headaches, Sinus Congestion, Vertigo Pulmonary: Reports: No Symptoms. Denies: Shortness of Breath Cardiovascular: Reports: No Symptoms. Denies: Chest Pain, Palpitations, Lightheadedness, Syncope Gastrointestinal: Reports: Nausea, Vomiting. Denies: Abdominal Pain, Black Stool, Bloody Stool Genitourinary: Reports: Pain (wants catheter out immedication), Other (concerns about cloudiness of urine) Musculoskeletal: Reports: Joint Pain (L Knee pain, tolerable currently, 03/11) Skin: Reports: No Symptoms Psychiatric: Reports: No Symptoms Neurological: Reports: No Symptoms Hematologic/Lymphatic: Reports: No Symptoms Immunologic: Reports: No Symptoms Exam - Exam Exam: See Below - Vital Signs Vital Signs: Last Vital Signs Temp 97.5 F 02/10/19 08:00 Pulse 78 02/10/19 08:00 Resp 16 02/10/19 08:00 BP 188/118 H 02/10/19 08:00 Pulse Ox 98 02/10/19 08:00 Weight: 101.605 kg - Exam Quality Assessment: Urinary Catheter, DVT Prophylaxis. No: Supplemental Oxygen General: Alert, Oriented, Cooperative, Other (apperas to not feel well, and has emesis bag in hands) HEENT: Conjunctiva Clear, Posterior Pharynx Clear Neck: Supple, Trachea Midline Lungs: Clear to Auscultation, Normal Respiratory Effort Cardiovascular: Regular Rate, Regular Rhythm GI/Abdominal Exam: Normal Bowel Sounds, Soft, Non-Tender Extremities: No Pedal Edema, Other (Immobilizer to L knee) Skin: Wound (SAE wrap to L knee no drainage noted.) Neuro Extensive - Mental Status: Alert, Oriented x3, Normal Mood/Affect Neuro Extensive - Motor, Sensory, Reflexes: CN II-XII Intact Psychiatric: Alert, Normal Affect, Normal Mood - Patient Data Lab Results Last 24 hrs: Laboratory Results - last 24 hr 02/09/19 02/09/19 02/09/19 Range/Units 10:56 10:56 10:56 WBC 8.88 (4.0-11.0) K/uL RBC 4.35 (4.30-5.90) M/uL Hgb 12.3 (12.0-16.0) g/dL Hct 37.2 (36.0-46.0) % MCV 85.5 (80.0-98.0) fL MCH 28.3 (27.0-32.0) pg MCHC 33.1 (31.0-37.0) g/dL RDW Std Deviation 45.7 (28.0-62.0) fl RDW Coeff of Mckenna 15 (11.0-15.0) % Plt Count 393 (150-400) K/uL MPV 9.70 (7.40-12.00) fL Neut % (Auto) 73.8 (48.0-80.0) % Lymph % (Auto) 17.1 (16.0-40.0) % [place] % (Auto) 5.2 (0.0-15.0) % Eos % (Auto) 3.6 (0.0-7.0) % Baso % (Auto) 0.3 (0.0-1.5) % Neut # (Auto) 6.6 H (1.4-5.7) K/uL Lymph # (Auto) 1.5 (0.6-2.4) K/uL [place] # (Auto) 0.5 (0.0-0.8) K/uL Eos # (Auto) 0.3 (0.0-0.7) K/uL Baso # (Auto) 0.0 (0.0-0.1) K/uL Nucleated RBC % 0.0 /100WBC Nucleated RBCs # 0 K/uL ESR 65 H (0-29) mm/hr Sodium 137 (136-145) mmol/L Potassium 3.7 (3.5-5.1) mmol/L Chloride 102 (98-107) mmol/L Carbon Dioxide 23.6 (21.0-32.0) mmol/L BUN 12 (7.0-18.0) mg/dL Creatinine 0.7 (0.6-1.0) mg/dL Est Cr Clr Drug Dosing 92.68 mL/min Estimated GFR (MDRD) > 60.0 ml/min Glucose 109 H (74-106) mg/dL Calcium 9.4 (8.5-10.1) mg/dL Total Bilirubin 0.2 (0.2-1.0) mg/dL AST 21 (15-37) IU/L ALT 27 (14-63) IU/L Alkaline Phosphatase 53 (46-116) U/L C-Reactive Protein 7.70 H (0.00-0.90) mg/dL Total Protein 8.6 H (6.4-8.2) g/dL Albumin 3.4 (3.4-5.0) g/dL Globulin 5.2 H (2.6-4.0) g/dL Albumin/Globulin Ratio 0.7 L (0.9-1.6) 02/10/19 02/10/19 Range/Units 04:53 04:53 WBC 13.48 H (4.0-11.0) K/uL RBC 3.74 L (4.30-5.90) M/uL Hgb 10.5 L (12.0-16.0) g/dL Hct 31.4 L (36.0-46.0) % MCV 84.0 (80.0-98.0) fL MCH 28.1 (27.0-32.0) pg MCHC 33.4 (31.0-37.0) g/dL RDW Std Deviation 45.5 (28.0-62.0) fl RDW Coeff of Mckenna 15 (11.0-15.0) % Plt Count 431 H (150-400) K/uL MPV 8.90 (7.40-12.00) fL Neut % (Auto) 92.7 H (48.0-80.0) % Lymph % (Auto) 3.9 L (16.0-40.0) % [place] % (Auto) 3.3 (0.0-15.0) % Eos % (Auto) 0.0 (0.0-7.0) % Baso % (Auto) 0.1 (0.0-1.5) % Neut # (Auto) 12.5 H (1.4-5.7) K/uL Lymph # (Auto) 0.5 L (0.6-2.4) K/uL [place] # (Auto) 0.5 (0.0-0.8) K/uL Eos # (Auto) 0.0 (0.0-0.7) K/uL Baso # (Auto) 0.0 (0.0-0.1) K/uL Nucleated RBC % 0.0 /100WBC Nucleated RBCs # 0 K/uL ESR 72 H (0-29) mm/hr Sodium (136-145) mmol/L Potassium (3.5-5.1) mmol/L Chloride (98-107) mmol/L Carbon Dioxide (21.0-32.0) mmol/L BUN (7.0-18.0) mg/dL Creatinine (0.6-1.0) mg/dL Est Cr Clr Drug Dosing mL/min Estimated GFR (MDRD) ml/min Glucose (74-106) mg/dL Calcium (8.5-10.1) mg/dL Total Bilirubin (0.2-1.0) mg/dL AST (15-37) IU/L ALT (14-63) IU/L Alkaline Phosphatase (46-116) U/L C-Reactive Protein 7.70 H (0.00-0.90) mg/dL Total Protein (6.4-8.2) g/dL Albumin (3.4-5.0) g/dL Globulin (2.6-4.0) g/dL Albumin/Globulin Ratio (0.9-1.6) Result Diagrams: 02/10/19 04:53 02/10/19 04:53 Daniel Results Last 24 hrs: Microbiology 02/09/19 15:40 Gram Stain - Preliminary Knee, Left 02/09/19 11:07 Anaerobic Blood Culture - Final Blood - Venous - Lab Draw Consult PN Assessment/Plan Procedures: Procedures BLOOD TYPING SEROLOGIC ABO (01/05/19) BLOOD TYPING SEROLOGIC RH(D) (01/05/19) COMPLETE CBC W/AUTO DIFF WBC (01/26/19) COMPREHEN METABOLIC PANEL (01/26/19) DECALCIFY TISSUE (01/05/19) EMERGENCY DEPT VISIT (01/26/19) GAIT TRAINING THERAPY (01/26/19) HEMATOCRIT (01/05/19) HEMOGLOBIN (01/05/19) MRI JNT OF LWR EXTRE W/O DYE (11/04/18) OFFICE/OUTPATIENT VISIT NEW (04/27/14) PROTHROMBIN TIME (01/26/19) PT EVAL LOW COMPLEX 20 MIN (01/26/19) RBC ANTIBODY SCREEN (01/05/19) ROUTINE VENIPUNCTURE (01/26/19) THER/PROPH/DIAG INJ SC/IM (01/26/19) THER/PROPH/DIAG IV INF ADDON (01/26/19) THER/PROPH/DIAG IV INF INIT (01/26/19) THERAPEUTIC ACTIVITIES (01/26/19) THERAPEUTIC EXERCISES (01/26/19) TISSUE EXAM BY PATHOLOGIST (01/05/19) TX/PRO/DX INJ NEW DRUG ADDON (01/26/19) TX/PRO/DX INJ SAME DRUG CLAY MOLDER (01/26/19) X-RAY EXAM CHEST 2 VIEWS (12/15/18) X-RAY EXAM KNEE 4 OR MORE (02/26/17) X-RAY EXAM OF ANKLE (04/27/14) X-RAY EXAM OF FEMUR 2/> (01/26/19) X-RAY EXAM OF KNEE 1 OR 2 (01/05/19) X-RAY EXAM OF KNEE 3 (01/26/19) X-RAY EXAM OF PELVIS (01/26/19) (1) Postoperative wound infection SNOMED Code(s): 78297632, 617746951 Code(s): T81.49XA - INFECTION FOLLOWING A PROCEDURE, OTHER SURGICAL SITE, INIT Current Visit: Yes (2) History of total knee replacement SNOMED Code(s): 8776600847223, 1131913926886, 02685281737944 Code(s): Z96.659 - PRESENCE OF UNSPECIFIED ARTIFICIAL KNEE JOINT Current Visit: No Qualifiers: Laterality: left Qualified Code(s): Z96.652 - Presence of left artificial knee joint (3) HTN (hypertension) SNOMED Code(s): 34597772 Code(s): I10 - ESSENTIAL (PRIMARY) HYPERTENSION Current Visit: Yes Qualifiers: Hypertension type: essential hypertension Qualified Code(s): I10 - Essential (primary) hypertension (4) UTI (urinary tract infection) SNOMED Code(s): 17434201 Code(s): N39.0 - URINARY TRACT INFECTION, SITE NOT SPECIFIED Current Visit : Yes Qualifiers: Indwelling urinary catheter type: indwelling urethral catheter Encounter type: initial encounter Problem List Initiated/Reviewed/Updated: Yes My Orders Last 24 Hours: My Active Orders 02/10/19 08:35 CULTURE URINE [RM] Routine URINALYSIS W/MICROSCOPIC [UA W/MICROSCOPIC] [URIN] Routine Plan: This 53 year old female admitted with post-operative wound infection. Hospitalist service consulted for HTN 1. Post-operative wound infection. Orders per Orthopedics. On Clindamycin. Cultures pending. 2. HTN: BP elevated throughout evening and this morning 200/100s. No significant pain noted this morning. Reports history of HTN and is taking Cozaar and Metoprolol. Due to patient inability to take pills due to extreme nausea and vomiting will give onetime dose of Vasotec now and monitor. Hope to start home meds when nausea better. Ok with BPs SBP 160s for now while receiving narcotics for pain. Will monitor. 3. UTI: Urine in muller catheter noted to be very cloudy, UA obtained, reveals UTI. Slight leukocytosis noted, afebrile this morning. Due to allergies and inability to take PO meds currently, will start Meropenem 1 g every 8 hours. UC pending. Muller removed this morning. VTE prophylaxis: Would recommended when deems appropriate by Orthopedics.
[2019-02-10] MEDS ORDERED: Enalaprilat 1.25 MG/ML SDV IVPUSH ONE (08:40)
--- NOTE | 2019-02-10 08:40 | PCM.SURGPN ---
<Alisa Portillo R - Last Filed: 02/10/19 08:34> - General Info Date of Service: 02/10/19 Date of Surgery/Procedure: 02/09/19 POD#: 1 Functional Status: Reports: Pain Controlled. Denies: Tolerating Diet - Review of Systems General: Reports: Fatigue, Malaise, Chills. Denies: Appetite Pulmonary: Reports: No Symptoms Gastrointestinal: Reports: Nausea, Vomiting Systems Review Comment:: pt in bed, moderate distress significant nausea, not controlled with IV zofran or IM phenergan pain moderately well controlled would like muller removed no appetite, has not had food since admission to floor - Patient Data Vitals - Most Recent: Last Vital Signs Temp 97.5 F 02/10/19 08:00 Pulse 78 02/10/19 08:00 Resp 16 02/10/19 08:00 BP 188/118 H 02/10/19 08:00 Pulse Ox 98 02/10/19 08:00 Weight - Most Recent: 101.605 kg I&O - Last 24 Hours: Intake & Output 02/09/19 02/10/19 02/10/19 22:59 06:59 14:59 Intake Total 800 1500 Output Total 100 2250 Balance 700 -750 Lab Results Last 24 Hrs: Laboratory Results - last 24 hr 02/09/19 02/09/19 02/09/19 Range/Units 10:56 10:56 10:56 WBC 8.88 (4.0-11.0) K/uL RBC 4.35 (4.30-5.90) M/uL Hgb 12.3 (12.0-16.0) g/dL Hct 37.2 (36.0-46.0) % MCV 85.5 (80.0-98.0) fL MCH 28.3 (27.0-32.0) pg MCHC 33.1 (31.0-37.0) g/dL RDW Std Deviation 45.7 (28.0-62.0) fl RDW Coeff of Mckenna 15 (11.0-15.0) % Plt Count 393 (150-400) K/uL MPV 9.70 (7.40-12.00) fL Neut % (Auto) 73.8 (48.0-80.0) % Lymph % (Auto) 17.1 (16.0-40.0) % [place] % (Auto) 5.2 (0.0-15.0) % Eos % (Auto) 3.6 (0.0-7.0) % Baso % (Auto) 0.3 (0.0-1.5) % Neut # (Auto) 6.6 H (1.4-5.7) K/uL Lymph # (Auto) 1.5 (0.6-2.4) K/uL [place] # (Auto) 0.5 (0.0-0.8) K/uL Eos # (Auto) 0.3 (0.0-0.7) K/uL Baso # (Auto) 0.0 (0.0-0.1) K/uL Nucleated RBC % 0.0 /100WBC Nucleated RBCs # 0 K/uL ESR 65 H (0-29) mm/hr Sodium 137 (136-145) mmol/L Potassium 3.7 (3.5-5.1) mmol/L Chloride 102 (98-107) mmol/L Carbon Dioxide 23.6 (21.0-32.0) mmol/L BUN 12 (7.0-18.0) mg/dL Creatinine 0.7 (0.6-1.0) mg/dL Est Cr Clr Drug Dosing 92.68 mL/min Estimated GFR (MDRD) > 60.0 ml/min Glucose 109 H (74-106) mg/dL Calcium 9.4 (8.5-10.1) mg/dL Total Bilirubin 0.2 (0.2-1.0) mg/dL AST 21 (15-37) IU/L ALT 27 (14-63) IU/L Alkaline Phosphatase 53 (46-116) U/L C-Reactive Protein 7.70 H (0.00-0.90) mg/dL Total Protein 8.6 H (6.4-8.2) g/dL Albumin 3.4 (3.4-5.0) g/dL Globulin 5.2 H (2.6-4.0) g/dL Albumin/Globulin Ratio 0.7 L (0.9-1.6) 02/10/19 02/10/19 Range/Units 04:53 04:53 WBC 13.48 H (4.0-11.0) K/uL RBC 3.74 L (4.30-5.90) M/uL Hgb 10.5 L (12.0-16.0) g/dL Hct 31.4 L (36.0-46.0) % MCV 84.0 (80.0-98.0) fL MCH 28.1 (27.0-32.0) pg MCHC 33.4 (31.0-37.0) g/dL RDW Std Deviation 45.5 (28.0-62.0) fl RDW Coeff of Mckenna 15 (11.0-15.0) % Plt Count 431 H (150-400) K/uL MPV 8.90 (7.40-12.00) fL Neut % (Auto) 92.7 H (48.0-80.0) % Lymph % (Auto) 3.9 L (16.0-40.0) % [place] % (Auto) 3.3 (0.0-15.0) % Eos % (Auto) 0.0 (0.0-7.0) % Baso % (Auto) 0.1 (0.0-1.5) % Neut # (Auto) 12.5 H (1.4-5.7) K/uL Lymph # (Auto) 0.5 L (0.6-2.4) K/uL [place] # (Auto) 0.5 (0.0-0.8) K/uL Eos # (Auto) 0.0 (0.0-0.7) K/uL Baso # (Auto) 0.0 (0.0-0.1) K/uL Nucleated RBC % 0.0 /100WBC Nucleated RBCs # 0 K/uL ESR 72 H (0-29) mm/hr Sodium (136-145) mmol/L Potassium (3.5-5.1) mmol/L Chloride (98-107) mmol/L Carbon Dioxide (21.0-32.0) mmol/L BUN (7.0-18.0) mg/dL Creatinine (0.6-1.0) mg/dL Est Cr Clr Drug Dosing mL/min Estimated GFR (MDRD) ml/min Glucose (74-106) mg/dL Calcium (8.5-10.1) mg/dL Total Bilirubin (0.2-1.0) mg/dL AST (15-37) IU/L ALT (14-63) IU/L Alkaline Phosphatase (46-116) U/L C-Reactive Protein 7.70 H (0.00-0.90) mg/dL Total Protein (6.4-8.2) g/dL Albumin (3.4-5.0) g/dL Globulin (2.6-4.0) g/dL Albumin/Globulin Ratio (0.9-1.6) Daniel Results Last 24 Hrs: Microbiology 02/09/19 15:40 Gram Stain - Preliminary Knee, Left 02/09/19 11:07 Anaerobic Blood Culture - Final Blood - Venous - Lab Draw Med Orders - Current: Current Medications Hydrocodone Bitart/Acetaminophen ([place] 325-10 Mg) 1 - 2 tab PO Q4H PRN PRN Reason: Pain Last Admin: 02/09/19 19:54 Dose: 2 tab Aspirin (Aspirin) 325 mg PO BID [facility] Diphenhydramine HCl (Benadryl) 25 mg IVPUSH Q4H PRN PRN Reason: Itching Last Admin: 02/10/19 03:32 Dose: 25 mg Docusate Sodium (Colace) 100 mg PO BID [facility] Last Admin: 02/09/19 19:59 Dose: 100 mg Famotidine (Pepcid) 40 mg PO DAILY [facility] Hydromorphone HCl (Dilaudid) 0.5 - 1 mg IVPUSH Q3H PRN PRN Reason: Pain Last Admin: 02/10/19 03:32 Dose: 1 mg Clindamycin Phosphate 900 mg/ (Premix) 50 mls @ 100 mls/hr IV ONCALL [facility] Last Admin: 02/10/19 06:42 Dose: 100 mls/hr Clindamycin Phosphate 900 mg/ (Premix) 50 mls @ 100 mls/hr IV Q8H [facility] Stop: 02/10/19 15:34 Last Admin: 02/10/19 06:44 Dose: 100 mls/hr Lactated Ringer's (Ringers, Lactated) 1,000 mls @ 100 mls/hr IV ASDIRECTED [facility] Last Admin: 02/09/19 22:11 Dose: 100 mls/hr Ketorolac Tromethamine (Toradol) 30 mg IVPUSH Q6H [facility] Last Admin: 02/10/19 03:30 Dose: 30 mg Lorazepam (Ativan) 0.5 mg IVPUSH Q6H PRN PRN Reason: Anxiety Last Admin: 02/09/19 22:03 Dose: 0.5 mg Metoprolol Succinate (Toprol Xl) 50 mg PO BID [facility] Ondansetron HCl (Zofran) 4 mg IVPUSH Q4H PRN PRN Reason: Nausea/Vomiting Last Admin: 02/10/19 03:31 Dose: 4 mg Scopolamine (Transderm-Scop) 1.5 mg TRDERM Q72H PRN PRN Reason: Nausea/Vomiting Last Admin: 02/09/19 19:57 Dose: 1.5 mg Sodium Chloride (Saline Flush) 10 ml FLUSH ASDIRECTED PRN PRN Reason: Keep Vein Open Sodium Chloride (Saline Flush) 2.5 ml FLUSH ASDIRECTED PRN PRN Reason: Keep Vein Open Discontinued Medications Hydrocodone Bitart/Acetaminophen ([place] 325-5 Mg) 2 tab PO Q6H PRN PRN Reason: Pain (moderate 4-6) Albuterol (Proventil Neb Soln) 2.5 mg NEB Q6HRRT PRN PRN Reason: Wheezing Atropine Sulfate (Atropine 0.1 Mg/Ml) 0.4 mg IVPUSH Q5M PRN PRN Reason: Bradycardia Dexamethasone (Dexamethasone) Confirm Administered Dose 20 mg .ROUTE .STK-MED ONE Stop: 02/09/19 15:24 Fentanyl (Sublimaze) 50 mcg IVPUSH Q5M PRN PRN Reason: Pain (severe 7-10) Stop: 02/10/19 16:00 Hydralazine HCl (Apresoline) 5 mg IVPUSH ONETIME PRN PRN Reason: Hypertension Hydralazine HCl (Apresoline) 10 mg IVPUSH ONETIME PRN PRN Reason: Hypertension Hydromorphone HCl (Dilaudid Product Development 6 Mg In Ns 30 Ml) 6 mg IV ASDIRECTED PRN; Protocol PRN Reason: Pain Hydromorphone HCl (Dilaudid) 0.5 - 1 mg IVPUSH Q3H PRN PRN Reason: Pain Hydromorphone HCl (Dilaudid) 0.25 mg IVPUSH Q10M PRN PRN Reason: Pain (severe 7-10) Stop: 02/10/19 16:00 Ketamine HCl (Ketalar) Confirm Administered Dose 500 mg .ROUTE .STK-MED ONE Stop: 02/09/19 15:13 Ketorolac Tromethamine (Toradol) 30 mg IVPUSH ONETIME ONE Stop: 02/09/19 11:02 Last Admin: 02/09/19 12:04 Dose: 30 mg Ketorolac Tromethamine (Toradol) 30 mg IVPUSH Q6H PRN PRN Reason: Pain Stop: 02/14/19 15:08 Ketorolac Tromethamine (Toradol) Confirm Administered Dose 60 mg .ROUTE .STK- MED ONE Stop: 02/09/19 15:24 Labetalol HCl (Normodyne) 10 mg IVPUSH Q6H PRN PRN Reason: Hypertension Stop: 02/10/19 16:00 Lidocaine HCl (Xylocaine-Mpf 1%) Confirm Administered Dose 2 ml .ROUTE .STK-MED ONE Stop: 02/09/19 11:55 Last Admin: 02/09/19 13:46 Dose: Not Given Lorazepam (Ativan) 0.5 mg IVPUSH ONETIME ONE Stop: 02/09/19 11:14 Last Admin: 02/09/19 12:05 Dose: 0.5 mg Meperidine HCl (Demerol) 12.5 mg IVPUSH ONETIME PRN PRN Reason: Shivering Meperidine HCl (Demerol) 25 mg IV ONETIME PRN PRN Reason: Shivering Metoclopramide HCl (Reglan) 10 mg IVPUSH ONETIME PRN PRN Reason: Nausea Metoclopramide HCl (Reglan) 10 mg IV ONETIME ONE Stop: 02/09/19 21:33 Last Admin: 02/09/19 22:13 Dose: 10 mg Metoprolol Succinate (Toprol Xl) 50 mg PO ONETIME ONE Stop: 02/10/19 21:38 Metoprolol Succinate (Toprol Xl) 50 mg PO ONETIME ONE Stop: 02/09/19 21:49 Last Admin: 02/09/19 22:24 Dose: 50 mg Midazolam HCl (Versed 1 Mg/Ml) Confirm Administered Dose 2 mg .ROUTE .STK-MED ONE Stop: 02/09/19 15:17 Morphine Sulfate (Morphine) 4 mg IVPUSH Q10M PRN PRN Reason: Pain (severe 7-10) Stop: 02/10/19 16:00 Naloxone HCl (Narcan) 0.1 mg IVPUSH ONETIME PRN PRN Reason: Respiratory Depression Ondansetron HCl (Zofran) 4 mg IVPUSH Q6H PRN PRN Reason: Nausea/Vomiting Last Admin: 02/09/19 18:49 Dose: 4 mg Ondansetron HCl (Zofran) 8 mg IVPUSH ONETIME PRN PRN Reason: Nausea Promethazine HCl (Phenergan) 12.5 mg IM ONETIME PRN PRN Reason: Nausea Promethazine HCl (Phenergan) 25 mg IM ONETIME ONE Stop: 02/09/19 19:30 Last Admin: 02/09/19 19:56 Dose: 25 mg Propofol (Diprivan 20 Ml) Confirm Administered Dose 200 mg .ROUTE .STK-MED ONE Stop: 02/09/19 15:11 Propofol (Diprivan 20 Ml) Confirm Administered Dose 200 mg .ROUTE .STK-MED ONE Stop: 02/09/19 15:47 Propofol (Diprivan 20 Ml) Confirm Administered Dose 400 mg .ROUTE .STK-MED ONE Stop: 02/09/19 15:49 Scopolamine (Transderm-Scop) 1.5 mg TRDERM Q72H PRN PRN Reason: Nausea - Exam Wound/Incisions: Dressing Dry and Intact General: Alert, Oriented Cardiovascular: Regular Rate, Regular Rhythm Extremities: Other (exam LLE - dressing clean/dry, immobilizer in place, at/ehl/ gastroc 5/5, dp 2+, sensation intact distally) Physical Findings Comment:: hypertensive - pt had small cuff in place over wrist, but BP does not improve with adult cuff to upper arm pulse 70s uo 2300mL hgb 10.5 wbc 13.8 esr 72 crp 7.70 gram stain negative deep cultures pending aerobic blood culture pending, anaerobic bottle not planted - Problem List Review Problem List Initiated/Reviewed/Updated: Yes - My Orders Last 24 Hours: Active Orders 24 hr Category Date Time Status Patient Status [ADT] Routine ADT 02/09/19 15:07 Active Activity as Tolerated [RC] .Routine Care 02/09/19 15:07 Active Antiembolic Devices [RC] PER UNIT ROUTINE Care 02/09/19 15:11 Active Blood Glucose Check, Bedside [RC] PRN Care 02/09/19 16:00 Active Communication Order [RC] STAT Care 02/10/19 02:29 Active Elevate Extremity [RC] CONTINUOUS Care 02/09/19 15:07 Active Intake and Output [RC] Q12H Care 02/09/19 15:08 Active Oxygen Therapy [RC] ASDIRECTED Care 02/09/19 16:00 Active RT Incentive Spirometry [RC] ASDIRECTED Care 02/09/19 15:08 Active Vital Signs [RC] Q4H Care 02/09/19 15:08 Active PT Evaluation and Treatment [CONS] Routine Cons 02/09/19 15:07 Active Regular Diet [DIET] Diet 02/09/19 Dinner Active CULTURE ANAEROBIC [RM] Routine Lab 02/09/19 15:40 Results CULTURE BLOOD [BC] Stat Lab 02/09/19 10:53 Received CULTURE BLOOD [BC] Stat Lab 02/09/19 11:07 Results CULTURE WOUND [RM] Routine Lab 02/09/19 15:40 Results GRAM STAIN [RM] Routine Lab 02/09/19 15:40 Results Acetaminophen/HYDROcodone [[place] 325-10 MG] Med 02/09/19 15:06 Active 1 - 2 tab PO Q4H PRN Aspirin Med 02/10/19 09:00 Active 325 mg PO BID Clindamycin Phosphate in D5W [Cleocin in D5W] 900 mg Med 02/09/19 15:15 Active Premix Bag 1 bag IV ONCALL Clindamycin Phosphate in D5W [Cleocin in D5W] 900 mg Med 02/09/19 23:00 Active Premix Bag 1 bag IV Q8H Docusate Sodium [Colace] Med 02/09/19 21:00 Active 100 mg PO BID Famotidine [Pepcid] Med 02/10/19 09:00 Active 40 mg PO DAILY HYDROmorphone [Dilaudid] Med 02/09/19 22:51 Active 0.5 - 1 mg IVPUSH Q3H PRN Ketorolac [Toradol] Med 02/09/19 21:45 Active 30 mg IVPUSH Q6H LORazepam [Ativan] Med 02/09/19 15:06 Active 0.5 mg IVPUSH Q6H PRN Lactated Ringers [Ringers, Lactated] 1,000 ml Med 02/09/19 21:45 Active IV ASDIRECTED Metoclopramide [Reglan] Med 02/10/19 08:45 Ordered 10 mg IVPUSH Q6H Metoprolol Succinate [Toprol XL] Med 02/10/19 09:00 Active 50 mg PO BID Ondansetron [Zofran] Med 02/09/19 21:32 Active 4 mg IVPUSH Q4H PRN Promethazine [Phenadoz] Med 02/10/19 08:32 Ordered 12.5 mg RECTAL Q6H PRN Scopolamine [Transderm-Scop] Med 02/09/19 19:28 Active 1.5 mg TRDERM Q72H PRN Sodium Chloride 0.9% [Saline Flush] Med 02/09/19 10:48 Active 10 ml FLUSH ASDIRECTED PRN Sodium Chloride 0.9% [Saline Flush] Med 02/09/19 10:48 Active 2.5 ml FLUSH ASDIRECTED PRN diphenhydrAMINE [Benadryl] Med 02/09/19 15:06 Active 25 mg IVPUSH Q4H PRN Antiembolic Hose [OM.PC] Routine Oth 02/09/19 15:08 Ordered Blood Culture x2 Reflex Set [OM.PC] Stat Oth 02/09/19 10:48 Ordered Ice Therapy [OM.PC] Routine Oth 02/09/19 15:07 Ordered Saline Lock Insert [OM.PC] Stat Oth 02/09/19 10:48 Ordered Sequential Compression Device [OM.PC] Routine Oth 02/09/19 15:08 Ordered Code Status [Resuscitation Status] Routine Resus Stat 02/09/19 15:06 Ordered Medication Orders Hydrocodone Bitart/Acetaminophen ([place] 325-10 Mg) 1 - 2 tab PO Q4H PRN PRN Reason: Pain Last Admin: 02/09/19 19:54 Dose: 2 tab Aspirin (Aspirin) 325 mg PO BID [facility] Diphenhydramine HCl (Benadryl) 25 mg IVPUSH Q4H PRN PRN Reason: Itching Last Admin: 02/10/19 03:32 Dose: 25 mg Admin: 02/10/19 00:38 Dose: 25 mg Admin: 02/09/19 19:55 Dose: 25 mg Docusate Sodium (Colace) 100 mg PO BID [facility] Last Admin: 02/09/19 19:59 Dose: 100 mg Famotidine (Pepcid) 40 mg PO DAILY [facility] Hydromorphone HCl (Dilaudid) 0.5 - 1 mg IVPUSH Q3H PRN PRN Reason: Pain Last Admin: 02/10/19 03:32 Dose: 1 mg Admin: 02/10/19 00:39 Dose: 1 mg Clindamycin Phosphate 900 mg/ (Premix) 50 mls @ 100 mls/hr IV ONCALL [facility] Last Admin: 02/10/19 06:42 Dose: 100 mls/hr Infusion: 02/10/19 06:34 Dose: 100 mls/hr Admin: 02/10/19 06:04 Dose: 100 mls/hr Clindamycin Phosphate 900 mg/ (Premix) 50 mls @ 100 mls/hr IV Q8H [facility] Stop: 02/10/19 15:34 Last Admin: 02/10/19 06:44 Dose: 100 mls/hr Infusion: 02/09/19 22:51 Dose: 100 mls/hr Admin: 02/09/19 22:21 Dose: 100 mls/hr Lactated Ringer's (Ringers, Lactated) 1,000 mls @ 100 mls/hr IV ASDIRECTED [facility] Last Admin: 02/09/19 22:11 Dose: 100 mls/hr Ketorolac Tromethamine (Toradol) 30 mg IVPUSH Q6H [facility] Last Admin: 02/10/19 03:30 Dose: 30 mg Admin: 02/09/19 22:16 Dose: 30 mg Lorazepam (Ativan) 0.5 mg IVPUSH Q6H PRN PRN Reason: Anxiety Last Admin: 02/09/19 22:03 Dose: 0.5 mg Metoprolol Succinate (Toprol Xl) 50 mg PO BID [facility] Ondansetron HCl (Zofran) 4 mg IVPUSH Q4H PRN PRN Reason: Nausea/Vomiting Last Admin: 02/10/19 03:31 Dose: 4 mg Admin: 02/09/19 22:08 Dose: 4 mg Scopolamine (Transderm-Scop) 1.5 mg TRDERM Q72H PRN PRN Reason: Nausea/Vomiting Last Admin: 02/09/19 19:57 Dose: 1.5 mg Sodium Chloride (Saline Flush) 10 ml FLUSH ASDIRECTED PRN PRN Reason: Keep Vein Open Sodium Chloride (Saline Flush) 2.5 ml FLUSH ASDIRECTED PRN PRN Reason: Keep Vein Open - Assessment Assessment (Free Text/Narrative):: POD#1 ED L TKA with poly swap acute posthemorrhagic anemia hypertension nausea - Plan Plan (Free Text/Narrative):: consult to medicine for hypertension, hx hypertension phenergan suppository IV metocloperamide scopolamine patch in place pepcid/benadryl IV x1 now for nausea PT for mobilization, no quad activation, WBAT LLE with FWW/crutches waiting cultures, will keep on IV abx until cultures resulted may consider GI cocktail if nausea does not improve with add'l meds/bp control <Susanne Muse R - Last Filed: 02/10/19 08:59> - Patient Data Vitals - Most Recent: Last Vital Signs Temp 97.5 F 02/10/19 08:00 Pulse 78 02/10/19 08:00 Resp 16 02/10/19 08:00 BP 188/118 H 02/10/19 08:00 Pulse Ox 98 02/10/19 08:00 I&O - Last 24 Hours: Intake & Output 02/09/19 02/10/19 02/10/19 22:59 06:59 14:59 Intake Total 800 1500 Output Total 100 2250 Balance 700 -750 Lab Results Last 24 Hrs: Laboratory Results - last 24 hr 02/09/19 02/09/19 02/09/19 Range/Units 10:56 10:56 10:56 WBC 8.88 (4.0-11.0) K/uL RBC 4.35 (4.30-5.90) M/uL Hgb 12.3 (12.0-16.0) g/dL Hct 37.2 (36.0-46.0) % MCV 85.5 (80.0-98.0) fL MCH 28.3 (27.0-32.0) pg MCHC 33.1 (31.0-37.0) g/dL RDW Std Deviation 45.7 (28.0-62.0) fl RDW Coeff of Mckenna 15 (11.0-15.0) % Plt Count 393 (150-400) K/uL MPV 9.70 (7.40-12.00) fL Neut % (Auto) 73.8 (48.0-80.0) % Lymph % (Auto) 17.1 (16.0-40.0) % [place] % (Auto) 5.2 (0.0-15.0) % Eos % (Auto) 3.6 (0.0-7.0) % Baso % (Auto) 0.3 (0.0-1.5) % Neut # (Auto) 6.6 H (1.4-5.7) K/uL Lymph # (Auto) 1.5 (0.6-2.4) K/uL [place] # (Auto) 0.5 (0.0-0.8) K/uL Eos # (Auto) 0.3 (0.0-0.7) K/uL Baso # (Auto) 0.0 (0.0-0.1) K/uL Nucleated RBC % 0.0 /100WBC Nucleated RBCs # 0 K/uL ESR 65 H (0-29) mm/hr Sodium 137 (136-145) mmol/L Potassium 3.7 (3.5-5.1) mmol/L Chloride 102 (98-107) mmol/L Carbon Dioxide 23.6 (21.0-32.0) mmol/L BUN 12 (7.0-18.0) mg/dL Creatinine 0.7 (0.6-1.0) mg/dL Est Cr Clr Drug Dosing 92.68 mL/min Estimated GFR (MDRD) > 60.0 ml/min Glucose 109 H (74-106) mg/dL Calcium 9.4 (8.5-10.1) mg/dL Total Bilirubin 0.2 (0.2-1.0) mg/dL AST 21 (15-37) IU/L ALT 27 (14-63) IU/L Alkaline Phosphatase 53 (46-116) U/L C-Reactive Protein 7.70 H (0.00-0.90) mg/dL Total Protein 8.6 H (6.4-8.2) g/dL Albumin 3.4 (3.4-5.0) g/dL Globulin 5.2 H (2.6-4.0) g/dL Albumin/Globulin Ratio 0.7 L (0.9-1.6) 02/10/19 02/10/19 Range/Units 04:53 04:53 WBC 13.48 H (4.0-11.0) K/uL RBC 3.74 L (4.30-5.90) M/uL Hgb 10.5 L (12.0-16.0) g/dL Hct 31.4 L (36.0-46.0) % MCV 84.0 (80.0-98.0) fL MCH 28.1 (27.0-32.0) pg MCHC 33.4 (31.0-37.0) g/dL RDW Std Deviation 45.5 (28.0-62.0) fl RDW Coeff of Mckenna 15 (11.0-15.0) % Plt Count 431 H (150-400) K/uL MPV 8.90 (7.40-12.00) fL Neut % (Auto) 92.7 H (48.0-80.0) % Lymph % (Auto) 3.9 L (16.0-40.0) % [place] % (Auto) 3.3 (0.0-15.0) % Eos % (Auto) 0.0 (0.0-7.0) % Baso % (Auto) 0.1 (0.0-1.5) % Neut # (Auto) 12.5 H (1.4-5.7) K/uL Lymph # (Auto) 0.5 L (0.6-2.4) K/uL [place] # (Auto) 0.5 (0.0-0.8) K/uL Eos # (Auto) 0.0 (0.0-0.7) K/uL Baso # (Auto) 0.0 (0.0-0.1) K/uL Nucleated RBC % 0.0 /100WBC Nucleated RBCs # 0 K/uL ESR 72 H (0-29) mm/hr Sodium (136-145) mmol/L Potassium (3.5-5.1) mmol/L Chloride (98-107) mmol/L Carbon Dioxide (21.0-32.0) mmol/L BUN (7.0-18.0) mg/dL Creatinine (0.6-1.0) mg/dL Est Cr Clr Drug Dosing mL/min Estimated GFR (MDRD) ml/min Glucose (74-106) mg/dL Calcium (8.5-10.1) mg/dL Total Bilirubin (0.2-1.0) mg/dL AST (15-37) IU/L ALT (14-63) IU/L Alkaline Phosphatase (46-116) U/L C-Reactive Protein 7.70 H (0.00-0.90) mg/dL Total Protein (6.4-8.2) g/dL Albumin (3.4-5.0) g/dL Globulin (2.6-4.0) g/dL Albumin/Globulin Ratio (0.9-1.6) Daniel Results Last 24 Hrs: Microbiology 02/09/19 15:40 Gram Stain - Preliminary Knee, Left 02/09/19 11:07 Anaerobic Blood Culture - Final Blood - Venous - Lab Draw Med Orders - Current: Current Medications Hydrocodone Bitart/Acetaminophen ([place] 325-10 Mg) 1 - 2 tab PO Q4H PRN PRN Reason: Pain Last Admin: 02/09/19 19:54 Dose: 2 tab Aspirin (Aspirin) 325 mg PO BID [facility] Diphenhydramine HCl (Benadryl) 25 mg IVPUSH Q4H PRN PRN Reason: Itching Last Admin: 02/10/19 03:32 Dose: 25 mg Diphenhydramine HCl (Benadryl) 25 mg IVPUSH Q6H PRN PRN Reason: Nausea Docusate Sodium (Colace) 100 mg PO BID [facility] Last Admin: 02/09/19 19:59 Dose: 100 mg Famotidine (Pepcid) 40 mg PO DAILY [facility] Hydromorphone HCl (Dilaudid) 0.5 - 1 mg IVPUSH Q3H PRN PRN Reason: Pain Last Admin: 02/10/19 03:32 Dose: 1 mg Clindamycin Phosphate 900 mg/ (Premix) 50 mls @ 100 mls/hr IV ONCALL [facility] Last Admin: 02/10/19 06:42 Dose: 100 mls/hr Clindamycin Phosphate 900 mg/ (Premix) 50 mls @ 100 mls/hr IV Q8H [facility] Stop: 02/10/19 15:34 Last Admin: 02/10/19 06:44 Dose: 100 mls/hr Lactated Ringer's (Ringers, Lactated) 1,000 mls @ 100 mls/hr IV ASDIRECTED [facility] Last Admin: 02/09/19 22:11 Dose: 100 mls/hr Ketorolac Tromethamine (Toradol) 30 mg IVPUSH Q6H [facility] Last Admin: 02/10/19 03:30 Dose: 30 mg Lorazepam (Ativan) 0.5 mg IVPUSH Q6H PRN PRN Reason: Anxiety Last Admin: 02/09/19 22:03 Dose: 0.5 mg Metoclopramide HCl (Reglan) 10 mg IVPUSH Q6H [facility] Metoprolol Succinate (Toprol Xl) 50 mg PO BID [facility] Ondansetron HCl (Zofran) 4 mg IVPUSH Q4H PRN PRN Reason: Nausea/Vomiting Last Admin: 02/10/19 03:31 Dose: 4 mg Promethazine HCl (Phenadoz) 12.5 mg RECTAL Q6H PRN PRN Reason: Nausea/Vomiting Scopolamine (Transderm-Scop) 1.5 mg TRDERM Q72H PRN PRN Reason: Nausea/Vomiting Last Admin: 02/09/19 19:57 Dose: 1.5 mg Sodium Chloride (Saline Flush) 10 ml FLUSH ASDIRECTED PRN PRN Reason: Keep Vein Open Sodium Chloride (Saline Flush) 2.5 ml FLUSH ASDIRECTED PRN PRN Reason: Keep Vein Open Discontinued Medications Hydrocodone Bitart/Acetaminophen ([place] 325-5 Mg) 2 tab PO Q6H PRN PRN Reason: Pain (moderate 4-6) Albuterol (Proventil Neb Soln) 2.5 mg NEB Q6HRRT PRN PRN Reason: Wheezing Atropine Sulfate (Atropine 0.1 Mg/Ml) 0.4 mg IVPUSH Q5M PRN PRN Reason: Bradycardia Dexamethasone (Dexamethasone) Confirm Administered Dose 20 mg .ROUTE .STK-MED ONE Stop: 02/09/19 15:24 Enalaprilat (Vasotec Iv) 0.625 mg IVPUSH ONETIME ONE Stop: 02/10/19 08:41 Famotidine (Pepcid) 40 mg IVPUSH NOW STA Stop: 02/10/19 08:42 Fentanyl (Sublimaze) 50 mcg IVPUSH Q5M PRN PRN Reason: Pain (severe 7-10) Stop: 02/10/19 16:00 Hydralazine HCl (Apresoline) 5 mg IVPUSH ONETIME PRN PRN Reason: Hypertension Hydralazine HCl (Apresoline) 10 mg IVPUSH ONETIME PRN PRN Reason: Hypertension Hydromorphone HCl (Dilaudid Product Development 6 Mg In Ns 30 Ml) 6 mg IV ASDIRECTED PRN; Protocol PRN Reason: Pain Hydromorphone HCl (Dilaudid) 0.5 - 1 mg IVPUSH Q3H PRN PRN Reason: Pain Hydromorphone HCl (Dilaudid) 0.25 mg IVPUSH Q10M PRN PRN Reason: Pain (severe 7-10) Stop: 02/10/19 16:00 Ketamine HCl (Ketalar) Confirm Administered Dose 500 mg .ROUTE .STK-MED ONE Stop: 02/09/19 15:13 Ketorolac Tromethamine (Toradol) 30 mg IVPUSH ONETIME ONE Stop: 02/09/19 11:02 Last Admin: 02/09/19 12:04 Dose: 30 mg Ketorolac Tromethamine (Toradol) 30 mg IVPUSH Q6H PRN PRN Reason: Pain Stop: 02/14/19 15:08 Ketorolac Tromethamine (Toradol) Confirm Administered Dose 60 mg .ROUTE .STK- MED ONE Stop: 02/09/19 15:24 Labetalol HCl (Normodyne) 10 mg IVPUSH Q6H PRN PRN Reason: Hypertension Stop: 02/10/19 16:00 Lidocaine HCl (Xylocaine-Mpf 1%) Confirm Administered Dose 2 ml .ROUTE .STK-MED ONE Stop: 02/09/19 11:55 Last Admin: 02/09/19 13:46 Dose: Not Given Lorazepam (Ativan) 0.5 mg IVPUSH ONETIME ONE Stop: 02/09/19 11:14 Last Admin: 02/09/19 12:05 Dose: 0.5 mg Meperidine HCl (Demerol) 12.5 mg IVPUSH ONETIME PRN PRN Reason: Shivering Meperidine HCl (Demerol) 25 mg IV ONETIME PRN PRN Reason: Shivering Metoclopramide HCl (Reglan) 10 mg IVPUSH ONETIME PRN PRN Reason: Nausea Metoclopramide HCl (Reglan) 10 mg IV ONETIME ONE Stop: 02/09/19 21:33 Last Admin: 02/09/19 22:13 Dose: 10 mg Metoprolol Succinate (Toprol Xl) 50 mg PO ONETIME ONE Stop: 02/10/19 21:38 Metoprolol Succinate (Toprol Xl) 50 mg PO ONETIME ONE Stop: 02/09/19 21:49 Last Admin: 02/09/19 22:24 Dose: 50 mg Midazolam HCl (Versed 1 Mg/Ml) Confirm Administered Dose 2 mg .ROUTE .STK-MED ONE Stop: 02/09/19 15:17 Morphine Sulfate (Morphine) 4 mg IVPUSH Q10M PRN PRN Reason: Pain (severe 7-10) Stop: 02/10/19 16:00 Naloxone HCl (Narcan) 0.1 mg IVPUSH ONETIME PRN PRN Reason: Respiratory Depression Ondansetron HCl (Zofran) 4 mg IVPUSH Q6H PRN PRN Reason: Nausea/Vomiting Last Admin: 02/09/19 18:49 Dose: 4 mg Ondansetron HCl (Zofran) 8 mg IVPUSH ONETIME PRN PRN Reason: Nausea Promethazine HCl (Phenergan) 12.5 mg IM ONETIME PRN PRN Reason: Nausea Promethazine HCl (Phenergan) 25 mg IM ONETIME ONE Stop: 02/09/19 19:30 Last Admin: 02/09/19 19:56 Dose: 25 mg Propofol (Diprivan 20 Ml) Confirm Administered Dose 200 mg .ROUTE .STK-MED ONE Stop: 02/09/19 15:11 Propofol (Diprivan 20 Ml) Confirm Administered Dose 200 mg .ROUTE .STK-MED ONE Stop: 02/09/19 15:47 Propofol (Diprivan 20 Ml) Confirm Administered Dose 400 mg .ROUTE .STK-MED ONE Stop: 02/09/19 15:49 Scopolamine (Transderm-Scop) 1.5 mg TRDERM Q72H PRN PRN Reason: Nausea - Problem List & Annotations (1) History of total knee replacement SNOMED Code(s): 8855586531236, [id number], [id number] Code(s): Z96.659 - PRESENCE OF UNSPECIFIED ARTIFICIAL KNEE JOINT Status: Acute Current Visit: No Qualifiers: Laterality: left Qualified Code(s): Z96.652 - Presence of left artificial knee joint - My Orders Last 24 Hours: Active Orders 24 hr Category Date Time Status Patient Status [ADT] Routine ADT 02/09/19 15:07 Active Activity as Tolerated [RC] .Routine Care 02/09/19 15:07 Active Antiembolic Devices [RC] PER UNIT ROUTINE Care 02/09/19 15:11 Active Blood Glucose Check, Bedside [RC] PRN Care 02/09/19 16:00 Active Communication Order [RC] STAT Care 02/10/19 02:29 Active Elevate Extremity [RC] CONTINUOUS Care 02/09/19 15:07 Active Intake and Output [RC] Q12H Care 02/09/19 15:08 Active Notify Provider Consults [RC] ASDIRECTED Care 02/10/19 08:41 Active Oxygen Therapy [RC] ASDIRECTED Care 02/09/19 16:00 Active RT Incentive Spirometry [RC] ASDIRECTED Care 02/09/19 15:08 Active Remove Muller Catheter [Urinary Catheter Removal] [RC] Care 02/10/19 08:44 Active Per Unit Routine Vital Signs [RC] Q4H Care 02/09/19 15:08 Active Consult to Physician [CONS] Routine Cons 02/10/19 08:40 Active PT Evaluation and Treatment [CONS] Routine Cons 02/09/19 15:07 Active Regular Diet [DIET] Diet 02/09/19 Dinner Active BMP [BASIC METABOLIC PANEL,BMP] [CHEM] Routine Lab 02/10/19 08:41 Ordered CULTURE ANAEROBIC [RM] Routine Lab 02/09/19 15:40 Results CULTURE BLOOD [BC] Stat Lab 02/09/19 10:53 Received CULTURE BLOOD [BC] Stat Lab 02/09/19 11:07 Results CULTURE URINE [RM] Routine Lab 02/10/19 08:40 Ordered CULTURE WOUND [RM] Routine Lab 02/09/19 15:40 Results GRAM STAIN [RM] Routine Lab 02/09/19 15:40 Results URINALYSIS W/MICROSCOPIC [UA W/MICROSCOPIC] [URIN] Lab 02/10/19 08:40 Ordered Routine Acetaminophen/HYDROcodone [[place] 325-10 MG] Med 02/09/19 15:06 Active 1 - 2 tab PO Q4H PRN Aspirin Med 02/10/19 09:00 Active 325 mg PO BID Clindamycin Phosphate in D5W [Cleocin in D5W] 900 mg Med 02/09/19 15:15 Active Premix Bag 1 bag IV ONCALL Clindamycin Phosphate in D5W [Cleocin in D5W] 900 mg Med 02/09/19 23:00 Active Premix Bag 1 bag IV Q8H Docusate Sodium [Colace] Med 02/09/19 21:00 Active 100 mg PO BID Famotidine [Pepcid] Med 02/10/19 09:00 Active 40 mg PO DAILY HYDROmorphone [Dilaudid] Med 02/09/19 22:51 Active 0.5 - 1 mg IVPUSH Q3H PRN Ketorolac [Toradol] Med 02/09/19 21:45 Active 30 mg IVPUSH Q6H LORazepam [Ativan] Med 02/09/19 15:06 Active 0.5 mg IVPUSH Q6H PRN Lactated Ringers [Ringers, Lactated] 1,000 ml Med 02/09/19 21:45 Active IV ASDIRECTED Metoclopramide [Reglan] Med 02/10/19 08:45 Active 10 mg IVPUSH Q6H Metoprolol Succinate [Toprol XL] Med 02/10/19 09:00 Active 50 mg PO BID Ondansetron [Zofran] Med 02/09/19 21:32 Active 4 mg IVPUSH Q4H PRN Promethazine [Phenadoz] Med 02/10/19 08:32 Active 12.5 mg RECTAL Q6H PRN Scopolamine [Transderm-Scop] Med 02/09/19 19:28 Active 1.5 mg TRDERM Q72H PRN Sodium Chloride 0.9% [Saline Flush] Med 02/09/19 10:48 Active 10 ml FLUSH ASDIRECTED PRN Sodium Chloride 0.9% [Saline Flush] Med 02/09/19 10:48 Active 2.5 ml FLUSH ASDIRECTED PRN diphenhydrAMINE [Benadryl] Med 02/09/19 15:06 Active 25 mg IVPUSH Q4H PRN diphenhydrAMINE [Benadryl] Med 02/10/19 08:41 Active 25 mg IVPUSH Q6H PRN Antiembolic Hose [OM.PC] Routine Oth 02/09/19 15:08 Ordered Blood Culture x2 Reflex Set [OM.PC] Stat Oth 02/09/19 10:48 Ordered Ice Therapy [OM.PC] Routine Oth 02/09/19 15:07 Ordered Saline Lock Insert [OM.PC] Stat Oth 02/09/19 10:48 Ordered Sequential Compression Device [OM.PC] Routine Oth 02/09/19 15:08 Ordered Code Status [Resuscitation Status] Routine Resus Stat 02/09/19 15:06 Ordered Medication Orders Hydrocodone Bitart/Acetaminophen ([place] 325-10 Mg) 1 - 2 tab PO Q4H PRN PRN Reason: Pain Last Admin: 02/09/19 19:54 Dose: 2 tab Aspirin (Aspirin) 325 mg PO BID [facility] Diphenhydramine HCl (Benadryl) 25 mg IVPUSH Q4H PRN PRN Reason: Itching Last Admin: 02/10/19 03:32 Dose: 25 mg Admin: 02/10/19 00:38 Dose: 25 mg Admin: 02/09/19 19:55 Dose: 25 mg Diphenhydramine HCl (Benadryl) 25 mg IVPUSH Q6H PRN PRN Reason: Nausea Docusate Sodium (Colace) 100 mg PO BID [facility] Last Admin: 02/09/19 19:59 Dose: 100 mg Famotidine (Pepcid) 40 mg PO DAILY [facility] Hydromorphone HCl (Dilaudid) 0.5 - 1 mg IVPUSH Q3H PRN PRN Reason: Pain Last Admin: 02/10/19 03:32 Dose: 1 mg Admin: 02/10/19 00:39 Dose: 1 mg Clindamycin Phosphate 900 mg/ (Premix) 50 mls @ 100 mls/hr IV ONCALL [facility] Last Admin: 02/10/19 06:42 Dose: 100 mls/hr Infusion: 02/10/19 06:34 Dose: 100 mls/hr Admin: 02/10/19 06:04 Dose: 100 mls/hr Clindamycin Phosphate 900 mg/ (Premix) 50 mls @ 100 mls/hr IV Q8H [facility] Stop: 02/10/19 15:34 Last Admin: 02/10/19 06:44 Dose: 100 mls/hr Infusion: 02/09/19 22:51 Dose: 100 mls/hr Admin: 02/09/19 22:21 Dose: 100 mls/hr Lactated Ringer's (Ringers, Lactated) 1,000 mls @ 100 mls/hr IV ASDIRECTED [facility] Last Admin: 02/09/19 22:11 Dose: 100 mls/hr Ketorolac Tromethamine (Toradol) 30 mg IVPUSH Q6H [facility] Last Admin: 02/10/19 03:30 Dose: 30 mg Admin: 02/09/19 22:16 Dose: 30 mg Lorazepam (Ativan) 0.5 mg IVPUSH Q6H PRN PRN Reason: Anxiety Last Admin: 02/09/19 22:03 Dose: 0.5 mg Metoclopramide HCl (Reglan) 10 mg IVPUSH Q6H [facility] Metoprolol Succinate (Toprol Xl) 50 mg PO BID [facility] Ondansetron HCl (Zofran) 4 mg IVPUSH Q4H PRN PRN Reason: Nausea/Vomiting Last Admin: 02/10/19 03:31 Dose: 4 mg Admin: 02/09/19 22:08 Dose: 4 mg Promethazine HCl (Phenadoz) 12.5 mg RECTAL Q6H PRN PRN Reason: Nausea/Vomiting Scopolamine (Transderm-Scop) 1.5 mg TRDERM Q72H PRN PRN Reason: Nausea/Vomiting Last Admin: 02/09/19 19:57 Dose: 1.5 mg Sodium Chloride (Saline Flush) 10 ml FLUSH ASDIRECTED PRN PRN Reason: Keep Vein Open Sodium Chloride (Saline Flush) 2.5 ml FLUSH ASDIRECTED PRN PRN Reason: Keep Vein Open - Plan Plan (Free Text/Narrative):: 0850 Patient seen and examined. Agree with above note. Patient continues to have elevation of BP despite adequate pain management. Requested consult last night, however nursing spoke with hospitalist and was told that pain needed to be better controlled before any antihypertensive medication could be given. Her pain has been controlled and she was sleeping at the time of the elevated BP. Hospitalist has been reconsulted for assistance with management of BP. will try to get better control of nausea today as well. Up with PT. Must wear immobilizer at all times. ASA for DVT prophylaxis. Plan to continue IV abx until final culture obtained. Possible d/c tomorrow. [email or web address]
[2019-02-10] MEDS ORDERED: Famotidine 20 MG/2 ML SDV IVPUSH STA (08:41)
[2019-02-10] MEDS ORDERED: diphenhydrAMINE 50 MG/ML SDV IVPUSH PRN (08:41)
[2019-02-10] MEDS ORDERED: Metoprolol Succinate 50 MG Tab.ER PO SCH (09:00)
[2019-02-10 09:06] LABS: CHLORIDE,CL 104 mmol/L (98-107); SODIUM,NA 140 mmol/L (136-145)
[2019-02-10] MEDS ORDERED: Lidocaine 2% 5 ML SDV ONE (09:45)
[2019-02-10] MEDS: Metoclopramide 10 MG/2 ML SDV IVPUSH SCH ×3 (10:04→20:42)
--- NOTE | 2019-02-10 10:06 | PCM.SN ---
- Free Text/Narrative Note: Called by nursing as they have been unable to obtain PIV access. Previous access was started by anesthesia yesterday in the ER. After speaking with Dr Muse about probable PICC line placement she wishes to wait for culture results if possible. Rt deep saphenous vein was identified, 0.25mL of 2% Lidocaine was injected subQ 22g PIV was started, catheter was secured with tape and tegaderm. IV draws blood and flushes with ease. Pt tolerated placement well.
[2019-02-10] MEDS: Lactated Ringers 1,000 ML IV SCH ×2 (10:12→20:30)
[2019-02-10] MEDS: Meropenem 1 GM in Sodium Chloride 0.9% 100 ML IV SCH ×2 (10:25→18:25)
[2019-02-10] MEDS: Aspirin 325 MG Tab PO SCH ×2 (10:30→20:41)
[2019-02-10] MEDS: Famotidine 20 MG Tab PO SCH (10:31)
[2019-02-10] MEDS: Docusate Sodium 100 MG Cap PO SCH ×2 (10:31→20:41)
--- NOTE | 2019-02-10 15:18 | PCM48HPAN ---
Post Anesthesia Note - EVALUATION WITHIN 48HRS OF ANESTHETIC Vital Signs in Normal Range: Yes Patient Participated in Evaluation: Yes Respiratory Function Stable: Yes Airway Patent: Yes Cardiovascular Function Stable: Yes Hydration Status Stable: Yes Pain Control Satisfactory: Yes Nausea and Vomiting Control Satisfactory: Yes Mental Status Recovered: Yes Pulse Rate: 72 Resp Rate: 16 Temperature: 208.4 F Blood Pressure: 162/94 Pulse Rate: 77
[2019-02-10] MEDS ORDERED: Metoprolol Succinate 50 MG Tab.ER PO ONE (21:37)
[2019-02-11] MEDS: Meropenem 1 GM in Sodium Chloride 0.9% 100 ML IV SCH ×3 (03:01→18:42)
[2019-02-11] MEDS: Metoclopramide 10 MG/2 ML SDV IVPUSH SCH ×4 (03:02→21:09)
[2019-02-11] MEDS: Ketorolac 30 MG/ML SDV IVPUSH SCH ×4 (03:02→21:08)
[2019-02-11 05:54] LABS: CHLORIDE,CL 104 mmol/L (98-107); SODIUM,NA 141 mmol/L (136-145)
[2019-02-11] MEDS: Lactated Ringers 1,000 ML IV SCH (07:45)
[2019-02-11] MEDS: Clindamycin Phosphate in D5W 900 MG in Premix Bag 1 BAG IV SCH ×6 (07:55→22:14)
[2019-02-11] MEDS: HYDROmorphone 1 MG/ML Syringe IVPUSH PRN ×2 (09:05→22:13)
[2019-02-11] MEDS: Aspirin 325 MG Tab PO SCH ×2 (09:06→21:07)
[2019-02-11] MEDS: Docusate Sodium 100 MG Cap PO SCH ×2 (09:06→21:08)
[2019-02-11] MEDS: Famotidine 20 MG Tab PO SCH (09:06)
[2019-02-11] MEDS: Metoprolol Succinate 50 MG Tab.ER PO SCH (09:07)
--- NOTE | 2019-02-11 10:21 | PCM.CONSN ---
- General Info Date of Service: 02/11/19 Admission Dx/Problem (Free Text): Admission Diagnosis/Problem Admission Diagnosis/Problem Wound infection following procedure Subjective Update: Feeling better this morning, having more pain in knee. No further nausea. Keep fluids and food down. No chest pain or headache. Functional Status: Reports: Ambulating, Urinating - Review of Systems General: Reports: No Symptoms. Denies: Fever, Weakness, Fatigue HEENT: Reports: No Symptoms. Denies: Headaches, Visual Changes Pulmonary: Reports: No Symptoms. Denies: Shortness of Breath Cardiovascular: Reports: No Symptoms. Denies: Chest Pain Gastrointestinal: Reports: No Symptoms. Denies: Abdominal Pain, Nausea, Vomiting Genitourinary: Reports: No Symptoms. Denies: Frequency, Burning, Pain Musculoskeletal: Reports: Joint Pain (L knee pain) Skin: Reports: No Symptoms Neurological: Reports: No Symptoms Psychiatric: Reports: No Symptoms - Patient Data Vitals - Most Recent: Last Vital Signs Temp 99.3 F 02/11/19 05:00 Pulse 74 02/11/19 09:07 Resp 16 02/11/19 05:00 BP 180/74 H 02/11/19 09:07 Pulse Ox 95 02/11/19 05:00 Weight - Most Recent: 101.605 kg I&O - Last 24 Hours: Intake & Output 02/10/19 02/11/19 02/11/19 22:59 06:59 14:59 Intake Total 1400 800 Output Total 625 1300 Balance 775 -500 Lab Results Last 24 Hours: Laboratory Results - last 24 hr 02/11/19 02/11/19 Range/Units 05:00 05:00 WBC 10.06 (4.0-11.0) K/uL RBC 3.11 L (4.30-5.90) M/uL Hgb 8.6 L (12.0-16.0) g/dL Hct 26.6 L (36.0-46.0) % MCV 85.5 (80.0-98.0) fL MCH 27.7 (27.0-32.0) pg MCHC 32.3 (31.0-37.0) g/dL RDW Std Deviation 46.4 (28.0-62.0) fl RDW Coeff of Mckenna 15 (11.0-15.0) % Plt Count 380 (150-400) K/uL MPV 9.30 (7.40-12.00) fL Neut % (Auto) 66.6 (48.0-80.0) % Lymph % (Auto) 18.6 (16.0-40.0) % [place] % (Auto) 7.3 (0.0-15.0) % Eos % (Auto) 7.2 H (0.0-7.0) % Baso % (Auto) 0.3 (0.0-1.5) % Neut # (Auto) 6.7 H (1.4-5.7) K/uL Lymph # (Auto) 1.9 (0.6-2.4) K/uL [place] # (Auto) 0.7 (0.0-0.8) K/uL Eos # (Auto) 0.7 (0.0-0.7) K/uL Baso # (Auto) 0.0 (0.0-0.1) K/uL Nucleated RBC % 0.0 /100WBC Nucleated RBCs # 0 K/uL Sodium 141 (136-145) mmol/L Potassium 3.8 (3.5-5.1) mmol/L Chloride 104 (98-107) mmol/L Carbon Dioxide 26.1 (21.0-32.0) mmol/L BUN 16 (7.0-18.0) mg/dL Creatinine 0.7 (0.6-1.0) mg/dL Est Cr Clr Drug Dosing 92.68 mL/min Estimated GFR (MDRD) > 60.0 ml/min Glucose 91 (74-106) mg/dL Calcium 8.2 L (8.5-10.1) mg/dL Daniel Results Last 24 Hours: Microbiology 02/09/19 15:40 Gram Stain - Preliminary Knee, Left Wound Culture - Preliminary 02/09/19 11:07 Aerobic Blood Culture - Preliminary Blood - Venous - Lab Draw NO GROWTH AFTER 1 DAY Anaerobic Blood Culture - Final 02/09/19 10:53 Aerobic Blood Culture - Preliminary Blood - Venous NO GROWTH AFTER 1 DAY Anaerobic Blood Culture - Preliminary NO GROWTH AFTER 1 DAY Med Orders - Current: Current Medications Hydrocodone Bitart/Acetaminophen ([place] 325-10 Mg) 1 - 2 tab PO Q4H PRN PRN Reason: Pain Last Admin: 02/09/19 19:54 Dose: 2 tab Aspirin (Aspirin) 325 mg PO BID [facility] Last Admin: 02/11/19 09:06 Dose: 325 mg Diphenhydramine HCl (Benadryl) 25 mg IVPUSH Q4H PRN PRN Reason: Itching Last Admin: 02/10/19 03:32 Dose: 25 mg Diphenhydramine HCl (Benadryl) 25 mg IVPUSH Q6H PRN PRN Reason: Nausea Docusate Sodium (Colace) 100 mg PO BID [facility] Last Admin: 02/11/19 09:06 Dose: 100 mg Famotidine (Pepcid) 40 mg PO DAILY [facility] Last Admin: 02/11/19 09:06 Dose: 40 mg Hydromorphone HCl (Dilaudid) 0.5 - 1 mg IVPUSH Q3H PRN PRN Reason: Pain Last Admin: 02/11/19 09:05 Dose: 1 mg Lactated Ringer's (Ringers, Lactated) 1,000 mls @ 100 mls/hr IV ASDIRECTED [facility] Last Admin: 02/11/19 07:45 Dose: 100 mls/hr Clindamycin Phosphate 900 mg/ (Premix) 50 mls @ 100 mls/hr IV Q8H [facility] Last Admin: 02/11/19 07:55 Dose: 100 mls/hr Meropenem 1 gm/ Sodium (Chloride) 100 mls @ 200 mls/hr IV Q8H [facility] Last Admin: 02/11/19 03:01 Dose: 200 mls/hr Ketorolac Tromethamine (Toradol) 30 mg IVPUSH Q6H [facility] Last Admin: 02/11/19 09:06 Dose: 30 mg Lorazepam (Ativan) 0.5 mg IVPUSH Q6H PRN PRN Reason: Anxiety Last Admin: 02/09/19 22:03 Dose: 0.5 mg Losartan Potassium (Cozaar) 25 mg PO DAILY [facility] Last Admin: 02/11/19 09:07 Dose: 25 mg Metoclopramide HCl (Reglan) 10 mg IVPUSH Q6H [facility] Last Admin: 02/11/19 09:06 Dose: 10 mg Metoprolol Succinate (Toprol Xl) 50 mg PO DAILY [facility] Last Admin: 02/11/19 09:07 Dose: 50 mg Ondansetron HCl (Zofran) 4 mg IVPUSH Q4H PRN PRN Reason: Nausea/Vomiting Last Admin: 02/10/19 18:25 Dose: 4 mg Promethazine HCl (Phenadoz) 12.5 mg RECTAL Q6H PRN PRN Reason: Nausea/Vomiting Last Admin: 02/10/19 09:06 Dose: 12.5 mg Scopolamine (Transderm-Scop) 1.5 mg TRDERM Q72H PRN PRN Reason: Nausea/Vomiting Last Admin: 02/09/19 19:57 Dose: 1.5 mg Sodium Chloride (Saline Flush) 10 ml FLUSH ASDIRECTED PRN PRN Reason: Keep Vein Open Sodium Chloride (Saline Flush) 2.5 ml FLUSH ASDIRECTED PRN PRN Reason: Keep Vein Open Discontinued Medications Hydrocodone Bitart/Acetaminophen ([place] 325-5 Mg) 2 tab PO Q6H PRN PRN Reason: Pain (moderate 4-6) Albuterol (Proventil Neb Soln) 2.5 mg NEB Q6HRRT PRN PRN Reason: Wheezing Atropine Sulfate (Atropine 0.1 Mg/Ml) 0.4 mg IVPUSH Q5M PRN PRN Reason: Bradycardia Dexamethasone (Dexamethasone) Confirm Administered Dose 20 mg .ROUTE .STK-MED ONE Stop: 02/09/19 15:24 Enalaprilat (Vasotec Iv) 0.625 mg IVPUSH ONETIME ONE Stop: 02/10/19 08:41 Last Admin: 02/10/19 10:07 Dose: 0.625 mg Famotidine (Pepcid) 40 mg IVPUSH NOW STA Stop: 02/10/19 08:42 Last Admin: 02/10/19 10:25 Dose: 40 mg Fentanyl (Sublimaze) 50 mcg IVPUSH Q5M PRN PRN Reason: Pain (severe 7-10) Stop: 02/10/19 16:00 Hydralazine HCl (Apresoline) 5 mg IVPUSH ONETIME PRN PRN Reason: Hypertension Hydralazine HCl (Apresoline) 10 mg IVPUSH ONETIME PRN PRN Reason: Hypertension Hydromorphone HCl (Dilaudid Rn Home [facility] 6 Mg In Ns 30 Ml) 6 mg IV ASDIRECTED PRN; Protocol PRN Reason: Pain Hydromorphone HCl (Dilaudid) 0.5 - 1 mg IVPUSH Q3H PRN PRN Reason: Pain Hydromorphone HCl (Dilaudid) 0.25 mg IVPUSH Q10M PRN PRN Reason: Pain (severe 7-10) Stop: 02/10/19 16:00 Clindamycin Phosphate 900 mg/ (Premix) 50 mls @ 100 mls/hr IV ONCALL [facility] Last Admin: 02/10/19 06:42 Dose: 100 mls/hr Clindamycin Phosphate 900 mg/ (Premix) 50 mls @ 100 mls/hr IV Q8H [facility] Stop: 02/11/19 15:34 Last Admin: 02/10/19 06:44 Dose: 100 mls/hr Ketamine HCl (Ketalar) Confirm Administered Dose 500 mg .ROUTE .STK-MED ONE Stop: 02/09/19 15:13 Ketorolac Tromethamine (Toradol) 30 mg IVPUSH ONETIME ONE Stop: 02/09/19 11:02 Last Admin: 02/09/19 12:04 Dose: 30 mg Ketorolac Tromethamine (Toradol) 30 mg IVPUSH Q6H PRN PRN Reason: Pain Stop: 02/14/19 15:08 Ketorolac Tromethamine (Toradol) Confirm Administered Dose 60 mg .ROUTE .STK- MED ONE Stop: 02/09/19 15:24 Labetalol HCl (Normodyne) 10 mg IVPUSH Q6H PRN PRN Reason: Hypertension Stop: 02/10/19 16:00 Lidocaine (Xylocaine-Mpf 2%) Confirm Administered Dose 5 ml .ROUTE .STK-MED ONE Stop: 02/10/19 09:46 Last Admin: 02/10/19 11:14 Dose: Not Given Lidocaine HCl (Xylocaine-Mpf 1%) Confirm Administered Dose 2 ml .ROUTE .STK-MED ONE Stop: 02/09/19 11:55 Last Admin: 02/09/19 13:46 Dose: Not Given Lorazepam (Ativan) 0.5 mg IVPUSH ONETIME ONE Stop: 02/09/19 11:14 Last Admin: 02/09/19 12:05 Dose: 0.5 mg Meperidine HCl (Demerol) 12.5 mg IVPUSH ONETIME PRN PRN Reason: Shivering Meperidine HCl (Demerol) 25 mg IV ONETIME PRN PRN Reason: Shivering Metoclopramide HCl (Reglan) 10 mg IVPUSH ONETIME PRN PRN Reason: Nausea Metoclopramide HCl (Reglan) 10 mg IV ONETIME ONE Stop: 02/09/19 21:33 Last Admin: 02/09/19 22:13 Dose: 10 mg Metoprolol Succinate (Toprol Xl) 50 mg PO ONETIME ONE Stop: 02/10/19 21:38 Metoprolol Succinate (Toprol Xl) 50 mg PO BID [facility] Last Admin: 02/10/19 10:30 Dose: 50 mg Metoprolol Succinate (Toprol Xl) 50 mg PO ONETIME ONE Stop: 02/09/19 21:49 Last Admin: 02/09/19 22:24 Dose: 50 mg Midazolam HCl (Versed 1 Mg/Ml) Confirm Administered Dose 2 mg .ROUTE .STK-MED ONE Stop: 02/09/19 15:17 Morphine Sulfate (Morphine) 4 mg IVPUSH Q10M PRN PRN Reason: Pain (severe 7-10) Stop: 02/10/19 16:00 Naloxone HCl (Narcan) 0.1 mg IVPUSH ONETIME PRN PRN Reason: Respiratory Depression Ondansetron HCl (Zofran) 4 mg IVPUSH Q6H PRN PRN Reason: Nausea/Vomiting Last Admin: 02/09/19 18:49 Dose: 4 mg Ondansetron HCl (Zofran) 8 mg IVPUSH ONETIME PRN PRN Reason: Nausea Promethazine HCl (Phenergan) 12.5 mg IM ONETIME PRN PRN Reason: Nausea Promethazine HCl (Phenergan) 25 mg IM ONETIME ONE Stop: 02/09/19 19:30 Last Admin: 02/09/19 19:56 Dose: 25 mg Propofol (Diprivan 20 Ml) Confirm Administered Dose 200 mg .ROUTE .STK-MED ONE Stop: 02/09/19 15:11 Propofol (Diprivan 20 Ml) Confirm Administered Dose 200 mg .ROUTE .STK-MED ONE Stop: 02/09/19 15:47 Propofol (Diprivan 20 Ml) Confirm Administered Dose 400 mg .ROUTE .STK-MED ONE Stop: 02/09/19 15:49 Scopolamine (Transderm-Scop) 1.5 mg TRDERM Q72H PRN PRN Reason: Nausea - Exam General: Alert, Oriented, Cooperative, No Acute Distress Lungs: Clear to Auscultation, Normal Respiratory Effort Cardiovascular: Regular Rate, Regular Rhythm GI/Abdominal Exam: Normal Bowel Sounds, Soft, Non-Tender, No Organomegaly Wound/Incisions: Dressing Dry and Intact, No Drainage Neurological: No New Focal Deficit Psy/Mental Status: Alert, Normal Affect, Normal Mood Consult PN Assessment/Plan Procedures: Procedures BLOOD TYPING SEROLOGIC ABO (01/05/19) BLOOD TYPING SEROLOGIC RH(D) (01/05/19) COMPLETE CBC W/AUTO DIFF WBC (01/26/19) COMPREHEN METABOLIC PANEL (01/26/19) DECALCIFY TISSUE (01/05/19) EMERGENCY DEPT VISIT (01/26/19) GAIT TRAINING THERAPY (01/26/19) HEMATOCRIT (01/05/19) HEMOGLOBIN (01/05/19) MRI JNT OF LWR EXTRE W/O DYE (11/04/18) OFFICE/OUTPATIENT VISIT NEW (04/27/14) PROTHROMBIN TIME (01/26/19) PT EVAL LOW COMPLEX 20 MIN (01/26/19) RBC ANTIBODY SCREEN (01/05/19) ROUTINE VENIPUNCTURE (01/26/19) THER/PROPH/DIAG INJ SC/IM (01/26/19) THER/PROPH/DIAG IV INF ADDON (01/26/19) THER/PROPH/DIAG IV INF INIT (01/26/19) THERAPEUTIC ACTIVITIES (01/26/19) THERAPEUTIC EXERCISES (01/26/19) TISSUE EXAM BY PATHOLOGIST (01/05/19) TX/PRO/DX INJ NEW DRUG ADDON (01/26/19) TX/PRO/DX INJ SAME DRUG COPY PREPARER (01/26/19) X-RAY EXAM CHEST 2 VIEWS (12/15/18) X-RAY EXAM KNEE 4 OR MORE (02/26/17) X-RAY EXAM OF ANKLE (04/27/14) X-RAY EXAM OF FEMUR 2/> (01/26/19) X-RAY EXAM OF KNEE 1 OR 2 (01/05/19) X-RAY EXAM OF KNEE 3 (01/26/19) X-RAY EXAM OF PELVIS (01/26/19) (1) Postoperative wound infection SNOMED Code(s): 05718770, 248785880 Code(s): T81.49XA - INFECTION FOLLOWING A PROCEDURE, OTHER SURGICAL SITE, INIT Current Visit: Yes (2) History of total knee replacement SNOMED Code(s): 3032802586479, 4519998231590, 84329307313570 Code(s): Z96.659 - PRESENCE OF UNSPECIFIED ARTIFICIAL KNEE JOINT Current Visit: No Qualifiers: Laterality: left Qualified Code(s): Z96.652 - Presence of left artificial knee joint (3) HTN (hypertension) SNOMED Code(s): 78406852 Code(s): I10 - ESSENTIAL (PRIMARY) HYPERTENSION Current Visit: Yes Qualifiers: Hypertension type: essential hypertension Qualified Code(s): I10 - Essential (primary) hypertension (4) UTI (urinary tract infection) SNOMED Code(s): 85346106 Code(s): N39.0 - URINARY TRACT INFECTION, SITE NOT SPECIFIED Current Visit : Yes Qualifiers: Indwelling urinary catheter type: indwelling urethral catheter Encounter type: initial encounter Problem List Initiated/Reviewed/Updated: Yes My Orders Last 24 Hours: My Active Orders 02/10/19 10:15 Meropenem [Merrem] 1 gm Sodium Chloride 0.9% [Normal Saline] 100 ml IV Q8H 02/10/19 13:30 Losartan [Cozaar] 25 mg PO DAILY 02/11/19 09:00 Metoprolol Succinate [Toprol XL] 50 mg PO DAILY Plan: This 53 year old female admitted with post-operative wound infection. Hospitalist service consulted for HTN 1. Post-operative wound infection. Orders per Orthopedics. On Clindamycin. Cultures pending. 2. HTN: Improved, elevated this morning with pain. Continue Cozaar and Metoprolol. Will monitor. Recommended to continue this on discharge. 3. UTI: Improved. leukocytosis resolved. Continue Meropenem 1 g every 8 hours. UC pending. VTE prophylaxis: Would recommended when deemed appropriate by Orthopedics.
--- NOTE | 2019-02-11 14:17 | PCM.SURGPN ---
Addendum entered and electronically signed by Alisa Portillo PA 02/11/19 14: 33: dressing was not changed to aquacel - was changed to moist 2x2 gauze over medial fracture blister bed and dry fluffs over incision, ABDs, and SAE wrap ( no appropriately sized x-span available on floor). Original Note: <Alisa Portillo - Last Filed: 02/11/19 14:12> - General Info Date of Service: 02/11/19 Date of Surgery/Procedure: 02/09/19 POD#: 2 Functional Status: Reports: Pain Controlled, Tolerating Diet, Ambulating, Urinating - Review of Systems Gastrointestinal: Reports: Nausea Systems Review Comment:: pt feeling better, less nausea, but slightly increased knee pain immobilizer in place dx with UTI yesterday, started on IV meropenem and tolerating well with allergy profile hospitalist service managing HTN, improving with medication still awaiting final cultures - not initially available on morning rounds - Patient Data Vitals - Most Recent: Last Vital Signs Temp 97.9 F 02/11/19 13:00 Pulse 73 02/11/19 13:00 Resp 18 02/11/19 13:00 BP 134/74 02/11/19 13:00 Pulse Ox 98 02/11/19 13:00 Weight - Most Recent: 101.605 kg I&O - Last 24 Hours: Intake & Output 02/10/19 02/11/19 02/11/19 22:59 06:59 14:59 Intake Total 1400 800 Output Total 625 1300 Balance 775 -500 Lab Results Last 24 Hrs: Laboratory Results - last 24 hr 02/11/19 02/11/19 Range/Units 05:00 05:00 WBC 10.06 (4.0-11.0) K/uL RBC 3.11 L (4.30-5.90) M/uL Hgb 8.6 L (12.0-16.0) g/dL Hct 26.6 L (36.0-46.0) % MCV 85.5 (80.0-98.0) fL MCH 27.7 (27.0-32.0) pg MCHC 32.3 (31.0-37.0) g/dL RDW Std Deviation 46.4 (28.0-62.0) fl RDW Coeff of Mckenna 15 (11.0-15.0) % Plt Count 380 (150-400) K/uL MPV 9.30 (7.40-12.00) fL Neut % (Auto) 66.6 (48.0-80.0) % Lymph % (Auto) 18.6 (16.0-40.0) % [place] % (Auto) 7.3 (0.0-15.0) % Eos % (Auto) 7.2 H (0.0-7.0) % Baso % (Auto) 0.3 (0.0-1.5) % Neut # (Auto) 6.7 H (1.4-5.7) K/uL Lymph # (Auto) 1.9 (0.6-2.4) K/uL [place] # (Auto) 0.7 (0.0-0.8) K/uL Eos # (Auto) 0.7 (0.0-0.7) K/uL Baso # (Auto) 0.0 (0.0-0.1) K/uL Nucleated RBC % 0.0 /100WBC Nucleated RBCs # 0 K/uL Sodium 141 (136-145) mmol/L Potassium 3.8 (3.5-5.1) mmol/L Chloride 104 (98-107) mmol/L Carbon Dioxide 26.1 (21.0-32.0) mmol/L BUN 16 (7.0-18.0) mg/dL Creatinine 0.7 (0.6-1.0) mg/dL Est Cr Clr Drug Dosing 92.68 mL/min Estimated GFR (MDRD) > 60.0 ml/min Glucose 91 (74-106) mg/dL Calcium 8.2 L (8.5-10.1) mg/dL Daniel Results Last 24 Hrs: Microbiology 02/09/19 11:07 Aerobic Blood Culture - Preliminary Blood - Venous - Lab Draw NO GROWTH AFTER 2 DAYS Anaerobic Blood Culture - Final 02/09/19 10:53 Aerobic Blood Culture - Preliminary Blood - Venous NO GROWTH AFTER 2 DAYS Anaerobic Blood Culture - Preliminary NO GROWTH AFTER 2 DAYS 02/09/19 15:40 Gram Stain - Preliminary Knee, Left Wound Culture - Preliminary Anaerobic Culture - Final NO ANAEROBES ISOLATED Med Orders - Current: Current Medications Hydrocodone Bitart/Acetaminophen (Jacobson 325-10 Mg) 1 - 2 tab PO Q4H PRN PRN Reason: Pain Last Admin: 02/09/19 19:54 Dose: 2 tab Aspirin (Aspirin) 325 mg PO BID [facility] Last Admin: 02/11/19 09:06 Dose: 325 mg Diphenhydramine HCl (Benadryl) 25 mg IVPUSH Q4H PRN PRN Reason: Itching Last Admin: 02/10/19 03:32 Dose: 25 mg Diphenhydramine HCl (Benadryl) 25 mg IVPUSH Q6H PRN PRN Reason: Nausea Docusate Sodium (Colace) 100 mg PO BID [facility] Last Admin: 02/11/19 09:06 Dose: 100 mg Famotidine (Pepcid) 40 mg PO DAILY [facility] Last Admin: 02/11/19 09:06 Dose: 40 mg Hydromorphone HCl (Dilaudid) 0.5 - 1 mg IVPUSH Q3H PRN PRN Reason: Pain Last Admin: 02/11/19 09:05 Dose: 1 mg Clindamycin Phosphate 900 mg/ (Premix) 50 mls @ 100 mls/hr IV Q8H [facility] Last Admin: 02/11/19 07:55 Dose: 100 mls/hr Meropenem 1 gm/ Sodium (Chloride) 100 mls @ 200 mls/hr IV Q8H [facility] Last Admin: 02/11/19 10:36 Dose: 200 mls/hr Ketorolac Tromethamine (Toradol) 30 mg IVPUSH Q6H [facility] Last Admin: 02/11/19 09:06 Dose: 30 mg Lorazepam (Ativan) 0.5 mg IVPUSH Q6H PRN PRN Reason: Anxiety Last Admin: 02/09/19 22:03 Dose: 0.5 mg Losartan Potassium (Cozaar) 25 mg PO DAILY [facility] Last Admin: 02/11/19 09:07 Dose: 25 mg Metoclopramide HCl (Reglan) 10 mg IVPUSH Q6H [facility] Last Admin: 02/11/19 09:06 Dose: 10 mg Metoprolol Succinate (Toprol Xl) 50 mg PO DAILY [facility] Last Admin: 02/11/19 09:07 Dose: 50 mg Ondansetron HCl (Zofran) 4 mg IVPUSH Q4H PRN PRN Reason: Nausea/Vomiting Last Admin: 02/10/19 18:25 Dose: 4 mg Promethazine HCl (Phenadoz) 12.5 mg RECTAL Q6H PRN PRN Reason: Nausea/Vomiting Last Admin: 02/10/19 09:06 Dose: 12.5 mg Scopolamine (Transderm-Scop) 1.5 mg TRDERM Q72H PRN PRN Reason: Nausea/Vomiting Last Admin: 02/09/19 19:57 Dose: 1.5 mg Sodium Chloride (Saline Flush) 10 ml FLUSH ASDIRECTED PRN PRN Reason: Keep Vein Open Sodium Chloride (Saline Flush) 2.5 ml FLUSH ASDIRECTED PRN PRN Reason: Keep Vein Open Discontinued Medications Hydrocodone Bitart/Acetaminophen (Jacobson 325-5 Mg) 2 tab PO Q6H PRN PRN Reason: Pain (moderate 4-6) Albuterol (Proventil Neb Soln) 2.5 mg NEB Q6HRRT PRN PRN Reason: Wheezing Atropine Sulfate (Atropine 0.1 Mg/Ml) 0.4 mg IVPUSH Q5M PRN PRN Reason: Bradycardia Dexamethasone (Dexamethasone) Confirm Administered Dose 20 mg .ROUTE .STK-MED ONE Stop: 02/09/19 15:24 Enalaprilat (Vasotec Iv) 0.625 mg IVPUSH ONETIME ONE Stop: 02/10/19 08:41 Last Admin: 02/10/19 10:07 Dose: 0.625 mg Famotidine (Pepcid) 40 mg IVPUSH NOW STA Stop: 02/10/19 08:42 Last Admin: 02/10/19 10:25 Dose: 40 mg Fentanyl (Sublimaze) 50 mcg IVPUSH Q5M PRN PRN Reason: Pain (severe 7-10) Stop: 02/10/19 16:00 Hydralazine HCl (Apresoline) 5 mg IVPUSH ONETIME PRN PRN Reason: Hypertension Hydralazine HCl (Apresoline) 10 mg IVPUSH ONETIME PRN PRN Reason: Hypertension Hydromorphone HCl (Dilaudid Lead Supply Worker 6 Mg In Ns 30 Ml) 6 mg IV ASDIRECTED PRN; Protocol PRN Reason: Pain Hydromorphone HCl (Dilaudid) 0.5 - 1 mg IVPUSH Q3H PRN PRN Reason: Pain Hydromorphone HCl (Dilaudid) 0.25 mg IVPUSH Q10M PRN PRN Reason: Pain (severe 7-10) Stop: 02/10/19 16:00 Clindamycin Phosphate 900 mg/ (Premix) 50 mls @ 100 mls/hr IV ONCALL [facility] Last Admin: 02/10/19 06:42 Dose: 100 mls/hr Clindamycin Phosphate 900 mg/ (Premix) 50 mls @ 100 mls/hr IV Q8H [facility] Stop: 02/11/19 15:34 Last Admin: 02/10/19 06:44 Dose: 100 mls/hr Lactated Ringer's (Ringers, Lactated) 1,000 mls @ 100 mls/hr IV ASDIRECTED [facility] Last Admin: 02/11/19 07:45 Dose: 100 mls/hr Ketamine HCl (Ketalar) Confirm Administered Dose 500 mg .ROUTE .STK-MED ONE Stop: 02/09/19 15:13 Ketorolac Tromethamine (Toradol) 30 mg IVPUSH ONETIME ONE Stop: 02/09/19 11:02 Last Admin: 02/09/19 12:04 Dose: 30 mg Ketorolac Tromethamine (Toradol) 30 mg IVPUSH Q6H PRN PRN Reason: Pain Stop: 02/14/19 15:08 Ketorolac Tromethamine (Toradol) Confirm Administered Dose 60 mg .ROUTE .STK- MED ONE Stop: 02/09/19 15:24 Labetalol HCl (Normodyne) 10 mg IVPUSH Q6H PRN PRN Reason: Hypertension Stop: 02/10/19 16:00 Lidocaine (Xylocaine-Mpf 2%) Confirm Administered Dose 5 ml .ROUTE .STK-MED ONE Stop: 02/10/19 09:46 Last Admin: 02/10/19 11:14 Dose: Not Given Lidocaine HCl (Xylocaine-Mpf 1%) Confirm Administered Dose 2 ml .ROUTE .STK-MED ONE Stop: 02/09/19 11:55 Last Admin: 02/09/19 13:46 Dose: Not Given Lorazepam (Ativan) 0.5 mg IVPUSH ONETIME ONE Stop: 02/09/19 11:14 Last Admin: 02/09/19 12:05 Dose: 0.5 mg Meperidine HCl (Demerol) 12.5 mg IVPUSH ONETIME PRN PRN Reason: Shivering Meperidine HCl (Demerol) 25 mg IV ONETIME PRN PRN Reason: Shivering Metoclopramide HCl (Reglan) 10 mg IVPUSH ONETIME PRN PRN Reason: Nausea Metoclopramide HCl (Reglan) 10 mg IV ONETIME ONE Stop: 02/09/19 21:33 Last Admin: 02/09/19 22:13 Dose: 10 mg Metoprolol Succinate (Toprol Xl) 50 mg PO ONETIME ONE Stop: 02/10/19 21:38 Metoprolol Succinate (Toprol Xl) 50 mg PO BID [facility] Last Admin: 02/10/19 10:30 Dose: 50 mg Metoprolol Succinate (Toprol Xl) 50 mg PO ONETIME ONE Stop: 02/09/19 21:49 Last Admin: 02/09/19 22:24 Dose: 50 mg Midazolam HCl (Versed 1 Mg/Ml) Confirm Administered Dose 2 mg .ROUTE .STK-MED ONE Stop: 02/09/19 15:17 Morphine Sulfate (Morphine) 4 mg IVPUSH Q10M PRN PRN Reason: Pain (severe 7-10) Stop: 02/10/19 16:00 Naloxone HCl (Narcan) 0.1 mg IVPUSH ONETIME PRN PRN Reason: Respiratory Depression Ondansetron HCl (Zofran) 4 mg IVPUSH Q6H PRN PRN Reason: Nausea/Vomiting Last Admin: 02/09/19 18:49 Dose: 4 mg Ondansetron HCl (Zofran) 8 mg IVPUSH ONETIME PRN PRN Reason: Nausea Promethazine HCl (Phenergan) 12.5 mg IM ONETIME PRN PRN Reason: Nausea Promethazine HCl (Phenergan) 25 mg IM ONETIME ONE Stop: 02/09/19 19:30 Last Admin: 02/09/19 19:56 Dose: 25 mg Propofol (Diprivan 20 Ml) Confirm Administered Dose 200 mg .ROUTE .STK-MED ONE Stop: 02/09/19 15:11 Propofol (Diprivan 20 Ml) Confirm Administered Dose 200 mg .ROUTE .STK-MED ONE Stop: 02/09/19 15:47 Propofol (Diprivan 20 Ml) Confirm Administered Dose 400 mg .ROUTE .STK-MED ONE Stop: 02/09/19 15:49 Scopolamine (Transderm-Scop) 1.5 mg TRDERM Q72H PRN PRN Reason: Nausea - Exam Wound/Incisions: Dressing Dry and Intact, Other (immobilizer adjusted to bring knee back to full extension. dressing dry/intact/no drainage. ) Cardiovascular: Regular Rate, Regular Rhythm Extremities: Other (exam LLE - immobilizer in place, -10* full extension, dressing as above. at/ehl/gastroc 5/5, dp 2+, sensation intact. ) Physical Findings Comment:: hypertensive, afebrile leukocytosis improving - 10 this AM hgb 8.6 (likely dilutional from IV fluids) gram stain few WBC, no organisms wound culture sparse coag- Staph, sensitivities to follow blood cultures negative - Problem List Review Problem List Initiated/Reviewed/Updated: Yes - My Orders Last 24 Hours: Active Orders 24 hr Category Date Time Status Clindamycin Phosphate in D5W [Cleocin in D5W] 900 mg Med 02/10/19 15:00 Active Premix Bag 1 bag IV Q8H Losartan [Cozaar] Med 02/10/19 13:30 Active 25 mg PO DAILY Metoprolol Succinate [Toprol XL] Med 02/11/19 09:00 Active 50 mg PO DAILY Medication Orders Hydrocodone Bitart/Acetaminophen (Jacobson 325-10 Mg) 1 - 2 tab PO Q4H PRN PRN Reason: Pain Last Admin: 02/09/19 19:54 Dose: 2 tab Aspirin (Aspirin) 325 mg PO BID [facility] Last Admin: 02/11/19 09:06 Dose: 325 mg Admin: 02/10/19 20:41 Dose: 325 mg Admin: 02/10/19 10:30 Dose: 325 mg Diphenhydramine HCl (Benadryl) 25 mg IVPUSH Q4H PRN PRN Reason: Itching Last Admin: 02/10/19 03:32 Dose: 25 mg Admin: 02/10/19 00:38 Dose: 25 mg Admin: 02/09/19 19:55 Dose: 25 mg Diphenhydramine HCl (Benadryl) 25 mg IVPUSH Q6H PRN PRN Reason: Nausea Docusate Sodium (Colace) 100 mg PO BID [facility] Last Admin: 02/11/19 09:06 Dose: 100 mg Admin: 02/10/19 20:41 Dose: 100 mg Admin: 02/10/19 10:31 Dose: 100 mg Admin: 02/09/19 19:59 Dose: 100 mg Famotidine (Pepcid) 40 mg PO DAILY [facility] Last Admin: 02/11/19 09:06 Dose: 40 mg Admin: 02/10/19 10:31 Dose: 40 mg Hydromorphone HCl (Dilaudid) 0.5 - 1 mg IVPUSH Q3H PRN PRN Reason: Pain Last Admin: 02/11/19 09:05 Dose: 1 mg Admin: 02/10/19 23:23 Dose: 1 mg Admin: 02/10/19 18:25 Dose: 1 mg Admin: 02/10/19 03:32 Dose: 1 mg Admin: 02/10/19 00:39 Dose: 1 mg Clindamycin Phosphate 900 mg/ (Premix) 50 mls @ 100 mls/hr IV Q8H [facility] Last Admin: 02/11/19 07:55 Dose: 100 mls/hr Infusion: 02/10/19 23:58 Dose: 100 mls/hr Admin: 02/10/19 23:28 Dose: 100 mls/hr Infusion: 02/10/19 23:25 Dose: 100 mls/hr Admin: 02/10/19 14:32 Dose: 100 mls/hr Meropenem 1 gm/ Sodium (Chloride) 100 mls @ 200 mls/hr IV Q8H [facility] Last Admin: 02/11/19 10:36 Dose: 200 mls/hr Infusion: 02/11/19 03:31 Dose: 200 mls/hr Admin: 02/11/19 03:01 Dose: 200 mls/hr Infusion: 02/10/19 18:55 Dose: 200 mls/hr Admin: 02/10/19 18:25 Dose: 200 mls/hr Infusion: 02/10/19 10:55 Dose: 200 mls/hr Admin: 02/10/19 10:25 Dose: 200 mls/hr Ketorolac Tromethamine (Toradol) 30 mg IVPUSH Q6H [facility] Last Admin: 02/11/19 09:06 Dose: 30 mg Admin: 02/11/19 03:02 Dose: 30 mg Admin: 02/10/19 20:46 Dose: 30 mg Admin: 02/10/19 15:03 Dose: 30 mg Admin: 02/10/19 10:04 Dose: 30 mg Admin: 02/10/19 03:30 Dose: 30 mg Admin: 02/09/19 22:16 Dose: 30 mg Lorazepam (Ativan) 0.5 mg IVPUSH Q6H PRN PRN Reason: Anxiety Last Admin: 02/09/19 22:03 Dose: 0.5 mg Losartan Potassium (Cozaar) 25 mg PO DAILY [facility] Last Admin: 02/11/19 09:07 Dose: 25 mg Admin: 02/10/19 14:32 Dose: 25 mg Metoclopramide HCl (Reglan) 10 mg IVPUSH Q6H [facility] Last Admin: 02/11/19 09:06 Dose: 10 mg Admin: 02/11/19 03:02 Dose: 10 mg Admin: 02/10/19 20:42 Dose: 10 mg Admin: 02/10/19 14:32 Dose: 10 mg Admin: 02/10/19 10:04 Dose: 10 mg Metoprolol Succinate (Toprol Xl) 50 mg PO DAILY [facility] Last Admin: 02/11/19 09:07 Dose: 50 mg Ondansetron HCl (Zofran) 4 mg IVPUSH Q4H PRN PRN Reason: Nausea/Vomiting Last Admin: 02/10/19 18:25 Dose: 4 mg Admin: 02/10/19 03:31 Dose: 4 mg Admin: 02/09/19 22:08 Dose: 4 mg Promethazine HCl (Phenadoz) 12.5 mg RECTAL Q6H PRN PRN Reason: Nausea/Vomiting Last Admin: 02/10/19 09:06 Dose: 12.5 mg Scopolamine (Transderm-Scop) 1.5 mg TRDERM Q72H PRN PRN Reason: Nausea/Vomiting Last Admin: 02/09/19 19:57 Dose: 1.5 mg Sodium Chloride (Saline Flush) 10 ml FLUSH ASDIRECTED PRN PRN Reason: Keep Vein Open Sodium Chloride (Saline Flush) 2.5 ml FLUSH ASDIRECTED PRN PRN Reason: Keep Vein Open - Assessment Assessment (Free Text/Narrative):: POD#2 ED L TKA with poly swap nausea, improving UTI positive wound culture, coag- Staph - Plan Plan (Free Text/Narrative):: continue IV abx until sensitivities return unless otherwise indicated by Dr. Muse nausea improving, will DC IV fluids and continue monitor PO intake and BP continue pain management and PT continue WBAT, L knee immobilizer dressing changed to Aquacel repeat CBC, ESR, CRP in AM hospitalist REIMBURSEMENT COORDINATOR has recommended Bactrim DS as outpt abx for UTI <Susanne Muse - Last Filed: 02/12/19 12:41> - Patient Data Vitals - Most Recent: Last Vital Signs Temp 97.7 F 02/12/19 08:39 Pulse 67 02/12/19 08:45 Resp 16 02/12/19 08:39 BP 128/80 02/12/19 08:46 Pulse Ox 98 02/12/19 08:39 I&O - Last 24 Hours: Intake & Output 02/11/19 02/12/19 02/12/19 22:59 06:59 14:59 Intake Total 1347 550 200 Output Total 1750 1610 Balance -403 -1060 200 Lab Results Last 24 Hrs: Laboratory Results - last 24 hr 02/12/19 02/12/19 Range/Units 04:55 04:55 WBC 8.70 (4.0-11.0) K/uL RBC 3.07 L (4.30-5.90) M/uL Hgb 8.6 L (12.0-16.0) g/dL Hct 26.6 L (36.0-46.0) % MCV 86.6 (80.0-98.0) fL MCH 28.0 (27.0-32.0) pg MCHC 32.3 (31.0-37.0) g/dL RDW Std Deviation 46.4 (28.0-62.0) fl RDW Coeff of Mckenna 15 (11.0-15.0) % Plt Count 372 (150-400) K/uL MPV 9.40 (7.40-12.00) fL Neut % (Auto) 56.3 (48.0-80.0) % Lymph % (Auto) 22.9 (16.0-40.0) % [place] % (Auto) 8.9 (0.0-15.0) % Eos % (Auto) 11.4 H (0.0-7.0) % Baso % (Auto) 0.5 (0.0-1.5) % Neut # (Auto) 4.9 (1.4-5.7) K/uL Lymph # (Auto) 2.0 (0.6-2.4) K/uL [place] # (Auto) 0.8 (0.0-0.8) K/uL Eos # (Auto) 1.0 H (0.0-0.7) K/uL Baso # (Auto) 0.0 (0.0-0.1) K/uL Nucleated RBC % 0.0 /100WBC Nucleated RBCs # 0 K/uL ESR 78 H (0-29) mm/hr C-Reactive Protein 5.30 H (0.00-0.90) mg/dL Daniel Results Last 24 Hrs: Microbiology 02/09/19 15:40 Gram Stain - Final Knee, Left Wound Culture - Final Enterococcus Faecalis Anaerobic Culture - Final NO ANAEROBES ISOLATED 02/09/19 11:07 Aerobic Blood Culture - Preliminary Blood - Venous - Lab Draw NO GROWTH AFTER 3 DAYS Anaerobic Blood Culture - Final 02/09/19 10:53 Aerobic Blood Culture - Preliminary Blood - Venous NO GROWTH AFTER 3 DAYS Anaerobic Blood Culture - Preliminary NO GROWTH AFTER 3 DAYS 02/10/19 08:35 Urine Culture - Final Urine, Vasquez Cath (Indwelling) No Growth Med Orders - Current: Current Medications Hydrocodone Bitart/Acetaminophen (Jacobson 325-10 Mg) 1 - 2 tab PO Q4H PRN PRN Reason: Pain Last Admin: 02/12/19 08:50 Dose: 2 tab Aspirin (Aspirin) 325 mg PO BID [facility] Last Admin: 02/12/19 08:44 Dose: 325 mg Diphenhydramine HCl (Benadryl) 25 mg IVPUSH Q4H PRN PRN Reason: Itching Last Admin: 02/10/19 03:32 Dose: 25 mg Diphenhydramine HCl (Benadryl) 25 mg IVPUSH Q6H PRN PRN Reason: Nausea Docusate Sodium (Colace) 100 mg PO BID [facility] Last Admin: 02/12/19 08:44 Dose: 100 mg Famotidine (Pepcid) 40 mg PO DAILY [facility] Last Admin: 02/12/19 08:46 Dose: 40 mg Hydromorphone HCl (Dilaudid) 0.5 - 1 mg IVPUSH Q3H PRN PRN Reason: Pain Last Admin: 02/11/19 22:13 Dose: 1 mg Daptomycin 600 mg/ Sodium (Chloride) 12 mls @ 180 mls/hr IVPUSH Q24H [facility] Ketorolac Tromethamine (Toradol) 30 mg IVPUSH Q6H [facility] Last Admin: 02/12/19 08:48 Dose: 30 mg Lorazepam (Ativan) 0.5 mg IVPUSH Q6H PRN PRN Reason: Anxiety Last Admin: 02/09/19 22:03 Dose: 0.5 mg Losartan Potassium (Cozaar) 25 mg PO DAILY [facility] Last Admin: 02/12/19 08:46 Dose: 25 mg Metoclopramide HCl (Reglan) 10 mg IVPUSH Q6H [facility] Last Admin: 02/12/19 08:50 Dose: 10 mg Metoprolol Succinate (Toprol Xl) 50 mg PO DAILY [facility] Last Admin: 02/12/19 08:45 Dose: 50 mg Ondansetron HCl (Zofran) 4 mg IVPUSH Q4H PRN PRN Reason: Nausea/Vomiting Last Admin: 02/10/19 18:25 Dose: 4 mg Promethazine HCl (Phenadoz) 12.5 mg RECTAL Q6H PRN PRN Reason: Nausea/Vomiting Last Admin: 02/10/19 09:06 Dose: 12.5 mg Scopolamine (Transderm-Scop) 1.5 mg TRDERM Q72H PRN PRN Reason: Nausea/Vomiting Last Admin: 02/09/19 19:57 Dose: 1.5 mg Sodium Chloride (Saline Flush) 10 ml FLUSH ASDIRECTED PRN PRN Reason: Keep Vein Open Sodium Chloride (Saline Flush) 2.5 ml FLUSH ASDIRECTED PRN PRN Reason: Keep Vein Open Trimethoprim/Sulfamethoxazole (Septra Ds) 1 tab PO BID [facility] Discontinued Medications Hydrocodone Bitart/Acetaminophen (Jacobson 325-5 Mg) 2 tab PO Q6H PRN PRN Reason: Pain (moderate 4-6) Albuterol (Proventil Neb Soln) 2.5 mg NEB Q6HRRT PRN PRN Reason: Wheezing Atropine Sulfate (Atropine 0.1 Mg/Ml) 0.4 mg IVPUSH Q5M PRN PRN Reason: Bradycardia Dexamethasone (Dexamethasone) Confirm Administered Dose 20 mg .ROUTE .STK-MED ONE Stop: 02/09/19 15:24 Enalaprilat (Vasotec Iv) 0.625 mg IVPUSH ONETIME ONE Stop: 02/10/19 08:41 Last Admin: 02/10/19 10:07 Dose: 0.625 mg Famotidine (Pepcid) 40 mg IVPUSH NOW STA Stop: 02/10/19 08:42 Last Admin: 02/10/19 10:25 Dose: 40 mg Fentanyl (Sublimaze) 50 mcg IVPUSH Q5M PRN PRN Reason: Pain (severe 7-10) Stop: 02/10/19 16:00 Hydralazine HCl (Apresoline) 5 mg IVPUSH ONETIME PRN PRN Reason: Hypertension Hydralazine HCl (Apresoline) 10 mg IVPUSH ONETIME PRN PRN Reason: Hypertension Hydromorphone HCl (Dilaudid Lead Supply Worker 6 Mg In Ns 30 Ml) 6 mg IV ASDIRECTED PRN; Protocol PRN Reason: Pain Hydromorphone HCl (Dilaudid) 0.5 - 1 mg IVPUSH Q3H PRN PRN Reason: Pain Hydromorphone HCl (Dilaudid) 0.25 mg IVPUSH Q10M PRN PRN Reason: Pain (severe 7-10) Stop: 02/10/19 16:00 Clindamycin Phosphate 900 mg/ (Premix) 50 mls @ 100 mls/hr IV ONCALL [facility] Last Admin: 02/10/19 06:42 Dose: 100 mls/hr Clindamycin Phosphate 900 mg/ (Premix) 50 mls @ 100 mls/hr IV Q8H [facility] Stop: 02/11/19 15:34 Last Admin: 02/10/19 06:44 Dose: 100 mls/hr Lactated Ringer's (Ringers, Lactated) 1,000 mls @ 100 mls/hr IV ASDIRECTED [facility] Last Admin: 02/11/19 07:45 Dose: 100 mls/hr Clindamycin Phosphate 900 mg/ (Premix) 50 mls @ 100 mls/hr IV Q8H [facility] Last Admin: 02/12/19 06:08 Dose: 100 mls/hr Meropenem 1 gm/ Sodium (Chloride) 100 mls @ 200 mls/hr IV Q8H [facility] Last Admin: 02/12/19 10:32 Dose: 200 mls/hr Ketamine HCl (Ketalar) Confirm Administered Dose 500 mg .ROUTE .STK-MED ONE Stop: 02/09/19 15:13 Ketorolac Tromethamine (Toradol) 30 mg IVPUSH ONETIME ONE Stop: 02/09/19 11:02 Last Admin: 02/09/19 12:04 Dose: 30 mg Ketorolac Tromethamine (Toradol) 30 mg IVPUSH Q6H PRN PRN Reason: Pain Stop: 02/14/19 15:08 Ketorolac Tromethamine (Toradol) Confirm Administered Dose 60 mg .ROUTE .STK- MED ONE Stop: 02/09/19 15:24 Labetalol HCl (Normodyne) 10 mg IVPUSH Q6H PRN PRN Reason: Hypertension Stop: 02/10/19 16:00 Lidocaine (Xylocaine-Mpf 2%) Confirm Administered Dose 5 ml .ROUTE .STK-MED ONE Stop: 02/10/19 09:46 Last Admin: 02/10/19 11:14 Dose: Not Given Lidocaine HCl (Xylocaine-Mpf 1%) Confirm Administered Dose 2 ml .ROUTE .STK-MED ONE Stop: 02/09/19 11:55 Last Admin: 02/09/19 13:46 Dose: Not Given Lorazepam (Ativan) 0.5 mg IVPUSH ONETIME ONE Stop: 02/09/19 11:14 Last Admin: 02/09/19 12:05 Dose: 0.5 mg Meperidine HCl (Demerol) 12.5 mg IVPUSH ONETIME PRN PRN Reason: Shivering Meperidine HCl (Demerol) 25 mg IV ONETIME PRN PRN Reason: Shivering Metoclopramide HCl (Reglan) 10 mg IVPUSH ONETIME PRN PRN Reason: Nausea Metoclopramide HCl (Reglan) 10 mg IV ONETIME ONE Stop: 02/09/19 21:33 Last Admin: 02/09/19 22:13 Dose: 10 mg Metoprolol Succinate (Toprol Xl) 50 mg PO ONETIME ONE Stop: 02/10/19 21:38 Metoprolol Succinate (Toprol Xl) 50 mg PO BID CAM Last Admin: 02/10/19 10:30 Dose: 50 mg Metoprolol Succinate (Toprol Xl) 50 mg PO ONETIME ONE Stop: 02/09/19 21:49 Last Admin: 02/09/19 22:24 Dose: 50 mg Midazolam HCl (Versed 1 Mg/Ml) Confirm Administered Dose 2 mg .ROUTE .STK-MED ONE Stop: 02/09/19 15:17 Morphine Sulfate (Morphine) 4 mg IVPUSH Q10M PRN PRN Reason: Pain (severe 7-10) Stop: 02/10/19 16:00 Naloxone HCl (Narcan) 0.1 mg IVPUSH ONETIME PRN PRN Reason: Respiratory Depression Ondansetron HCl (Zofran) 4 mg IVPUSH Q6H PRN PRN Reason: Nausea/Vomiting Last Admin: 02/09/19 18:49 Dose: 4 mg Ondansetron HCl (Zofran) 8 mg IVPUSH ONETIME PRN PRN Reason: Nausea Promethazine HCl (Phenergan) 12.5 mg IM ONETIME PRN PRN Reason: Nausea Promethazine HCl (Phenergan) 25 mg IM ONETIME ONE Stop: 02/09/19 19:30 Last Admin: 02/09/19 19:56 Dose: 25 mg Propofol (Diprivan 20 Ml) Confirm Administered Dose 200 mg .ROUTE .STK-MED ONE Stop: 02/09/19 15:11 Propofol (Diprivan 20 Ml) Confirm Administered Dose 200 mg .ROUTE .STK-MED ONE Stop: 02/09/19 15:47 Propofol (Diprivan 20 Ml) Confirm Administered Dose 400 mg .ROUTE .STK-MED ONE Stop: 02/09/19 15:49 Scopolamine (Transderm-Scop) 1.5 mg TRDERM Q72H PRN PRN Reason: Nausea - Problem List & Annotations (1) History of total knee replacement SNOMED Code(s): 2308878094151, 2041626465546, 38142264224242 Code(s): Z96.659 - PRESENCE OF UNSPECIFIED ARTIFICIAL KNEE JOINT Status: Acute Current Visit: No Qualifiers: Laterality: left Qualified Code(s): Z96.652 - Presence of left artificial knee joint - My Orders Last 24 Hours: Active Orders 24 hr Category Date Time Status Central Line Placement [CR] Routine Exams 02/12/19 Ordered Guide Vascular Access [US] Routine Exams 02/12/19 Taken PICC Line Insertion [CR] Routine Exams 02/12/19 10:25 Ordered DAPTOmycin [Cubicin] 600 mg Med 02/12/19 12:00 Active Sodium Chloride 0.9% [Normal Saline] 12 ml IVPUSH Q24H Sulfamethoxazole/Trimethoprim [Septra DS] Med 02/12/19 11:00 Active 1 tab PO BID Central Line PICC Insertion [Central Venous Line Oth 02/11/19 15:02 Ordered Insertion] [OM.PC] Routine Medication Orders Hydrocodone Bitart/Acetaminophen (Jacobson 325-10 Mg) 1 - 2 tab PO Q4H PRN PRN Reason: Pain Last Admin: 02/12/19 08:50 Dose: 2 tab Admin: 02/11/19 18:59 Dose: 2 tab Admin: 02/09/19 19:54 Dose: 2 tab Aspirin (Aspirin) 325 mg PO BID [facility] Last Admin: 02/12/19 08:44 Dose: 325 mg Admin: 02/11/19 21:07 Dose: 325 mg Admin: 02/11/19 09:06 Dose: 325 mg Admin: 02/10/19 20:41 Dose: 325 mg Admin: 02/10/19 10:30 Dose: 325 mg Diphenhydramine HCl (Benadryl) 25 mg IVPUSH Q4H PRN PRN Reason: Itching Last Admin: 02/10/19 03:32 Dose: 25 mg Admin: 02/10/19 00:38 Dose: 25 mg Admin: 02/09/19 19:55 Dose: 25 mg Diphenhydramine HCl (Benadryl) 25 mg IVPUSH Q6H PRN PRN Reason: Nausea Docusate Sodium (Colace) 100 mg PO BID [facility] Last Admin: 02/12/19 08:44 Dose: 100 mg Admin: 02/11/19 21:08 Dose: 100 mg Admin: 02/11/19 09:06 Dose: 100 mg Admin: 02/10/19 20:41 Dose: 100 mg Admin: 02/10/19 10:31 Dose: 100 mg Admin: 02/09/19 19:59 Dose: 100 mg Famotidine (Pepcid) 40 mg PO DAILY [facility] Last Admin: 02/12/19 08:46 Dose: 40 mg Admin: 02/11/19 09:06 Dose: 40 mg Admin: 02/10/19 10:31 Dose: 40 mg Hydromorphone HCl (Dilaudid) 0.5 - 1 mg IVPUSH Q3H PRN PRN Reason: Pain Last Admin: 02/11/19 22:13 Dose: 1 mg Admin: 02/11/19 09:05 Dose: 1 mg Admin: 02/10/19 23:23 Dose: 1 mg Admin: 02/10/19 18:25 Dose: 1 mg Admin: 02/10/19 03:32 Dose: 1 mg Admin: 02/10/19 00:39 Dose: 1 mg Daptomycin 600 mg/ Sodium (Chloride) 12 mls @ 180 mls/hr IVPUSH Q24H [facility] Ketorolac Tromethamine (Toradol) 30 mg IVPUSH Q6H [facility] Last Admin: 02/12/19 08:48 Dose: 30 mg Admin: 02/12/19 02:52 Dose: 30 mg Admin: 02/11/19 21:08 Dose: 30 mg Admin: 02/11/19 16:13 Dose: 30 mg Admin: 02/11/19 09:06 Dose: 30 mg Admin: 02/11/19 03:02 Dose: 30 mg Admin: 02/10/19 20:46 Dose: 30 mg Admin: 02/10/19 15:03 Dose: 30 mg Admin: 02/10/19 10:04 Dose: 30 mg Admin: 02/10/19 03:30 Dose: 30 mg Admin: 02/09/19 22:16 Dose: 30 mg Lorazepam (Ativan) 0.5 mg IVPUSH Q6H PRN PRN Reason: Anxiety Last Admin: 02/09/19 22:03 Dose: 0.5 mg Losartan Potassium (Cozaar) 25 mg PO DAILY [facility] Last Admin: 02/12/19 08:46 Dose: 25 mg Admin: 02/11/19 09:07 Dose: 25 mg Admin: 02/10/19 14:32 Dose: 25 mg Metoclopramide HCl (Reglan) 10 mg IVPUSH Q6H [facility] Last Admin: 02/12/19 08:50 Dose: 10 mg Admin: 02/12/19 02:53 Dose: 10 mg Admin: 02/11/19 21:09 Dose: 10 mg Admin: 02/11/19 14:44 Dose: 10 mg Admin: 02/11/19 09:06 Dose: 10 mg Admin: 02/11/19 03:02 Dose: 10 mg Admin: 02/10/19 20:42 Dose: 10 mg Admin: 02/10/19 14:32 Dose: 10 mg Admin: 02/10/19 10:04 Dose: 10 mg Metoprolol Succinate (Toprol Xl) 50 mg PO DAILY [facility] Last Admin: 02/12/19 08:45 Dose: 50 mg Admin: 02/11/19 09:07 Dose: 50 mg Ondansetron HCl (Zofran) 4 mg IVPUSH Q4H PRN PRN Reason: Nausea/Vomiting Last Admin: 02/10/19 18:25 Dose: 4 mg Admin: 02/10/19 03:31 Dose: 4 mg Admin: 02/09/19 22:08 Dose: 4 mg Promethazine HCl (Phenadoz) 12.5 mg RECTAL Q6H PRN PRN Reason: Nausea/Vomiting Last Admin: 02/10/19 09:06 Dose: 12.5 mg Scopolamine (Transderm-Scop) 1.5 mg TRDERM Q72H PRN PRN Reason: Nausea/Vomiting Last Admin: 02/09/19 19:57 Dose: 1.5 mg Sodium Chloride (Saline Flush) 10 ml FLUSH ASDIRECTED PRN PRN Reason: Keep Vein Open Sodium Chloride (Saline Flush) 2.5 ml FLUSH ASDIRECTED PRN PRN Reason: Keep Vein Open Trimethoprim/Sulfamethoxazole (Septra Ds) 1 tab PO BID CAM - Plan Plan (Free Text/Narrative):: Late entry Patient seen and examined at 1530 on 02/11/19. Patient looks much better today. She states that her nausea has improved. Her pain is well-controlled. She has been up with physical therapy. She has no other complaints. Her dressing was changed earlier today with findings as noted above in the note. Preliminary culture is positive for staph epi. We will continue the clindamycin until final sensitivities are available. Will plan to treat for 6 weeks with IV antibiotics. Will order PICC line to be placed for long-term IV antibiotics. Discussed the findings with the patient. She will need outpatient IV antibiotic therapy in [place] for 6 weeks. We will work on discharge planning tomorrow. I'm recommending that she continue with the knee immobilizer until her follow-up appointment in 2 weeks. At that time we will start formal physical therapy as long as she is doing well. jax
[2019-02-11] MEDS: Acetaminophen/HYDROcodone 325-10 MG Tab PO PRN (18:59)
[2019-02-12] MEDS: Meropenem 1 GM in Sodium Chloride 0.9% 100 ML IV SCH ×2 (02:51→10:32)
[2019-02-12] MEDS: Ketorolac 30 MG/ML SDV IVPUSH SCH ×2 (02:52→08:48)
[2019-02-12] MEDS: Metoclopramide 10 MG/2 ML SDV IVPUSH SCH ×2 (02:53→08:50)
[2019-02-12] MEDS: Clindamycin Phosphate in D5W 900 MG in Premix Bag 1 BAG IV SCH ×2 (06:08)
[2019-02-12] MEDS: Aspirin 325 MG Tab PO SCH (08:44)
[2019-02-12] MEDS: Docusate Sodium 100 MG Cap PO SCH (08:44)
[2019-02-12] MEDS: Metoprolol Succinate 50 MG Tab.ER PO SCH (08:45)
[2019-02-12] MEDS: Famotidine 20 MG Tab PO SCH (08:46)
--- NOTE | 2019-02-12 08:48 | PCM.SURGPN ---
<Alisa Portillo R - Last Filed: 02/12/19 08:42> - General Info Date of Service: 02/12/19 Date of Surgery/Procedure: 02/09/19 POD#: 3 Functional Status: Reports: Pain Controlled, Tolerating Diet, Ambulating, Urinating - Review of Systems General: Reports: No Symptoms Gastrointestinal: Reports: Nausea (improving) Systems Review Comment:: pt sitting up in bed for breakfast slowly advancing diet, nausea continues to improve pain controlled with [place] 10/325 PICC line placement ordered for today tolerating WBAT in knee immobilizer would like to go home today provided PICC line gets placed and outpt abx can be arranged - planning on driving in to [facility] daily for IV abx, dressing changes, and labs as indicated. Also discussed home health but pt prefers to go to [facility]. - Patient Data Vitals - Most Recent: Last Vital Signs Temp 97.7 F 02/12/19 08:39 Pulse 67 02/12/19 08:39 Resp 16 02/12/19 08:39 BP 128/80 02/12/19 08:39 Pulse Ox 98 02/12/19 08:39 Weight - Most Recent: 101.605 kg I&O - Last 24 Hours: Intake & Output 02/11/19 02/12/19 02/12/19 22:59 06:59 14:59 Intake Total 1347 550 100 Output Total 1750 1610 Balance -403 -1060 100 Lab Results Last 24 Hrs: Laboratory Results - last 24 hr 02/12/19 02/12/19 Range/Units 04:55 04:55 WBC 8.70 (4.0-11.0) K/uL RBC 3.07 L (4.30-5.90) M/uL Hgb 8.6 L (12.0-16.0) g/dL Hct 26.6 L (36.0-46.0) % MCV 86.6 (80.0-98.0) fL MCH 28.0 (27.0-32.0) pg MCHC 32.3 (31.0-37.0) g/dL RDW Std Deviation 46.4 (28.0-62.0) fl RDW Coeff of Mckenna 15 (11.0-15.0) % Plt Count 372 (150-400) K/uL MPV 9.40 (7.40-12.00) fL Neut % (Auto) 56.3 (48.0-80.0) % Lymph % (Auto) 22.9 (16.0-40.0) % Shelby % (Auto) 8.9 (0.0-15.0) % Eos % (Auto) 11.4 H (0.0-7.0) % Baso % (Auto) 0.5 (0.0-1.5) % Neut # (Auto) 4.9 (1.4-5.7) K/uL Lymph # (Auto) 2.0 (0.6-2.4) K/uL Shelby # (Auto) 0.8 (0.0-0.8) K/uL Eos # (Auto) 1.0 H (0.0-0.7) K/uL Baso # (Auto) 0.0 (0.0-0.1) K/uL Nucleated RBC % 0.0 /100WBC Nucleated RBCs # 0 K/uL ESR 78 H (0-29) mm/hr C-Reactive Protein 5.30 H (0.00-0.90) mg/dL Daniel Results Last 24 Hrs: Microbiology 02/10/19 08:35 Urine Culture - Final Urine, Vasquez Cath (Indwelling) No Growth 02/09/19 15:40 Gram Stain - Preliminary Knee, Left Wound Culture - Final Enterococcus Faecalis Anaerobic Culture - Final NO ANAEROBES ISOLATED 02/09/19 11:07 Aerobic Blood Culture - Preliminary Blood - Venous - Lab Draw NO GROWTH AFTER 2 DAYS Anaerobic Blood Culture - Final 02/09/19 10:53 Aerobic Blood Culture - Preliminary Blood - Venous NO GROWTH AFTER 2 DAYS Anaerobic Blood Culture - Preliminary NO GROWTH AFTER 2 DAYS Med Orders - Current: Current Medications Hydrocodone Bitart/Acetaminophen ([place] 325-10 Mg) 1 - 2 tab PO Q4H PRN PRN Reason: Pain Last Admin: 02/11/19 18:59 Dose: 2 tab Aspirin (Aspirin) 325 mg PO BID [facility] Last Admin: 02/11/19 21:07 Dose: 325 mg Diphenhydramine HCl (Benadryl) 25 mg IVPUSH Q4H PRN PRN Reason: Itching Last Admin: 02/10/19 03:32 Dose: 25 mg Diphenhydramine HCl (Benadryl) 25 mg IVPUSH Q6H PRN PRN Reason: Nausea Docusate Sodium (Colace) 100 mg PO BID [facility] Last Admin: 02/11/19 21:08 Dose: 100 mg Famotidine (Pepcid) 40 mg PO DAILY [facility] Last Admin: 02/11/19 09:06 Dose: 40 mg Hydromorphone HCl (Dilaudid) 0.5 - 1 mg IVPUSH Q3H PRN PRN Reason: Pain Last Admin: 02/11/19 22:13 Dose: 1 mg Clindamycin Phosphate 900 mg/ (Premix) 50 mls @ 100 mls/hr IV Q8H [facility] Last Admin: 02/12/19 06:08 Dose: 100 mls/hr Meropenem 1 gm/ Sodium (Chloride) 100 mls @ 200 mls/hr IV Q8H [facility] Last Admin: 02/12/19 02:51 Dose: 200 mls/hr Ketorolac Tromethamine (Toradol) 30 mg IVPUSH Q6H [facility] Last Admin: 02/12/19 02:52 Dose: 30 mg Lorazepam (Ativan) 0.5 mg IVPUSH Q6H PRN PRN Reason: Anxiety Last Admin: 02/09/19 22:03 Dose: 0.5 mg Losartan Potassium (Cozaar) 25 mg PO DAILY [facility] Last Admin: 02/11/19 09:07 Dose: 25 mg Metoclopramide HCl (Reglan) 10 mg IVPUSH Q6H [facility] Last Admin: 02/12/19 02:53 Dose: 10 mg Metoprolol Succinate (Toprol Xl) 50 mg PO DAILY [facility] Last Admin: 02/11/19 09:07 Dose: 50 mg Ondansetron HCl (Zofran) 4 mg IVPUSH Q4H PRN PRN Reason: Nausea/Vomiting Last Admin: 02/10/19 18:25 Dose: 4 mg Promethazine HCl (Phenadoz) 12.5 mg RECTAL Q6H PRN PRN Reason: Nausea/Vomiting Last Admin: 02/10/19 09:06 Dose: 12.5 mg Scopolamine (Transderm-Scop) 1.5 mg TRDERM Q72H PRN PRN Reason: Nausea/Vomiting Last Admin: 02/09/19 19:57 Dose: 1.5 mg Sodium Chloride (Saline Flush) 10 ml FLUSH ASDIRECTED PRN PRN Reason: Keep Vein Open Sodium Chloride (Saline Flush) 2.5 ml FLUSH ASDIRECTED PRN PRN Reason: Keep Vein Open Discontinued Medications Hydrocodone Bitart/Acetaminophen ([place] 325-5 Mg) 2 tab PO Q6H PRN PRN Reason: Pain (moderate 4-6) Albuterol (Proventil Neb Soln) 2.5 mg NEB Q6HRRT PRN PRN Reason: Wheezing Atropine Sulfate (Atropine 0.1 Mg/Ml) 0.4 mg IVPUSH Q5M PRN PRN Reason: Bradycardia Dexamethasone (Dexamethasone) Confirm Administered Dose 20 mg .ROUTE .STK-MED ONE Stop: 02/09/19 15:24 Enalaprilat (Vasotec Iv) 0.625 mg IVPUSH ONETIME ONE Stop: 02/10/19 08:41 Last Admin: 02/10/19 10:07 Dose: 0.625 mg Famotidine (Pepcid) 40 mg IVPUSH NOW STA Stop: 02/10/19 08:42 Last Admin: 02/10/19 10:25 Dose: 40 mg Fentanyl (Sublimaze) 50 mcg IVPUSH Q5M PRN PRN Reason: Pain (severe 7-10) Stop: 02/10/19 16:00 Hydralazine HCl (Apresoline) 5 mg IVPUSH ONETIME PRN PRN Reason: Hypertension Hydralazine HCl (Apresoline) 10 mg IVPUSH ONETIME PRN PRN Reason: Hypertension Hydromorphone HCl (Dilaudid Radio Personality 6 Mg In Ns 30 Ml) 6 mg IV ASDIRECTED PRN; Protocol PRN Reason: Pain Hydromorphone HCl (Dilaudid) 0.5 - 1 mg IVPUSH Q3H PRN PRN Reason: Pain Hydromorphone HCl (Dilaudid) 0.25 mg IVPUSH Q10M PRN PRN Reason: Pain (severe 7-10) Stop: 02/10/19 16:00 Clindamycin Phosphate 900 mg/ (Premix) 50 mls @ 100 mls/hr IV ONCALL [facility] Last Admin: 02/10/19 06:42 Dose: 100 mls/hr Clindamycin Phosphate 900 mg/ (Premix) 50 mls @ 100 mls/hr IV Q8H [facility] Stop: 02/11/19 15:34 Last Admin: 02/10/19 06:44 Dose: 100 mls/hr Lactated Ringer's (Ringers, Lactated) 1,000 mls @ 100 mls/hr IV ASDIRECTED [facility] Last Admin: 02/11/19 07:45 Dose: 100 mls/hr Ketamine HCl (Ketalar) Confirm Administered Dose 500 mg .ROUTE .STK-MED ONE Stop: 02/09/19 15:13 Ketorolac Tromethamine (Toradol) 30 mg IVPUSH ONETIME ONE Stop: 02/09/19 11:02 Last Admin: 02/09/19 12:04 Dose: 30 mg Ketorolac Tromethamine (Toradol) 30 mg IVPUSH Q6H PRN PRN Reason: Pain Stop: 02/14/19 15:08 Ketorolac Tromethamine (Toradol) Confirm Administered Dose 60 mg .ROUTE .STK- MED ONE Stop: 02/09/19 15:24 Labetalol HCl (Normodyne) 10 mg IVPUSH Q6H PRN PRN Reason: Hypertension Stop: 02/10/19 16:00 Lidocaine (Xylocaine-Mpf 2%) Confirm Administered Dose 5 ml .ROUTE .STK-MED ONE Stop: 02/10/19 09:46 Last Admin: 02/10/19 11:14 Dose: Not Given Lidocaine HCl (Xylocaine-Mpf 1%) Confirm Administered Dose 2 ml .ROUTE .STK-MED ONE Stop: 02/09/19 11:55 Last Admin: 02/09/19 13:46 Dose: Not Given Lorazepam (Ativan) 0.5 mg IVPUSH ONETIME ONE Stop: 02/09/19 11:14 Last Admin: 02/09/19 12:05 Dose: 0.5 mg Meperidine HCl (Demerol) 12.5 mg IVPUSH ONETIME PRN PRN Reason: Shivering Meperidine HCl (Demerol) 25 mg IV ONETIME PRN PRN Reason: Shivering Metoclopramide HCl (Reglan) 10 mg IVPUSH ONETIME PRN PRN Reason: Nausea Metoclopramide HCl (Reglan) 10 mg IV ONETIME ONE Stop: 02/09/19 21:33 Last Admin: 02/09/19 22:13 Dose: 10 mg Metoprolol Succinate (Toprol Xl) 50 mg PO ONETIME ONE Stop: 02/10/19 21:38 Metoprolol Succinate (Toprol Xl) 50 mg PO BID [facility] Last Admin: 02/10/19 10:30 Dose: 50 mg Metoprolol Succinate (Toprol Xl) 50 mg PO ONETIME ONE Stop: 02/09/19 21:49 Last Admin: 02/09/19 22:24 Dose: 50 mg Midazolam HCl (Versed 1 Mg/Ml) Confirm Administered Dose 2 mg .ROUTE .STK-MED ONE Stop: 02/09/19 15:17 Morphine Sulfate (Morphine) 4 mg IVPUSH Q10M PRN PRN Reason: Pain (severe 7-10) Stop: 02/10/19 16:00 Naloxone HCl (Narcan) 0.1 mg IVPUSH ONETIME PRN PRN Reason: Respiratory Depression Ondansetron HCl (Zofran) 4 mg IVPUSH Q6H PRN PRN Reason: Nausea/Vomiting Last Admin: 02/09/19 18:49 Dose: 4 mg Ondansetron HCl (Zofran) 8 mg IVPUSH ONETIME PRN PRN Reason: Nausea Promethazine HCl (Phenergan) 12.5 mg IM ONETIME PRN PRN Reason: Nausea Promethazine HCl (Phenergan) 25 mg IM ONETIME ONE Stop: 02/09/19 19:30 Last Admin: 02/09/19 19:56 Dose: 25 mg Propofol (Diprivan 20 Ml) Confirm Administered Dose 200 mg .ROUTE .STK-MED ONE Stop: 02/09/19 15:11 Propofol (Diprivan 20 Ml) Confirm Administered Dose 200 mg .ROUTE .STK-MED ONE Stop: 02/09/19 15:47 Propofol (Diprivan 20 Ml) Confirm Administered Dose 400 mg .ROUTE .STK-MED ONE Stop: 02/09/19 15:49 Scopolamine (Transderm-Scop) 1.5 mg TRDERM Q72H PRN PRN Reason: Nausea - Exam Wound/Incisions: Healing Well. No: Drainage, Erythema General: Alert, Oriented Cardiovascular: Regular Rate, Regular Rhythm Extremities: Other (exam LLE - medial blister with good granulation tissue, bleeding wound bed after dressing removal. no surrounding erythema. remaining incision c/d/sutures intact. -10* extension, flexion not tested. at/ehl/gastroc 5/5, dp2+, sensation intact distally) Physical Findings Comment:: vss, afeb WBC 8.7 hgb 8.6 ESR 78 CRP 5.3 final wound cultures show sparse E. faecalis, sensitive to several abx. - Problem List Review Problem List Initiated/Reviewed/Updated: Yes - My Orders Last 24 Hours: Active Orders 24 hr Category Date Time Status Metoprolol Succinate [Toprol XL] Med 02/11/19 09:00 Active 50 mg PO DAILY Central Line PICC Insertion [Central Venous Line Oth 02/11/19 15:02 Ordered Insertion] [OM.PC] Routine Medication Orders Hydrocodone Bitart/Acetaminophen ([place] 325-10 Mg) 1 - 2 tab PO Q4H PRN PRN Reason: Pain Last Admin: 02/11/19 18:59 Dose: 2 tab Admin: 02/09/19 19:54 Dose: 2 tab Aspirin (Aspirin) 325 mg PO BID [facility] Last Admin: 02/11/19 21:07 Dose: 325 mg Admin: 02/11/19 09:06 Dose: 325 mg Admin: 02/10/19 20:41 Dose: 325 mg Admin: 02/10/19 10:30 Dose: 325 mg Diphenhydramine HCl (Benadryl) 25 mg IVPUSH Q4H PRN PRN Reason: Itching Last Admin: 02/10/19 03:32 Dose: 25 mg Admin: 02/10/19 00:38 Dose: 25 mg Admin: 02/09/19 19:55 Dose: 25 mg Diphenhydramine HCl (Benadryl) 25 mg IVPUSH Q6H PRN PRN Reason: Nausea Docusate Sodium (Colace) 100 mg PO BID [facility] Last Admin: 02/11/19 21:08 Dose: 100 mg Admin: 02/11/19 09:06 Dose: 100 mg Admin: 02/10/19 20:41 Dose: 100 mg Admin: 02/10/19 10:31 Dose: 100 mg Admin: 02/09/19 19:59 Dose: 100 mg Famotidine (Pepcid) 40 mg PO DAILY [facility] Last Admin: 02/11/19 09:06 Dose: 40 mg Admin: 02/10/19 10:31 Dose: 40 mg Hydromorphone HCl (Dilaudid) 0.5 - 1 mg IVPUSH Q3H PRN PRN Reason: Pain Last Admin: 02/11/19 22:13 Dose: 1 mg Admin: 02/11/19 09:05 Dose: 1 mg Admin: 02/10/19 23:23 Dose: 1 mg Admin: 02/10/19 18:25 Dose: 1 mg Admin: 02/10/19 03:32 Dose: 1 mg Admin: 02/10/19 00:39 Dose: 1 mg Clindamycin Phosphate 900 mg/ (Premix) 50 mls @ 100 mls/hr IV Q8H [facility] Last Admin: 02/12/19 06:08 Dose: 100 mls/hr Infusion: 02/11/19 22:44 Dose: 100 mls/hr Admin: 02/11/19 22:14 Dose: 100 mls/hr Infusion: 02/11/19 15:29 Dose: 100 mls/hr Admin: 02/11/19 14:59 Dose: 100 mls/hr Infusion: 02/11/19 08:25 Dose: 100 mls/hr Admin: 02/11/19 07:55 Dose: 100 mls/hr Infusion: 02/10/19 23:58 Dose: 100 mls/hr Admin: 02/10/19 23:28 Dose: 100 mls/hr Infusion: 02/10/19 23:25 Dose: 100 mls/hr Admin: 02/10/19 14:32 Dose: 100 mls/hr Meropenem 1 gm/ Sodium (Chloride) 100 mls @ 200 mls/hr IV Q8H [facility] Last Admin: 02/12/19 02:51 Dose: 200 mls/hr Infusion: 02/11/19 19:12 Dose: 200 mls/hr Admin: 02/11/19 18:42 Dose: 200 mls/hr Infusion: 02/11/19 11:06 Dose: 200 mls/hr Admin: 02/11/19 10:36 Dose: 200 mls/hr Infusion: 02/11/19 03:31 Dose: 200 mls/hr Admin: 02/11/19 03:01 Dose: 200 mls/hr Infusion: 02/10/19 18:55 Dose: 200 mls/hr Admin: 02/10/19 18:25 Dose: 200 mls/hr Infusion: 02/10/19 10:55 Dose: 200 mls/hr Admin: 02/10/19 10:25 Dose: 200 mls/hr Ketorolac Tromethamine (Toradol) 30 mg IVPUSH Q6H [facility] Last Admin: 02/12/19 02:52 Dose: 30 mg Admin: 02/11/19 21:08 Dose: 30 mg Admin: 02/11/19 16:13 Dose: 30 mg Admin: 02/11/19 09:06 Dose: 30 mg Admin: 02/11/19 03:02 Dose: 30 mg Admin: 02/10/19 20:46 Dose: 30 mg Admin: 02/10/19 15:03 Dose: 30 mg Admin: 02/10/19 10:04 Dose: 30 mg Admin: 02/10/19 03:30 Dose: 30 mg Admin: 02/09/19 22:16 Dose: 30 mg Lorazepam (Ativan) 0.5 mg IVPUSH Q6H PRN PRN Reason: Anxiety Last Admin: 02/09/19 22:03 Dose: 0.5 mg Losartan Potassium (Cozaar) 25 mg PO DAILY [facility] Last Admin: 02/11/19 09:07 Dose: 25 mg Admin: 02/10/19 14:32 Dose: 25 mg Metoclopramide HCl (Reglan) 10 mg IVPUSH Q6H [facility] Last Admin: 02/12/19 02:53 Dose: 10 mg Admin: 02/11/19 21:09 Dose: 10 mg Admin: 02/11/19 14:44 Dose: 10 mg Admin: 02/11/19 09:06 Dose: 10 mg Admin: 02/11/19 03:02 Dose: 10 mg Admin: 02/10/19 20:42 Dose: 10 mg Admin: 02/10/19 14:32 Dose: 10 mg Admin: 02/10/19 10:04 Dose: 10 mg Metoprolol Succinate (Toprol Xl) 50 mg PO DAILY [facility] Last Admin: 02/11/19 09:07 Dose: 50 mg Ondansetron HCl (Zofran) 4 mg IVPUSH Q4H PRN PRN Reason: Nausea/Vomiting Last Admin: 02/10/19 18:25 Dose: 4 mg Admin: 02/10/19 03:31 Dose: 4 mg Admin: 02/09/19 22:08 Dose: 4 mg Promethazine HCl (Phenadoz) 12.5 mg RECTAL Q6H PRN PRN Reason: Nausea/Vomiting Last Admin: 02/10/19 09:06 Dose: 12.5 mg Scopolamine (Transderm-Scop) 1.5 mg TRDERM Q72H PRN PRN Reason: Nausea/Vomiting Last Admin: 02/09/19 19:57 Dose: 1.5 mg Sodium Chloride (Saline Flush) 10 ml FLUSH ASDIRECTED PRN PRN Reason: Keep Vein Open Sodium Chloride (Saline Flush) 2.5 ml FLUSH ASDIRECTED PRN PRN Reason: Keep Vein Open - Assessment Assessment (Free Text/Narrative):: POD#3 ED L TKA with poly swap acute posthemorrhagic anemia nausea, improved hypertension, improved periprosthetic joint infection - Plan Plan (Free Text/Narrative):: PICC line today - 11:00 per charge nurse continue IV clindamycin until PICC line placed will switch to IV dapto 600mg once PICC line placed and assured no adverse medication reaction with pt's allergy profile. discussed daptomycin dosing with Viktor, pharmacist continue pain management continue PT for mobilization with FWW, no flexion or quad activation at this time appreciate hospitalist assistance in resolving hypertension pt is planning on driving in to [facility] daily for IV abx, case management will ensure that nursing staff there is able to do PICC line cares and lab draws as ordered. outpt, pt will require: 1) daptomycin 600mg via PICC q24h 2) weekly PICC line dressing changes 3) CBCad, ESR, CRP, and BMP on 02/23/19, 03/09/19, 03/23/19, and 04/06/19, please fax results to [phone] 4) follow-up in clinic q2wk for lab review and clinical evaluation - first follow-up 02/24/19 2:40pm 5) no PT until follow-up in clinic. <Susanne Muse R - Last Filed: 02/12/19 12:44> - Patient Data Vitals - Most Recent: Last Vital Signs Temp 97.7 F 02/12/19 08:39 Pulse 67 02/12/19 08:45 Resp 16 02/12/19 08:39 BP 128/80 02/12/19 08:46 Pulse Ox 98 02/12/19 08:39 I&O - Last 24 Hours: Intake & Output 02/11/19 02/12/19 02/12/19 22:59 06:59 14:59 Intake Total 1347 550 200 Output Total 1750 1610 Balance -403 -1060 200 Lab Results Last 24 Hrs: Laboratory Results - last 24 hr 02/12/19 02/12/19 Range/Units 04:55 04:55 WBC 8.70 (4.0-11.0) K/uL RBC 3.07 L (4.30-5.90) M/uL Hgb 8.6 L (12.0-16.0) g/dL Hct 26.6 L (36.0-46.0) % MCV 86.6 (80.0-98.0) fL MCH 28.0 (27.0-32.0) pg MCHC 32.3 (31.0-37.0) g/dL RDW Std Deviation 46.4 (28.0-62.0) fl RDW Coeff of Mckenna 15 (11.0-15.0) % Plt Count 372 (150-400) K/uL MPV 9.40 (7.40-12.00) fL Neut % (Auto) 56.3 (48.0-80.0) % Lymph % (Auto) 22.9 (16.0-40.0) % Shelby % (Auto) 8.9 (0.0-15.0) % Eos % (Auto) 11.4 H (0.0-7.0) % Baso % (Auto) 0.5 (0.0-1.5) % Neut # (Auto) 4.9 (1.4-5.7) K/uL Lymph # (Auto) 2.0 (0.6-2.4) K/uL Shelby # (Auto) 0.8 (0.0-0.8) K/uL Eos # (Auto) 1.0 H (0.0-0.7) K/uL Baso # (Auto) 0.0 (0.0-0.1) K/uL Nucleated RBC % 0.0 /100WBC Nucleated RBCs # 0 K/uL ESR 78 H (0-29) mm/hr C-Reactive Protein 5.30 H (0.00-0.90) mg/dL Daniel Results Last 24 Hrs: Microbiology 02/09/19 15:40 Gram Stain - Final Knee, Left Wound Culture - Final Enterococcus Faecalis Anaerobic Culture - Final NO ANAEROBES ISOLATED 02/09/19 11:07 Aerobic Blood Culture - Preliminary Blood - Venous - Lab Draw NO GROWTH AFTER 3 DAYS Anaerobic Blood Culture - Final 02/09/19 10:53 Aerobic Blood Culture - Preliminary Blood - Venous NO GROWTH AFTER 3 DAYS Anaerobic Blood Culture - Preliminary NO GROWTH AFTER 3 DAYS 02/10/19 08:35 Urine Culture - Final Urine, Vasquez Cath (Indwelling) No Growth Med Orders - Current: Current Medications Hydrocodone Bitart/Acetaminophen ([place] 325-10 Mg) 1 - 2 tab PO Q4H PRN PRN Reason: Pain Last Admin: 02/12/19 08:50 Dose: 2 tab Aspirin (Aspirin) 325 mg PO BID [facility] Last Admin: 02/12/19 08:44 Dose: 325 mg Diphenhydramine HCl (Benadryl) 25 mg IVPUSH Q4H PRN PRN Reason: Itching Last Admin: 02/10/19 03:32 Dose: 25 mg Diphenhydramine HCl (Benadryl) 25 mg IVPUSH Q6H PRN PRN Reason: Nausea Docusate Sodium (Colace) 100 mg PO BID [facility] Last Admin: 02/12/19 08:44 Dose: 100 mg Famotidine (Pepcid) 40 mg PO DAILY [facility] Last Admin: 02/12/19 08:46 Dose: 40 mg Hydromorphone HCl (Dilaudid) 0.5 - 1 mg IVPUSH Q3H PRN PRN Reason: Pain Last Admin: 02/11/19 22:13 Dose: 1 mg Daptomycin 600 mg/ Sodium (Chloride) 12 mls @ 180 mls/hr IVPUSH Q24H [facility] Ketorolac Tromethamine (Toradol) 30 mg IVPUSH Q6H [facility] Last Admin: 02/12/19 08:48 Dose: 30 mg Lorazepam (Ativan) 0.5 mg IVPUSH Q6H PRN PRN Reason: Anxiety Last Admin: 02/09/19 22:03 Dose: 0.5 mg Losartan Potassium (Cozaar) 25 mg PO DAILY [facility] Last Admin: 02/12/19 08:46 Dose: 25 mg Metoclopramide HCl (Reglan) 10 mg IVPUSH Q6H [facility] Last Admin: 02/12/19 08:50 Dose: 10 mg Metoprolol Succinate (Toprol Xl) 50 mg PO DAILY [facility] Last Admin: 02/12/19 08:45 Dose: 50 mg Ondansetron HCl (Zofran) 4 mg IVPUSH Q4H PRN PRN Reason: Nausea/Vomiting Last Admin: 02/10/19 18:25 Dose: 4 mg Promethazine HCl (Phenadoz) 12.5 mg RECTAL Q6H PRN PRN Reason: Nausea/Vomiting Last Admin: 02/10/19 09:06 Dose: 12.5 mg Scopolamine (Transderm-Scop) 1.5 mg TRDERM Q72H PRN PRN Reason: Nausea/Vomiting Last Admin: 02/09/19 19:57 Dose: 1.5 mg Sodium Chloride (Saline Flush) 10 ml FLUSH ASDIRECTED PRN PRN Reason: Keep Vein Open Sodium Chloride (Saline Flush) 2.5 ml FLUSH ASDIRECTED PRN PRN Reason: Keep Vein Open Trimethoprim/Sulfamethoxazole (Septra Ds) 1 tab PO BID [facility] Discontinued Medications Hydrocodone Bitart/Acetaminophen ([place] 325-5 Mg) 2 tab PO Q6H PRN PRN Reason: Pain (moderate 4-6) Albuterol (Proventil Neb Soln) 2.5 mg NEB Q6HRRT PRN PRN Reason: Wheezing Atropine Sulfate (Atropine 0.1 Mg/Ml) 0.4 mg IVPUSH Q5M PRN PRN Reason: Bradycardia Dexamethasone (Dexamethasone) Confirm Administered Dose 20 mg .ROUTE .STK-MED ONE Stop: 02/09/19 15:24 Enalaprilat (Vasotec Iv) 0.625 mg IVPUSH ONETIME ONE Stop: 02/10/19 08:41 Last Admin: 02/10/19 10:07 Dose: 0.625 mg Famotidine (Pepcid) 40 mg IVPUSH NOW STA Stop: 02/10/19 08:42 Last Admin: 02/10/19 10:25 Dose: 40 mg Fentanyl (Sublimaze) 50 mcg IVPUSH Q5M PRN PRN Reason: Pain (severe 7-10) Stop: 02/10/19 16:00 Hydralazine HCl (Apresoline) 5 mg IVPUSH ONETIME PRN PRN Reason: Hypertension Hydralazine HCl (Apresoline) 10 mg IVPUSH ONETIME PRN PRN Reason: Hypertension Hydromorphone HCl (Dilaudid Radio Personality 6 Mg In Ns 30 Ml) 6 mg IV ASDIRECTED PRN; Protocol PRN Reason: Pain Hydromorphone HCl (Dilaudid) 0.5 - 1 mg IVPUSH Q3H PRN PRN Reason: Pain Hydromorphone HCl (Dilaudid) 0.25 mg IVPUSH Q10M PRN PRN Reason: Pain (severe 7-10) Stop: 02/10/19 16:00 Clindamycin Phosphate 900 mg/ (Premix) 50 mls @ 100 mls/hr IV ONCALL [facility] Last Admin: 02/10/19 06:42 Dose: 100 mls/hr Clindamycin Phosphate 900 mg/ (Premix) 50 mls @ 100 mls/hr IV Q8H [facility] Stop: 02/11/19 15:34 Last Admin: 02/10/19 06:44 Dose: 100 mls/hr Lactated Ringer's (Ringers, Lactated) 1,000 mls @ 100 mls/hr IV ASDIRECTED [facility] Last Admin: 02/11/19 07:45 Dose: 100 mls/hr Clindamycin Phosphate 900 mg/ (Premix) 50 mls @ 100 mls/hr IV Q8H [facility] Last Admin: 02/12/19 06:08 Dose: 100 mls/hr Meropenem 1 gm/ Sodium (Chloride) 100 mls @ 200 mls/hr IV Q8H [facility] Last Admin: 02/12/19 10:32 Dose: 200 mls/hr Ketamine HCl (Ketalar) Confirm Administered Dose 500 mg .ROUTE .STK-MED ONE Stop: 02/09/19 15:13 Ketorolac Tromethamine (Toradol) 30 mg IVPUSH ONETIME ONE Stop: 02/09/19 11:02 Last Admin: 02/09/19 12:04 Dose: 30 mg Ketorolac Tromethamine (Toradol) 30 mg IVPUSH Q6H PRN PRN Reason: Pain Stop: 02/14/19 15:08 Ketorolac Tromethamine (Toradol) Confirm Administered Dose 60 mg .ROUTE .STK- MED ONE Stop: 02/09/19 15:24 Labetalol HCl (Normodyne) 10 mg IVPUSH Q6H PRN PRN Reason: Hypertension Stop: 02/10/19 16:00 Lidocaine (Xylocaine-Mpf 2%) Confirm Administered Dose 5 ml .ROUTE .STK-MED ONE Stop: 02/10/19 09:46 Last Admin: 02/10/19 11:14 Dose: Not Given Lidocaine HCl (Xylocaine-Mpf 1%) Confirm Administered Dose 2 ml .ROUTE .STK-MED ONE Stop: 02/09/19 11:55 Last Admin: 02/09/19 13:46 Dose: Not Given Lorazepam (Ativan) 0.5 mg IVPUSH ONETIME ONE Stop: 02/09/19 11:14 Last Admin: 02/09/19 12:05 Dose: 0.5 mg Meperidine HCl (Demerol) 12.5 mg IVPUSH ONETIME PRN PRN Reason: Shivering Meperidine HCl (Demerol) 25 mg IV ONETIME PRN PRN Reason: Shivering Metoclopramide HCl (Reglan) 10 mg IVPUSH ONETIME PRN PRN Reason: Nausea Metoclopramide HCl (Reglan) 10 mg IV ONETIME ONE Stop: 02/09/19 21:33 Last Admin: 02/09/19 22:13 Dose: 10 mg Metoprolol Succinate (Toprol Xl) 50 mg PO ONETIME ONE Stop: 02/10/19 21:38 Metoprolol Succinate (Toprol Xl) 50 mg PO BID [facility] Last Admin: 02/10/19 10:30 Dose: 50 mg Metoprolol Succinate (Toprol Xl) 50 mg PO ONETIME ONE Stop: 02/09/19 21:49 Last Admin: 02/09/19 22:24 Dose: 50 mg Midazolam HCl (Versed 1 Mg/Ml) Confirm Administered Dose 2 mg .ROUTE .STK-MED ONE Stop: 02/09/19 15:17 Morphine Sulfate (Morphine) 4 mg IVPUSH Q10M PRN PRN Reason: Pain (severe 7-10) Stop: 02/10/19 16:00 Naloxone HCl (Narcan) 0.1 mg IVPUSH ONETIME PRN PRN Reason: Respiratory Depression Ondansetron HCl (Zofran) 4 mg IVPUSH Q6H PRN PRN Reason: Nausea/Vomiting Last Admin: 02/09/19 18:49 Dose: 4 mg Ondansetron HCl (Zofran) 8 mg IVPUSH ONETIME PRN PRN Reason: Nausea Promethazine HCl (Phenergan) 12.5 mg IM ONETIME PRN PRN Reason: Nausea Promethazine HCl (Phenergan) 25 mg IM ONETIME ONE Stop: 02/09/19 19:30 Last Admin: 02/09/19 19:56 Dose: 25 mg Propofol (Diprivan 20 Ml) Confirm Administered Dose 200 mg .ROUTE .STK-MED ONE Stop: 02/09/19 15:11 Propofol (Diprivan 20 Ml) Confirm Administered Dose 200 mg .ROUTE .STK-MED ONE Stop: 02/09/19 15:47 Propofol (Diprivan 20 Ml) Confirm Administered Dose 400 mg .ROUTE .STK-MED ONE Stop: 02/09/19 15:49 Scopolamine (Transderm-Scop) 1.5 mg TRDERM Q72H PRN PRN Reason: Nausea - Problem List & Annotations (1) History of total knee replacement SNOMED Code(s): 2785845164312, 3120929266366, 50292478992122 Code(s): Z96.659 - PRESENCE OF UNSPECIFIED ARTIFICIAL KNEE JOINT Status: Acute Current Visit: No Qualifiers: Laterality: left Qualified Code(s): Z96.652 - Presence of left artificial knee joint - My Orders Last 24 Hours: Active Orders 24 hr Category Date Time Status Central Line Placement [CR] Routine Exams 02/12/19 Ordered Guide Vascular Access [US] Routine Exams 02/12/19 Taken PICC Line Insertion [CR] Routine Exams 02/12/19 10:25 Ordered DAPTOmycin [Cubicin] 600 mg Med 02/12/19 12:00 Active Sodium Chloride 0.9% [Normal Saline] 12 ml IVPUSH Q24H Sulfamethoxazole/Trimethoprim [Septra DS] Med 02/12/19 11:00 Active 1 tab PO BID Central Line PICC Insertion [Central Venous Line Oth 02/11/19 15:02 Ordered Insertion] [OM.PC] Routine Medication Orders Hydrocodone Bitart/Acetaminophen ([place] 325-10 Mg) 1 - 2 tab PO Q4H PRN PRN Reason: Pain Last Admin: 02/12/19 08:50 Dose: 2 tab Admin: 02/11/19 18:59 Dose: 2 tab Admin: 02/09/19 19:54 Dose: 2 tab Aspirin (Aspirin) 325 mg PO BID [facility] Last Admin: 02/12/19 08:44 Dose: 325 mg Admin: 02/11/19 21:07 Dose: 325 mg Admin: 02/11/19 09:06 Dose: 325 mg Admin: 02/10/19 20:41 Dose: 325 mg Admin: 02/10/19 10:30 Dose: 325 mg Diphenhydramine HCl (Benadryl) 25 mg IVPUSH Q4H PRN PRN Reason: Itching Last Admin: 02/10/19 03:32 Dose: 25 mg Admin: 02/10/19 00:38 Dose: 25 mg Admin: 02/09/19 19:55 Dose: 25 mg Diphenhydramine HCl (Benadryl) 25 mg IVPUSH Q6H PRN PRN Reason: Nausea Docusate Sodium (Colace) 100 mg PO BID [facility] Last Admin: 02/12/19 08:44 Dose: 100 mg Admin: 02/11/19 21:08 Dose: 100 mg Admin: 02/11/19 09:06 Dose: 100 mg Admin: 02/10/19 20:41 Dose: 100 mg Admin: 02/10/19 10:31 Dose: 100 mg Admin: 02/09/19 19:59 Dose: 100 mg Famotidine (Pepcid) 40 mg PO DAILY [facility] Last Admin: 02/12/19 08:46 Dose: 40 mg Admin: 02/11/19 09:06 Dose: 40 mg Admin: 02/10/19 10:31 Dose: 40 mg Hydromorphone HCl (Dilaudid) 0.5 - 1 mg IVPUSH Q3H PRN PRN Reason: Pain Last Admin: 02/11/19 22:13 Dose: 1 mg Admin: 02/11/19 09:05 Dose: 1 mg Admin: 02/10/19 23:23 Dose: 1 mg Admin: 02/10/19 18:25 Dose: 1 mg Admin: 02/10/19 03:32 Dose: 1 mg Admin: 02/10/19 00:39 Dose: 1 mg Daptomycin 600 mg/ Sodium (Chloride) 12 mls @ 180 mls/hr IVPUSH Q24H [facility] Ketorolac Tromethamine (Toradol) 30 mg IVPUSH Q6H [facility] Last Admin: 02/12/19 08:48 Dose: 30 mg Admin: 02/12/19 02:52 Dose: 30 mg Admin: 02/11/19 21:08 Dose: 30 mg Admin: 02/11/19 16:13 Dose: 30 mg Admin: 02/11/19 09:06 Dose: 30 mg Admin: 02/11/19 03:02 Dose: 30 mg Admin: 02/10/19 20:46 Dose: 30 mg Admin: 02/10/19 15:03 Dose: 30 mg Admin: 02/10/19 10:04 Dose: 30 mg Admin: 02/10/19 03:30 Dose: 30 mg Admin: 02/09/19 22:16 Dose: 30 mg Lorazepam (Ativan) 0.5 mg IVPUSH Q6H PRN PRN Reason: Anxiety Last Admin: 02/09/19 22:03 Dose: 0.5 mg Losartan Potassium (Cozaar) 25 mg PO DAILY [facility] Last Admin: 02/12/19 08:46 Dose: 25 mg Admin: 02/11/19 09:07 Dose: 25 mg Admin: 02/10/19 14:32 Dose: 25 mg Metoclopramide HCl (Reglan) 10 mg IVPUSH Q6H [facility] Last Admin: 02/12/19 08:50 Dose: 10 mg Admin: 02/12/19 02:53 Dose: 10 mg Admin: 02/11/19 21:09 Dose: 10 mg Admin: 02/11/19 14:44 Dose: 10 mg Admin: 02/11/19 09:06 Dose: 10 mg Admin: 02/11/19 03:02 Dose: 10 mg Admin: 02/10/19 20:42 Dose: 10 mg Admin: 02/10/19 14:32 Dose: 10 mg Admin: 02/10/19 10:04 Dose: 10 mg Metoprolol Succinate (Toprol Xl) 50 mg PO DAILY [facility] Last Admin: 02/12/19 08:45 Dose: 50 mg Admin: 02/11/19 09:07 Dose: 50 mg Ondansetron HCl (Zofran) 4 mg IVPUSH Q4H PRN PRN Reason: Nausea/Vomiting Last Admin: 02/10/19 18:25 Dose: 4 mg Admin: 02/10/19 03:31 Dose: 4 mg Admin: 02/09/19 22:08 Dose: 4 mg Promethazine HCl (Phenadoz) 12.5 mg RECTAL Q6H PRN PRN Reason: Nausea/Vomiting Last Admin: 02/10/19 09:06 Dose: 12.5 mg Scopolamine (Transderm-Scop) 1.5 mg TRDERM Q72H PRN PRN Reason: Nausea/Vomiting Last Admin: 02/09/19 19:57 Dose: 1.5 mg Sodium Chloride (Saline Flush) 10 ml FLUSH ASDIRECTED PRN PRN Reason: Keep Vein Open Sodium Chloride (Saline Flush) 2.5 ml FLUSH ASDIRECTED PRN PRN Reason: Keep Vein Open Trimethoprim/Sulfamethoxazole (Septra Ds) 1 tab PO BID [facility] - Plan Plan (Free Text/Narrative):: Discussed above findings with Bandar. Agree with plan. 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 PICC line today, will switch to Cubicin for antibiotic. Culture + for enterococcus. Sensitivities show multiple sensitivities to antibiotics, however with patient's extensive allergy profile, this seems to be most appropriate for minimal dosing. She will need to travel daily to obtain the antibiotics. Follow up as previously discussed in note. jax
[2019-02-12] MEDS: Acetaminophen/HYDROcodone 325-10 MG Tab PO PRN (08:50)
--- NOTE | 2019-02-12 09:53 | PCM.CONSN ---
- General Info Date of Service: 02/12/19 Admission Dx/Problem (Free Text): Admission Diagnosis/Problem Admission Diagnosis/Problem Wound infection following procedure Subjective Update: Doing well this morning. Knee pain creeping up. No other concerns. Wanting to go home. Functional Status: Reports: Pain Controlled, Tolerating Diet, Ambulating, Urinating - Review of Systems General: Reports: No Symptoms. Denies: Fever, Weakness HEENT: Reports: No Symptoms. Denies: Headaches, Sore Throat, Visual Changes Pulmonary: Reports: No Symptoms. Denies: Shortness of Breath, Cough, Sputum Cardiovascular: Reports: No Symptoms. Denies: Chest Pain, Edema Gastrointestinal: Reports: No Symptoms. Denies: Abdominal Pain, Nausea, Vomiting Genitourinary: Reports: No Symptoms. Denies: Dysuria, Frequency, Burning Neurological: Reports: No Symptoms. Denies: Confusion - Patient Data Vitals - Most Recent: Last Vital Signs Temp 97.7 F 02/12/19 08:39 Pulse 67 02/12/19 08:45 Resp 16 02/12/19 08:39 BP 128/80 02/12/19 08:46 Pulse Ox 98 02/12/19 08:39 Weight - Most Recent: 101.605 kg I&O - Last 24 Hours: Intake & Output 02/11/19 02/12/19 02/12/19 22:59 06:59 14:59 Intake Total 1347 550 100 Output Total 1750 1610 Balance -403 -1060 100 Lab Results Last 24 Hours: Laboratory Results - last 24 hr 02/12/19 02/12/19 Range/Units 04:55 04:55 WBC 8.70 (4.0-11.0) K/uL RBC 3.07 L (4.30-5.90) M/uL Hgb 8.6 L (12.0-16.0) g/dL Hct 26.6 L (36.0-46.0) % MCV 86.6 (80.0-98.0) fL MCH 28.0 (27.0-32.0) pg MCHC 32.3 (31.0-37.0) g/dL RDW Std Deviation 46.4 (28.0-62.0) fl RDW Coeff of Mckenna 15 (11.0-15.0) % Plt Count 372 (150-400) K/uL MPV 9.40 (7.40-12.00) fL Neut % (Auto) 56.3 (48.0-80.0) % Lymph % (Auto) 22.9 (16.0-40.0) % [place] % (Auto) 8.9 (0.0-15.0) % Eos % (Auto) 11.4 H (0.0-7.0) % Baso % (Auto) 0.5 (0.0-1.5) % Neut # (Auto) 4.9 (1.4-5.7) K/uL Lymph # (Auto) 2.0 (0.6-2.4) K/uL [place] # (Auto) 0.8 (0.0-0.8) K/uL Eos # (Auto) 1.0 H (0.0-0.7) K/uL Baso # (Auto) 0.0 (0.0-0.1) K/uL Nucleated RBC % 0.0 /100WBC Nucleated RBCs # 0 K/uL ESR 78 H (0-29) mm/hr C-Reactive Protein 5.30 H (0.00-0.90) mg/dL Daniel Results Last 24 Hours: Microbiology 02/10/19 08:35 Urine Culture - Final Urine, Vasquez Cath (Indwelling) No Growth 02/09/19 15:40 Gram Stain - Preliminary Knee, Left Wound Culture - Final Enterococcus Faecalis Anaerobic Culture - Final NO ANAEROBES ISOLATED 02/09/19 11:07 Aerobic Blood Culture - Preliminary Blood - Venous - Lab Draw NO GROWTH AFTER 2 DAYS Anaerobic Blood Culture - Final 02/09/19 10:53 Aerobic Blood Culture - Preliminary Blood - Venous NO GROWTH AFTER 2 DAYS Anaerobic Blood Culture - Preliminary NO GROWTH AFTER 2 DAYS Med Orders - Current: Current Medications Hydrocodone Bitart/Acetaminophen ([place] 325-10 Mg) 1 - 2 tab PO Q4H PRN PRN Reason: Pain Last Admin: 02/12/19 08:50 Dose: 2 tab Aspirin (Aspirin) 325 mg PO BID [facility] Last Admin: 02/12/19 08:44 Dose: 325 mg Diphenhydramine HCl (Benadryl) 25 mg IVPUSH Q4H PRN PRN Reason: Itching Last Admin: 02/10/19 03:32 Dose: 25 mg Diphenhydramine HCl (Benadryl) 25 mg IVPUSH Q6H PRN PRN Reason: Nausea Docusate Sodium (Colace) 100 mg PO BID [facility] Last Admin: 02/12/19 08:44 Dose: 100 mg Famotidine (Pepcid) 40 mg PO DAILY [facility] Last Admin: 02/12/19 08:46 Dose: 40 mg Hydromorphone HCl (Dilaudid) 0.5 - 1 mg IVPUSH Q3H PRN PRN Reason: Pain Last Admin: 02/11/19 22:13 Dose: 1 mg Meropenem 1 gm/ Sodium (Chloride) 100 mls @ 200 mls/hr IV Q8H [facility] Last Admin: 02/12/19 02:51 Dose: 200 mls/hr Daptomycin 600 mg/ Sodium (Chloride) 12 mls @ 180 mls/hr IVPUSH Q24H [facility] Ketorolac Tromethamine (Toradol) 30 mg IVPUSH Q6H [facility] Last Admin: 02/12/19 08:48 Dose: 30 mg Lorazepam (Ativan) 0.5 mg IVPUSH Q6H PRN PRN Reason: Anxiety Last Admin: 02/09/19 22:03 Dose: 0.5 mg Losartan Potassium (Cozaar) 25 mg PO DAILY [facility] Last Admin: 02/12/19 08:46 Dose: 25 mg Metoclopramide HCl (Reglan) 10 mg IVPUSH Q6H [facility] Last Admin: 02/12/19 08:50 Dose: 10 mg Metoprolol Succinate (Toprol Xl) 50 mg PO DAILY [facility] Last Admin: 02/12/19 08:45 Dose: 50 mg Ondansetron HCl (Zofran) 4 mg IVPUSH Q4H PRN PRN Reason: Nausea/Vomiting Last Admin: 02/10/19 18:25 Dose: 4 mg Promethazine HCl (Phenadoz) 12.5 mg RECTAL Q6H PRN PRN Reason: Nausea/Vomiting Last Admin: 02/10/19 09:06 Dose: 12.5 mg Scopolamine (Transderm-Scop) 1.5 mg TRDERM Q72H PRN PRN Reason: Nausea/Vomiting Last Admin: 02/09/19 19:57 Dose: 1.5 mg Sodium Chloride (Saline Flush) 10 ml FLUSH ASDIRECTED PRN PRN Reason: Keep Vein Open Sodium Chloride (Saline Flush) 2.5 ml FLUSH ASDIRECTED PRN PRN Reason: Keep Vein Open Discontinued Medications Hydrocodone Bitart/Acetaminophen ([place] 325-5 Mg) 2 tab PO Q6H PRN PRN Reason: Pain (moderate 4-6) Albuterol (Proventil Neb Soln) 2.5 mg NEB Q6HRRT PRN PRN Reason: Wheezing Atropine Sulfate (Atropine 0.1 Mg/Ml) 0.4 mg IVPUSH Q5M PRN PRN Reason: Bradycardia Dexamethasone (Dexamethasone) Confirm Administered Dose 20 mg .ROUTE .STK-MED ONE Stop: 02/09/19 15:24 Enalaprilat (Vasotec Iv) 0.625 mg IVPUSH ONETIME ONE Stop: 02/10/19 08:41 Last Admin: 02/10/19 10:07 Dose: 0.625 mg Famotidine (Pepcid) 40 mg IVPUSH NOW STA Stop: 02/10/19 08:42 Last Admin: 02/10/19 10:25 Dose: 40 mg Fentanyl (Sublimaze) 50 mcg IVPUSH Q5M PRN PRN Reason: Pain (severe 7-10) Stop: 02/10/19 16:00 Hydralazine HCl (Apresoline) 5 mg IVPUSH ONETIME PRN PRN Reason: Hypertension Hydralazine HCl (Apresoline) 10 mg IVPUSH ONETIME PRN PRN Reason: Hypertension Hydromorphone HCl (Dilaudid [employer] 6 Mg In Ns 30 Ml) 6 mg IV ASDIRECTED PRN; Protocol PRN Reason: Pain Hydromorphone HCl (Dilaudid) 0.5 - 1 mg IVPUSH Q3H PRN PRN Reason: Pain Hydromorphone HCl (Dilaudid) 0.25 mg IVPUSH Q10M PRN PRN Reason: Pain (severe 7-10) Stop: 02/10/19 16:00 Clindamycin Phosphate 900 mg/ (Premix) 50 mls @ 100 mls/hr IV ONCALL [facility] Last Admin: 02/10/19 06:42 Dose: 100 mls/hr Clindamycin Phosphate 900 mg/ (Premix) 50 mls @ 100 mls/hr IV Q8H [facility] Stop: 02/11/19 15:34 Last Admin: 02/10/19 06:44 Dose: 100 mls/hr Lactated Ringer's (Ringers, Lactated) 1,000 mls @ 100 mls/hr IV ASDIRECTED [facility] Last Admin: 02/11/19 07:45 Dose: 100 mls/hr Clindamycin Phosphate 900 mg/ (Premix) 50 mls @ 100 mls/hr IV Q8H [facility] Last Admin: 02/12/19 06:08 Dose: 100 mls/hr Ketamine HCl (Ketalar) Confirm Administered Dose 500 mg .ROUTE .STK-MED ONE Stop: 02/09/19 15:13 Ketorolac Tromethamine (Toradol) 30 mg IVPUSH ONETIME ONE Stop: 02/09/19 11:02 Last Admin: 02/09/19 12:04 Dose: 30 mg Ketorolac Tromethamine (Toradol) 30 mg IVPUSH Q6H PRN PRN Reason: Pain Stop: 02/14/19 15:08 Ketorolac Tromethamine (Toradol) Confirm Administered Dose 60 mg .ROUTE .STK- MED ONE Stop: 02/09/19 15:24 Labetalol HCl (Normodyne) 10 mg IVPUSH Q6H PRN PRN Reason: Hypertension Stop: 02/10/19 16:00 Lidocaine (Xylocaine-Mpf 2%) Confirm Administered Dose 5 ml .ROUTE .STK-MED ONE Stop: 02/10/19 09:46 Last Admin: 02/10/19 11:14 Dose: Not Given Lidocaine HCl (Xylocaine-Mpf 1%) Confirm Administered Dose 2 ml .ROUTE .STK-MED ONE Stop: 02/09/19 11:55 Last Admin: 02/09/19 13:46 Dose: Not Given Lorazepam (Ativan) 0.5 mg IVPUSH ONETIME ONE Stop: 02/09/19 11:14 Last Admin: 02/09/19 12:05 Dose: 0.5 mg Meperidine HCl (Demerol) 12.5 mg IVPUSH ONETIME PRN PRN Reason: Shivering Meperidine HCl (Demerol) 25 mg IV ONETIME PRN PRN Reason: Shivering Metoclopramide HCl (Reglan) 10 mg IVPUSH ONETIME PRN PRN Reason: Nausea Metoclopramide HCl (Reglan) 10 mg IV ONETIME ONE Stop: 02/09/19 21:33 Last Admin: 02/09/19 22:13 Dose: 10 mg Metoprolol Succinate (Toprol Xl) 50 mg PO ONETIME ONE Stop: 02/10/19 21:38 Metoprolol Succinate (Toprol Xl) 50 mg PO BID [facility] Last Admin: 02/10/19 10:30 Dose: 50 mg Metoprolol Succinate (Toprol Xl) 50 mg PO ONETIME ONE Stop: 02/09/19 21:49 Last Admin: 02/09/19 22:24 Dose: 50 mg Midazolam HCl (Versed 1 Mg/Ml) Confirm Administered Dose 2 mg .ROUTE .STK-MED ONE Stop: 02/09/19 15:17 Morphine Sulfate (Morphine) 4 mg IVPUSH Q10M PRN PRN Reason: Pain (severe 7-10) Stop: 02/10/19 16:00 Naloxone HCl (Narcan) 0.1 mg IVPUSH ONETIME PRN PRN Reason: Respiratory Depression Ondansetron HCl (Zofran) 4 mg IVPUSH Q6H PRN PRN Reason: Nausea/Vomiting Last Admin: 02/09/19 18:49 Dose: 4 mg Ondansetron HCl (Zofran) 8 mg IVPUSH ONETIME PRN PRN Reason: Nausea Promethazine HCl (Phenergan) 12.5 mg IM ONETIME PRN PRN Reason: Nausea Promethazine HCl (Phenergan) 25 mg IM ONETIME ONE Stop: 02/09/19 19:30 Last Admin: 02/09/19 19:56 Dose: 25 mg Propofol (Diprivan 20 Ml) Confirm Administered Dose 200 mg .ROUTE .STK-MED ONE Stop: 02/09/19 15:11 Propofol (Diprivan 20 Ml) Confirm Administered Dose 200 mg .ROUTE .STK-MED ONE Stop: 02/09/19 15:47 Propofol (Diprivan 20 Ml) Confirm Administered Dose 400 mg .ROUTE .STK-MED ONE Stop: 02/09/19 15:49 Scopolamine (Transderm-Scop) 1.5 mg TRDERM Q72H PRN PRN Reason: Nausea - Exam General: Alert, Oriented, Cooperative Lungs: Clear to Auscultation, Normal Respiratory Effort Cardiovascular: Regular Rate, Regular Rhythm Extremities: Normal Inspection, No Pedal Edema Wound/Incisions: Dressing Dry and Intact, No Drainage Neurological: No New Focal Deficit Psy/Mental Status: Alert, Normal Affect, Normal Mood Consult PN Assessment/Plan Procedures: Procedures BLOOD TYPING SEROLOGIC ABO (01/05/19) BLOOD TYPING SEROLOGIC RH(D) (01/05/19) COMPLETE CBC W/AUTO DIFF WBC (01/26/19) COMPREHEN METABOLIC PANEL (01/26/19) DECALCIFY TISSUE (01/05/19) EMERGENCY DEPT VISIT (01/26/19) GAIT TRAINING THERAPY (01/26/19) HEMATOCRIT (01/05/19) HEMOGLOBIN (01/05/19) MRI JNT OF LWR EXTRE W/O DYE (11/04/18) OFFICE/OUTPATIENT VISIT NEW (04/27/14) PROTHROMBIN TIME (01/26/19) PT EVAL LOW COMPLEX 20 MIN (01/26/19) RBC ANTIBODY SCREEN (01/05/19) ROUTINE VENIPUNCTURE (01/26/19) THER/PROPH/DIAG INJ SC/IM (01/26/19) THER/PROPH/DIAG IV INF ADDON (01/26/19) THER/PROPH/DIAG IV INF INIT (01/26/19) THERAPEUTIC ACTIVITIES (01/26/19) THERAPEUTIC EXERCISES (01/26/19) TISSUE EXAM BY PATHOLOGIST (01/05/19) TX/PRO/DX INJ NEW DRUG ADDON (01/26/19) TX/PRO/DX INJ SAME DRUG ROLLER STAKER (01/26/19) X-RAY EXAM CHEST 2 VIEWS (12/15/18) X-RAY EXAM KNEE 4 OR MORE (02/26/17) X-RAY EXAM OF ANKLE (04/27/14) X-RAY EXAM OF FEMUR 2/> (01/26/19) X-RAY EXAM OF KNEE 1 OR 2 (01/05/19) X-RAY EXAM OF KNEE 3 (01/26/19) X-RAY EXAM OF PELVIS (01/26/19) (1) Postoperative wound infection SNOMED Code(s): 33522015, 105983539 Code(s): T81.49XA - INFECTION FOLLOWING A PROCEDURE, OTHER SURGICAL SITE, INIT Current Visit: Yes (2) History of total knee replacement SNOMED Code(s): 5672981625115, 6300169983306, 95786524549296 Code(s): Z96.659 - PRESENCE OF UNSPECIFIED ARTIFICIAL KNEE JOINT Current Visit: No Qualifiers: Laterality: left Qualified Code(s): Z96.652 - Presence of left artificial knee joint (3) HTN (hypertension) SNOMED Code(s): 40770734 Code(s): I10 - ESSENTIAL (PRIMARY) HYPERTENSION Current Visit: Yes Qualifiers: Hypertension type: essential hypertension Qualified Code(s): I10 - Essential (primary) hypertension (4) UTI (urinary tract infection) SNOMED Code(s): 70198381 Code(s): N39.0 - URINARY TRACT INFECTION, SITE NOT SPECIFIED Current Visit : Yes Qualifiers: Indwelling urinary catheter type: indwelling urethral catheter Encounter type: initial encounter Problem List Initiated/Reviewed/Updated: Yes My Orders Last 24 Hours: My Active Orders 02/11/19 09:00 Metoprolol Succinate [Toprol XL] 50 mg PO DAILY Plan: This 53 year old female admitted with post-operative wound infection. Hospitalist service consulted for HTN 1. Post-operative wound infection. Orders per Orthopedics. On Clindamycin. Cultures pending. 2. HTN: Improved, Continue Cozaar and Metoprolol. 3. UTI: UC no growth, but will continue Bactrim DS for 3 more days to insure adequate coverage, since UA was obtained post antibiotics administration. patient aware. VTE prophylaxis: Would recommended when deemed appropriate by Orthopedics. Hospitalist team appreciates consult. We will sign off at this time. Please contact if any concerns should arise
[2019-02-12] MEDS ORDERED: Sulfamethoxazole/Trimethoprim 800-160 MG Tab PO SCH (11:00)
[2019-02-12] MEDS ORDERED: DAPTOmycin 600 MG in Sodium Chloride 0.9% 12 ML IVPUSH SCH (12:00)
--- NOTE | 2019-02-12 12:48 | PCM.SN ---
- Free Text/Narrative Note: d/ch summary #[id number]
--- NOTE | 2019-02-12 14:14 | CR ---
EXAMINATION: Fluoro and ultrasound guided right-sided PICC line placement. HISTORY: Long-term antibiotics. TECHNIQUE/FINDINGS: After written informed consent was obtained from the patient using ultrasound and Fluoro guidance under aseptic conditions utilizing 1% lidocaine as local anesthesia right basilic vein was accessed and 5 [place] dual-lumen power injectable PICC catheter was deployed with its tip in the distal superior vena cava. The catheter flushes and withdraws blood well. The catheter is flushed with the diluted heparin. The catheter secured well. IMPRESSION: Successful Fluoro and ultrasound guided PICC line placement.
--- NOTE | 2019-02-12 14:14 | CR ---
EXAMINATION: Fluoro and ultrasound guided right-sided PICC line placement. HISTORY: Long-term antibiotics. TECHNIQUE/FINDINGS: After written informed consent was obtained from the patient using ultrasound and Fluoro guidance under aseptic conditions utilizing 1% lidocaine as local anesthesia right basilic vein was accessed and 5 [place] dual-lumen power injectable PICC catheter was deployed with its tip in the distal superior vena cava. The catheter flushes and withdraws blood well. The catheter is flushed with the diluted heparin. The catheter secured well. IMPRESSION: Successful Fluoro and ultrasound guided PICC line placement.
--- NOTE | 2019-02-16 08:13 | DISCH ---
DATE OF DISCHARGE: 02/12/2019 PRIMARY CARE PHYSICIAN: Irais Chow ADMITTING DIAGNOSIS: Status post left total knee arthroplasty. OTHER MEDICAL DIAGNOSES: 1. Hypertension. 2. Gastroesophageal reflux disease. 3. Cyclic vomiting syndrome. 4. Anxiety/depression. 5. B12 deficiency. 6. Obesity. 7. Pustular psoriasis. DISCHARGE DIAGNOSES: 1. Status post left total knee arthroplasty. 2. Hypertension. 3. Gastroesophageal reflux disease. 4. Cyclic vomiting syndrome. 5. Anxiety/depression. 6. B12 deficiency. 7. Obesity. 8. Pustular psoriasis. 9. Acute post hemorrhagic anemia. 10.Periprosthetic joint infection. BRIEF HISTORY: Rossana is a 53-year-old female who has previously undergone a left total knee arthroplasty approximately 4 weeks ago. She did have a fall approximately 2 weeks ago and subsequently underwent debridement of the knee. She was found to have a deep dehiscence of the incision, which was repaired. She was discharged home with a knee immobilizer. She has been minimally compliant with the immobilizer. She had an increase in pain and new drainage from the inferior portion of the incision. She contacted the clinic, and we recommended presentation to the Emergency Department for further evaluation. After evaluation in the Emergency Department, x-rays, and laboratory studies, it was recommended that she undergo repeat surgical exploration. On February 09, 2019, the patient underwent excisional debridement of left total knee arthroplasty with repair of fascial defect and polyethylene exchange, done by Dr. Susanne Muse. This was done under spinal anesthesia with sedation. Estimated blood loss was 25 mL. There was no tourniquet time. There were no known complications. Upon completion of the procedure, the patient was transferred to the PACU and subsequently to Med/Surg for postoperative care. HOSPITAL COURSE: Postoperatively, the patient was continued on clindamycin while we awaited deep wound cultures. Hospitalist was consulted for management of her postoperative hypertension, not related to pain control. Her urine was found to be quite cloudy and sedimentous, and urinalysis revealed evidence of a urinary tract infection, which was managed by the hospitalist team as well. Physical Therapy followed her through her hospital stay. She has been in a knee immobilizer. She had a significant amount of nausea postoperatively, which has been resolving. She is tolerating a bland/soft diet. Her pain is well controlled with [place] 10/325. Her vital signs have stabilized. She has been afebrile. Her hemoglobin on the morning of February 12 was 8.6. Her ESR is 78. Her CRP has improved to 5.3. She no longer has a leukocytosis. Blood cultures done on the day of admission showed no growth. Gram stain done at the time of surgery revealed few white blood cells and no organisms. Final wound culture revealed sparse growth of Enterococcus faecalis. This is sensitive to several antibiotics, however, with her significant allergy profile, we elected to proceed with 600 mg of daptomycin every 24 hours. She was sent for a PICC line, which was placed earlier today. She was planning on receiving antibiotics on an outpatient basis at [facility] in [place]. Prescription for her antibiotics, laboratory studies, and PICC line dressing changes have been provided. She will continue with [place] 10/325 for pain management. She will continue with aspirin 325 mg by mouth twice daily as DVT prophylaxis. She is scheduled for followup in clinic in 10 to 14 days. Her pain is well controlled. She is ambulating well with crutches and a knee immobilizer. She would like to be discharged home today after final antibiotic arrangements are complete. DISCHARGE MEDICATIONS: 1. [place] 10/325. 2. Daptomycin 600 mg via PICC line daily x41 days. 3. Aspirin 325 mg. DISCHARGE INSTRUCTIONS: 1. Follow up in clinic in 10 to 14 days from the date of procedure as scheduled for her. 2. Wear knee immobilizer at all times. 3. Daily dressing changes to the wound, specified in her discharge plan. 4. Weightbearing as tolerated. 5. No knee flexion, no physical therapy until followup in clinic. For complete medication reconciliation and discharge instructions, please refer back to the patient's EHR. Should she have questions or concerns prior to her followup appointment, she has been advised to contact the clinic. AFIA SORTO /[phone]
== END 2019-02-12 14:25 | disposition home or self-care (01) | DRG 857 ==
LOC: MW.ED 10:15 → MW.SDS 14:30 → MW.MS 14:42 → MW.SDS 23:42 → MW.MS 23:57
PROVIDERS: ADMIT Orthopaedic Surgery; ATTEND Orthopaedic Surgery
PROC: 0SUW09Z Supplement Left Knee Joint, Tibial Surface with Liner, Open Approach (ICD-10-PCS; principal; 2019-02-09)
PROC: 02HV33Z Insertion of Infusion Device into Superior Vena Cava, Percutaneous Approach (ICD-10-PCS; 2019-02-12)
PROC: B5181ZA Fluoroscopy of Superior Vena Cava using Low Osmolar Contrast, Guidance (ICD-10-PCS; 2019-02-12)
DX: T81.49XA Infection following a procedure, other surgical site, initial encounter (principal); T81.32XA Disruption of internal operation (surgical) wound, not elsewhere classified, initial encounter; N39.0 Urinary tract infection, site not specified; M96.840 Postprocedural hematoma of a musculoskeletal structure following a musculoskeletal system procedure; D62 Acute posthemorrhagic anemia; Y83.8 Other surgical procedures as the cause of abnormal reaction of the patient, or of later complication, without mention of misadventure at the time of the procedure; I10 Essential (primary) hypertension; K21.9 Gastro-esophageal reflux disease without esophagitis; G43.A0 Cyclical vomiting, in migraine, not intractable; M19.90 Unspecified osteoarthritis, unspecified site; F41.9 Anxiety disorder, unspecified; F32.9 Major depressive disorder, single episode, unspecified; E66.9 Obesity, unspecified; E53.8 Deficiency of other specified B group vitamins; L40.3 Pustulosis palmaris et plantaris; Z90.49 Acquired absence of other specified parts of digestive tract; Z88.1 Allergy status to other antibiotic agents; Z88.5 Allergy status to narcotic agent; Z88.0 Allergy status to penicillin; Z88.8 Allergy status to other drugs, medicaments and biological substances; Z96.652 Presence of left artificial knee joint; Z79.899 Other long term (current) drug therapy; Z79.82 Long term (current) use of aspirin; Z90.710 Acquired absence of both cervix and uterus; Z68.34 Body mass index [BMI] 34.0-34.9, adult; B95.2 Enterococcus as the cause of diseases classified elsewhere
CPT/HCPCS: 36415; 73560; 80053; 85025; 85652; 86140; 87040 ×2; 88300; 96374; 96375; 99285; J1885; J2060; 36569; 76937; 76937-26; 77001; 77001-26; 80048; 81001; 87070; 87075; 87077; 87086; 87186; 87205; 99284; A9270-GY; C1776; J0878; J1100; J1170; J1200; J2185; J2250; J2405; J2550; J2704; J2765; J3490; J7030; J7120

== ENCOUNTER 2019-03-21 11:04 | Observation (INO) | payer MEDICARE, OTHER ==
[2019-03-21] MEDS ORDERED: Ondansetron 4 MG/2 ML SDV ONE ×2 (11:20→18:27)
[2019-03-21] MEDS ORDERED: Ondansetron 4 MG/2 ML SDV IVPUSH ONE (11:20)
[2019-03-21] MEDS ORDERED: HYDROmorphone 2 MG/ML SDV IVPUSH ONE (11:39)
[2019-03-21] MEDS ORDERED: HYDROmorphone 1 MG/ML Syringe ONE (11:46)
[2019-03-21] MEDS ORDERED: HYDROmorphone 1 MG/ML Syringe IVPUSH ONE ×2 (11:47→13:41)
--- NOTE | 2019-03-21 12:40 | EDM.PDOC ---
ED HPI GENERAL MEDICAL PROBLEM - General Chief Complaint: Gastrointestinal Problem Stated Complaint: STOMACH PAIN Time Seen by Provider: 03/21/19 11:30 Source of Information: Reports: Patient History Limitations: Reports: Other (Gagging and vomiting) - History of Present Illness INITIAL COMMENTS - FREE TEXT/NARRATIVE: Presents to the emergency room reporting vomiting since this morning. The patient has a history of cyclical vomiting. On other occasions she has had to come to the emergency room at those times she was given a dose of Dilaudid and Zofran which relieved her symptoms. She is currently on daptomycin by PICC line for a knee infection. No fever abdominal pain Pain Score (Numeric/FACES): 7 - Related Data Allergies Allergy/AdvReac Type Severity Reaction Status Date / Time acetaminophen [From Percocet] Allergy Nausea and Verified 03/21/19 11:19 Vomiting celecoxib Allergy Swelling Verified 03/21/19 11:19 cephalexin [From Keflex] Allergy Hives Verified 03/21/19 11:19 Cephalosporins Allergy Hives Verified 03/21/19 11:19 ciprofloxacin [From Cipro] Allergy Hives Verified 03/21/19 11:19 ciprofloxacin HCl Allergy Hives Verified 03/21/19 11:19 [From Cipro] gentamicin Allergy Hives Verified 03/21/19 11:19 morphine Allergy Nausea and Verified 03/21/19 11:19 Vomiting oxycodone [From Percocet] Allergy Nausea and Verified 03/21/19 11:19 Vomiting Penicillins Allergy Rash Verified 03/21/19 11:19 anesthetic cream Allergy Hives Uncoded 03/21/19 11:19 Home Meds: Home Meds Clobetasol [Clobetasol Propionate 0.05% Cream] 1 dose TOP BID PRN 01/01/19 [ History] Cyanocobalamin (Vitamin B-12) [Cyanocobalamin Injection] 1,000 mcg IM .Q2WEEK [History] Escitalopram Oxalate 10 mg PO DAILY 01/01/19 [History] Estropipate 1.5 mg PO DAILY 01/01/19 [History] Methotrexate 7.5 mg PO WEEKLY 01/01/19 [History] Magnesium Oxide [Magnesium] 400 mg PO BID 01/26/19 [History] Metoprolol Succinate 50 mg PO DAILY 01/26/19 [History] Estrogens, Conjugated [Premarin] 0.625 mg VAG .2TIMES PER WEEK 02/10/19 [History ] Losartan [Cozaar] 25 mg PO DAILY 02/10/19 [History] Mupirocin Oint [Bactroban Oint] 22 gm NASBOTH BID 02/10/19 [History] Acetaminophen/HYDROcodone [[place] 325-10 MG] 1 - 2 tab PO Q4H PRN #60 tablet [Rx] Aspirin 325 mg PO BID #60 tablet 02/12/19 [Rx] DAPTOmycin [Cubicin Rf] 600 mg IV DAILY #41 vial 02/12/19 [Rx] Docusate Sodium [Colace] 100 mg PO BID #60 cap 02/12/19 [Rx] Sulfamethoxazole/Trimethoprim [Bactrim Ds Tablet] 1 each PO BID #5 tablet [Rx] Ondansetron [Zofran ODT] 1 tab PO Q6H PRN #4 tab.dis 03/21/19 [Rx] Past Medical History HEENT History: Reports: Other (See Below) Other HEENT History: has upper partial denture x2, has upper and lower dental implants Cardiovascular History: Reports: Hypertension Respiratory History: Reports: None Gastrointestinal History: Reports: GERD, Other (See Below) Other Gastrointestinal History: was previously thought to hace Ulcerative colitis, now is diagnosed with Cyclic Vomiting Syndrome- had recent episode Musculoskeletal History: Reports: Osteoarthritis Neurological History: Reports: None Psychiatric History: Reports: Anxiety, Depression Endocrine/Metabolic History: Reports: Obesity/BMI 30+ Hematologic History: Reports: B12 Deficiency Immunologic History: Reports: None Oncologic (Cancer) History: Reports: None Dermatologic History: Reports: Psoriasis Other Dermatologic History: has Palmar Plantar Pustular psoriasis - Infectious Disease History Infectious Disease History: Reports: Chicken Pox - Past Surgical History Head Surgeries/Procedures: Reports: None GI Surgical History: Reports: Cholecystectomy Female Surgical History: Reports: Hysterectomy, Salpingo-Oophorectomy, Tubal Ligation, Other (See Below) Other Female Surgeries/Procedures: Laparoscopies with Ovarian Wedge resection and Lysis of Adhesions Musculoskeletal Surgical History: Reports: Arthroscopic Knee, Knee Replacement, ORIF Other Musculoskeletal Surgeries/Procedures:: ACL repair left knee, ORIF right ankle (has plate and screws) Social & Family History - Family History Family Medical History: Noncontributory Cardiac: Reports: None - Tobacco Use Smoking Status *Q: Never Smoker - Caffeine Use Caffeine Use: Reports: Coffee, Tea - Recreational Drug Use Recreational Drug Use: No ED ROS GENERAL - Review of Systems Review Of Systems: ROS reveals no pertinent complaints other than HPI. ED EXAM, GI/ABD - Physical Exam Exam: See Below Exam Limited By: Other (Retching and vomiting) General Appearance: Alert, Moderate Distress, Active Emesis Ears: Normal External Exam Nose: Normal Inspection Throat/Mouth: Normal Inspection Head: Atraumatic, Normocephalic Neck: Normal Inspection Respiratory/Chest: No Respiratory Distress, Lungs Clear, Normal Breath Sounds Cardiovascular: Normal Peripheral Pulses, Regular Rate, Rhythm, No Murmur GI/Abdominal Exam: Normal Bowel Sounds, Soft, Non-Tender, No Distention Extremities: Normal Inspection Neurological: Alert Psychiatric: Anxious Skin Exam: Warm, Dry, Intact, Normal Color, No Rash Lymphatic: No Adenopathy Course - Vital Signs Last Recorded V/S: Last Vital Signs Temp 35.8 C 03/21/19 11:19 Pulse 76 03/21/19 11:27 Resp 18 03/21/19 11:27 BP 176/105 H 03/21/19 11:27 Pulse Ox 98 03/21/19 11:27 - Orders/Labs/Meds Meds: Medications Discontinued Medications Generic Name Dose Route Start Last Admin Trade Name Farhat PRN Reason Stop Dose Admin Hydromorphone HCl 1 mg 03/21/19 11:39 03/21/19 11:48 Dilaudid IVPUSH 03/21/19 11:40 Not Given ONETIME ONE Hydromorphone HCl 1 mg 03/21/19 11:47 03/21/19 11:48 Dilaudid IVPUSH 03/21/19 11:48 1 mg ONETIME ONE Administration Hydromorphone HCl Confirm 03/21/19 11:46 03/21/19 11:51 Dilaudid Administered 03/21/19 11:47 Not Given Dose 1 mg .ROUTE .STK-MED ONE Ondansetron HCl 4 mg 03/21/19 11:20 03/21/19 11:25 Zofran IVPUSH 03/21/19 11:21 4 mg ONETIME ONE Administration Ondansetron HCl Confirm 03/21/19 11:20 03/21/19 11:25 Zofran Administered 03/21/19 11:21 Not Given Dose 4 mg .ROUTE .ST-MED ONE - Re-Assessments/Exams Free Text/Narrative Re-Assessment/Exam: 03/21/19 12:48 The patient was given Zofran and hydromorphone. Her vomiting and retching resolved. Sleeping. Departure - Departure Time of Disposition: 12:46 Disposition: Home, Self-Care 01 Condition: Good Clinical Impression: Cyclical vomiting syndrome - Discharge Information Prescriptions: Ondansetron [Zofran ODT] 1 tab PO Q6H PRN #4 tab.dis PRN Reason: Nausea Referrals: PCP,Unknown [Primary Care Provider] - [facility] [Outside] [facility] [Outside] Forms: ED Department Discharge Additional Instructions: 1. Follow up with antibiotics as previously scheduled 2. Follow-up with your primary provider regarding cyclical vomiting 3. Zofran ODT every 4-6 hours as needed. You have a prescription at home.
[2019-03-21] MEDS ORDERED: Sodium Chloride 0.9% 1,000 ML IV ONE ×2 (13:41→15:41)
--- NOTE | 2019-03-21 14:11 | PCM.SN ---
- Free Text/Narrative Note: Called by nursing as the patient has a PICC line that is not flushing. This patient is well known to me from previous IV starts. 24g PIV started to Left Hand, draws bllood and flushes with ease. Secured with tape and tegaderm. Pt tolerated placement well.
[2019-03-21] MEDS ORDERED: Promethazine 25 MG/ML SDV IM ONE (15:40)
[2019-03-21] MEDS ORDERED: LORazepam 2 MG/ML SDV IVPUSH ONE (15:41)
[2019-03-21] MEDS ORDERED: Labetalol 20 MG/4 ML Syringe IVPUSH ONE (17:17)
[2019-03-21] MEDS ORDERED: Labetalol 100 MG/20 ML MDV ONE (17:26)
--- NOTE | 2019-03-21 18:08 | PCM.HP ---
H&P History of Present Illness - General Date of Service: 03/21/19 Admit Problem/Dx: Admission Diagnosis/Problem Admission Diagnosis/Problem Cyclical vomiting syndrome Source of Information: Patient, Family History Limitations: Reports: No Limitations - History of Present Illness Initial Comments - Free Text/Narative: The patient is a 53-year-old lady who had presented to the emergency department with a complaint of nausea and vomiting and severe abdominal pain. The patient has a chronic history of cyclic vomiting. She reports that she has a feeling that she needs to throw up but is unable to and therefore will self-induced vomiting. The patient had remained many hours in the emergency department with fluid hydration as well as control of her nausea and vomiting. Her nausea and vomiting was refractory and she was admitted. Patient says the pain is located in the upper part of her abdomen. She's had no specific aggravating or relieving factors. The patient also has a history of going to [facility] for IV fluids and Dilaudid to help with the pain and the nausea and vomiting. Patient has denied any fever or chills. 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 She is been followed by Dr. Muse. Onset of Symptoms: Reports: Sudden Duration of Symptoms: Reports: Hour(s):, Resolved Prior to Arrival Location: Reports: Abdomen Quality: Reports: Ache, Stabbing, Throbbing Severity: Severe Improves with: Reports: None Worsens with: Reports: None Associated Symptoms: Reports: No Other Symptoms abdominal pain Pain Score (Numeric/FACES): 7 - Related Data Allergies/Adverse Reactions: Allergies Allergy/AdvReac Type Severity Reaction Status Date / Time acetaminophen [From Percocet] Allergy Nausea and Verified 03/21/19 11:19 Vomiting celecoxib Allergy Swelling Verified 03/21/19 11:19 cephalexin [From Keflex] Allergy Hives Verified 03/21/19 11:19 Cephalosporins Allergy Hives Verified 03/21/19 11:19 ciprofloxacin [From Cipro] Allergy Hives Verified 03/21/19 11:19 ciprofloxacin HCl Allergy Hives Verified 03/21/19 11:19 [From Cipro] gentamicin Allergy Hives Verified 03/21/19 11:19 morphine Allergy Nausea and Verified 03/21/19 11:19 Vomiting oxycodone [From Percocet] Allergy Nausea and Verified 03/21/19 11:19 Vomiting Penicillins Allergy Rash Verified 03/21/19 11:19 anesthetic cream Allergy Hives Uncoded 03/21/19 11:19 Home Medications: Home Meds Clobetasol [Clobetasol Propionate 0.05% Cream] 1 dose TOP BID PRN 01/01/19 [ History] Cyanocobalamin (Vitamin B-12) [Cyanocobalamin Injection] 1,000 mcg IM .Q2WEEK [History] Escitalopram Oxalate 10 mg PO DAILY 01/01/19 [History] Estropipate 1.5 mg PO DAILY 01/01/19 [History] Methotrexate 7.5 mg PO WEEKLY 01/01/19 [History] Magnesium Oxide [Magnesium] 400 mg PO BID 01/26/19 [History] Metoprolol Succinate 50 mg PO DAILY 01/26/19 [History] Estrogens, Conjugated [Premarin] 0.625 mg VAG .2TIMES PER WEEK 02/10/19 [History ] Losartan [Cozaar] 25 mg PO DAILY 02/10/19 [History] Mupirocin Oint [Bactroban Oint] 22 gm NASBOTH BID 02/10/19 [History] Acetaminophen/HYDROcodone [[place] 325-10 MG] 1 - 2 tab PO Q4H PRN #60 tablet [Rx] Aspirin 325 mg PO BID #60 tablet 02/12/19 [Rx] DAPTOmycin [Cubicin Rf] 600 mg IV DAILY #41 vial 02/12/19 [Rx] Docusate Sodium [Colace] 100 mg PO BID #60 cap 02/12/19 [Rx] Sulfamethoxazole/Trimethoprim [Bactrim Ds Tablet] 1 each PO BID #5 tablet [Rx] Ondansetron [Zofran ODT] 1 tab PO Q6H PRN #4 tab.dis 03/21/19 [Rx] DAPTOmycin [Cubicin] 600 mg IV Q24H vial 03/22/19 [Rx] Past Medical History HEENT History: Reports: Other (See Below) Other HEENT History: has upper partial denture x2, has upper and lower dental implants Cardiovascular History: Reports: Hypertension Respiratory History: Reports: None Gastrointestinal History: Reports: GERD, Other (See Below) Other Gastrointestinal History: was previously thought to hace Ulcerative colitis, now is diagnosed with Cyclic Vomiting Syndrome- had recent episode Musculoskeletal History: Reports: Osteoarthritis, Other (See Below) (Infected knee prosthesis) Neurological History: Reports: None Psychiatric History: Reports: Anxiety, Depression Endocrine/Metabolic History: Reports: Obesity/BMI 30+ Hematologic History: Reports: B12 Deficiency Immunologic History: Reports: None Oncologic (Cancer) History: Reports: None Dermatologic History: Reports: Psoriasis Other Dermatologic History: has Palmar Plantar Pustular psoriasis - Infectious Disease History Infectious Disease History: Reports: Chicken Pox - Past Surgical History Head Surgeries/Procedures: Reports: None GI Surgical History: Reports: Cholecystectomy Female Surgical History: Reports: Hysterectomy, Salpingo-Oophorectomy, Tubal Ligation, Other (See Below) Other Female Surgeries/Procedures: Laparoscopies with Ovarian Wedge resection and Lysis of Adhesions Musculoskeletal Surgical History: Reports: Arthroscopic Knee, Knee Replacement, ORIF Other Musculoskeletal Surgeries/Procedures:: ACL repair left knee, ORIF right ankle (has plate and screws) Social & Family History - Family History Family Medical History: Noncontributory Cardiac: Reports: None - Tobacco Use Smoking Status *Q: Never Smoker - Caffeine Use Caffeine Use: Reports: Coffee, Tea - Alcohol Use Alcohol Use History: No - Recreational Drug Use Recreational Drug Use: No - Living Situation & Occupation Living situation: Reports: with Family Occupation: Unemployed H&P Review of Systems - Review of Systems: Review Of Systems: See Below General: Reports: Weakness, Decreased Appetite HEENT: Reports: No Symptoms Pulmonary: Reports: No Symptoms Cardiovascular: Reports: No Symptoms Gastrointestinal: Reports: Abdominal Pain, Nausea, Vomiting Genitourinary: Reports: No Symptoms Musculoskeletal: Reports: Leg Pain Skin: Reports: No Symptoms Psychiatric: Reports: No Symptoms Neurological: Reports: No Symptoms Hematologic/Lymphatic: Reports: No Symptoms Immunologic: Reports: No Symptoms Exam - Exam Exam: See Below - Vital Signs Vital Signs: Last Vital Signs Temp 35.8 C 03/21/19 11:19 Pulse 79 03/21/19 17:48 Resp 20 03/21/19 17:48 BP 181/89 H 03/21/19 17:48 Pulse Ox 98 03/21/19 17:48 Weight: 98.43 kg - Exam Quality Assessment: Central Line/PICC (Right arm). No: Supplemental Oxygen General: Alert (The patient doubled over in sitting position), Oriented, Moderate Distress HEENT: Conjunctiva Clear, EACs Clear, EOMI, Hearing Intact, Nares Patent, PERRLA. No: Mucosa Moist & [place] (Dry) Neck: Supple, Trachea Midline, 2 Lungs: Clear to Auscultation, Normal Respiratory Effort Cardiovascular: Regular Rate, Regular Rhythm GI/Abdominal Exam: Normal Bowel Sounds, Soft, Tender (Generalized). No: Guarding, Rigid, Rebound (Female) Exam: Deferred Rectal (Female) Exam: Deferred Back Exam: Normal Inspection, Full Range of Motion, NT Extremities: No Pedal Edema. No: Normal Inspection (Left knee bandaged.), Normal Range of Motion Skin: Warm, Dry, Intact, Wound (Dressing clean and dry) Neurological: Cranial Nerves Intact Neuro Extensive - Motor, Sensory, Reflexes: CN II-XII Intact Psychiatric: Alert, Normal Affect, Normal Mood - Patient Data Result Diagrams: 03/22/19 05:50 03/22/19 05:50 - Problem List (1) HTN (hypertension) SNOMED Code(s): 87919343 ICD Code: I10 - ESSENTIAL (PRIMARY) HYPERTENSION Status: Acute Priority: High Current Visit: Yes Qualifiers: Hypertension type: essential hypertension Qualified Code(s): I10 - Essential (primary) hypertension (2) Cyclical vomiting syndrome SNOMED Code(s): 76744215 ICD Code: G43.A0 - CYCLICAL VOMITING, NOT INTRACTABLE Status: Chronic Priority: High Current Visit: Yes Qualifiers: Vomiting Intractability: intractable Nausea presence: with nausea Qualified Code(s): G43.A1 - Cyclical vomiting, intractable (3) PICC (peripherally inserted central catheter) in place SNOMED Code(s): 0463816465528, 9789943183021 ICD Code: Z45.2 - ENCOUNTER FOR ADJUSTMENT AND MANAGEMENT OF VAD Status: Chronic Priority: Medium Current Visit: No (4) History of total knee replacement SNOMED Code(s): 8737322695744, 0356164732844, 56114184294178 ICD Code: Z96.659 - PRESENCE OF UNSPECIFIED ARTIFICIAL KNEE JOINT Status: Acute Current Visit: No Qualifiers: Laterality: left Qualified Code(s): Z96.652 - Presence of left artificial knee joint (5) Postoperative wound infection SNOMED Code(s): 02401047, 934510082 ICD Code: T81.49XA - INFECTION FOLLOWING A PROCEDURE, OTHER SURGICAL SITE, INIT Status: Acute Priority: Medium Current Visit: No Problem List Initiated/Reviewed/Updated: Yes Orders Last 24hrs: Active Orders 24 hr Category Date Time Status Patient Status [ADT] Stat ADT 03/21/19 17:43 Active CBC WITH AUTO DIFF [HEME] Stat Lab 03/21/19 17:42 Ordered CMP [COMPREHENSIVE METABOLIC PN,CMP] [CHEM] Stat Lab 03/21/19 17:41 Ordered Assessment/Plan Comment:: The patient is a 53-year-old lady who had presented to the emergency department out of concern for cyclic nausea and vomiting. The patient will be admitted primarily for pain control, rehydration and treatment of her hypertension. The patient had been on labetalol and hydralazine 25 mg IV every 8 hours was also added. The patient's hypertension appears to be in response to her nausea vomiting or retching. The patient has said that her blood pressure is normal when she is not vomiting. She'll be kept on clear liquids for now. The patient will be aggressively rehydrated. She should be appropriate for discharge in the morning.
[2019-03-21] MEDS ORDERED: Temazepam 15 MG Cap PO PRN (18:14)
[2019-03-21] MEDS ORDERED: Ketorolac 30 MG/ML SDV IM PRN (18:14)
[2019-03-21] MEDS ORDERED: Ondansetron 4 MG/2 ML SDV IVPUSH PRN ×2 (18:14→18:36)
[2019-03-21] MEDS ORDERED: LORazepam 2 MG/ML SDV IM PRN (18:14)
[2019-03-21] MEDS ORDERED: Ondansetron 8 MG in Sodium Chloride 0.9% 50 ML IVPUSH PRN (18:25)
[2019-03-21] MEDS: Heparin Sodium 5,000 Units/ML Vial SUBCUT SCH (18:28)
[2019-03-21] MEDS ORDERED: Ketorolac 60 MG/2 ML SDV IM PRN (18:30)
[2019-03-21] MEDS: Sodium Chloride 0.9% 1,000 ML IV SCH (18:35)
[2019-03-21] MEDS ORDERED: Labetalol 100 MG/20 ML MDV IVPUSH PRN (18:36)
[2019-03-21] MEDS ORDERED: Ketorolac 60 MG/2 ML SDV IVPUSH PRN ×2 (18:40→19:06)
[2019-03-21] MEDS ORDERED: LORazepam 2 MG/ML SDV IV PRN (18:42)
[2019-03-21 18:45] LABS: CHLORIDE,CL 103 mmol/L (98-107); SODIUM,NA 138 mmol/L (136-145)
[2019-03-22] MEDS ORDERED: hydrALAZINE 20 MG/ML SDV IVPUSH PRN (00:53)
[2019-03-22] MEDS ORDERED: Promethazine 25 MG/ML SDV IM PRN (00:54)
[2019-03-22] MEDS ORDERED: Labetalol 100 MG/20 ML MDV IVPUSH PRN (00:54)
[2019-03-22] MEDS: Heparin Sodium 5,000 Units/ML Vial SUBCUT SCH ×2 (01:58→09:37)
[2019-03-22] MEDS: Sodium Chloride 0.9% 1,000 ML IV SCH (03:17)
[2019-03-22 06:17] LABS: CHLORIDE,CL 101 mmol/L (98-107); SODIUM,NA 137 mmol/L (136-145)
[2019-03-22] MEDS ORDERED: Alum Hydrox/Mag Hydrox/Simeth 15 ML, Lidocaine 2% 5 ML PO ONE ×2 (07:20)
[2019-03-22] MEDS ORDERED: Ketorolac 30 MG/ML SDV IVPUSH PRN (08:15)
--- NOTE | 2019-03-22 09:27 | PCM.DCSUM1 ---
Discharge Summary - Hospital Course HPI Initial Comments: The patient was admitted secondary to intractable nausea and vomiting. Diagnosis: Stroke: No - Discharge Data Discharge Date: 03/22/19 Discharge Disposition: Home, Self-Care 01 Condition: Good - Discharge Diagnosis/Problem(s) (1) Cyclical vomiting syndrome SNOMED Code(s): 43209863 ICD Code: G43.A0 - CYCLICAL VOMITING, NOT INTRACTABLE Status: Chronic Priority: High Qualifiers: Vomiting Intractability: intractable Nausea presence: with nausea Qualified Code(s): G43.A1 - Cyclical vomiting, intractable (2) PICC (peripherally inserted central catheter) in place SNOMED Code(s): 7934268630552, 5102309581987 ICD Code: Z45.2 - ENCOUNTER FOR ADJUSTMENT AND MANAGEMENT OF VAD Status: Chronic Priority: Medium (3) HTN (hypertension) SNOMED Code(s): 65511698 ICD Code: I10 - ESSENTIAL (PRIMARY) HYPERTENSION Status: Acute Priority: High Qualifiers: Hypertension type: essential hypertension Qualified Code(s): I10 - Essential (primary) hypertension (4) Postoperative wound infection SNOMED Code(s): 54676605, 887948147 ICD Code: T81.49XA - INFECTION FOLLOWING A PROCEDURE, OTHER SURGICAL SITE, INIT Status: Acute Priority: Medium - Patient Summary/Data Hospital Course: The patient is a 53-year-old lady who had presented to the emergency department with a complaint of nausea and vomiting and severe abdominal pain. The patient has a chronic history of cyclic vomiting. She reports that she has a feeling that she needs to throw up but is unable to and therefore will self-induced vomiting. The patient had remained many hours in the emergency department with fluid hydration as well as control of her nausea and vomiting. Her nausea and vomiting was refractory and she was admitted. Patient says the pain is located in the upper part of her abdomen. The patient initially had a white blood cell count of 8000 and this had increased by day of discharge had 12,100. This is thought to be due secondary to deep marginalization from her dry heaving. The patient had continued to improve through the short course of hospitalization. She was hydrated with IV normal saline at 125 mL per hour. The patient's nausea and vomiting was also controlled with the use of Phenergan and Zofran. She additional point that she felt like she was at her baseline and felt appropriate to go home. The patient's diet was advanced and she was able to tolerate this. The patient has been recommended to follow-up with her primary care physician with regards to her cyclic vomiting. She also has been recommended continue with her diet as tolerated. She is also have activity as tolerated. The patient has been hemodynamically stable and she is discharged from acute hospitalization with recommendations above. - Patient Instructions Diet: Heart Healthy Diet, Usual Diet as Tolerated Activity: As Tolerated Notify Provider of: Fever, Increased Pain, Nausea and/or Vomiting - Discharge Plan *PRESCRIPTION DRUG MONITORING PROGRAM REVIEWED*: No *COPY OF PRESCRIPTION DRUG MONITORING REPORT IN PATIENT JERICHO: No Prescriptions/Med Rec: Ondansetron [Zofran ODT] 1 tab PO Q6H PRN #4 tab.dis PRN Reason: Nausea Home Medications: Home Meds Clobetasol [Clobetasol Propionate 0.05% Cream] 1 dose TOP BID PRN 01/01/19 [ History] Cyanocobalamin (Vitamin B-12) [Cyanocobalamin Injection] 1,000 mcg IM .Q2WEEK [History] Escitalopram Oxalate 10 mg PO DAILY 01/01/19 [History] Estropipate 1.5 mg PO DAILY 01/01/19 [History] Methotrexate 7.5 mg PO WEEKLY 01/01/19 [History] Magnesium Oxide [Magnesium] 400 mg PO BID 01/26/19 [History] Metoprolol Succinate 50 mg PO DAILY 01/26/19 [History] Estrogens, Conjugated [Premarin] 0.625 mg VAG .2TIMES PER WEEK 02/10/19 [History ] Losartan [Cozaar] 25 mg PO DAILY 02/10/19 [History] Mupirocin Oint [Bactroban Oint] 22 gm NASBOTH BID 02/10/19 [History] Acetaminophen/HYDROcodone [[place]ell 325-10 MG] 1 - 2 tab PO Q4H PRN #60 tablet [Rx] Aspirin 325 mg PO BID #60 tablet 02/12/19 [Rx] DAPTOmycin [Cubicin Rf] 600 mg IV DAILY #41 vial 02/12/19 [Rx] Docusate Sodium [Colace] 100 mg PO BID #60 cap 02/12/19 [Rx] Sulfamethoxazole/Trimethoprim [Bactrim Ds Tablet] 1 each PO BID #5 tablet [Rx] Ondansetron [Zofran ODT] 1 tab PO Q6H PRN #4 tab.dis 03/21/19 [Rx] DAPTOmycin [Cubicin] 600 mg IV Q24H vial 03/22/19 [Rx] Oxygen Therapy Mode: Room Air Patient Handouts: Cyclic Vomiting Syndrome, Adult Forms: ED Department Discharge Referrals: [facility] [Ordering Only Provider] - (Patient is to follow up in [address] Chow at [place] please call to make an appointment on Saturday. ) - Discharge Summary/Plan Comment DC Time >30 min.: Yes - General Info Date of Service: 03/22/19 Admission Dx/Problem (Free Text: Admission Diagnosis/Problem Admission Diagnosis/Problem Cyclical vomiting syndrome Subjective Update: Vomiting improved. Tolerating diet. Functional Status: Reports: Pain Controlled - Review of Systems General: Reports: No Symptoms HEENT: Reports: No Symptoms Pulmonary: Reports: No Symptoms Cardiovascular: Reports: No Symptoms Gastrointestinal: Reports: No Symptoms Genitourinary: Reports: No Symptoms Musculoskeletal: Reports: No Symptoms Skin: Reports: No Symptoms Neurological: Reports: No Symptoms Psychiatric: Reports: No Symptoms - Patient Data Vitals - Most Recent: Last Vital Signs Temp 36.6 C 03/22/19 08:15 Pulse 110 H 03/22/19 08:15 Resp 16 03/22/19 08:15 BP 119/70 03/22/19 08:15 Pulse Ox 97 03/22/19 08:15 Weight - Most Recent: 98.43 kg I&O - Last 24 hours: Intake & Output 03/21/19 03/22/19 03/22/19 22:59 06:59 14:59 Intake Total 1026 Output Total 1500 Balance -474 Lab Results - Last 24 hrs: Laboratory Results - last 24 hr 03/21/19 03/21/19 03/21/19 Range/Units 18:10 18:10 18:10 WBC 8.54 (4.0-11.0) K/uL RBC 4.67 (4.30-5.90) M/uL Hgb 12.1 (12.0-16.0) g/dL Hct 38.9 (36.0-46.0) % MCV 83.3 (80.0-98.0) fL MCH 25.9 L (27.0-32.0) pg MCHC 31.1 (31.0-37.0) g/dL RDW Std Deviation 46.4 (28.0-62.0) fl RDW Coeff of Mckenna 15 (11.0-15.0) % Plt Count 363 (150-400) K/uL MPV 9.80 (7.40-12.00) fL Neut % (Auto) 91.7 H (48.0-80.0) % Lymph % (Auto) 6.8 L (16.0-40.0) % [place] % (Auto) 1.4 (0.0-15.0) % Eos % (Auto) 0.0 (0.0-7.0) % Baso % (Auto) 0.1 (0.0-1.5) % Neut # (Auto) 7.8 H (1.4-5.7) K/uL Lymph # (Auto) 0.6 (0.6-2.4) K/uL [place] # (Auto) 0.1 (0.0-0.8) K/uL Eos # (Auto) 0.0 (0.0-0.7) K/uL Baso # (Auto) 0.0 (0.0-0.1) K/uL Nucleated RBC % 0.0 /100WBC Nucleated RBCs # 0 K/uL Sodium 138 (136-145) mmol/L Potassium 3.5 (3.5-5.1) mmol/L Chloride 103 (98-107) mmol/L Carbon Dioxide 20.7 L (21.0-32.0) mmol/L BUN 9 (7.0-18.0) mg/dL Creatinine 0.7 (0.6-1.0) mg/dL Est Cr Clr Drug Dosing 92.68 mL/min Estimated GFR (MDRD) > 60.0 ml/min Glucose 161 H (74-106) mg/dL Calcium 8.7 (8.5-10.1) mg/dL Phosphorus 3.4 (2.6-4.7) mg/dL Magnesium 1.8 (1.8-2.4) mg/dL Total Bilirubin 0.3 (0.2-1.0) mg/dL AST 21 (15-37) IU/L ALT 21 (14-63) IU/L Alkaline Phosphatase 44 L (46-116) U/L Total Protein 8.3 H (6.4-8.2) g/dL Albumin 3.7 (3.4-5.0) g/dL Globulin 4.6 H (2.6-4.0) g/dL Albumin/Globulin Ratio 0.8 L (0.9-1.6) 03/22/19 03/22/19 Range/Units 05:50 05:50 WBC 12.11 H (4.0-11.0) K/uL RBC 4.80 (4.30-5.90) M/uL Hgb 12.7 (12.0-16.0) g/dL Hct 40.1 (36.0-46.0) % MCV 83.5 (80.0-98.0) fL MCH 26.5 L (27.0-32.0) pg MCHC 31.7 (31.0-37.0) g/dL RDW Std Deviation 47.0 (28.0-62.0) fl RDW Coeff of Mckenna 16 H (11.0-15.0) % Plt Count 403 H (150-400) K/uL MPV 10.00 (7.40-12.00) fL Neut % (Auto) 81.9 H (48.0-80.0) % Lymph % (Auto) 10.2 L (16.0-40.0) % [place] % (Auto) 7.8 (0.0-15.0) % Eos % (Auto) 0.0 (0.0-7.0) % Baso % (Auto) 0.1 (0.0-1.5) % Neut # (Auto) 9.9 H (1.4-5.7) K/uL Lymph # (Auto) 1.2 (0.6-2.4) K/uL [place] # (Auto) 0.9 H (0.0-0.8) K/uL Eos # (Auto) 0.0 (0.0-0.7) K/uL Baso # (Auto) 0.0 (0.0-0.1) K/uL Nucleated RBC % 0.0 /100WBC Nucleated RBCs # 0 K/uL Sodium 137 (136-145) mmol/L Potassium 3.3 L (3.5-5.1) mmol/L Chloride 101 (98-107) mmol/L Carbon Dioxide 21.2 (21.0-32.0) mmol/L BUN 8 (7.0-18.0) mg/dL Creatinine 0.7 (0.6-1.0) mg/dL Est Cr Clr Drug Dosing 96.02 mL/min Estimated GFR (MDRD) > 60.0 ml/min Glucose 127 H (74-106) mg/dL Calcium 9.1 (8.5-10.1) mg/dL Phosphorus (2.6-4.7) mg/dL Magnesium (1.8-2.4) mg/dL Total Bilirubin 0.3 (0.2-1.0) mg/dL AST 26 (15-37) IU/L ALT 22 (14-63) IU/L Alkaline Phosphatase 45 L (46-116) U/L Total Protein 8.3 H (6.4-8.2) g/dL Albumin 3.7 (3.4-5.0) g/dL Globulin 4.6 H (2.6-4.0) g/dL Albumin/Globulin Ratio 0.8 L (0.9-1.6) Med Orders - Current: Current Medications Heparin Sodium (Porcine) (Heparin Sodium) 5,000 units SUBCUT Q8H [facility] Last Admin: 03/22/19 01:58 Dose: 5,000 units Hydralazine HCl (Apresoline) 25 mg IVPUSH Q6H PRN PRN Reason: Hypotension Last Admin: 03/22/19 03:29 Dose: 25 mg Sodium Chloride (Normal Saline) 1,000 mls @ 125 mls/hr IV ASDIRECTED [facility] Last Admin: 03/22/19 03:17 Dose: 125 mls/hr Daptomycin 600 mg/ Sodium (Chloride) 12 mls @ 240 mls/hr IV Q24H [facility] Last Admin: 03/22/19 09:25 Dose: 240 mls/hr Ketorolac Tromethamine (Toradol) 30 mg IVPUSH Q6H PRN PRN Reason: Pain (moderate 4-6) Labetalol HCl (Normodyne) 5 mg IVPUSH Q4H PRN PRN Reason: Hypertension Lorazepam (Ativan) 1 mg IV Q6H PRN PRN Reason: Nausea/Vomiting Last Admin: 03/22/19 00:31 Dose: 1 mg Ondansetron HCl (Zofran) 8 mg IVPUSH Q6H PRN PRN Reason: Nausea/Vomiting Last Admin: 03/21/19 19:25 Dose: 8 mg Promethazine HCl (Phenergan) 25 mg IM Q6H PRN PRN Reason: Nausea/Vomiting Last Admin: 03/22/19 03:36 Dose: 25 mg Temazepam (Restoril) 15 mg PO BEDTIME PRN PRN Reason: Sleep Discontinued Medications Al Hydroxide/Mg Hydroxide 15 (ml/ Lidocaine HCl 5 ml) 0 ml PO ONETIME ONE Stop: 03/22/19 07:21 Last Admin: 03/22/19 08:38 Dose: 20 each Hydromorphone HCl (Dilaudid) 1 mg IVPUSH ONETIME ONE Stop: 03/21/19 11:40 Last Admin: 03/21/19 11:48 Dose: Not Given Hydromorphone HCl (Dilaudid) 1 mg IVPUSH ONETIME ONE Stop: 03/21/19 11:48 Last Admin: 03/21/19 11:48 Dose: 1 mg Hydromorphone HCl (Dilaudid) Confirm Administered Dose 1 mg .ROUTE .STK-MED ONE Stop: 03/21/19 11:47 Last Admin: 03/21/19 11:51 Dose: Not Given Hydromorphone HCl (Dilaudid) 1 mg IVPUSH ONETIME ONE Stop: 03/21/19 13:42 Last Admin: 03/21/19 13:59 Dose: 1 mg Sodium Chloride (Normal Saline) 1,000 mls @ 999 mls/hr IV STAT ONE Stop: 03/21/19 14:41 Last Admin: 03/21/19 14:00 Dose: 999 mls/hr Sodium Chloride (Normal Saline) 1,000 mls @ 999 mls/hr IV STAT ONE Stop: 03/21/19 16:41 Last Admin: 03/21/19 15:53 Dose: 999 mls/hr Ketorolac Tromethamine (Toradol) 60 mg IM Q6H PRN PRN Reason: Pain (moderate 4-6) Ketorolac Tromethamine (Toradol) 60 mg IVPUSH Q6H PRN PRN Reason: Pain (moderate 4-6) Ketorolac Tromethamine (Toradol) 30 mg IVPUSH Q6H PRN PRN Reason: Pain (moderate 4-6) Last Admin: 03/22/19 00:33 Dose: 30 mg Labetalol HCl (Normodyne) 20 mg IVPUSH NOW ONE; Protocol Stop: 03/21/19 17:18 Last Admin: 03/21/19 17:44 Dose: Not Given Labetalol HCl (Normodyne) Confirm Administered Dose 100 mg .ROUTE .STK-MED ONE Stop: 03/21/19 17:27 Last Admin: 03/21/19 17:41 Dose: 20 mg Labetalol HCl (Normodyne) 5 mg IVPUSH Q6H PRN PRN Reason: Hypertension Stop: 03/22/19 00:54 Last Admin: 03/21/19 23:33 Dose: 5 mg Lorazepam (Ativan) 1 mg IVPUSH ONETIME ONE Stop: 03/21/19 15:42 Last Admin: 03/21/19 16:00 Dose: 1 mg Ondansetron HCl (Zofran) 4 mg IVPUSH ONETIME ONE Stop: 03/21/19 11:21 Last Admin: 03/21/19 11:25 Dose: 4 mg Ondansetron HCl (Zofran) Confirm Administered Dose 4 mg .ROUTE .STK-MED ONE Stop: 03/21/19 11:21 Last Admin: 03/21/19 11:25 Dose: Not Given Ondansetron HCl (Zofran) 8 mg IVPUSH Q6H PRN PRN Reason: Nausea/Vomiting Ondansetron HCl (Zofran) Confirm Administered Dose 8 mg .ROUTE .STK-MED ONE Stop: 03/21/19 18:28 Last Admin: 03/21/19 19:07 Dose: Not Given Promethazine HCl (Phenergan) 25 mg IM ONETIME ONE Stop: 03/21/19 15:41 Last Admin: 03/21/19 15:55 Dose: 25 mg - Exam Quality Assessment: Denies: Supplemental Oxygen General: Reports: Alert, Oriented, Cooperative HEENT: Reports: Pupils Equal, Pupils Reactive, EOMI. Denies: Mucous Membr. Moist/[place] (Dry) Neck: Reports: Supple, Trachea Midline Lungs: Reports: Clear to Auscultation, Normal Respiratory Effort Cardiovascular: Reports: Regular Rate, Regular Rhythm GI/Abdominal Exam: Normal Bowel Sounds, Soft, Non-Tender, No Distention (Female) Exam: Deferred Rectal (Female) Exam: Deferred Back Exam: Reports: Normal Inspection, Full Range of Motion Extremities: Normal Inspection, Normal Range of Motion, No Pedal Edema Skin: Reports: Warm, Dry, Intact Neurological: Reports: No New Focal Deficit Psy/Mental Status: Reports: Alert, Normal Affect, Normal Mood
[2019-03-22] MEDS ORDERED: DAPTOmycin 600 MG in Sodium Chloride 0.9% 12 ML IV SCH (09:30)
== END 2019-03-22 10:50 | disposition home or self-care (01) ==
LOC: MW.ED 11:04 → MW.MS 17:54
PROVIDERS: ADMIT Internal Medicine; ATTEND Internal Medicine
DX: G43.A0 Cyclical vomiting, in migraine, not intractable (principal); I10 Essential (primary) hypertension; T81.49XA Infection following a procedure, other surgical site, initial encounter; E66.9 Obesity, unspecified; Z68.30 Body mass index [BMI] 30.0-30.9, adult; L40.3 Pustulosis palmaris et plantaris; E53.8 Deficiency of other specified B group vitamins; Z45.2 Encounter for adjustment and management of vascular access device; Z79.2 Long term (current) use of antibiotics; Z79.82 Long term (current) use of aspirin; Z79.891 Long term (current) use of opiate analgesic; Z79.899 Other long term (current) drug therapy; Z88.6 Allergy status to analgesic agent; Z88.1 Allergy status to other antibiotic agents; Z88.5 Allergy status to narcotic agent; Z88.0 Allergy status to penicillin; Z88.8 Allergy status to other drugs, medicaments and biological substances; Z91.048 Other nonmedicinal substance allergy status
CPT/HCPCS: 36415; 80053; 83735; 84100; 85025; 96361; 96372; 96374; 96375; 99285; A9270; J0360; J0878; J1170; J1644; J1885; J2060; J2405; J2550; J3490; J7040; 99283

== ENCOUNTER 2021-02-23 20:33 | Observation (INO) | payer MEDICARE, OTHER ==
[2021-02-23] MEDS ORDERED: Sodium Chloride 0.9% 1,000 ML IV ONE ×2 (20:44→22:00)
[2021-02-23] MEDS ORDERED: Sodium Chloride 0.9% 10 ML Syringe FLUSH PRN (20:44)
[2021-02-23] MEDS ORDERED: Sodium Chloride 0.9% 2.5 ML Syringe FLUSH PRN (20:44)
[2021-02-23] MEDS ORDERED: Ondansetron 4 MG/2 ML SDV IVPUSH ONE (21:11)
[2021-02-23] MEDS ORDERED: LORazepam 2 MG/ML SDV IVPUSH ONE (21:11)
--- NOTE | 2021-02-23 21:31 | CT ---
DATE: 02/23/2021. CLINICAL HISTORY: Patient with weakness. TECHNIQUE: Standard helical CT image acquisition of the brain was performed. COMPARISON: None available. FINDINGS: There is no intracranial hemorrhage. No extra-axial collection, mass effect, or midline shift. Mild patchy hypoattenuation within the white matter of both hemispheres likely reflects sequela of chronic small vessel ischemia. Scattered intracranial atherosclerotic calcification. Ventricles are normal in size and morphology for patient age. The calvarium is unremarkable. The orbits are unremarkable. The paranasal sinuses are unremarkable. The mastoid air cells are unremarkable. The soft tissues are unremarkable. IMPRESSION: No CT evidence of acute intracranial abnormality. More specifically, no evidence of acute intracranial hemorrhage. Please note that all CT scans at this facility use dose modulation, iterative reconstruction, and/or weight-based dosing when appropriate to reduce radiation dose to as low as reasonably achievable. Dictated by Kamran Arrington MD @ Feb 23 2021 10:53PM Signed by Dr. Kamran Arrington @ Feb 23 2021 10:56PM
[2021-02-23 21:38] LABS: BLOOD UREA NITROGEN,BUN 25 mg/dL (7.0-18.0); CARBON DIOXIDE,CO2 21.7 mmol/L (21.0-32.0); CHLORIDE,CL 96 mmol/L (98-107); GLUCOSE RANDOM 126 mg/dL (74-106); LIPASE 128 U/L (73-393); POTASSIUM,K 2.8 mmol/L (3.5-5.1); SODIUM,NA 135 mmol/L (136-145)
[2021-02-23] MEDS ORDERED: Alum Hydrox/Mag Hydrox/Simeth 15 ML, Lidocaine 2% 5 ML PO ONE ×2 (22:00)
[2021-02-23] MEDS ORDERED: Pantoprazole 40 MG in Sodium Chloride 0.9% 10 ML IV ONE (22:00)
[2021-02-23] MEDS ORDERED: Potassium Chloride 10% 20 MEQ/15 ML Soln 30 ML UD Cup PO ONE (22:02)
--- NOTE | 2021-02-23 22:02 | CR ---
HISTORY: Weakness COMPARISON: 12/15/2018 FINDINGS: A portable erect AP view of the chest was obtained at 21 16 hours. The lungs remain clear. No focal or diffuse infiltrates are present. The heart remains normal in size. There is stable mild tortuosity of the descending thoracic aorta. The mediastinum is otherwise normal in appearance. The osseous structures are normal in appearance for the patient`s age. IMPRESSION: No active disease seen in the chest. Dictated by Allen Mosquera MD @ Feb 23 2021 10:00PM Signed by Dr. Allen Mosquera @ Feb 23 2021 10:01PM
[2021-02-23] MEDS ORDERED: Sodium Chloride 0.9% with KCl 1,000 ML IV SCH (22:15)
--- NOTE | 2021-02-23 23:29 | CT ---
Indication: Nausea and vomiting. Technique: A CT volumetric acquisition was performed of the abdomen and pelvis without IV contrast. Comparison: CT abdomen pelvis dated 02/22/2011 Findings: The lung bases are clear. The patient`s liver and spleen demonstrate normal size and uniform density. There is no evidence of inflammation about the pancreas or stomach. Gallbladder is been resected. The bile ducts are normal in size. The adrenal glands have normal morphology. There is a tiny 1 mm calculus within the lower pole right kidney. There is a 2 mm calculus within the mid left kidney mild cortical scarring within the lower pole. There is also a tiny subcapsular cyst projecting anteriorly off the mid left kidney. There is no evidence of ureteral calculus or obstructive hydronephrosis. There is no evidence of retroperitoneal lymphadenopathy. The small intestine appears normal. There are few scattered tiny diverticula within the left colon but no evidence of diverticulitis. Patient is status post hysterectomy. The vaginal cuff appears normal. The urinary bladder is contracted. On bone window images there is a compression wedge fracture of T12 with overlying disc degeneration at T11-T12. This represents a new finding from 2010 but does not appear to be acute in nature. There is no evidence of a paraspinal hematoma. Impression: Nephrolithiasis. No acute process identified to account for the vomiting. T12 compression fracture which does not appear acute in nature. Please note that all CT scans at this facility use dose modulation, iterative reconstruction, and/or weight-based dosing when appropriate to reduce radiation dose to as low as reasonably achievable. Dictated by Mehul Means MD @ Feb 24 2021 4:41PM Signed by Dr. Mehul Means @ Feb 24 2021 4:53PM
--- NOTE | 2021-02-23 23:56 | EDM.PDOC ---
ED HPI GENERAL MEDICAL PROBLEM - General Chief Complaint: Neuro Symptoms/Deficits Stated Complaint: STROKE CODE Time Seen by Provider: 02/23/21 20:58 - History of Present Illness INITIAL COMMENTS - FREE TEXT/NARRATIVE: HISTORY AND PHYSICAL: History of present illness: This is a 55-year-old female with history significant for hypertension who presents ER today complaining of nausea and vomiting that started yesterday. Patient reports that she has had similar episode like this in the past where she was not able to eat or drink anything for approximately 1 to 2 days. Patient reports that her symptoms started after having a bowel movement yesterday morning and since then has been having episodes of retching and nausea and vomiting. Patient reports that the last p.o. intake that she had was approximately 36 hours ago. Patient reports that earlier this morning that she did have a small amount of Jell-O and she reports that it did stay down. Patient denies any dysuria, frequency, urgency. Patient denies any recent fevers, shakes, chills. Patient denies any cough cold or rhinorrhea. Patient denies any melena or bright red blood per rectum. Patient denies any history of diabetes, liver, lung, kidney problems. Patient denies any history of coronary disease, CAD, strokes in the past. Patient reports that she is status post cholecystectomy. Patient reports that she is status post hysterectomy. Patient reports that she does have a history of a hiatal hernia in the past and has had reflux issues. Patient complains of diffuse abdominal discomfort but greatest in the midepigastric region. Patient reports that she was in a severe amount of discomfort prior to arrival in the ED and was started to feel extremely anxious. Patient presented to the ER initially with complaints of numbness and tingling and weakness all throughout her upper and lower extremities. Patient reports that she felt like her toes were curling in and that her hands were cramping up. Of note, upon arrival to the ED, the patient did appear to be in a significant amount discomfort and was hyperventilating and appeared to have carpopedal spasms from her hyperventilation. Patient denies any slurring her speech. Patient denies any facial drooping. Patient denies any lateralizing weakness to her upper or lower extremities. Patient denies any double or blurred vision. Patient denies any difficulty with ambulation other than difficulty secondary to the pain that she was experiencing. Review of systems: As per history of present illness and below otherwise all systems reviewed and negative. Past medical history: As per history of present illness and as reviewed below otherwise noncontributory. Surgical history: As per history of present illness and as reviewed below otherwise noncontributory. Social history: No reported history of drug or alcohol abuse. Family history: As per history of present illness and as reviewed below otherwise noncontributory. Physical exam: This patient was seen and evaluated during the 2019 SARS-CoV-2 novel coronavirus pandemic period. Community viral transmission is ongoing at time of this encounter and the emergency department is operating under pandemic response pr ocedures. Constitutional: Patient is oriented to person, place, and time. Appears well- developed and well-nourished. No distress. HEENT: Moist mucous membranes Head: Normocephalic and atraumatic Eyes: Right eye exhibits no discharge. Left eye exhibits no discharge. No scleral icterus Neck: Normal range of motion. No tracheal deviation present. Cardiovascular: Normal rate and regular rhythm. Pulmonary: Effort normal, no respiratory distress. Abd: Soft, nondistended, no rebound/guarding, no psoas or obturator signs, no tenderness at Mcberney's point, no Sims's sign. Pt does not present with an exam that would be consistent with an acute surgical abdomen at this time, tenderness to palpation in the midepigastric region. Musculoskeletal: Normal range of motion Neurologic: Alert and oriented to person, place and time. Skin: [place], warm and dry. Psychiatric: Normal mood and affect. Behavior is normal. Judgment and thought content normal. Nursing note and vital signs have been reviewed 1a) Level of consciousness: 0=alert; 1=not alert but arousable by minor stimulation; 2=not alert: requires repeated stimulation to attend or is obtunded and requires strong or painful stimulation to make movements; 3=responds only with reflex motor or autonomic effects or totally unresponsive, flaccid and areflexic SCORE 0 1b) LOC questions ("what month is it?", "how old are you?"): 0=answers both correctly; 1=answers one correctly; 2=answers neither correctly SCORE 0 1c) LOC commands (command patient to "open and close your eyes. Twister In and release your hand.): 0=performs both correctly; 1=performs one correctly; 2=performs neither correctly SCORE 0 2) Best gaze ("follow my finger"): 0=normal; 1=partial gaze palsy; 2=forced deviation or total gaze paresis SCORE 0 3) Visual morrison (use confrontation, finger counting, or visual threat. confront upper/lower quadrants of visual field): 0=no visual loss; 1=partial hemianopsia; 2=complete hemianopsia; 3=bilateral hemianopsia SCORE 0 4) Facial palsy (by words or pantomime, encourage patient to: "Show me your teeth. Raise your eyebrows. Close your eyes."): 0=normal symmetrical movement; 1=minor paralysis (flattened nasolabial fold, asymmetry on smiling); 2=partial paralysis (lower face); 3=complete paralysis SCORE 0 5) Arm motor (alternately position patient's arms. extend each arm with palms down [90 degrees if sitting, 45 degrees if supine] - test each arm in turn and start with nonparetic arm first): 0=no drift; 1=drift (arm falls before 10 seconds); 2=some effort vs. gravity; 3=no effort vs. gravity; 4=no movement; UN (untestable)=amputation or joint fusion SCORE 0 6) Leg motor (alternately position patient's legs. extend each leg [30 degrees, always while supine] - test nonparetic leg first): 0=no drift; 1=drift (leg falls before 5 seconds); 2=some effort vs. gravity; 3= no effort vs. gravity; 4=no movement; UN=amputation or joint fusion SCORE 0 7) Limb ataxia (ask patient [eyes open] to: "touch your finger to your nose. touch your heel to your hanson"): 0=absent; 1=present in one limb; 2=present in two or more limbs; UN=amputation or joint fusion SCORE 0 8) Sensory (test as many body parts as possible [arms and not hands, legs, trunk, face] for sensation using pinprick or noxious stimuli [in the obtunded or aphasic patient]): 0=normal; 1=mild to moderate sensory loss; 2=severe to total sensory loss SCORE 0 9) Best language (using pictures and a sentence list, ask patient to "describe what you see in this picture. Name the items in this picture. Read these sentences"): 0=no aphasia, 1=mild to moderate aphasia; 2=severe aphasia; 3=mute, global aphasia SCORE 0 10) Dysarthria (using a simple word list, ask patient to: "read these words" or "repeat these words"): 0=normal articulation; 1=mild to moderate dysarthria; 2=severe dysarthria; UN=intubated or other physical barrier SCORE 0 11) Extinction and inattention (sufficient information to determine these scores may have been obtained during the prior testing): 0=no abnormality; 1=visual, tactile, auditory, spatial or personal inattention; 2=profound dewayne-inattention or extinction to more than one modality SCORE 0 TOTAL NIHSS Score: 0 Diagnostics: CT scan of the abdomen pelvis reveals no acute pathology to explain the patient's abdominal discomfort. CT scan reveals marked osteopenia. Marked new acute/subacute compression fracture deformity involving the T12 vertebral body with underlying sclerosis and mild retropulsion of fracture fragments. Lesion involving the L5 vertebral body on the left has become less dense and had more of lucency associated with it today. Minimal nodular interstitial prominence in the lung bases. Small pericardial effusion. Moderate wall thickening involving the distal esophagus and a small hiatal hernia is more prominent. Cholecystectomy with mild to moderate intrahepatic and extrahepatic biliary dilatation which is more prominent and consistent with the post cholecystectomy state. Lobulated appearance of the kidneys with cortical thickening and scarring has increased and is more prominent in the left. Findings likely relate to prior insult such as prior infection, vesicular ureteral reflux or infarcts. Few tiny and small stones in the kidneys with 1 of which on the left is large and 1 of which on the left is new. Appendix is normal. Colonic diverticulosis. Hysterectomy. CT scan of the head reveals no acute pathology. Patient symptoms were not consistent with an acute stroke, but rather more consistent with hyperv entilation syndrome with carpopedal spasms resulting in numbness and weakness to her bilateral upper and lower extremities. Elevated BUN and creatinine. Patient's creatinine is 1.9. Hypokalemia with a potassium of 2.9. Therapeutics: Ativan 1 mg IV, Zofran 4 mg IV. NSS wide open x2 L. NSS with 40 mEq of potassium chloride at 250 mL's per hour. Assessment and plan: This is a 55-year-old female with history significant for hypertension who presents ER today secondary to abdominal pain with nausea and vomiting x36 hours. Patient reports that prior to a small amount of Jell-O that she ate this morning, she has not been able to eat anything or drink anything for the last 36 hours. Patient presents ER today with what appears to be hyperventilation syndrome with carpopedal spasms resulting in numbness and tingling and weakness to bilateral upper and lower extremities. Patient reports that she had some tingling around her lips as well. Although patient symptoms did not appear to be consistent with an acute stroke, CT scan of the head was obtained to make sure. Patient CT scan of the head did not reveal any acute stroke patterns. While in the ED, the patient was given adequate analgesia and hydration. Patient was given a GI cocktail as well as Protonix 40 mg IV with significant resolution in her midepigastric discomfort. After the GI cocktail, the patient reports that she felt much improved and has been resting comfortably and sleeping comfortably. Patient blood pressure significantly improved after the GI cocktail was administered and patient was sleeping. Given the patient's hypokalemia, acute kidney renal injury, or leukocytosis, will admit the patient for observation and hydration and potassium repletion. Case was discussed with Dr. Dawson who agrees to assist with observation level of care. Definitive disposition and diagnosis as appropriate pending reevaluation and review of above. - Related Data Allergies Allergy/AdvReac Type Severity Reaction Status Date / Time acetaminophen [From Percocet] Allergy Nausea and Verified 02/23/21 20:56 Vomiting celecoxib Allergy Swelling Verified 02/23/21 20:56 cephalexin [From Keflex] Allergy Hives Verified 02/23/21 20:56 Cephalosporins Allergy Hives Verified 02/23/21 20:56 ciprofloxacin [From Cipro] Allergy Hives Verified 02/23/21 20:56 ciprofloxacin HCl Allergy Hives Verified 02/23/21 20:56 [From Cipro] gentamicin Allergy Hives Verified 02/23/21 20:56 morphine Allergy Nausea and Verified 02/23/21 20:56 Vomiting oxycodone [From Percocet] Allergy Nausea and Verified 02/23/21 20:56 Vomiting Penicillins Allergy Rash Verified 02/23/21 20:56 anesthetic cream Allergy Hives Uncoded 02/23/21 20:56 Home Meds: Home Meds Clobetasol [Clobetasol Propionate 0.05% Cream] 1 dose TOP BID PRN 01/01/19 [History] Cyanocobalamin (Vitamin B-12) [Cyanocobalamin Injection] 1,000 mcg IM .Q2WEEK 01/01/19 [History] Escitalopram Oxalate 10 mg PO DAILY 01/01/19 [History] Estropipate 1.5 mg PO DAILY 01/01/19 [History] Methotrexate 7.5 mg PO WEEKLY 01/01/19 [History] Magnesium Oxide [Magnesium] 400 mg PO BID 01/26/19 [History] Metoprolol Succinate 50 mg PO DAILY 01/26/19 [History] Estrogens, Conjugated [Premarin] 0.625 mg VAG .2TIMES PER WEEK 02/10/19 [History] Losartan [Cozaar] 25 mg PO DAILY 02/10/19 [History] Mupirocin Oint [Bactroban Oint] 22 gm NASBOTH BID 02/10/19 [History] Acetaminophen/HYDROcodone [[place] 325-10 MG] 1 - 2 tab PO Q4H PRN #60 tablet 02/12/19 [Rx] Aspirin 325 mg PO BID #60 tablet 02/12/19 [Rx] DAPTOmycin [Cubicin Rf] 600 mg IV DAILY #41 vial 02/12/19 [Rx] Docusate Sodium [Colace] 100 mg PO BID #60 cap 02/12/19 [Rx] Sulfamethoxazole/Trimethoprim [Bactrim Ds Tablet] 1 each PO BID #5 tablet 02/12/19 [Rx] Ondansetron [Zofran ODT] 1 tab PO Q6H PRN #4 tab.dis 03/21/19 [Rx] DAPTOmycin [Cubicin] 600 mg IV Q24H vial 03/22/19 [Rx] Past Medical History HEENT History: Reports: Other (See Below) Other HEENT History: has upper partial denture x2, has upper and lower dental implants Cardiovascular History: Reports: Hypertension Respiratory History: Reports: None Gastrointestinal History: Reports: GERD, Other (See Below) Other Gastrointestinal History: was previously thought to hace Ulcerative colitis, now is diagnosed with Cyclic Vomiting Syndrome- had recent episode Musculoskeletal History: Reports: Osteoarthritis, Other (See Below) Neurological History: Reports: None Psychiatric History: Reports: Anxiety, Depression Endocrine/Metabolic History: Reports: Obesity/BMI 30+ Hematologic History: Reports: B12 Deficiency Immunologic History: Reports: None Oncologic (Cancer) History: Reports: None Dermatologic History: Reports: Psoriasis Other Dermatologic History: has Palmar Plantar Pustular psoriasis - Infectious Disease History Infectious Disease History: Reports: Chicken Pox - Past Surgical History Head Surgeries/Procedures: Reports: None GI Surgical History: Reports: Cholecystectomy Female Surgical History: Reports: Hysterectomy, Salpingo-Oophorectomy, Tubal Ligation, Other (See Below) Other Female Surgeries/Procedures: Laparoscopies with Ovarian Wedge resection and Lysis of Adhesions Musculoskeletal Surgical History: Reports: Arthroscopic Knee, Knee Replacement, ORIF Other Musculoskeletal Surgeries/Procedures:: ACL repair left knee, ORIF right ankle (has plate and screws). left knee replacement Social & Family History - Family History Family Medical History: No Pertinent Family History Cardiac: Reports: None - Caffeine Use Caffeine Use: Reports: Coffee, Tea - Recreational Drug Use Recreational Drug Use: Yes Recreational Drug Type: Reports: Marijuana/Hashish Recreational Drug Use Frequency: Rarely - Living Situation & Occupation Living situation: Reports: with Family Occupation: Unemployed ED ROS GENERAL - Review of Systems Review Of Systems: See Below ED EXAM, GENERAL - Physical Exam Exam: See Below #1 Interpretation EKG Interpretation Comments: EKG: As interpreted by ER physician: Raymundo: Nonspecific ST-T wave abnormalities QRS axis of -[address] elevation IN Normal sinus rhythm heart rate of 99 Course - Vital Signs Last Recorded V/S: Last Vital Signs Temp 97.9 F 02/23/21 20:57 Pulse 100 02/23/21 23:42 Resp 18 02/23/21 23:42 BP 149/119 H 02/23/21 23:42 Pulse Ox 98 02/23/21 23:42 - Orders/Labs/Meds Orders: Active Orders 24 hr Category Date Time Status Patient Status [ADT] Routine ADT 02/24/21 00:25 Ordered EKG Documentation Completion [RC] AM Care 02/23/21 22:00 Active COVID-19/FLU A+B [MOLEC] Stat Lab 02/23/21 22:16 Ordered CULTURE BLOOD [BC] Stat Lab 02/23/21 22:45 Received CULTURE BLOOD [BC] Stat Lab 02/23/21 23:05 Results Sodium Chloride 0.9% [Saline Flush] Med 02/23/21 20:44 Active 10 ml FLUSH ASDIRECTED PRN Sodium Chloride 0.9% [Saline Flush] Med 02/23/21 20:44 Active 2.5 ml FLUSH ASDIRECTED PRN Sodium Chloride 0.9% with KCl [Normal Saline with 40 Med 02/23/21 22:15 Active mEq KCl] 1,000 ml IV ASDIRECTED Blood Culture x2 Reflex Set [OM.PC] Stat Oth 02/23/21 22:00 Ordered Saline Lock Insert [OM.PC] Stat Oth 02/23/21 20:44 Ordered Medication Orders Potassium Chloride/Sodium Chloride (Normal Saline With 40 Meq Kcl) 1,000 mls @ 250 mls/hr IV ASDIRECTED CAM Last Admin: 02/23/21 22:55 Dose: 250 mls/hr Documented by: ARTEMIO Sodium Chloride (Sodium Chloride 0.9% 10 Ml Syringe) 10 ml FLUSH ASDIRECTED PRN PRN Reason: Keep Vein Open Last Admin: 02/23/21 21:19 Dose: 10 ml Documented by: ELAINE Sodium Chloride (Sodium Chloride 0.9% 2.5 Ml Syringe) 2.5 ml FLUSH ASDIRECTED PRN PRN Reason: Keep Vein Open Last Admin: 02/23/21 21:19 Dose: 2.5 ml Documented by: ELAINE Labs: Laboratory Tests 02/23/21 02/23/21 02/23/21 Range/Units 21:07 21:07 21:47 WBC 17.17 H (4.0-11.0) K/uL RBC 5.91 H (4.30-5.90) M/uL Hgb 17.1 H (12.0-16.0) g/dL Hct 48.0 H (36.0-46.0) % MCV 81.2 (80.0-98.0) fL MCH 28.9 (27.0-32.0) pg MCHC 35.6 (31.0-37.0) g/dL RDW Std Deviation 43.1 (28.0-62.0) fl RDW Coeff of Mckenna 15 (11.0-15.0) % Plt Count 405 H (150-400) K/uL MPV 10.60 (7.40-12.00) fL Neut % (Auto) 84.5 H (48.0-80.0) % Lymph % (Auto) 8.7 L (16.0-40.0) % [place] % (Auto) 6.7 (0.0-15.0) % Eos % (Auto) 0.0 (0.0-7.0) % Baso % (Auto) 0.1 (0.0-1.5) % Neut # (Auto) 14.5 H (1.4-5.7) K/uL Lymph # (Auto) 1.5 (0.6-2.4) K/uL [place] # (Auto) 1.2 H (0.0-0.8) K/uL Eos # (Auto) 0.0 (0.0-0.7) K/uL Baso # (Auto) 0.0 (0.0-0.1) K/uL Nucleated RBC % 0.0 /100WBC Nucleated RBCs # 0 K/uL Lactate (0.20-2.00) mmol/L Sodium 135 L (136-145) mmol/L Potassium 2.8 L (3.5-5.1) mmol/L Chloride 96 L (98-107) mmol/L Carbon Dioxide 21.7 (21.0-32.0) mmol/L BUN 25 H (7.0-18.0) mg/dL Creatinine 1.9 H (0.6-1.0) mg/dL Est Cr Clr Drug Dosing 34.55 mL/min Estimated GFR (MDRD) 27.3 ml/min Glucose 126 H (74-106) mg/dL Calcium 9.8 (8.5-10.1) mg/dL Total Bilirubin 0.8 (0.2-1.0) mg/dL AST 18 (15-37) IU/L ALT 22 (14-63) IU/L Alkaline Phosphatase 62 (46-116) U/L Troponin I < 0.050 (0.000-0.056) ng/mL Total Protein 8.8 H (6.4-8.2) g/dL Albumin 4.1 (3.4-5.0) g/dL Globulin 4.7 H (2.6-4.0) g/dL Albumin/Globulin Ratio 0.9 (0.9-1.6) Lipase 128 (73-393) U/L Urine Color YELLOW Urine Appearance CLOUDY Urine pH 5.5 (5.0-8.0) Ur Specific [place] >= 1.030 (1.001-1.035) Urine Protein 100 H (NEGATIVE) mg/dL Urine Glucose (UA) NEGATIVE (NEGATIVE) mg/dL Urine Ketones 15 H (NEGATIVE) mg/dL Urine Occult Blood TRACE-INTACT H (NEGATIVE) Urine Nitrite NEGATIVE (NEGATIVE) Urine Bilirubin MODERATE H (NEGATIVE) Urine Ictotest POSITIVE Urine Urobilinogen 1.0 (<2.0) EU/dL Ur Leukocyte Esterase NEGATIVE (NEGATIVE) Urine RBC 0-3 (0-2/HPF) Urine WBC 3-6 (0-5/HPF) Ur Epithelial Cells MANY (NONE-FEW) Urine Bacteria 3+ H (NEGATIVE) Urine Mucus MODERATE (NONE-MOD) 02/23/ Range/Units 23:05 WBC (4.0-11.0) K/uL RBC (4.30-5.90) M/uL Hgb (12.0-16.0) g/dL Hct (36.0-46.0) % MCV (80.0-98.0) fL MCH (27.0-32.0) pg MCHC (31.0-37.0) g/dL RDW Std Deviation (28.0-62.0) fl RDW Coeff of [place]ckenna (11.0-15.0) % Plt Count (150-400) K/uL MPV (7.40-12.00) fL Neut % (Auto) (48.0-80.0) % Lymph % (Auto) (16.0-40.0) % [place] % (Auto) (0.0-15.0) % Eos % (Auto) (0.0-7.0) % Baso % (Auto) (0.0-1.5) % Neut # (Auto) (1.4-5.7) K/uL Lymph # (Auto) (0.6-2.4) K/uL [place] # (Auto) (0.0-0.8) K/uL Eos # (Auto) (0.0-0.7) K/uL Baso # (Auto) (0.0-0.1) K/uL Nucleated RBC % /100WBC Nucleated RBCs # K/uL Lactate 1.7 (0.20-2.00) mmol/L Sodium (136-145) mmol/L Potassium (3.5-5.1) mmol/L Chloride (98-107) mmol/L Carbon Dioxide (21.0-32.0) mmol/L BUN (7.0-18.0) mg/dL Creatinine (0.6-1.0) mg/dL Est Cr Clr Drug Dosing mL/min Estimated GFR (MDRD) ml/min Glucose (74-106) mg/dL Calcium (8.5-10.1) mg/dL Total Bilirubin (0.2-1.0) mg/dL AST (15-37) IU/L ALT (14-63) IU/L Alkaline Phosphatase (46-116) U/L Troponin I (0.000-0.056) ng/mL Total Protein (6.4-8.2) g/dL Albumin (3.4-5.0) g/dL Globulin (2.6-4.0) g/dL Albumin/Globulin Ratio (0.9-1.6) Lipase (73-393) U/L Urine Color Urine Appearance Urine pH (5.0-8.0) Ur Specific [place] (1.001-1.035) Urine Protein (NEGATIVE) mg/dL Urine Glucose (UA) (NEGATIVE) mg/dL Urine Ketones (NEGATIVE) mg/dL Urine Occult Blood (NEGATIVE) Urine Nitrite (NEGATIVE) Urine Bilirubin (NEGATIVE) Urine Ictotest Urine Urobilinogen (<2.0) EU/dL Ur Leukocyte Esterase (NEGATIVE) Urine RBC (0-2/HPF) Urine WBC (0-5/HPF) Ur Epithelial Cells (NONE-FEW) Urine Bacteria (NEGATIVE) Urine Mucus (NONE-MOD) Meds: Medications Generic Name Dose Route Start Last Admin Trade Name Freq PRN Reason Stop Dose Admin Potassium Chloride/Sodium Chloride 1,000 mls @ 250 mls/hr 02/23/21 22:15 22:55 Normal Saline With 40 Meq Kcl IV 250 mls/hr ASDIRECTED CAM Administration Sodium Chloride 10 ml 02/23/21 20:44 02/23/21 21:19 Sodium Chloride 0.9% 10 Ml Syringe FLUSH 10 ml ASDIRECTED PRN Administration Keep Vein Open Sodium Chloride 2.5 ml 02/23/21 20:44 02/23/21 21:19 Sodium Chloride 0.9% 2.5 Ml Syringe FLUSH 2.5 ml ASDIRECTED PRN Administration Keep Vein Open Discontinued Medications Generic Name Dose Route Start Last Admin Trade Name Freq PRN Reason Stop Dose Admin Al Hydroxide/Mg Hydroxide 15 0 ml 02/23/21 22:00 02/23/21 22:35 ml/ Lidocaine HCl 5 ml PO 02/23/21 22:01 1 each ONETIME ONE Administration Sodium Chloride 1,000 mls @ 999 mls/hr 02/23/21 20:44 02/23/21 21:19 Normal Saline IV 02/23/21 21:44 999 mls/hr .Bolus ONE Administration Pantoprazole Sodium 40 mg/ 10 mls @ 300 mls/hr 02/23/21 22:00 02/23/21 22:35 Sodium Chloride IV 02/23/21 22:01 300 mls/hr NOW ONE Administration Sodium Chloride 1,000 mls @ 999 mls/hr 02/23/21 22:00 02/24/21 00:27 Normal Saline IV 02/23/21 23:00 999 mls/hr .Bolus ONE Administration Lorazepam 1 mg 02/23/21 21:11 02/23/21 21:18 Lorazepam 2 Mg/Ml Sdv IVPUSH 02/23/21 21:12 1 mg ONETIME ONE Administration Ondansetron HCl 4 mg 02/23/21 21:11 02/23/21 21:18 Ondansetron 4 Mg/2 Ml Sdv IVPUSH 02/23/21 21:12 4 mg ONETIME ONE Administration Potassium Chloride 40 meq 02/23/21 22:02 02/23/21 22:34 Potassium Chloride 10% 20 Meq/15 Ml Soln 30 Ml Ud Cup PO 02/23/21 22:03 40 meq ONETIME ONE Administration Departure - Departure Time of Disposition: 00:33 Disposition: Refer to Observation Condition: Good Clinical Impression: Leukocytosis, Abdominal pain, GERD (gastroesophageal reflux disease), Acute renal injury, Hypokalemia, Dehydration HTN (hypertension) Qualifiers: Hypertension type: essential hypertension Qualified Code(s): I10 - Essential (primary) hypertension - Discharge Information Referrals: PCP,Unobtain [Primary Care Provider] - Forms: ED Department Discharge Sepsis Event Note (ED) - Evaluation Sepsis Screening Result: No Definite Risk - Focused Exam Vital Signs: Vital Signs Temp Pulse Resp BP Pulse Ox 02/23/21 23:42 100 18 149/119 H 98 02/23/21 22:12 107 H 20 184/127 H 95 02/23/21 21:13 128 H 18 175/109 H 97 02/23/21 20:57 97.9 F 122 H 20 102/75 99 - My Orders Last 24 Hours: My Active Orders 02/23/21 20:44 Sodium Chloride 0.9% [Saline Flush] 10 ml FLUSH ASDIRECTED PRN Sodium Chloride 0.9% [Saline Flush] 2.5 ml FLUSH ASDIRECTED PRN Saline Lock Insert [OM.PC] Stat 02/23/21 22:00 EKG Documentation Completion [RC] AM Blood Culture x2 Reflex Set [OM.PC] Stat 02/23/21 22:15 Sodium Chloride 0.9% with KCl [Normal Saline with 40 mEq KCl] 1,000 ml IV ASDIRECTED 02/23/21 22:16 COVID-19/FLU A+B [MOLEC] Stat 02/23/21 22:45 CULTURE BLOOD [BC] Stat 02/23/21 23:05 CULTURE BLOOD [BC] Stat 02/24/21 00:25 Patient Status [ADT] Routine - Assessment/Plan Last 24 Hours: My Active Orders 02/23/21 20:44 Sodium Chloride 0.9% [Saline Flush] 10 ml FLUSH ASDIRECTED PRN Sodium Chloride 0.9% [Saline Flush] 2.5 ml FLUSH ASDIRECTED PRN Saline Lock Insert [OM.PC] Stat 02/23/21 22:00 EKG Documentation Completion [RC] AM Blood Culture x2 Reflex Set [OM.PC] Stat 02/23/21 22:15 Sodium Chloride 0.9% with KCl [Normal Saline with 40 mEq KCl] 1,000 ml IV ASDIRECTED 02/23/21 22:16 COVID-19/FLU A+B [MOLEC] Stat 02/23/21 22:45 CULTURE BLOOD [BC] Stat 02/23/21 23:05 CULTURE BLOOD [BC] Stat 02/24/21 00:25 Patient Status [ADT] Routine
[2021-02-24] MEDS ORDERED: Albuterol/Ipratropium 3.0-0.5 MG/3 ML Neb Soln NEB PRN (00:42)
[2021-02-24] MEDS ORDERED: Ondansetron 4 MG/2 ML SDV IVPUSH PRN (00:42)
[2021-02-24] MEDS ORDERED: Morphine 10 MG/ML Syringe IVPUSH PRN (00:42)
[2021-02-24] MEDS ORDERED: Aluminum Hydroxide/Magnesium Hydroxide/Simethicone Susp 30 ML Cup PO PRN (00:47)
[2021-02-24] MEDS ORDERED: Piperacillin/Tazobactam 4.5 GM in Sodium Chloride 0.9% 100 ML IV ONE (01:24)
[2021-02-24 01:46] LABS: CORONAVIRUS COVID-19 NAA NEGATIVE (NEGATIVE); INFLUENZA A NAA NEGATIVE (NEGATIVE); INFLUENZA B NAA NEGATIVE (NEGATIVE)
[2021-02-24] MEDS: Heparin Sodium 5,000 Units/ML Vial SUBCUT SCH ×3 (02:58→16:34)
[2021-02-24] MEDS: LORazepam 2 MG/ML SDV IVPUSH PRN ×2 (02:58→10:55)
[2021-02-24] MEDS: Lactated Ringers 1,000 ML IV SCH (02:59)
[2021-02-24 05:42] LABS: POTASSIUM,K 3.6 mmol/L (3.5-5.1)
[2021-02-24] MEDS: Pantoprazole 40 MG in Sodium Chloride 0.9% 10 ML IV SCH (08:49)
[2021-02-24] MEDS ORDERED: Pantoprazole 40 MG Vial IV SCH (09:00)
[2021-02-24] MEDS: Piperacillin/Tazobactam 3.375 GM in Sodium Chloride 0.9% 50 ML IV SCH ×2 (10:04→18:00)
--- NOTE | 2021-02-24 10:39 | PCM.HP.2 ---
<Steven Jordan - Last Filed: 02/24/21 14:56> H&P History of Present Illness - General Date of Service: 02/24/21 Admit Problem/Dx: Admission Diagnosis/Problem Admission Diagnosis/Problem Hypokalemia - History of Present Illness Initial Comments - Free Text/Narative: 55-year-old female admitted for hypokalemia, MARY, leukocytosis with past medical history of hypertension and gastroparesis. Patient to the ER this morning secondary to abdominal pain with nausea and vomiting for 36 hours. Patient has been able to eat small amounts of food for the past 1 to 2 days nothing significant. Prior to admission patient was not able to eat or drink anything. Patient states that she has had an episode like this before, 1 year ago, which resolved on its own. Patient states that these episodes began with a bowel movement and escalate to decreased appetite with nausea and vomiting. Patient states that when she was in the ER she began to hyperventilate had, muscle spasms and stated to have numbness, tingling, weakness in the upper and lower extremities. CT scan of the head was obtained to rule out stroke, CT head negative for acute infarcts. Patient treated in ED with GI cocktail, pain medication, IV fluids with 40 mEq of potassium chloride. Patient states that post GI cocktail she has significant improvement in symptoms. Lab work on admission to include White blood cell 14.88 down from 17, Potassium 3.6 up from 2.8 earlier, Lactate 1.7, UA shows 3+ bacteria with urine bilirubin. Patient admitted to observation to monitor potassium levels. Started on clear liquid diet, IV fluids, IV Protonix. - Related Data Allergies/Adverse Reactions: Allergies Allergy/AdvReac Type Severity Reaction Status Date / Time acetaminophen [From Percocet] Allergy Nausea and Verified 02/24/21 03:09 Vomiting celecoxib Allergy Swelling Verified 02/24/21 03:09 cephalexin [From Keflex] Allergy Hives Verified 02/24/21 03:09 Cephalosporins Allergy Hives Verified 02/24/21 03:09 ciprofloxacin [From Cipro] Allergy Hives Verified 02/24/21 03:09 ciprofloxacin HCl Allergy Hives Verified 02/24/21 03:09 [From Cipro] gentamicin Allergy Hives Verified 02/24/21 03:09 morphine Allergy Nausea and Verified 02/24/21 03:09 Vomiting oxycodone [From Percocet] Allergy Nausea and Verified 02/24/21 03:09 Vomiting Penicillins Allergy Rash Verified 02/24/21 03:09 anesthetic cream Allergy Hives Uncoded 02/24/21 03:09 Home Medications: Home Meds Cyanocobalamin (Vitamin B-12) [Cyanocobalamin Injection] 1,000 mcg IM .Q2WEEK 01/01/19 [History] Escitalopram Oxalate 20 mg PO DAILY 01/01/19 [History] Magnesium Oxide [Magnesium] 400 mg PO BID 01/26/19 [History] Losartan [Cozaar] 25 mg PO DAILY 02/10/19 [History] Estrogens,Esterified [Menest] 1.25 mg PO DAILY 02/24/21 [History] Past Medical History HEENT History: Reports: Other (See Below) Other HEENT History: has upper partial denture x2, has upper and lower dental implants Cardiovascular History: Reports: Hypertension Respiratory History: Reports: None Gastrointestinal History: Reports: GERD, Other (See Below) Other Gastrointestinal History: was previously thought to hace Ulcerative colitis, now is diagnosed with Cyclic Vomiting Syndrome- had recent episode Musculoskeletal History: Reports: Osteoarthritis, Other (See Below) Neurological History: Reports: None Psychiatric History: Reports: Anxiety, Depression Endocrine/Metabolic History: Reports: Obesity/BMI 30+ Hematologic History: Reports: B12 Deficiency Immunologic History: Reports: None Oncologic (Cancer) History: Reports: None Dermatologic History: Reports: Psoriasis Other Dermatologic History: has Palmar Plantar Pustular psoriasis - Infectious Disease History Infectious Disease History: Reports: Chicken Pox - Past Surgical History Head Surgeries/Procedures: Reports: None GI Surgical History: Reports: Cholecystectomy Female Surgical History: Reports: Hysterectomy, Salpingo-Oophorectomy, Tubal Ligation, Other (See Below) Other Female Surgeries/Procedures: Laparoscopies with Ovarian Wedge resection and Lysis of Adhesions Musculoskeletal Surgical History: Reports: Arthroscopic Knee, Knee Replacement, ORIF Other Musculoskeletal Surgeries/Procedures:: ACL repair left knee, ORIF right ankle (has plate and screws). left knee replacement Social & Family History - Family History Family Medical History: No Pertinent Family History Cardiac: Reports: None - Tobacco Use Tobacco Use Status *Q: Former Tobacco User Used Tobacco, but Quit: Yes Month/Year Tobacco Last Used: 9 yrs ago - Caffeine Use Caffeine Use: Reports: Tea - Recreational Drug Use Recreational Drug Use: Yes Drug Use in Last 12 Months: Yes Recreational Drug Type: Reports: Marijuana/Hashish Recreational Drug Use Frequency: Weekly - Living Situation & Occupation Living situation: Reports: with Family Occupation: Unemployed H&P Review of Systems - Review of Systems: Review Of Systems: See Below General: Reports: Weakness. Denies: Fever, Chills Pulmonary: Denies: Shortness of Breath Cardiovascular: Denies: Chest Pain, Palpitations Gastrointestinal: Reports: Decreased Appetite. Denies: Abdominal Pain, Nausea, Vomiting Genitourinary: Denies: Dysuria Psychiatric: Denies: Confusion Neurological: Denies: Confusion, Dizziness, Headache, Numbness, Trouble Speaking Exam - Exam Exam: See Below - Vital Signs Vital Signs: Last Vital Signs Temp 97.4 F 02/24/21 08:12 Pulse 68 02/24/21 08:12 Resp 17 02/24/21 08:12 BP 179/86 H 02/24/21 08:12 Pulse Ox 97 02/24/21 08:12 Weight: 92.6 kg - Exam General: Alert, Oriented HEENT: Conjunctiva Clear, Hearing Intact Lungs: Clear to Auscultation, Normal Respiratory Effort Cardiovascular: Regular Rate, Regular Rhythm GI/Abdominal Exam: Normal Bowel Sounds, Soft, Non-Tender Extremities: No Pedal Edema Neuro Extensive - Mental Status: Alert, Oriented x3 Psychiatric: Alert - Patient Data Lab Results Last 24 hrs: Laboratory Results - last 24 hr 02/23/21 02/23/21 02/23/21 Range/Units 21:07 21:07 21:47 WBC 17.17 H (4.0-11.0) K/uL RBC 5.91 H (4.30-5.90) M/uL Hgb 17.1 H (12.0-16.0) g/dL Hct 48.0 H (36.0-46.0) % MCV 81.2 (80.0-98.0) fL MCH 28.9 (27.0-32.0) pg MCHC 35.6 (31.0-37.0) g/dL RDW Std Deviation 43.1 (28.0-62.0) fl RDW Coeff of Mckenna 15 (11.0-15.0) % Plt Count 405 H (150-400) K/uL MPV 10.60 (7.40-12.00) fL Neut % (Auto) 84.5 H (48.0-80.0) % Lymph % (Auto) 8.7 L (16.0-40.0) % Drew % (Auto) 6.7 (0.0-15.0) % Eos % (Auto) 0.0 (0.0-7.0) % Baso % (Auto) 0.1 (0.0-1.5) % Neut # (Auto) 14.5 H (1.4-5.7) K/uL Lymph # (Auto) 1.5 (0.6-2.4) K/uL Drew # (Auto) 1.2 H (0.0-0.8) K/uL Eos # (Auto) 0.0 (0.0-0.7) K/uL Baso # (Auto) 0.0 (0.0-0.1) K/uL Nucleated RBC % 0.0 /100WBC Nucleated RBCs # 0 K/uL APTT (18.6-31.3) SEC Lactate (0.20-2.00) mmol/L Sodium 135 L (136-145) mmol/L Potassium 2.8 L (3.5-5.1) mmol/L Chloride 96 L (98-107) mmol/L Carbon Dioxide 21.7 (21.0-32.0) mmol/L BUN 25 H (7.0-18.0) mg/dL Creatinine 1.9 H (0.6-1.0) mg/dL Est Cr Clr Drug Dosing 34.55 mL/min Estimated GFR (MDRD) 27.3 ml/min Glucose 126 H (74-106) mg/dL Calcium 9.8 (8.5-10.1) mg/dL Phosphorus (2.6-4.7) mg/dL Magnesium (1.8-2.4) mg/dL Total Bilirubin 0.8 (0.2-1.0) mg/dL AST 18 (15-37) IU/L ALT 22 (14-63) IU/L Alkaline Phosphatase 62 (46-116) U/L Troponin I < 0.050 (0.000-0.056) ng/mL Total Protein 8.8 H (6.4-8.2) g/dL Albumin 4.1 (3.4-5.0) g/dL Globulin 4.7 H (2.6-4.0) g/dL Albumin/Globulin Ratio 0.9 (0.9-1.6) Lipase 128 (73-393) U/L Urine Color YELLOW Urine Appearance CLOUDY Urine pH 5.5 (5.0-8.0) Ur Specific Ephraim >= 1.030 (1.001-1.035) Urine Protein 100 H (NEGATIVE) mg/dL Urine Glucose (UA) NEGATIVE (NEGATIVE) mg/dL Urine Ketones 15 H (NEGATIVE) mg/dL Urine Occult Blood TRACE-INTACT H (NEGATIVE) Urine Nitrite NEGATIVE (NEGATIVE) Urine Bilirubin MODERATE H (NEGATIVE) Urine Ictotest POSITIVE Urine Urobilinogen 1.0 (<2.0) EU/dL Ur Leukocyte Esterase NEGATIVE (NEGATIVE) Urine RBC 0-3 (0-2/HPF) Urine WBC 3-6 (0-5/HPF) Ur Epithelial Cells MANY (NONE-FEW) Urine Bacteria 3+ H (NEGATIVE) Urine Mucus MODERATE (NONE-MOD) Influenza Type A RNA (NEGATIVE) Influenza Type B RNA (NEGATIVE) SARS-CoV-2 RNA (FLOR) (NEGATIVE) 02/23/21 02/24/21 02/24/21 Range/Units 23:05 01:00 02:16 WBC (4.0-11.0) K/uL RBC (4.30-5.90) M/uL Hgb (12.0-16.0) g/dL Hct (36.0-46.0) % MCV (80.0-98.0) fL MCH (27.0-32.0) pg MCHC (31.0-37.0) g/dL RDW Std Deviation (28.0-62.0) fl RDW Coeff of Mckenna (11.0-15.0) % Plt Count (150-400) K/uL MPV (7.40-12.00) fL Neut % (Auto) (48.0-80.0) % Lymph % (Auto) (16.0-40.0) % Drew % (Auto) (0.0-15.0) % Eos % (Auto) (0.0-7.0) % Baso % (Auto) (0.0-1.5) % Neut # (Auto) (1.4-5.7) K/uL Lymph # (Auto) (0.6-2.4) K/uL Drew # (Auto) (0.0-0.8) K/uL Eos # (Auto) (0.0-0.7) K/uL Baso # (Auto) (0.0-0.1) K/uL Nucleated RBC % /100WBC Nucleated RBCs # K/uL APTT 26.2 (18.6-31.3) SEC Lactate 1.7 (0.20-2.00) mmol/L Sodium (136-145) mmol/L Potassium (3.5-5.1) mmol/L Chloride (98-107) mmol/L Carbon Dioxide (21.0-32.0) mmol/L BUN (7.0-18.0) mg/dL Creatinine (0.6-1.0) mg/dL Est Cr Clr Drug Dosing mL/min Estimated GFR (MDRD) ml/min Glucose (74-106) mg/dL Calcium (8.5-10.1) mg/dL Phosphorus (2.6-4.7) mg/dL Magnesium (1.8-2.4) mg/dL Total Bilirubin (0.2-1.0) mg/dL AST (15-37) IU/L ALT (14-63) IU/L Alkaline Phosphatase (46-116) U/L Troponin I (0.000-0.056) ng/mL Total Protein (6.4-8.2) g/dL Albumin (3.4-5.0) g/dL Globulin (2.6-4.0) g/dL Albumin/Globulin Ratio (0.9-1.6) Lipase (73-393) U/L Urine Color Urine Appearance Urine pH (5.0-8.0) Ur Specific Ephraim (1.001-1.035) Urine Protein (NEGATIVE) mg/dL Urine Glucose (UA) (NEGATIVE) mg/dL Urine Ketones (NEGATIVE) mg/dL Urine Occult Blood (NEGATIVE) Urine Nitrite (NEGATIVE) Urine Bilirubin (NEGATIVE) Urine Ictotest Urine Urobilinogen (<2.0) EU/dL Ur Leukocyte Esterase (NEGATIVE) Urine RBC (0-2/HPF) Urine WBC (0-5/HPF) Ur Epithelial Cells (NONE-FEW) Urine Bacteria (NEGATIVE) Urine Mucus (NONE-MOD) Influenza Type A RNA NEGATIVE (NEGATIVE) Influenza Type B RNA NEGATIVE (NEGATIVE) SARS-CoV-2 RNA (FLOR) NEGATIVE (NEGATIVE) 02/24/21 02/24/21 Range/Units 05:10 05:10 WBC 14.88 H (4.0-11.0) K/uL RBC 5.04 (4.30-5.90) M/uL Hgb 14.4 (12.0-16.0) g/dL Hct 42.2 (36.0-46.0) % MCV 83.7 (80.0-98.0) fL MCH 28.6 (27.0-32.0) pg MCHC 34.1 (31.0-37.0) g/dL RDW Std Deviation 45.3 (28.0-62.0) fl RDW Coeff of Mckenna 15 (11.0-15.0) % Plt Count 250 (150-400) K/uL MPV 11.00 (7.40-12.00) fL Neut % (Auto) 80.5 H (48.0-80.0) % Lymph % (Auto) 9.5 L (16.0-40.0) % Drew % (Auto) 9.8 (0.0-15.0) % Eos % (Auto) 0.1 (0.0-7.0) % Baso % (Auto) 0.1 (0.0-1.5) % Neut # (Auto) 12.0 H (1.4-5.7) K/uL Lymph # (Auto) 1.4 (0.6-2.4) K/uL Drew # (Auto) 1.5 H (0.0-0.8) K/uL Eos # (Auto) 0.0 (0.0-0.7) K/uL Baso # (Auto) 0.0 (0.0-0.1) K/uL Nucleated RBC % 0.0 /100WBC Nucleated RBCs # 0 K/uL APTT (18.6-31.3) SEC Lactate (0.20-2.00) mmol/L Sodium 137 (136-145) mmol/L Potassium 3.6 (3.5-5.1) mmol/L Chloride 103 (98-107) mmol/L Carbon Dioxide 24.0 (21.0-32.0) mmol/L BUN 23 H (7.0-18.0) mg/dL Creatinine 1.3 H (0.6-1.0) mg/dL Est Cr Clr Drug Dosing 50.50 mL/min Estimated GFR (MDRD) 42.4 ml/min Glucose 97 (74-106) mg/dL Calcium 8.2 L (8.5-10.1) mg/dL Phosphorus 3.8 (2.6-4.7) mg/dL Magnesium 2.0 (1.8-2.4) mg/dL Total Bilirubin (0.2-1.0) mg/dL AST (15-37) IU/L ALT (14-63) IU/L Alkaline Phosphatase (46-116) U/L Troponin I (0.000-0.056) ng/mL Total Protein (6.4-8.2) g/dL Albumin (3.4-5.0) g/dL Globulin (2.6-4.0) g/dL Albumin/Globulin Ratio (0.9-1.6) Lipase (73-393) U/L Urine Color Urine Appearance Urine pH (5.0-8.0) Ur Specific Ephraim (1.001-1.035) Urine Protein (NEGATIVE) mg/dL Urine Glucose (UA) (NEGATIVE) mg/dL Urine Ketones (NEGATIVE) mg/dL Urine Occult Blood (NEGATIVE) Urine Nitrite (NEGATIVE) Urine Bilirubin (NEGATIVE) Urine Ictotest Urine Urobilinogen (<2.0) EU/dL Ur Leukocyte Esterase (NEGATIVE) Urine RBC (0-2/HPF) Urine WBC (0-5/HPF) Ur Epithelial Cells (NONE-FEW) Urine Bacteria (NEGATIVE) Urine Mucus (NONE-MOD) Influenza Type A RNA (NEGATIVE) Influenza Type B RNA (NEGATIVE) SARS-CoV-2 RNA (FLOR) (NEGATIVE) Result Diagrams: 02/24/21 05:10 02/24/21 05:10 Daniel Results Last 24 hrs: Microbiology 02/23/21 23:05 Anaerobic Blood Culture - Final Blood - Venous - Lab Draw Sepsis Event Note - Evaluation Sepsis Screening Result: No Definite Risk - Focused Exam Vital Signs: Vital Signs Temp Pulse Resp BP Pulse Ox 02/24/21 08:12 97.4 F 68 17 179/86 H 97 02/24/21 07:55 97.0 F 80 20 127/69 97 02/24/21 02:40 97.8 F 69 17 147/92 H 97 02/24/21 00:48 101 H 16 151/94 H 97 02/23/21 23:42 100 18 149/119 H 98 - Problem List (1) Abdominal pain SNOMED Code(s): 07385466 ICD Code: R10.9 - UNSPECIFIED ABDOMINAL PAIN Status: Acute Current Visit: Yes (2) Acute renal injury SNOMED Code(s): 87870122, 15819364 ICD Code: N17.9 - ACUTE KIDNEY FAILURE, UNSPECIFIED Status: Acute Current Visit: Yes (3) GERD (gastroesophageal reflux disease) SNOMED Code(s): 348118208 ICD Code: K21.9 - GASTRO-ESOPHAGEAL REFLUX DISEASE WITHOUT ESOPHAGITIS Status: Acute Current Visit: Yes (4) HTN (hypertension) SNOMED Code(s): 64621587 ICD Code: I10 - ESSENTIAL (PRIMARY) HYPERTENSION Status: Acute Priority: High Current Visit: Yes Qualifiers: Hypertension type: essential hypertension Qualified Code(s): I10 - Essential (primary) hypertension (5) Hypokalemia SNOMED Code(s): 89503421 ICD Code: E87.6 - HYPOKALEMIA Status: Acute Current Visit: Yes (6) Leukocytosis SNOMED Code(s): 457024326, 825772784 ICD Code: D72.829 - ELEVATED WHITE BLOOD CELL COUNT, UNSPECIFIED Status: Acute Current Visit: Yes (7) History of total knee replacement SNOMED Code(s): 9037006952316, 9803805222943, 40296348021725 ICD Code: Z96.659 - PRESENCE OF UNSPECIFIED ARTIFICIAL KNEE JOINT Status: Acute Current Visit: No Qualifiers: Laterality: left Qualified Code(s): Z96.652 - Presence of left artificial knee joint (8) Postoperative wound infection SNOMED Code(s): 04904408, 864158808 ICD Code: T81.49XA - INFECTION FOLLOWING A PROCEDURE, OTHER SURGICAL SITE, INIT Status: Acute Priority: Medium Current Visit: No Problem List Initiated/Reviewed/Updated: Yes Orders Last 24hrs: Active Orders 24 hr Category Date Time Status Patient Status [ADT] Routine ADT 02/24/21 00:25 Active Ambulate [RC] ASDIRECTED Care 02/24/21 00:42 Active Antiembolic Devices [RC] PER UNIT ROUTINE Care 02/24/21 00:43 Active EKG Documentation Completion [RC] AM Care 02/23/21 22:00 Active Oxygen Therapy [RC] PRN Care 02/24/21 00:42 Active Pulse Oximetry [RC] PRN Care 02/24/21 00:42 Active RT Aerosol Therapy [RC] ASDIRECTED Care 02/24/21 00:44 Active VTE/DVT Education [RC] PER UNIT ROUTINE Care 02/24/21 00:42 Active Vital Signs [RC] Q4H Care 02/24/21 00:42 Active Clear Liquid Diet [DIET] Diet 02/24/21 Breakfast Active CULTURE BLOOD [BC] Stat Lab 02/23/21 22:45 Received CULTURE BLOOD [BC] Stat Lab 02/23/21 23:05 Results Albuterol/Ipratropium [DuoNeb 3.0-0.5 MG/3 ML] Med 02/24/21 00:42 Active 3 ml NEB Q4HRRT PRN Alum Hydrox/Mag Hydrox/Simeth [Mag-Al Plus] Med 02/24/21 00:47 Active 30 ml PO Q4H PRN Heparin Sodium Med 02/24/21 00:45 Active 5,000 units SUBCUT Q8H LORazepam [Ativan] Med 02/24/21 00:48 Active 1 mg IVPUSH Q4H PRN Lactated Ringers [Ringers, Lactated] 1,000 ml Med 02/24/21 00:45 Active IV ASDIRECTED Ondansetron [Zofran] Med 02/24/21 00:42 Active 4 mg IVPUSH Q4H PRN Pantoprazole [ProTONIX IV] 40 mg Med 02/24/21 09:00 Active Sodium Chloride 0.9% [Normal Saline] 10 ml IV Q24H Piperacillin/Tazobactam [Piperacil-Tazobact] 3.375 gm Med 02/24/21 10:00 Active Sodium Chloride 0.9% [Normal Saline] 50 ml IV Q8H Sodium Chloride 0.9% [Saline Flush] Med 02/23/21 20:44 Active 10 ml FLUSH ASDIRECTED PRN Sodium Chloride 0.9% [Saline Flush] Med 02/23/21 20:44 Active 2.5 ml FLUSH ASDIRECTED PRN Sodium Chloride 0.9% with KCl [Normal Saline with 40 Med 02/23/21 22:15 Active mEq KCl] 1,000 ml IV ASDIRECTED Blood Culture x2 Reflex Set [OM.PC] Stat Ot 02/23/21 22:00 Ordered Saline Lock Insert [OM.PC] Stat Ot 02/23/21 20:44 Ordered Sequential Compression Device [OM.PC] Per Unit Routine Ot 02/24/21 00:42 Ordered Medication Orders Al Hydroxide/Mg Hydroxide (Aluminum Hydroxide/Magnesium Hydroxide/Simethicone Susp 30 Ml Cup) 30 ml PO Q4H PRN PRN Reason: Dyspepsia Albuterol/Ipratropium (Albuterol/Ipratropium 3.0-0.5 Mg/3 Ml Neb Soln) 3 ml NEB Q4HRRT PRN PRN Reason: Shortness Of Breath/wheezing Heparin Sodium (Porcine) (Heparin Sodium 5,000 Units/Ml Vial) 5,000 units SUBCUT Q8H [facility] Last Admin: 02/24/21 08:49 Dose: 5,000 units Documented by: Admin: 02/24/21 02:58 Dose: 5,000 units Documented by: JOSEFINA Potassium Chloride/Sodium Chloride (Normal Saline With 40 Meq Kcl) 1,000 mls @ 250 mls/hr IV ASDIRECTED [facility] Last Admin: 02/23/21 22:55 Dose: 250 mls/hr Documented by: ARTEMIO Lactated Ringer's (Ringers, Lactated) 1,000 mls @ 125 mls/hr IV ASDIRECTED [facility] Last Admin: 02/24/21 02:59 Dose: 125 mls/hr Documented by: JOSEFINA Piperacillin Sod/Tazobactam (Sod 3.375 gm/ Sodium Chloride) 50 mls @ 100 mls/hr IV Q8H [facility] Last Admin: 02/24/21 10:04 Dose: 100 mls/hr Documented by: MARLENE Pantoprazole Sodium 40 mg/ (Sodium Chloride) 10 mls @ 300 mls/hr IV Q24H [facility] Last Admin: 02/24/21 08:49 Dose: 300 mls/hr Documented by: MARLENE Lorazepam (Lorazepam 2 Mg/Ml Sdv) 1 mg IVPUSH Q4H PRN PRN Reason: Anxiety Last Admin: 02/24/21 02:58 Dose: 1 mg Documented by: JOSEFINA Ondansetron HCl (Ondansetron 4 Mg/2 Ml Sdv) 4 mg IVPUSH Q4H PRN PRN Reason: Nausea/Vomiting Sodium Chloride (Sodium Chloride 0.9% 10 Ml Syringe) 10 ml FLUSH ASDIRECTED PRN PRN Reason: Keep Vein Open Last Admin: 02/23/21 21:19 Dose: 10 ml Documented by: ELAINE Sodium Chloride (Sodium Chloride 0.9% 2.5 Ml Syringe) 2.5 ml FLUSH ASDIRECTED PRN PRN Reason: Keep Vein Open Last Admin: 02/23/21 21:19 Dose: 2.5 ml Documented by: ELAINE Assessment/Plan Comment:: Hypokalemiaresolved, potassium currently 3.6, repleted with 40 mEq potassium in the ED. Will monitor BMP Acute kidney injuryresolving, creatinine currently 1.3, IV fluids, avoid nephrotoxic agents. Hypertensionlosartan 25 mg p.o. daily Zofran, Protonix, clear liquid diet advance as tolerated. <Mo Wood - Last Filed: 02/24/21 23:02> H&P History of Present Illness - General Admit Problem/Dx: Admission Diagnosis/Problem Admission Diagnosis/Problem Hypokalemia - History of Present Illness Initial Comments - Free Text/Narative: I performed a history and physical exam of the patient and discussed management with resident. I have reviewed the residents note and agree with documented findings and plan unless otherwise specified in my note. Exam - Vital Signs Vital Signs: Last Vital Signs Temp 36.5 C 02/24/21 19:43 Pulse 61 02/24/21 19:43 Resp 16 02/24/21 19:43 BP 125/88 02/24/21 19:43 Pulse Ox 99 02/24/21 19:43 - Patient Data Lab Results Last 24 hrs: Laboratory Results - last 24 hr 02/23/21 02/24/21 02/24/21 Range/Units 23:05 01:00 02:16 WBC (4.0-11.0) K/uL RBC (4.30-5.90) M/uL Hgb (12.0-16.0) g/dL Hct (36.0-46.0) % MCV (80.0-98.0) fL MCH (27.0-32.0) pg MCHC (31.0-37.0) g/dL RDW Std Deviation (28.0-62.0) fl RDW Coeff of Mckenna (11.0-15.0) % Plt Count (150-400) K/uL MPV (7.40-12.00) fL Neut % (Auto) (48.0-80.0) % Lymph % (Auto) (16.0-40.0) % Drew % (Auto) (0.0-15.0) % Eos % (Auto) (0.0-7.0) % Baso % (Auto) (0.0-1.5) % Neut # (Auto) (1.4-5.7) K/uL Lymph # (Auto) (0.6-2.4) K/uL Drew # (Auto) (0.0-0.8) K/uL Eos # (Auto) (0.0-0.7) K/uL Baso # (Auto) (0.0-0.1) K/uL Nucleated RBC % /100WBC Nucleated RBCs # K/uL APTT 26.2 (18.6-31.3) SEC Lactate 1.7 (0.20-2.00) mmol/L Sodium (136-145) mmol/L Potassium (3.5-5.1) mmol/L Chloride (98-107) mmol/L Carbon Dioxide (21.0-32.0) mmol/L BUN (7.0-18.0) mg/dL Creatinine (0.6-1.0) mg/dL Est Cr Clr Drug Dosing mL/min Estimated GFR (MDRD) ml/min Glucose (74-106) mg/dL Calcium (8.5-10.1) mg/dL Phosphorus (2.6-4.7) mg/dL Magnesium (1.8-2.4) mg/dL Influenza Type A RNA NEGATIVE (NEGATIVE) Influenza Type B RNA NEGATIVE (NEGATIVE) SARS-CoV-2 RNA (FLOR) NEGATIVE (NEGATIVE) 02/24/21 02/24/21 Range/Units 05:10 05:10 WBC 14.88 H (4.0-11.0) K/uL RBC 5.04 (4.30-5.90) M/uL Hgb 14.4 (12.0-16.0) g/dL Hct 42.2 (36.0-46.0) % MCV 83.7 (80.0-98.0) fL MCH 28.6 (27.0-32.0) pg MCHC 34.1 (31.0-37.0) g/dL RDW Std Deviation 45.3 (28.0-62.0) fl RDW Coeff of Mckenna 15 (11.0-15.0) % Plt Count 250 (150-400) K/uL MPV 11.00 (7.40-12.00) fL Neut % (Auto) 80.5 H (48.0-80.0) % Lymph % (Auto) 9.5 L (16.0-40.0) % Drew % (Auto) 9.8 (0.0-15.0) % Eos % (Auto) 0.1 (0.0-7.0) % Baso % (Auto) 0.1 (0.0-1.5) % Neut # (Auto) 12.0 H (1.4-5.7) K/uL Lymph # (Auto) 1.4 (0.6-2.4) K/uL Drew # (Auto) 1.5 H (0.0-0.8) K/uL Eos # (Auto) 0.0 (0.0-0.7) K/uL Baso # (Auto) 0.0 (0.0-0.1) K/uL Nucleated RBC % 0.0 /100WBC Nucleated RBCs # 0 K/uL APTT (18.6-31.3) SEC Lactate (0.20-2.00) mmol/L Sodium 137 (136-145) mmol/L Potassium 3.6 (3.5-5.1) mmol/L Chloride 103 (98-107) mmol/L Carbon Dioxide 24.0 (21.0-32.0) mmol/L BUN 23 H (7.0-18.0) mg/dL Creatinine 1.3 H (0.6-1.0) mg/dL Est Cr Clr Drug Dosing 50.50 mL/min Estimated GFR (MDRD) 42.4 ml/min Glucose 97 (74-106) mg/dL Calcium 8.2 L (8.5-10.1) mg/dL Phosphorus 3.8 (2.6-4.7) mg/dL Magnesium 2.0 (1.8-2.4) mg/dL Influenza Type A RNA (NEGATIVE) Influenza Type B RNA (NEGATIVE) SARS-CoV-2 RNA (FLOR) (NEGATIVE) Result Diagrams: 02/24/21 05:10 02/24/21 05:10 Daniel Results Last 24 hrs: Microbiology 02/23/21 22:45 Aerobic Blood Culture - Preliminary Blood - Venous NO GROWTH AFTER 1 DAY Anaerobic Blood Culture - Preliminary NO GROWTH AFTER 1 DAY 02/23/21 23:05 Anaerobic Blood Culture - Final Blood - Venous - Lab Draw Sepsis Event Note - Focused Exam Vital Signs: Vital Signs Temp Pulse Resp BP BP Pulse Ox 02/24/21 19:43 36.5 C 61 16 125/88 99 02/24/21 17:00 37.0 C 63 15 111/60 95 02/24/21 13:04 140/92 H 02/24/21 13:02 37.0 C 62 16 142/90 H 95 02/24/21 12:00 36.3 C 80 15 156/82 H 97 Orders Last 24hrs: Active Orders 24 hr Category Date Time Status Patient Status [ADT] Routine ADT 02/24/21 00:25 Active Ambulate [RC] ASDIRECTED Care 02/24/21 00:42 Active Antiembolic Devices [RC] Q12H Care 02/24/21 00:43 Active Oxygen Therapy [RC] PRN Care 02/24/21 00:42 Active Pulse Oximetry [RC] PRN Care 02/24/21 00:42 Active RT Aerosol Therapy [RC] ASDIRECTED Care 02/24/21 00:44 Active VTE/DVT Education [RC] PER UNIT ROUTINE Care 02/24/21 00:42 Active VTE/DVT Education [RC] PER UNIT ROUTINE Care 02/24/21 17:06 Active Vital Signs [RC] Q4H Care 02/24/21 17:06 Active Soft Diet [DIET] Diet 02/24/21 Dinner Active BASIC METABOLIC PANEL,BMP [CHEM] AM Lab 02/25/21 05:11 Ordered CBC WITH AUTO DIFF [HEME] AM Lab 02/25/21 05:11 Ordered CULTURE BLOOD [BC] Stat Lab 02/23/21 22:45 Results CULTURE BLOOD [BC] Stat Lab 02/23/21 23:05 Results MAGNESIUM [CHEM] AM Lab 02/25/21 05:11 Ordered Albuterol/Ipratropium [DuoNeb 3.0-0.5 MG/3 ML] Med 02/24/21 00:42 Active 3 ml NEB Q4HRRT PRN Alum Hydrox/Mag Hydrox/Simeth [Mag-Al Plus] Med 02/24/21 00:47 Active 30 ml PO Q4H PRN Escitalopram [Lexapro] Med 02/25/21 09:00 Active 20 mg PO DAILY Heparin Sodium Med 02/24/21 00:45 Active 5,000 units SUBCUT Q8H LORazepam [Ativan] Med 02/24/21 00:48 Active 1 mg IVPUSH Q4H PRN Lactated Ringers [Ringers, Lactated] 1,000 ml Med 02/24/21 00:45 Active IV ASDIRECTED Losartan [Cozaar] Med 02/24/21 13:00 Active 25 mg PO DAILY Magnesium Oxide Med 02/24/21 21:00 Active 400 mg PO BID Ondansetron [Zofran] Med 02/24/21 00:42 Active 4 mg IVPUSH Q4H PRN Pantoprazole [ProTONIX IV] 40 mg Med 02/24/21 09:00 Active Sodium Chloride 0.9% [Normal Saline] 10 ml IV Q24H Piperacillin/Tazobactam [Piperacil-Tazobact] 3.375 gm Med 02/24/21 10:00 Active Sodium Chloride 0.9% [Normal Saline] 50 ml IV Q8H Sodium Chloride 0.9% with KCl [Normal Saline with 40 Med 02/23/21 22:15 Active mEq KCl] 1,000 ml IV ASDIRECTED Sequential Compression Device [OM.PC] Per Unit Routine Oth 02/24/21 00:42 Ordered Resuscitation Status Routine Resus Stat 02/24/21 17:06 Ordered Medication Orders Al Hydroxide/Mg Hydroxide (Aluminum Hydroxide/Magnesium Hydroxide/Simethicone Susp 30 Ml Cup) 30 ml PO Q4H PRN PRN Reason: Dyspepsia Last Admin: 02/24/21 16:34 Dose: 30 ml Documented by: MARLENE Albuterol/Ipratropium (Albuterol/Ipratropium 3.0-0.5 Mg/3 Ml Neb Soln) 3 ml NEB Q4HRRT PRN PRN Reason: Shortness Of Breath/wheezing Escitalopram Oxalate (Escitalopram 10 Mg Tab) 20 mg PO DAILY [facility] Heparin Sodium (Porcine) (Heparin Sodium 5,000 Units/Ml Vial) 5,000 units SUBCUT Q8H [facility] Last Admin: 02/24/21 16:34 Dose: 5,000 units Documented by: Admin: 02/24/21 08:49 Dose: 5,000 units Documented by: Admin: 02/24/21 02:58 Dose: 5,000 units Documented by: JOSEFINA Potassium Chloride/Sodium Chloride (Normal Saline With 40 Meq Kcl) 1,000 mls @ 250 mls/hr IV ASDIRECTED [facility] Last Admin: 02/23/21 22:55 Dose: 250 mls/hr Documented by: ARTEMIO Lactated Ringer's (Ringers, Lactated) 1,000 mls @ 125 mls/hr IV ASDIRECTED [facility] Last Admin: 02/24/21 02:59 Dose: 125 mls/hr Documented by: JOSEFINA Piperacillin Sod/Tazobactam (Sod 3.375 gm/ Sodium Chloride) 50 mls @ 100 mls/hr IV Q8H [facility] Last Admin: 02/24/21 18:00 Dose: 100 mls/hr Documented by: Infusion: 02/24/21 10:34 Dose: 100 mls/hr Documented by: Admin: 02/24/21 10:04 Dose: 100 mls/hr Documented by: MARLENE Pantoprazole Sodium 40 mg/ (Sodium Chloride) 10 mls @ 300 mls/hr IV Q24H [facility] Last Admin: 02/24/21 08:49 Dose: 300 mls/hr Documented by: MARLENE Lorazepam (Lorazepam 2 Mg/Ml Sdv) 1 mg IVPUSH Q4H PRN PRN Reason: Anxiety Last Admin: 02/24/21 10:55 Dose: 1 mg Documented by: Admin: 02/24/21 02:58 Dose: 1 mg Documented by: JOSEFINA Losartan Potassium (Losartan 50 Mg Tab) 25 mg PO DAILY [facility] Last Admin: 02/24/21 13:04 Dose: 25 mg Documented by: MARLENE Magnesium Oxide (Magnesium Oxide 400 Mg Tab) 400 mg PO BID [facility] Last Admin: 02/24/21 20:15 Dose: 400 mg Documented by: SHARONDA Ondansetron HCl (Ondansetron 4 Mg/2 Ml Sdv) 4 mg IVPUSH Q4H PRN PRN Reason: Nausea/Vomiting Sodium Chloride (Sodium Chloride 0.9% 10 Ml Syringe) 10 ml FLUSH ASDIRECTED PRN PRN Reason: Keep Vein Open Last Admin: 02/23/21 21:19 Dose: 10 ml Documented by: ELAINE Sodium Chloride (Sodium Chloride 0.9% 2.5 Ml Syringe) 2.5 ml FLUSH ASDIRECTED PRN PRN Reason: Keep Vein Open Last Admin: 02/23/21 21:19 Dose: 2.5 ml Documented by: ELAINE
[2021-02-24] MEDS: Losartan 50 MG Tab PO SCH (13:04)
[2021-02-24] MEDS: Magnesium Oxide 400 MG Tab PO SCH (20:15)
[2021-02-25] MEDS: Heparin Sodium 5,000 Units/ML Vial SUBCUT SCH ×2 (00:24→08:12)
[2021-02-25] MEDS: Piperacillin/Tazobactam 3.375 GM in Sodium Chloride 0.9% 50 ML IV SCH ×2 (03:00→10:14)
[2021-02-25] MEDS: Lactated Ringers 1,000 ML IV SCH (03:14)
[2021-02-25 06:58] LABS: BLOOD UREA NITROGEN,BUN 9 mg/dL (7.0-18.0); CARBON DIOXIDE,CO2 25.8 mmol/L (21.0-32.0); CHLORIDE,CL 106 mmol/L (98-107); GLUCOSE RANDOM 89 mg/dL (74-106); POTASSIUM,K 3.5 mmol/L (3.5-5.1); SODIUM,NA 141 mmol/L (136-145)
[2021-02-25] MEDS: Losartan 50 MG Tab PO SCH (08:13)
[2021-02-25] MEDS: Magnesium Oxide 400 MG Tab PO SCH (08:14)
[2021-02-25] MEDS: Pantoprazole 40 MG in Sodium Chloride 0.9% 10 ML IV SCH (08:14)
[2021-02-25] MEDS ORDERED: Escitalopram 10 MG Tab PO SCH (09:00)
--- NOTE | 2021-02-25 13:57 | PCM.DCSUM1 ---
<Steven Jordan - Last Filed: 02/25/21 13:58> Discharge Summary - Hospital Course Free Text/Narrative:: 55-year-old female admitted for hypokalemia, MARY, leukocytosis with past medical history of hypertension and gastroparesis. Patient to the ER this morning secondary to abdominal pain with nausea and vomiting for 36 hours. Patient has been able to eat small amounts of food for the past 1 to 2 days nothing significant. Prior to admission patient was not able to eat or drink anything. Patient states that she has had an episode like this before, 1 year ago, which resolved on its own. Patient states that these episodes began with a bowel movement and escalate to decreased appetite with nausea and vomiting. Patient states that when she was in the ER she began to hyperventilate had, muscle spasms and stated to have numbness, tingling, weakness in the upper and lower extremities. CT scan of the head was obtained to rule out stroke, CT head negative for acute infarcts. Patient treated in ED with GI cocktail, pain medication, IV fluids with 40 mEq of potassium chloride. Patient states that post GI cocktail she has significant improvement in symptoms. Lab work on admission to include White blood cell 14.88 down from 17, Potassium 3.6 up from 2.8 earlier, Lactate 1.7, UA shows 3+ bacteria with urine bilirubin. Patient admitted to observation to monitor potassium levels. Started on clear liquid diet, IV fluids, IV Protonix, IV antibiotics. Of note, CT head impression revealed some chronic small vessel ischemia, scattered intracranial atherosclerotic calcification. Patient's diet advanced during the course of admission, patient was able to tolerate soft diet with no nausea vomiting abdominal pain. Due to CT findings patient discharged home on 81 mg coated aspirin, 10 mg atorvastatin. Patient advised to discuss these medications with primary care provider post ho spitalization for continuation. Patient also discharged home on 20 mg omeprazole as she stated mild indigestionheartburn during admission. - Discharge Data Discharge Date: 02/25/21 Discharge Disposition: Home, Self-Care 01 Condition: Stable - Referral to Home Health Primary Care Physician: PCP Unobtainable - Discharge Diagnosis/Problem(s) (1) Abdominal pain SNOMED Code(s): 20336287 ICD Code: R10.9 - UNSPECIFIED ABDOMINAL PAIN Status: Acute (2) Acute renal injury SNOMED Code(s): 91930810, 24129311 ICD Code: N17.9 - ACUTE KIDNEY FAILURE, UNSPECIFIED Status: Acute (3) GERD (gastroesophageal reflux disease) SNOMED Code(s): 249317923 ICD Code: K21.9 - GASTRO-ESOPHAGEAL REFLUX DISEASE WITHOUT ESOPHAGITIS Status: Acute (4) HTN (hypertension) SNOMED Code(s): 20710063 ICD Code: I10 - ESSENTIAL (PRIMARY) HYPERTENSION Status: Acute Priority: High Qualifiers: Hypertension type: essential hypertension Qualified Code(s): I10 - Essential (primary) hypertension (5) Hypokalemia SNOMED Code(s): 94479837 ICD Code: E87.6 - HYPOKALEMIA Status: Acute (6) Leukocytosis SNOMED Code(s): 622961298, 138467425 ICD Code: D72.829 - ELEVATED WHITE BLOOD CELL COUNT, UNSPECIFIED Status: Acute (7) History of total knee replacement SNOMED Code(s): 8297540719905, 4116498640665, 41544543354694 ICD Code: Z96.659 - PRESENCE OF UNSPECIFIED ARTIFICIAL KNEE JOINT Status: Acute Qualifiers: Laterality: left Qualified Code(s): Z96.652 - Presence of left artificial knee joint (8) Postoperative wound infection SNOMED Code(s): 20748071, 737609245 ICD Code: T81.49XA - INFECTION FOLLOWING A PROCEDURE, OTHER SURGICAL SITE, INIT Status: Acute Priority: Medium - Patient Instructions Notify Provider of: Nausea and/or Vomiting Other/Special Instructions: PATIENT WAS STARTED ON NEW MEDICATIONS, PLEASE REVIEW ALL MEDICATIONS WITH PCP AT NEXT VISIT TO ADJUST NEEDED - Discharge Plan Prescriptions/Med Rec: Aspirin [Aspirin EC] 81 mg PO DAILY 21 Days #21 tablet. atorvaSTATin [Lipitor] 10 mg PO BEDTIME #10 tab Omeprazole 20 mg PO ACBREAKFAST #7 cap.sr Home Medications: Home Meds Cyanocobalamin (Vitamin B-12) [Cyanocobalamin Injection] 1,000 mcg IM .Q2WEEK 01/01/19 [History] Escitalopram Oxalate 20 mg PO DAILY 01/01/19 [History] Magnesium Oxide [Magnesium] 400 mg PO BID 01/26/19 [History] Losartan [Cozaar] 25 mg PO DAILY 02/10/19 [History] Estrogens,Esterified [Menest] 1.25 mg PO DAILY 02/24/21 [History] Aspirin [Aspirin EC] 81 mg PO DAILY 21 Days #21 tablet. 02/25/21 [Rx] Omeprazole 20 mg PO ACBREAKFAST #7 cap.sr 02/25/21 [Rx] atorvaSTATin [Lipitor] 10 mg PO BEDTIME #10 tab 02/25/21 [Rx] Patient Handouts: Atorvastatin tablets, Gastroesophageal Reflux Disease, Adult, [id number], Aspirin, ASA oral tablets, Gastroparesis, Omeprazole tablets (OTC) Forms: ED Department Discharge Referrals: Kirby Flores MD [Physician] - 03/21/21 10:30 am - Discharge Summary/Plan Comment DC Time >30 min.: Yes - General Info Date of Service: 02/25/21 Subjective Update: Patient states she feels fine this morning would like to go home. Patient denies fever, chills, nausea, vomiting abdominal pain, headaches, chest pain, shortness of breath. - Review of Systems General: Denies: Fever, Chills Pulmonary: Denies: Shortness of Breath, Cough Cardiovascular: Denies: Chest Pain, Palpitations Gastrointestinal: Denies: Abdominal Pain, Constipation, Nausea, Vomiting Neurological: Denies: Confusion, Dizziness Psychiatric: Denies: Confusion - Patient Data Vitals - Most Recent: Last Vital Signs Temp 97.9 F 02/25/21 08:10 Pulse 50 L 02/25/21 08:10 Resp 15 02/25/21 08:10 BP 164/98 H 02/25/21 08:13 Pulse Ox 98 02/25/21 08:10 Weight - Most Recent: 92.6 kg I&O - Last 24 hours: Intake & Output 02/24/21 02/25/21 02/25/21 22:59 06:59 14:59 Intake Total 2496 2288 Output Total 950 1500 Balance 1546 788 Lab Results - Last 24 hrs: Laboratory Results - last 24 hr 02/25/21 02/25/21 02/25/21 Range/Units 05:55 05:55 05:55 WBC 5.73 (4.0-11.0) K/uL RBC 4.79 (4.30-5.90) M/uL Hgb 13.3 (12.0-16.0) g/dL Hct 40.9 (36.0-46.0) % MCV 85.4 (80.0-98.0) fL MCH 27.8 (27.0-32.0) pg MCHC 32.5 (31.0-37.0) g/dL RDW Std Deviation 46.5 (28.0-62.0) fl RDW Coeff of Mckenna 15 (11.0-15.0) % Plt Count 252 (150-400) K/uL MPV 10.60 (7.40-12.00) fL Neut % (Auto) 59.9 (48.0-80.0) % Lymph % (Auto) 27.2 (16.0-40.0) % [place] % (Auto) 11.2 (0.0-15.0) % Eos % (Auto) 1.4 (0.0-7.0) % Baso % (Auto) 0.3 (0.0-1.5) % Neut # (Auto) 3.4 (1.4-5.7) K/uL Lymph # (Auto) 1.6 (0.6-2.4) K/uL [place] # (Auto) 0.6 (0.0-0.8) K/uL Eos # (Auto) 0.1 (0.0-0.7) K/uL Baso # (Auto) 0.0 (0.0-0.1) K/uL Nucleated RBC % 0.0 /100WBC Nucleated RBCs # 0 K/uL Sodium 141 (136-145) mmol/L Potassium 3.5 (3.5-5.1) mmol/L Chloride 106 (98-107) mmol/L Carbon Dioxide 25.8 (21.0-32.0) mmol/L BUN 9 (7.0-18.0) mg/dL Creatinine 0.8 (0.6-1.0) mg/dL Est Cr Clr Drug Dosing 82.06 mL/min Estimated GFR (MDRD) > 60.0 ml/min Glucose 89 (74-106) mg/dL Calcium 8.2 L (8.5-10.1) mg/dL Magnesium 2.1 (1.8-2.4) mg/dL Triglycerides 128 (0-200) mg/dL Cholesterol 129 (50-200) mg/dL LDL Cholesterol, Calc 70 (60-180) mg/dL VLDL Cholesterol 25 (5-55) mg/dL HDL Cholesterol 33 L (40-60) mg/dL Cholesterol/HDL Ratio 3.9 (3.3-6.0) TSH 3rd Generation 0.83 (0.36-3.74) uIU/mL [facility]AS Results - Last 24 hrs: Microbiology 02/23/21 23:05 Aerobic Blood Culture - Preliminary Blood - Venous - Lab Draw NO GROWTH AFTER 1 DAY Anaerobic Blood Culture - Final 02/23/21 22:45 Aerobic Blood Culture - Preliminary Blood - Venous NO GROWTH AFTER 1 DAY Anaerobic Blood Culture - Preliminary NO GROWTH AFTER 1 DAY Med Orders - Current: Current Medications Discontinued Medications Al Hydroxide/Mg Hydroxide (Aluminum Hydroxide/Magnesium Hydroxide/Simethicone Susp 30 Ml Cup) 30 ml PO Q4H PRN PRN Reason: Dyspepsia Last Admin: 02/24/21 16:34 Dose: 30 ml Documented by: Albuterol/Ipratropium (Albuterol/Ipratropium 3.0-0.5 Mg/3 Ml Neb Soln) 3 ml NEB Q4HRRT PRN PRN Reason: Shortness Of Breath/wheezing Al Hydroxide/Mg Hydroxide 15 (ml/ Lidocaine HCl 5 ml) 0 ml PO ONETIME ONE Stop: 02/23/21 22:01 Last Admin: 02/23/21 22:35 Dose: 1 each Documented by: Escitalopram Oxalate (Escitalopram 10 Mg Tab) 20 mg PO DAILY [facility] Last Admin: 02/25/21 08:14 Dose: 20 mg Documented by: Heparin Sodium (Porcine) (Heparin Sodium 5,000 Units/Ml Vial) 5,000 units SUBCUT Q8H [facility] Last Admin: 02/25/21 08:12 Dose: 5,000 units Documented by: Sodium Chloride (Normal Saline) 1,000 mls @ 999 mls/hr IV .Bolus ONE Stop: 02/23/21 21:44 Last Admin: 02/23/21 21:19 Dose: 999 mls/hr Documented by: Pantoprazole Sodium 40 mg/ (Sodium Chloride) 10 mls @ 300 mls/hr IV NOW ONE Stop: 02/23/21 22:01 Last Admin: 02/23/21 22:35 Dose: 300 mls/hr Documented by: Sodium Chloride (Normal Saline) 1,000 mls @ 999 mls/hr IV .Bolus ONE Stop: 02/23/21 23:00 Last Admin: 02/24/21 00:27 Dose: 999 mls/hr Documented by: Potassium Chloride/Sodium Chloride (Normal Saline With 40 Meq Kcl) 1,000 mls @ 250 mls/hr IV ASDIRECTED [facility] Last Admin: 02/23/21 22:55 Dose: 250 mls/hr Documented by: Lactated Ringer's (Ringers, Lactated) 1,000 mls @ 125 mls/hr IV ASDIRECTED [facility] Last Admin: 02/25/21 03:14 Dose: 125 mls/hr Documented by: Piperacillin Sod/Tazobactam (Sod 4.5 gm/ Sodium Chloride) 100 mls @ 100 mls/hr IV ONETIME ONE Stop: 02/24/21 02:23 Last Admin: 02/24/21 01:55 Dose: 100 mls/hr Documented by: Piperacillin Sod/Tazobactam (Sod 3.375 gm/ Sodium Chloride) 50 mls @ 100 mls/hr IV Q8H [facility] Last Admin: 02/25/21 10:14 Dose: 100 mls/hr Documented by: Pantoprazole Sodium 40 mg/ (Sodium Chloride) 10 mls @ 300 mls/hr IV Q24H [facility] Last Admin: 02/25/21 08:14 Dose: 300 mls/hr Documented by: Lorazepam (Lorazepam 2 Mg/Ml Sdv) 1 mg IVPUSH ONETIME ONE Stop: 02/23/21 21:12 Last Admin: 02/23/21 21:18 Dose: 1 mg Documented by: Lorazepam (Lorazepam 2 Mg/Ml Sdv) 1 mg IVPUSH Q4H PRN PRN Reason: Anxiety Last Admin: 02/24/21 10:55 Dose: 1 mg Documented by: Losartan Potassium (Losartan 50 Mg Tab) 25 mg PO DAILY [facility] Last Admin: 02/25/21 08:13 Dose: 25 mg Documented by: Magnesium Oxide (Magnesium Oxide 400 Mg Tab) 400 mg PO BID [facility] Last Admin: 02/25/21 08:14 Dose: 400 mg Documented by: Morphine Sulfate (Morphine 10 Mg/Ml Syringe) 1 mg IVPUSH Q3H PRN PRN Reason: Pain (severe 7-10) Stop: 02/25/21 00:43 Ondansetron HCl (Ondansetron 4 Mg/2 Ml Sdv) 4 mg IVPUSH ONETIME ONE Stop: 02/23/21 21:12 Last Admin: 02/23/21 21:18 Dose: 4 mg Documented by: Ondansetron HCl (Ondansetron 4 Mg/2 Ml Sdv) 4 mg IVPUSH Q4H PRN PRN Reason: Nausea/Vomiting Potassium Chloride (Potassium Chloride 10% 20 Meq/15 Ml Soln 30 Ml Ud Cup) 40 meq PO ONETIME ONE Stop: 02/23/21 22:03 Last Admin: 02/23/21 22:34 Dose: 40 meq Documented by: Sodium Chloride (Sodium Chloride 0.9% 10 Ml Syringe) 10 ml FLUSH ASDIRECTED PRN PRN Reason: Keep Vein Open Last Admin: 02/23/21 21:19 Dose: 10 ml Documented by: Sodium Chloride (Sodium Chloride 0.9% 2.5 Ml Syringe) 2.5 ml FLUSH ASDIRECTED PRN PRN Reason: Keep Vein Open Last Admin: 02/23/21 21:19 Dose: 2.5 ml Documented by: - Exam General: Reports: Alert, Oriented Neck: Reports: Supple Lungs: Reports: Clear to Auscultation, Normal Respiratory Effort Cardiovascular: Reports: Regular Rhythm GI/Abdominal Exam: Normal Bowel Sounds, Soft, Non-Tender Extremities: No Pedal Edema Psy/Mental Status: Reports: Alert <Israel,Hooria - Last Filed: 02/26/21 13:31> Discharge Summary - Hospital Course Free Text/Narrative:: I have seen and evaluated the patient and agree with the residents note unless specified in my note - Referral to Home Health Primary Care Physician: PCP Unobtainable - Patient Data Vitals - Most Recent: Last Vital Signs Temp 36.6 C 02/25/21 08:10 Pulse 50 L 02/25/21 08:10 Resp 15 02/25/21 08:10 BP 164/98 H 02/25/21 08:13 Pulse Ox 98 02/25/21 08:10 LUCAS Results - Last 24 hrs: Microbiology 02/23/21 23:05 Aerobic Blood Culture - Preliminary Blood - Venous - Lab Draw NO GROWTH AFTER 2 DAYS Anaerobic Blood Culture - Final 02/23/21 22:45 Aerobic Blood Culture - Preliminary Blood - Venous NO GROWTH AFTER 2 DAYS Anaerobic Blood Culture - Preliminary NO GROWTH AFTER 2 DAYS Med Orders - Current: Current Medications Discontinued Medications Al Hydroxide/Mg Hydroxide (Aluminum Hydroxide/Magnesium Hydroxide/Simethicone Susp 30 Ml Cup) 30 ml PO Q4H PRN PRN Reason: Dyspepsia Last Admin: 02/24/21 16:34 Dose: 30 ml Documented by: Albuterol/Ipratropium (Albuterol/Ipratropium 3.0-0.5 Mg/3 Ml Neb Soln) 3 ml NEB Q4HRRT PRN PRN Reason: Shortness Of Breath/wheezing Al Hydroxide/Mg Hydroxide 15 (ml/ Lidocaine HCl 5 ml) 0 ml PO ONETIME ONE Stop: 02/23/21 22:01 Last Admin: 02/23/21 22:35 Dose: 1 each Documented by: Escitalopram Oxalate (Escitalopram 10 Mg Tab) 20 mg PO DAILY [facility] Last Admin: 02/25/21 08:14 Dose: 20 mg Documented by: Heparin Sodium (Porcine) (Heparin Sodium 5,000 Units/Ml Vial) 5,000 units SUBCUT Q8H [facility] Last Admin: 02/25/21 08:12 Dose: 5,000 units Documented by: Sodium Chloride (Normal Saline) 1,000 mls @ 999 mls/hr IV .Bolus ONE Stop: 02/23/21 21:44 Last Admin: 02/23/21 21:19 Dose: 999 mls/hr Documented by: Pantoprazole Sodium 40 mg/ (Sodium Chloride) 10 mls @ 300 mls/hr IV NOW ONE Stop: 02/23/21 22:01 Last Admin: 02/23/21 22:35 Dose: 300 mls/hr Documented by: Sodium Chloride (Normal Saline) 1,000 mls @ 999 mls/hr IV .Bolus ONE Stop: 02/23/21 23:00 Last Admin: 02/24/21 00:27 Dose: 999 mls/hr Documented by: Potassium Chloride/Sodium Chloride (Normal Saline With 40 Meq Kcl) 1,000 mls @ 250 mls/hr IV ASDIRECTED [facility] Last Admin: 02/23/21 22:55 Dose: 250 mls/hr Documented by: Lactated Ringer's (Ringers, Lactated) 1,000 mls @ 125 mls/hr IV ASDIRECTED [facility] Last Admin: 02/25/21 03:14 Dose: 125 mls/hr Documented by: Piperacillin Sod/Tazobactam (Sod 4.5 gm/ Sodium Chloride) 100 mls @ 100 mls/hr IV ONETIME ONE Stop: 02/24/21 02:23 Last Admin: 02/24/21 01:55 Dose: 100 mls/hr Documented by: Piperacillin Sod/Tazobactam (Sod 3.375 gm/ Sodium Chloride) 50 mls @ 100 mls/hr IV Q8H [facility] Last Admin: 02/25/21 10:14 Dose: 100 mls/hr Documented by: Pantoprazole Sodium 40 mg/ (Sodium Chloride) 10 mls @ 300 mls/hr IV Q24H [facility] Last Admin: 02/25/21 08:14 Dose: 300 mls/hr Documented by: Lorazepam (Lorazepam 2 Mg/Ml Sdv) 1 mg IVPUSH ONETIME ONE Stop: 02/23/21 21:12 Last Admin: 02/23/21 21:18 Dose: 1 mg Documented by: Lorazepam (Lorazepam 2 Mg/Ml Sdv) 1 mg IVPUSH Q4H PRN PRN Reason: Anxiety Last Admin: 02/24/21 10:55 Dose: 1 mg Documented by: Losartan Potassium (Losartan 50 Mg Tab) 25 mg PO DAILY [facility] Last Admin: 02/25/21 08:13 Dose: 25 mg Documented by: Magnesium Oxide (Magnesium Oxide 400 Mg Tab) 400 mg PO BID [facility] Last Admin: 02/25/21 08:14 Dose: 400 mg Documented by: Morphine Sulfate (Morphine 10 Mg/Ml Syringe) 1 mg IVPUSH Q3H PRN PRN Reason: Pain (severe 7-10) Stop: 02/25/21 00:43 Ondansetron HCl (Ondansetron 4 Mg/2 Ml Sdv) 4 mg IVPUSH ONETIME ONE Stop: 02/23/21 21:12 Last Admin: 02/23/21 21:18 Dose: 4 mg Documented by: Ondansetron HCl (Ondansetron 4 Mg/2 Ml Sdv) 4 mg IVPUSH Q4H PRN PRN Reason: Nausea/Vomiting Potassium Chloride (Potassium Chloride 10% 20 Meq/15 Ml Soln 30 Ml Ud Cup) 40 meq PO ONETIME ONE Stop: 02/23/21 22:03 Last Admin: 02/23/21 22:34 Dose: 40 meq Documented by: Sodium Chloride (Sodium Chloride 0.9% 10 Ml Syringe) 10 ml FLUSH ASDIRECTED PRN PRN Reason: Keep Vein Open Last Admin: 02/23/21 21:19 Dose: 10 ml Documented by: Sodium Chloride (Sodium Chloride 0.9% 2.5 Ml Syringe) 2.5 ml FLUSH ASDIRECTED PRN PRN Reason: Keep Vein Open Last Admin: 02/23/21 21:19 Dose: 2.5 ml Documented by:
== END 2021-02-25 12:20 | disposition home or self-care (01) ==
LOC: MW.ED 20:33 → MW.MS 02-24 00:25
PROVIDERS: ADMIT Student in an Organized Health Care Education/Training Program; ATTEND Student in an Organized Health Care Education/Training Program
DX: E87.6 Hypokalemia (principal); N17.9 Acute kidney failure, unspecified; D72.829 Elevated white blood cell count, unspecified; I10 Essential (primary) hypertension; E66.9 Obesity, unspecified; K21.9 Gastro-esophageal reflux disease without esophagitis; Z20.822 Contact with and (suspected) exposure to COVID-19; Z68.29 Body mass index [BMI] 29.0-29.9, adult; Z88.8 Allergy status to other drugs, medicaments and biological substances; Z88.0 Allergy status to penicillin; Z88.5 Allergy status to narcotic agent; Z87.891 Personal history of nicotine dependence; Z98.890 Other specified postprocedural states; Z96.659 Presence of unspecified artificial knee joint; Z79.899 Other long term (current) drug therapy
CPT/HCPCS: 0240U; 36415; 70450; 71045; 74176; 80048; 80053; 80061; 81001; 83605; 83690; 83735; 84100; 84443; 84484; 85025; 85730; 87040; 93005; 96365; 96366; 96375; 99285; A9270; C9113; J1644; J2060; J2405; J2543; J3480; J7030; J7120; 96372; 96376; G0378

== ENCOUNTER 2023-04-24 09:44 | Emergency (ER) | payer MEDICARE, OTHER ==
[2023-04-24] MEDS ORDERED: Sodium Chloride 0.9% 10 ML Syringe FLUSH PRN (09:47)
[2023-04-24] MEDS ORDERED: Sodium Chloride 0.9% 2.5 ML Syringe FLUSH PRN (09:47)
[2023-04-24] MEDS ORDERED: Ondansetron 4 MG/2 ML SDV IVPUSH ONE (09:56)
[2023-04-24] MEDS ORDERED: Ketorolac 30 MG/ML SDV IVPUSH ONE (09:57)
[2023-04-24] MEDS: Sodium Chloride 0.9% 1,000 ML IV ONE ×2 (10:05→10:34)
[2023-04-24] MEDS ORDERED: HYDROmorphone 1 MG/ML Syringe IM ONE (10:15)
[2023-04-24 10:47] LABS: APPEARANCE,URINE CLEAR; BILIRUBIN,URINE NEGATIVE (NEGATIVE); COLOR,URINE YELLOW; GLUCOSE,URINE NEGATIVE (NEGATIVE); KETONES,URINE NEGATIVE (NEGATIVE); LEUKOCYTE ESTERASE,URINE NEGATIVE (NEGATIVE); NITRITE,URINE NEGATIVE (NEGATIVE); OCCULT BLOOD,URINE SMALL (NEGATIVE); PH,URINE 6.5 (5.0-8.0); PROTEIN,URINE NEGATIVE (NEGATIVE)
[2023-04-24 10:49] LABS: BASOPHILS PERCENT AUTO 0.1 % (0.0-1.5); EOSINOPHILS ABSOLUTE AUTO 0.1 K/uL (0.0-0.7); EOSINOPHILS PERCENT AUTO 0.8 % (0.0-7.0); HEMATOCRIT 42.9 % (36.0-46.0); HEMOGLOBIN 14.7 g/dL (12.0-16.0); LYMPHOCYTES ABSOLUTE AUTO 1.7 K/uL (0.6-2.4); LYMPHOCYTES PERCENT AUTO 11.6 % (16.0-40.0); MEAN CORPUSCULAR HEMOGLOBIN 28.7 pg (27.0-32.0); MEAN CORPUSCULAR HGB CONC 34.3 g/dL (31.0-37.0); MEAN CORPUSCULAR VOLUME 83.6 fL (80.0-98.0); MONOCYTES ABSOLUTE AUTO 0.8 K/uL (0.0-0.8); MONOCYTES PERCENT AUTO 5.4 % (0.0-15.0); NEUTROPHILS ABSOLUTE AUTO 11.8 K/uL (1.4-5.7); NEUTROPHILS PERCENT AUTO 82.1 % (48.0-80.0); NRBC ABSOLUTE 0 K/uL; PLATELET COUNT,PLT 258 K/uL (150-400); RED BLOOD CELL COUNT 5.13 M/uL (4.30-5.90); WHITE BLOOD CELL COUNT,WBC 14.38 K/uL (4.0-11.0)
[2023-04-24 10:54] LABS: BACTERIA,URINE FEW (NEGATIVE); EPITHELIAL CELLS,URINE OCCASIONAL (NONE-FEW); RBC,URINE 0-3 (0-2/HPF); WBC,URINE 0-2 (0-5/HPF)
[2023-04-24 11:19] LABS: A/G RATIO 0.7 (0.9-1.6); ALBUMIN 3.1 g/dL (3.4-5.0); BILIRUBIN TOTAL 0.9 mg/dL (0.2-1.0); CALCIUM 8.9 mg/dL (8.5-10.1); CARBON DIOXIDE,CO2 21.8 mmol/L (21.0-32.0); CREATININE 0.7 mg/dL (0.6-1.0); EST CRCL DRUG DOSING (CG) 88.37 mL/min; POTASSIUM,K 3.5 mmol/L (3.5-5.1); PROTEIN TOTAL,TP 7.7 g/dL (6.4-8.2)
[2023-04-24] MEDS ORDERED: Ondansetron 4 MG Tab.DIS ONE (11:53)
[2023-04-24] MEDS ORDERED: Ondansetron 4 MG Tab.DIS PO STA (12:07)
[2023-04-24] MEDS ORDERED: Promethazine 25 MG/ML SDV IM ONE (12:50)
== END 2023-04-24 14:08 | disposition home or self-care (01) ==
LOC: MW.ED 09:44
DX: K57.32 Diverticulitis of large intestine without perforation or abscess without bleeding (principal); I10 Essential (primary) hypertension; K21.9 Gastro-esophageal reflux disease without esophagitis; M19.90 Unspecified osteoarthritis, unspecified site; E66.9 Obesity, unspecified; Z68.29 Body mass index [BMI] 29.0-29.9, adult; Z88.5 Allergy status to narcotic agent; Z88.0 Allergy status to penicillin; Z88.4 Allergy status to anesthetic agent; Z88.1 Allergy status to other antibiotic agents; Z88.8 Allergy status to other drugs, medicaments and biological substances; Z79.82 Long term (current) use of aspirin; Z79.899 Other long term (current) drug therapy
CPT/HCPCS: 36415; 74176; 80053; 81001; 83690; 85025; 96372; 99284; A9270; J1170; J2550; J3490; J7030

== ENCOUNTER 2024-04-16 00:05 | Inpatient (IN) | payer MEDICARE, OTHER ==
[2024-04-16] MEDS: Sodium Chloride 0.9% 1,000 ML IV ONE (01:29)
[2024-04-16] MEDS: Ketorolac 30 MG/ML SDV IVPUSH ONE (01:30)
[2024-04-16] MEDS: Ondansetron 4 MG/2 ML SDV IVPUSH ONE ×2 (01:30→02:34)
[2024-04-16] MEDS: Famotidine 20 MG/2 ML SDV IVPUSH ONE (01:30)
[2024-04-16 01:36] LABS: BASOPHILS ABSOLUTE AUTO 0.04 K/uL (0.00-0.20); BASOPHILS PERCENT AUTO 0.3 % (0.0-1.0); EOSINOPHILS ABSOLUTE AUTO 0.01 K/uL (0.00-0.45); EOSINOPHILS PERCENT AUTO 0.1 % (0.0-6.0); HEMATOCRIT 43.7 % (37.0-47.0); HEMOGLOBIN 15.1 g/dL (12.0-16.0); IMMATURE GRAN ABSOLUTE AUTO 0.09 K/uL (0.00-0.05); IMMATURE GRAN PERCENT AUTO 0.7 % (0.0-0.4); MEAN CORPUSCULAR HGB CONC 34.6 g/dL (32.0-36.0); MEAN CORPUSCULAR VOLUME 83.9 fL (83.0-99.0); MEAN PLATELET VOLUME 10.4 fL (9.4-12.3); MONOCYTES ABSOLUTE AUTO 0.23 K/uL (0.00-0.80); MONOCYTES PERCENT AUTO 1.8 % (0.0-8.0); NEUTROPHILS ABSOLUTE AUTO 11.56 K/uL (1.80-7.70); NEUTROPHILS PERCENT AUTO 90.1 % (41.0-71.0); PLATELET COUNT,PLT 338 K/uL (150-400); RED BLOOD CELL COUNT 5.21 M/uL (4.10-5.30); WHITE BLOOD CELL COUNT,WBC 12.83 K/uL (3.9-11.3)
[2024-04-16] MEDS: Sodium Chloride 0.9% 10 ML Syringe FLUSH PRN (01:36)
[2024-04-16] MEDS: Sodium Chloride 0.9% 2.5 ML Syringe FLUSH PRN (01:36)
[2024-04-16 02:42] LABS: A/G RATIO 0.7 (0.9-1.6); ALBUMIN 3.5 g/dL (3.4-5.0); BILIRUBIN TOTAL 0.5 mg/dL (0.2-1.0); CALCIUM 8.9 mg/dL (8.5-10.1); CARBON DIOXIDE,CO2 21.6 mmol/L (21.0-32.0); CREATININE 0.7 mg/dL (0.6-1.0); EST CRCL DRUG DOSING (CG) 87.29 mL/min; MAGNESIUM 1.9 mg/dL (1.8-2.4); PROTEIN TOTAL,TP 8.2 g/dL (6.4-8.2)
[2024-04-16 03:12] LABS: APPEARANCE,URINE CLEAR; BILIRUBIN,URINE NEGATIVE (NEGATIVE); COLOR,URINE YELLOW; GLUCOSE,URINE 100 mg/dL (NEGATIVE); KETONES,URINE TRACE mg/dL (NEGATIVE); LEUKOCYTE ESTERASE,URINE NEGATIVE (NEGATIVE); NITRITE,URINE NEGATIVE (NEGATIVE); OCCULT BLOOD,URINE TRACE-INTACT (NEGATIVE); PROTEIN,URINE TRACE mg/dL (NEGATIVE); UROBILINOGEN,URINE 0.2 EU/dL (<2.0)
[2024-04-16] MEDS: Iopamidol 755 MG/ML 500 ML Multipack Bottle IVPUSH ONE (03:18)
[2024-04-16 03:23] LABS: WBC,URINE 0-2 (0-5/HPF)
[2024-04-16 03:24] LABS: BACTERIA,URINE NOT SEEN (NEGATIVE); EPITHELIAL CELLS,URINE RARE (NONE-FEW)
[2024-04-16] MEDS: HYDROmorphone 0.5 MG/0.5 ML Syringe IVPUSH ONE (04:14)
[2024-04-16] MEDS: metroNIDAZOLE/Normal Saline 500 MG in Premix Bag 1 BAG IV STA ×3 (04:14→04:44)
[2024-04-16] MEDS: droPERidol 5 MG/2 ML SDV IVPUSH ONE ×2 (04:48→04:55)
[2024-04-16] MEDS: hydrALAZINE 20 MG/ML SDV IVPUSH ONE (04:49)
[2024-04-16] MEDS ORDERED: Acetaminophen 325 MG Tab PO PRN (07:38)
[2024-04-16] MEDS ORDERED: Nicotine 14 MG/24 Hr Patch TRDERM PRN (07:38)
[2024-04-16] MEDS ORDERED: HYDROmorphone 0.5 MG/0.5 ML Syringe IVPUSH PRN (07:38)
[2024-04-16] MEDS ORDERED: Naloxone 0.4 MG/ML SDV IVPUSH PRN (07:38)
[2024-04-16] MEDS ORDERED: Polyethylene Glycol 3350 Powder 17 GM Packet PO PRN (07:38)
[2024-04-16] MEDS ORDERED: Ketorolac 30 MG/ML SDV IM PRN (07:38)
[2024-04-16] MEDS: Sodium Chloride 0.9% 1,000 ML IV SCH (08:22)
[2024-04-16] MEDS: Enoxaparin 40 MG/0.4 ML Syringe SUBCUT SCH (08:22)
[2024-04-16] MEDS: Pantoprazole 40 MG in Sodium Chloride 0.9% 10 ML IVPUSH SCH (08:22)
[2024-04-16] MEDS: Ondansetron 4 MG/2 ML SDV IVPUSH PRN (08:37)
[2024-04-16] MEDS: Potassium Chloride 20 MEQ Tab.ER PO ONE (10:02)
[2024-04-16] MEDS: Losartan 50 MG Tab PO SCH (10:02)
[2024-04-16] MEDS: Piperacillin/Tazobactam 4.5 GM in Sodium Chloride 0.9% 100 ML IV ONE (10:04)
[2024-04-16] MEDS ORDERED: Enalaprilat 1.25 MG/ML SDV IVPUSH ONE (11:04)
[2024-04-16] MEDS: Losartan 25 MG Tab PO ONE (11:35)
[2024-04-16] MEDS: Prochlorperazine 10 MG/2 ML SDV IVPUSH ONE ×2 (12:03→12:15)
[2024-04-16] MEDS ORDERED: metroNIDAZOLE/Normal Saline 500 MG in Premix Bag 1 BAG IV SCH (12:30)
[2024-04-16] MEDS: Piperacillin/Tazobactam 4.5 GM in Sodium Chloride 0.9% 100 ML IV SCH (16:33)
[2024-04-17 06:21] LABS: BASOPHILS ABSOLUTE AUTO 0.04 K/uL (0.00-0.20); BASOPHILS PERCENT AUTO 0.4 % (0.0-1.0); EOSINOPHILS ABSOLUTE AUTO 0.05 K/uL (0.00-0.45); EOSINOPHILS PERCENT AUTO 0.5 % (0.0-6.0); HEMATOCRIT 41.8 % (37.0-47.0); HEMOGLOBIN 14.2 g/dL (12.0-16.0); IMMATURE GRAN ABSOLUTE AUTO 0.04 K/uL (0.00-0.05); IMMATURE GRAN PERCENT AUTO 0.4 % (0.0-0.4); LYMPHOCYTES ABSOLUTE AUTO 1.86 K/uL (1.00-4.80); LYMPHOCYTES PERCENT AUTO 19.5 % (24.0-44.0); MEAN CORPUSCULAR HEMOGLOBIN 28.7 pg (28.0-32.0); MEAN CORPUSCULAR VOLUME 84.6 fL (83.0-99.0); MEAN PLATELET VOLUME 9.5 fL (9.4-12.3); MONOCYTES ABSOLUTE AUTO 0.73 K/uL (0.00-0.80); MONOCYTES PERCENT AUTO 7.6 % (0.0-8.0); NEUTROPHILS ABSOLUTE AUTO 6.84 K/uL (1.80-7.70); NEUTROPHILS PERCENT AUTO 71.6 % (41.0-71.0); PLATELET COUNT,PLT 328 K/uL (150-400); RED BLOOD CELL COUNT 4.94 M/uL (4.10-5.30); WHITE BLOOD CELL COUNT,WBC 9.56 K/uL (3.9-11.3)
[2024-04-17 06:50] LABS: A/G RATIO 0.8 (0.9-1.6); ALBUMIN 3.2 g/dL (3.4-5.0); BILIRUBIN TOTAL 0.5 mg/dL (0.2-1.0); CALCIUM 8.4 mg/dL (8.5-10.1); CARBON DIOXIDE,CO2 23.4 mmol/L (21.0-32.0); CREATININE 0.7 mg/dL (0.6-1.0); EST CRCL DRUG DOSING (CG) 87.29 mL/min; MAGNESIUM 2.1 mg/dL (1.8-2.4); POTASSIUM,K 3.2 mmol/L (3.5-5.1); PROTEIN TOTAL,TP 7.3 g/dL (6.4-8.2)
[2024-04-17] MEDS: Ketorolac 30 MG/ML SDV IVPUSH PRN (08:37)
[2024-04-17] MEDS: Scopalamine 1mg/3day Transdermal Patch TRDERM ONE (09:48)
[2024-04-17] MEDS: Enalaprilat 1.25 MG/ML SDV IVPUSH ONE (11:31)
[2024-04-17] MEDS: Metoclopramide 10 MG/2 ML SDV IVPUSH PRN (11:31)
[2024-04-17] MEDS: Losartan 50 MG Tab PO SCH (11:39)
[2024-04-17] MEDS ORDERED: Potassium Chloride 10 MEQ in Premix Bag 1 BAG IV SCH (12:00)
[2024-04-17] MEDS: Potassium Chloride 20 MEQ Tab.ER PO ONE (12:08)
[2024-04-17] MEDS: Potassium Chloride 10% 20 MEQ/15 ML Soln 15 ML UD Cup PO ONE (12:08)
[2024-04-17] MEDS: NS with KCl 40mEq 1,000 ML IV ONE (12:09)
[2024-04-17] MEDS: Ondansetron 4 MG/2 ML SDV IVPUSH PRN (13:43)
[2024-04-18 06:20] LABS: BASOPHILS ABSOLUTE AUTO 0.03 K/uL (0.00-0.20); BASOPHILS PERCENT AUTO 0.4 % (0.0-1.0); EOSINOPHILS ABSOLUTE AUTO 0.05 K/uL (0.00-0.45); EOSINOPHILS PERCENT AUTO 0.6 % (0.0-6.0); HEMATOCRIT 40.9 % (37.0-47.0); HEMOGLOBIN 13.8 g/dL (12.0-16.0); IMMATURE GRAN ABSOLUTE AUTO 0.03 K/uL (0.00-0.05); IMMATURE GRAN PERCENT AUTO 0.4 % (0.0-0.4); LYMPHOCYTES ABSOLUTE AUTO 1.23 K/uL (1.00-4.80); LYMPHOCYTES PERCENT AUTO 15.5 % (24.0-44.0); MEAN CORPUSCULAR HEMOGLOBIN 28.4 pg (28.0-32.0); MEAN CORPUSCULAR HGB CONC 33.7 g/dL (32.0-36.0); MEAN CORPUSCULAR VOLUME 84.2 fL (83.0-99.0); MEAN PLATELET VOLUME 9.5 fL (9.4-12.3); MONOCYTES PERCENT AUTO 7.5 % (0.0-8.0); NEUTROPHILS ABSOLUTE AUTO 6.01 K/uL (1.80-7.70); NEUTROPHILS PERCENT AUTO 75.6 % (41.0-71.0); PLATELET COUNT,PLT 317 K/uL (150-400); RED BLOOD CELL COUNT 4.86 M/uL (4.10-5.30); WHITE BLOOD CELL COUNT,WBC 7.95 K/uL (3.9-11.3)
[2024-04-18 06:42] LABS: A/G RATIO 0.7 (0.9-1.6); BILIRUBIN TOTAL 0.5 mg/dL (0.2-1.0); CALCIUM 8.5 mg/dL (8.5-10.1); CARBON DIOXIDE,CO2 21.7 mmol/L (21.0-32.0); CREATININE 0.8 mg/dL (0.6-1.0); EST CRCL DRUG DOSING (CG) 76.38 mL/min; POTASSIUM,K 3.3 mmol/L (3.5-5.1); PROTEIN TOTAL,TP 7.1 g/dL (6.4-8.2)
== END 2024-04-18 14:00 | disposition home or self-care (01) | DRG 392 ==
LOC: MW.ED 00:05 → MW.MS 04:30 → OBSVTOIN 04-17 11:10 → MW.MS 04-17 11:10
PROVIDERS: ADMIT Internal Medicine; ATTEND Internal Medicine
DX: K57.32 Diverticulitis of large intestine without perforation or abscess without bleeding (principal); K57.92 Diverticulitis of intestine, part unspecified, without perforation or abscess without bleeding; K21.9 Gastro-esophageal reflux disease without esophagitis; M19.90 Unspecified osteoarthritis, unspecified site; F32.A Depression, unspecified; I10 Essential (primary) hypertension; Z96.659 Presence of unspecified artificial knee joint; E66.9 Obesity, unspecified; F41.1 Generalized anxiety disorder; E87.8 Other disorders of electrolyte and fluid balance, not elsewhere classified; F17.210 Nicotine dependence, cigarettes, uncomplicated; Z68.31 Body mass index [BMI] 31.0-31.9, adult; Z88.0 Allergy status to penicillin; Z88.1 Allergy status to other antibiotic agents; Z88.5 Allergy status to narcotic agent; Z79.2 Long term (current) use of antibiotics; Z88.8 Allergy status to other drugs, medicaments and biological substances; Z91.048 Other nonmedicinal substance allergy status; Z90.722 Acquired absence of ovaries, bilateral; Z90.79 Acquired absence of other genital organ(s); Z98.51 Tubal ligation status; Z98.890 Other specified postprocedural states; Z79.899 Other long term (current) drug therapy; Z90.49 Acquired absence of other specified parts of digestive tract; Z90.710 Acquired absence of both cervix and uterus
CPT/HCPCS: 36415 ×2; 74177; 76830; 80053 ×2; 81001; 83690; 83735 ×2; 84100; 84484; 85025 ×2; 93005; 96361 ×3; 96365; 96366 ×2; 96367; 96372 ×2; 96375; 96376; 99285; A9270 ×4; C9113 ×2; G0378 ×4; J0360; J0780; J1170; J1650 ×2; J1790; J1836; J1885 ×2; J2405 ×5; J2543 ×4; J3490 ×8; J7030 ×4; Q9967; 93010; J2765; J3480

== ENCOUNTER 2024-05-29 09:43 | Emergency (ER) | payer MEDICARE, OTHER ==
[2024-05-29] MEDS: Sodium Chloride 0.9% 1,000 ML IV ONE (10:18)
[2024-05-29] MEDS: Ondansetron 4 MG/2 ML SDV IVPUSH ONE (10:19)
[2024-05-29 10:32] LABS: BASOPHILS ABSOLUTE AUTO 0.03 K/uL (0.00-0.20); BASOPHILS PERCENT AUTO 0.3 % (0.0-1.0); EOSINOPHILS ABSOLUTE AUTO 0.11 K/uL (0.00-0.45); EOSINOPHILS PERCENT AUTO 1.2 % (0.0-6.0); HEMATOCRIT 45.3 % (37.0-47.0); HEMOGLOBIN 15.3 g/dL (12.0-16.0); IMMATURE GRAN ABSOLUTE AUTO 0.02 K/uL (0.00-0.05); IMMATURE GRAN PERCENT AUTO 0.2 % (0.0-0.4); LYMPHOCYTES ABSOLUTE AUTO 0.77 K/uL (1.00-4.80); LYMPHOCYTES PERCENT AUTO 8.6 % (24.0-44.0); MEAN CORPUSCULAR HEMOGLOBIN 28.8 pg (28.0-32.0); MEAN CORPUSCULAR HGB CONC 33.8 g/dL (32.0-36.0); MEAN CORPUSCULAR VOLUME 85.2 fL (83.0-99.0); MEAN PLATELET VOLUME 9.9 fL (9.4-12.3); MONOCYTES ABSOLUTE AUTO 0.31 K/uL (0.00-0.80); MONOCYTES PERCENT AUTO 3.5 % (0.0-8.0); NEUTROPHILS ABSOLUTE AUTO 7.68 K/uL (1.80-7.70); NEUTROPHILS PERCENT AUTO 86.2 % (41.0-71.0); PLATELET COUNT,PLT 249 K/uL (150-400); RED BLOOD CELL COUNT 5.32 M/uL (4.10-5.30); WHITE BLOOD CELL COUNT,WBC 8.92 K/uL (3.9-11.3)
[2024-05-29 11:10] LABS: ALBUMIN 3.8 g/dL (3.4-5.0); BILIRUBIN TOTAL 0.4 mg/dL (0.2-1.0); CALCIUM 8.7 mg/dL (8.5-10.1); CARBON DIOXIDE,CO2 20.8 mmol/L (21.0-32.0); CREATININE 0.7 mg/dL (0.6-1.0); EST CRCL DRUG DOSING (CG) 87.29 mL/min; POTASSIUM,K 3.9 mmol/L (3.5-5.1); PROTEIN TOTAL,TP 7.7 g/dL (6.4-8.2)
[2024-05-29] MEDS: Iopamidol 755 MG/ML 500 ML Multipack Bottle IVPUSH STA (11:46)
[2024-05-29 12:10] LABS: APPEARANCE,URINE CLEAR; BILIRUBIN,URINE NEGATIVE (NEGATIVE); COLOR,URINE YELLOW; GLUCOSE,URINE NEGATIVE (NEGATIVE); KETONES,URINE NEGATIVE (NEGATIVE); LEUKOCYTE ESTERASE,URINE NEGATIVE (NEGATIVE); NITRITE,URINE NEGATIVE (NEGATIVE); OCCULT BLOOD,URINE TRACE-INTACT (NEGATIVE); PH,URINE 6.5 (5.0-8.0); PROTEIN,URINE NEGATIVE (NEGATIVE); UROBILINOGEN,URINE 0.2 EU/dL (<2.0)
[2024-05-29 12:17] LABS: BACTERIA,URINE NOT SEEN (NEGATIVE); EPITHELIAL CELLS,URINE RARE (NONE-FEW); WBC,URINE 0-1 (0-5/HPF)
== END 2024-05-29 13:30 | disposition home or self-care (01) ==
LOC: MW.ED 09:43
DX: N82.3 Fistula of vagina to large intestine (principal); I10 Essential (primary) hypertension; E66.9 Obesity, unspecified; Z68.31 Body mass index [BMI] 31.0-31.9, adult; Z75.8 Other problems related to medical facilities and other health care; Z90.49 Acquired absence of other specified parts of digestive tract; Z90.710 Acquired absence of both cervix and uterus; Z88.5 Allergy status to narcotic agent; Z88.0 Allergy status to penicillin; Z88.8 Allergy status to other drugs, medicaments and biological substances
CPT/HCPCS: 36415; 74177; 80053; 81001; 83690; 85025; 96361; 96374; 99284; J2405; J7030; Q9967